=== PATIENT | female | born 1950 | race Caucasian/White ===

== ENCOUNTER 2018-02-16 05:35 | Inpatient (IN) | payer MEDICARE ==
[~2018-02-16] VITALS: Ht 162.6 cm; Wt 64.7 kg
[2018-02-16] VITALS (29 sets, daily range): BP systolic 88–153; BP diastolic 43–87; BMI 23.8
[2018-02-16] MEDS ORDERED: PACERONE100 MG PO (07:29)
[2018-02-16] MEDS ORDERED: ABILIFY2 MG PO (07:29)
[2018-02-16] MEDS ORDERED: ELIQUIS5 MG PO (07:30)
[2018-02-16] MEDS ORDERED: CYMBALTA60 MG PO (07:30)
[2018-02-16] MEDS ORDERED: CYMBALTA30 MG PO (07:30)
[2018-02-16] MEDS ORDERED: GUAIFENESI100 MG/5 M PO (07:32)
[2018-02-16] MEDS ORDERED: FUROSEMIDE20 MG PO (07:33)
[2018-02-16] MEDS ORDERED: LYRICA75 MG PO (07:33)
[2018-02-16] MEDS ORDERED: KLONOPIN0.5 MG PO (07:33)
[2018-02-16] MEDS ORDERED: METOPROLOL TART25 MG PO (07:34)
[2018-02-16] MEDS ORDERED: MIRALAX17 GM PO (07:34)
[2018-02-16] MEDS ORDERED: MEDROL4 MG PO (07:34)
[2018-02-16] MEDS ORDERED: MULTI-DAY VITAM1 TAB PO (07:35)
[2018-02-16] MEDS ORDERED: SYNTHROID175 MCG PO (07:35)
[2018-02-16] MEDS ORDERED: ULTRAM50 MG PO (07:35)
[2018-02-16] MEDS ORDERED: REMERON15 MG PO (07:35)
[2018-02-16] MEDS ORDERED: ZOFRAN4 MG (07:36)
[2018-02-16 07:47] LABS: BASOPHILS 0.2 % (0-2); EOSINOPHILS 0 % (0-7); HEMATOCRIT 43.6 % (36.0-48.0); HEMOGLOBIN 13.1 g/dL (12-16); IMMATURE GRANULOCYTES 0.3 % (0-5); LYMPHOCYTES 5.5 % (15-50); MCH 28.6 pg (26.0-34.0); MCV 95.2 fL (80.0-100.0); MEAN PLATELET VOLUME 9.9 fL (7.4-10.4); MONOCYTES 13.8 % (2-11); NEUTROPHILS 80.2 % (40-80); PLATELET COUNT 326 10x3/uL (130-400); RBC 4.58 10x6/uL (4.00-5.40); RDW 15.7 % (11.5-14.5); WBC 11.6 10x3/uL (4.8-10.8)
[2018-02-16 07:55] LABS: ALBUMIN 2.8 g/dL (3.4-5.0); ALKALINE PHOSPHATASE 141 U/L (46-116); ALT (SGPT) 26 U/L (10-68); CALC OSMOLALITY 277 mosm/kg (275-300); CALCIUM 8.3 mg/dL (8.5-10.1); CARBON DIOXIDE 39.7 mmol/L (21.0-32.0); CHLORIDE - SERUM 102 mmol/L (98-107); CREATININE - SERUM 0.6 mg/dL (0.6-1.3); GLUCOSE 93 mg/dL (74-106); POTASSIUM - SERUM 4.4 mmol/L (3.5-5.1); PROTEIN - SERUM 6.2 g/dL (6.4-8.2); SODIUM 140 mmol/L (136-145); UREA NITROGEN 9 mg/dL (7-18); eGFR NON AFRICAN AMERICAN > 90 mL/min (90-120)
[2018-02-16 08:06] LABS: INR 1.75 (0.85-1.17); PROTIME 19.9 SECONDS (11.6-15.0)
[2018-02-16 08:07] LABS: CKMB 3.4 U/L (0.0-3.6); CREATINE KINASE 191 UL (21-215); D-DIMER-QUANTITATIVE 0.59 ug/mLFEU (0.20-0.54); TROPONIN-I < 0.017 ng/mL (0.000-0.060)
[2018-02-16 11:50] LABS: CKMB 3.1 U/L (0.0-3.6); CREATINE KINASE 226 UL (21-215); TROPONIN-I < 0.017 ng/mL (0.000-0.060)
[2018-02-16 18:56] LABS: CREATINE KINASE 140 UL (21-215); TROPONIN-I < 0.017 ng/mL (0.000-0.060)
[2018-02-16 23:19] LABS: CKMB 3.4 U/L (0.0-3.6); CREATINE KINASE 199 UL (21-215)
[2018-02-16 23:26] LABS: TROPONIN-I < 0.017 ng/mL (0.000-0.060)
[2018-02-17] VITALS (24 sets, daily range): BP systolic 108–165; BP diastolic 64–88; BMI 23.8
[2018-02-17 07:20] LABS: ALBUMIN 2.4 g/dL (3.4-5.0); ALKALINE PHOSPHATASE 129 U/L (46-116); ALT (SGPT) 20 U/L (10-68); BILIRUBIN - TOTAL 0.71 mg/dL (0.2-1.3); CALC OSMOLALITY 276 mosm/kg (275-300); CALCIUM 8.2 mg/dL (8.5-10.1); CHLORIDE - SERUM 102 mmol/L (98-107); CREATININE - SERUM 0.6 mg/dL (0.6-1.3); GLUCOSE 116 mg/dL (74-106); POTASSIUM - SERUM 4.1 mmol/L (3.5-5.1); PROTEIN - SERUM 5.9 g/dL (6.4-8.2); SODIUM 138 mmol/L (136-145); eGFR NON AFRICAN AMERICAN > 90 mL/min (90-120)
[2018-02-17 07:24] LABS: UREA NITROGEN 12 mg/dL (7-18)
[2018-02-17 08:36] LABS: BASOPHILS 0.1 % (0-2); EOSINOPHILS 0 % (0-7); HEMATOCRIT 40.1 % (36.0-48.0); HEMOGLOBIN 12.7 g/dL (12-16); IMMATURE GRANULOCYTES 0.2 % (0-5); LYMPHOCYTES 5.8 % (15-50); MCH 28.1 pg (26.0-34.0); MCHC 31.7 g/dL (31.0-37.0); NEUTROPHILS 90.9 % (40-80); PLATELET COUNT 317 10x3/uL (130-400); RBC 4.52 10x6/uL (4.00-5.40); RDW 15.4 % (11.5-14.5); WBC 8.7 10x3/uL (4.8-10.8)
[2018-02-17 08:52] LABS: MCV 88.7 fL (80.0-100.0)
[2018-02-17 11:56] LABS: UDS - AMPHET NEGATIVE QUAL (NEGATIVE); UDS - BARB NEGATIVE QUAL (NEGATIVE); UDS - BENZO POSITIVE QUAL (NEGATIVE); UDS - COCAINE NEGATIVE QUAL (NEGATIVE); UDS - OPIATE POSITIVE QUAL (NEGATIVE); UDS - PCP NEGATIVE QUAL (NEGATIVE); UDS - THC NEGATIVE QUAL (NEGATIVE)
[2018-02-18] VITALS (24 sets, daily range): BP systolic 112–165; BP diastolic 60–92
[2018-02-18 05:46] LABS: BASOPHILS 0.1 % (0-2); EOSINOPHILS 0 % (0-7); HEMATOCRIT 39.1 % (36.0-48.0); HEMOGLOBIN 12.6 g/dL (12-16); IMMATURE GRANULOCYTES 0.5 % (0-5); LYMPHOCYTES 9.3 % (15-50); MCH 28.4 pg (26.0-34.0); MCHC 32.2 g/dL (31.0-37.0); MCV 88.3 fL (80.0-100.0); MEAN PLATELET VOLUME 10.2 fL (7.4-10.4); MONOCYTES 8.5 % (2-11); NEUTROPHILS 81.6 % (40-80); PLATELET COUNT 375 10x3/uL (130-400); RBC 4.43 10x6/uL (4.00-5.40); RDW 15.6 % (11.5-14.5); WBC 8.9 10x3/uL (4.8-10.8)
[2018-02-18 05:59] LABS: ALBUMIN 2.2 g/dL (3.4-5.0); ALKALINE PHOSPHATASE 111 U/L (46-116); ALT (SGPT) 19 U/L (10-68); CALC OSMOLALITY 279 mosm/kg (275-300); CALCIUM 7.9 mg/dL (8.5-10.1); CARBON DIOXIDE 30.5 mmol/L (21.0-32.0); CHLORIDE - SERUM 105 mmol/L (98-107); GLUCOSE 123 mg/dL (74-106); POTASSIUM - SERUM 4.1 mmol/L (3.5-5.1); PROTEIN - SERUM 5.7 g/dL (6.4-8.2); SODIUM 140 mmol/L (136-145); UREA NITROGEN 12 mg/dL (7-18)
[2018-02-18 06:06] LABS: CREATININE - SERUM 0.4 mg/dL (0.6-1.3); eGFR NON AFRICAN AMERICAN > 90 mL/min (90-120)
[2018-02-19] VITALS (21 sets, daily range): BP systolic 106–152; BP diastolic 52–89
[2018-02-19 05:11] LABS: BASOPHILS 0.2 % (0-2); EOSINOPHILS 0 % (0-7); HEMATOCRIT 38.1 % (36.0-48.0); IMMATURE GRANULOCYTES 0.5 % (0-5); LYMPHOCYTES 12.9 % (15-50); MCHC 31.5 g/dL (31.0-37.0); MEAN PLATELET VOLUME 9.6 fL (7.4-10.4); MONOCYTES 10.8 % (2-11); NEUTROPHILS 75.6 % (40-80); PLATELET COUNT 325 10x3/uL (130-400); RBC 4.28 10x6/uL (4.00-5.40); RDW 15.5 % (11.5-14.5)
[2018-02-19 05:17] LABS: WBC 6.6 10x3/uL (4.8-10.8)
[2018-02-19 05:27] LABS: ALBUMIN 2.1 g/dL (3.4-5.0); ALKALINE PHOSPHATASE 97 U/L (46-116); ALT (SGPT) 17 U/L (10-68); BILIRUBIN - TOTAL 0.58 mg/dL (0.2-1.3); CALC OSMOLALITY 281 mosm/kg (275-300); CALCIUM 7.6 mg/dL (8.5-10.1); CARBON DIOXIDE 34.3 mmol/L (21.0-32.0); CHLORIDE - SERUM 106 mmol/L (98-107); CREATININE - SERUM 0.4 mg/dL (0.6-1.3); GLUCOSE 95 mg/dL (74-106); MAGNESIUM - SERUM 1.7 mg/dL (1.8-2.4); PHOSPHOROUS 3.2 mg/dL (2.5-4.9); POTASSIUM - SERUM 3.8 mmol/L (3.5-5.1); PROTEIN - SERUM 5.4 g/dL (6.4-8.2); SODIUM 142 mmol/L (136-145); UREA NITROGEN 11 mg/dL (7-18); eGFR NON AFRICAN AMERICAN > 90 mL/min (90-120)
[2018-02-20 03:00] VITALS: BP 137/71
[2018-02-20 06:13] LABS: BASOPHILS 0 % (0-2); EOSINOPHILS 0 % (0-7); HEMATOCRIT 41.8 % (36.0-48.0); IMMATURE GRANULOCYTES 0.8 % (0-5); MCH 27.8 pg (26.0-34.0); MCHC 31.1 g/dL (31.0-37.0); MCV 89.5 fL (80.0-100.0); MEAN PLATELET VOLUME 9.5 fL (7.4-10.4); NEUTROPHILS 75.2 % (40-80); PLATELET COUNT 336 10x3/uL (130-400); RBC 4.67 10x6/uL (4.00-5.40); RDW 15.5 % (11.5-14.5)
[2018-02-20 06:16] LABS: WBC 8.4 10x3/uL (4.8-10.8)
[2018-02-20 07:00] VITALS: BP 117/60
[2018-02-20 07:32] LABS: ALBUMIN 2.3 g/dL (3.4-5.0); ALKALINE PHOSPHATASE 98 U/L (46-116); ALT (SGPT) 17 U/L (10-68); BILIRUBIN - TOTAL 0.38 mg/dL (0.2-1.3); CALC OSMOLALITY 282 mosm/kg (275-300); CALCIUM 8.2 mg/dL (8.5-10.1); CARBON DIOXIDE 33.2 mmol/L (21.0-32.0); CHLORIDE - SERUM 105 mmol/L (98-107); CREATININE - SERUM 0.5 mg/dL (0.6-1.3); GLUCOSE 118 mg/dL (74-106); MAGNESIUM - SERUM 1.9 mg/dL (1.8-2.4); PHOSPHOROUS 3.4 mg/dL (2.5-4.9); POTASSIUM - SERUM 4.2 mmol/L (3.5-5.1); PROTEIN - SERUM 5.6 g/dL (6.4-8.2); SODIUM 141 mmol/L (136-145); eGFR NON AFRICAN AMERICAN > 90 mL/min (90-120)
[2018-02-20 07:40] LABS: UREA NITROGEN 14 mg/dL (7-18)
[2018-02-20 11:00] VITALS: BP 95/67
[2018-02-20 15:00] VITALS: BP 124/72
[2018-02-20 15:56] VITALS: Ht 162.6 cm; Wt 64.7 kg
[2018-02-21 00:02] VITALS: BP 148/87
[2018-02-21 04:36] LABS: BASOPHILS 0.1 % (0-2); EOSINOPHILS 0 % (0-7); HEMATOCRIT 42.8 % (36.0-48.0); HEMOGLOBIN 13.4 g/dL (12-16); IMMATURE GRANULOCYTES 1.1 % (0-5); LYMPHOCYTES 9.2 % (15-50); MCH 28.2 pg (26.0-34.0); MCHC 31.3 g/dL (31.0-37.0); MCV 90.1 fL (80.0-100.0); MEAN PLATELET VOLUME 9.2 fL (7.4-10.4); NEUTROPHILS 81.6 % (40-80); PLATELET COUNT 308 10x3/uL (130-400); RBC 4.75 10x6/uL (4.00-5.40); RDW 15.4 % (11.5-14.5); WBC 8.1 10x3/uL (4.8-10.8)
[2018-02-21 04:54] LABS: ALBUMIN 2.2 g/dL (3.4-5.0); ALKALINE PHOSPHATASE 93 U/L (46-116); ALT (SGPT) 20 U/L (10-68); BILIRUBIN - TOTAL 0.31 mg/dL (0.2-1.3); CALC OSMOLALITY 281 mosm/kg (275-300); CALCIUM 7.8 mg/dL (8.5-10.1); CARBON DIOXIDE 35.1 mmol/L (21.0-32.0); CHLORIDE - SERUM 104 mmol/L (98-107); GLUCOSE 115 mg/dL (74-106); POTASSIUM - SERUM 4.5 mmol/L (3.5-5.1); PROTEIN - SERUM 5.5 g/dL (6.4-8.2); SODIUM 141 mmol/L (136-145); UREA NITROGEN 12 mg/dL (7-18); eGFR NON AFRICAN AMERICAN 88 mL/min (90-120)
[2018-02-21 05:11] LABS: CREATININE - SERUM 0.7 mg/dL (0.6-1.3)
[2018-02-21 06:02] VITALS: BP 158/82
[2018-02-21 08:47] VITALS: BP 141/84
[2018-02-21 12:38] VITALS: BP 138/80
[2018-02-21 16:27] VITALS: BP 114/68; BP 126/79
[2018-02-21 22:07] VITALS: BP 125/73
[2018-02-22 01:57] VITALS: BP 120/77
[2018-02-22 05:30] VITALS: BP 124/55
[2018-02-22 05:48] LABS: BASOPHILS 0.1 % (0-2); EOSINOPHILS 0.1 % (0-7); HEMATOCRIT 42.5 % (36.0-48.0); HEMOGLOBIN 13.2 g/dL (12-16); IMMATURE GRANULOCYTES 1.6 % (0-5); LYMPHOCYTES 9.8 % (15-50); MCH 28.2 pg (26.0-34.0); MCHC 31.1 g/dL (31.0-37.0); MCV 90.8 fL (80.0-100.0); MEAN PLATELET VOLUME 9.7 fL (7.4-10.4); MONOCYTES 7.6 % (2-11); NEUTROPHILS 80.8 % (40-80); PLATELET COUNT 331 10x3/uL (130-400); RBC 4.68 10x6/uL (4.00-5.40); RDW 15.4 % (11.5-14.5)
[2018-02-22 06:02] LABS: WBC 10.9 10x3/uL (4.8-10.8)
[2018-02-22 06:13] LABS: ALBUMIN 2.2 g/dL (3.4-5.0); ALKALINE PHOSPHATASE 91 U/L (46-116); ALT (SGPT) 21 U/L (10-68); BILIRUBIN - TOTAL 0.32 mg/dL (0.2-1.3); CALC OSMOLALITY 279 mosm/kg (275-300); CALCIUM 7.8 mg/dL (8.5-10.1); CARBON DIOXIDE 37.6 mmol/L (21.0-32.0); CHLORIDE - SERUM 102 mmol/L (98-107); GLUCOSE 102 mg/dL (74-106); PROTEIN - SERUM 5.3 g/dL (6.4-8.2); SODIUM 140 mmol/L (136-145); UREA NITROGEN 14 mg/dL (7-18)
[2018-02-22 06:18] LABS: CREATININE - SERUM 0.5 mg/dL (0.6-1.3); eGFR NON AFRICAN AMERICAN > 90 mL/min (90-120)
[2018-02-22 07:54] VITALS: BP 134/80
[2018-02-22 11:29] VITALS: BP 105/69
[2018-02-22 15:34] VITALS: BP 97/55
[2018-02-22 19:44] VITALS: BP 99/57
[2018-02-23 01:25] VITALS: BP 105/68
[2018-02-23 05:58] VITALS: BP 120/76
[2018-02-23 06:35] LABS: BASOPHILS 0.1 % (0-2); EOSINOPHILS 0 % (0-7); HEMATOCRIT 44.5 % (36.0-48.0); HEMOGLOBIN 13.8 g/dL (12-16); IMMATURE GRANULOCYTES 1.8 % (0-5); LYMPHOCYTES 8.2 % (15-50); MCH 28.6 pg (26.0-34.0); MCV 92.1 fL (80.0-100.0); MEAN PLATELET VOLUME 9.7 fL (7.4-10.4); MONOCYTES 4.6 % (2-11); NEUTROPHILS 85.3 % (40-80); PLATELET COUNT 349 10x3/uL (130-400); RBC 4.83 10x6/uL (4.00-5.40); RDW 15.6 % (11.5-14.5); WBC 9.6 10x3/uL (4.8-10.8)
[2018-02-23 07:02] LABS: ALBUMIN 2.2 g/dL (3.4-5.0); ALKALINE PHOSPHATASE 89 U/L (46-116); ALT (SGPT) 23 U/L (10-68); BILIRUBIN - TOTAL 0.32 mg/dL (0.2-1.3); CALC OSMOLALITY 281 mosm/kg (275-300); CALCIUM 7.9 mg/dL (8.5-10.1); CARBON DIOXIDE 38.3 mmol/L (21.0-32.0); CHLORIDE - SERUM 103 mmol/L (98-107); CREATININE - SERUM 0.5 mg/dL (0.6-1.3); GLUCOSE 127 mg/dL (74-106); POTASSIUM - SERUM 4.5 mmol/L (3.5-5.1); PROTEIN - SERUM 5.2 g/dL (6.4-8.2); SODIUM 140 mmol/L (136-145); UREA NITROGEN 14 mg/dL (7-18); eGFR NON AFRICAN AMERICAN > 90 mL/min (90-120)
[2018-02-23 09:31] VITALS: BP 133/76
== END 2018-02-23 19:28 | DRG 208 ==
LOC: D.ER 05:35 → D.M2 10:27 → D.ICU 10:27 → D.EDHOLD 10:27 → D.ICU 15:31 → D.M2 02-20 17:36
PROVIDERS: Family Medicine; Internal Medicine Hematology; Internal Medicine Pulmonary Disease
PROC: 5A1945Z Respiratory Ventilation, 24-96 Consecutive Hours (ICD-10-PCS; principal; 2018-02-16)
PROC: 0BH17EZ Insertion of Endotracheal Airway into Trachea, Via Natural or Artificial Opening (ICD-10-PCS; 2018-02-16)
PROC: 05HY33Z Insertion of Infusion Device into Upper Vein, Percutaneous Approach (ICD-10-PCS; 2018-02-17)
DX: J18.9 Pneumonia, unspecified organism (principal); J96.21 Acute and chronic respiratory failure with hypoxia; J96.22 Acute and chronic respiratory failure with hypercapnia; J44.1 Chronic obstructive pulmonary disease with (acute) exacerbation; F17.200 Nicotine dependence, unspecified, uncomplicated; S40.012A Contusion of left shoulder, initial encounter; W19.XXXA Unspecified fall, initial encounter; E03.9 Hypothyroidism, unspecified; F41.8 Other specified anxiety disorders; I50.9 Heart failure, unspecified; R41.82 Altered mental status, unspecified; I10 Essential (primary) hypertension; E83.42 Hypomagnesemia; R53.81 Other malaise

== ENCOUNTER 2018-09-21 18:13 | Inpatient (IN) | payer MEDICARE ==
[~2018-09-21] VITALS: Ht 162.6 cm; Wt 63.0 kg
[~2018-09-21 18:13] MED LIST: ABILIFY2 MG PO; CYMBALTA30 MG PO; CYMBALTA60 MG PO; ELIQUIS5 MG PO; FUROSEMIDE20 MG PO; GUAIFENESI100 MG/5 M PO; KLONOPIN0.5 MG PO; LYRICA75 MG PO; MEDROL4 MG PO; METOPROLOL TART25 MG PO; MIRALAX17 GM PO; MULTI-DAY VITAM1 TAB PO; PACERONE100 MG PO; REMERON15 MG PO; SYNTHROID175 MCG PO; ULTRAM50 MG PO; ZOFRAN4 MG
[2018-09-22 01:49] LABS: BASOPHILS 0 % (0-2); EOSINOPHILS 0 % (0-7); HEMATOCRIT 40.2 % (36.0-48.0); HEMOGLOBIN 12.4 g/dL (12-16); IMMATURE GRANULOCYTES 0.4 % (0-5); LYMPHOCYTES 10.6 % (15-50); MCHC 30.8 g/dL (31.0-37.0); MCV 93.9 fL (80.0-100.0); MEAN PLATELET VOLUME 9.1 fL (7.4-10.4); MONOCYTES 5.2 % (2-11); NEUTROPHILS 83.8 % (40-80); PLATELET COUNT 285 10x3/uL (130-400); RBC 4.28 10x6/uL (4.00-5.40); RDW 14.6 % (11.5-14.5); WBC 8.5 10x3/uL (4.8-10.8)
[2018-09-22 02:00] LABS: ALBUMIN 2.8 g/dL (3.4-5.0); ALKALINE PHOSPHATASE 132 U/L (46-116); ALT (SGPT) 18 U/L (10-68); BILIRUBIN - TOTAL 0.27 mg/dL (0.2-1.3); CALC OSMOLALITY 281 mosm/kg (275-300); CALCIUM 8.5 mg/dL (8.5-10.1); CARBON DIOXIDE 36.4 mmol/L (21.0-32.0); CHLORIDE - SERUM 100 mmol/L (98-107); CREATININE - SERUM 0.6 mg/dL (0.6-1.3); GLUCOSE 140 mg/dL (74-106); MAGNESIUM - SERUM 1.9 mg/dL (1.8-2.4); POTASSIUM - SERUM 3.7 mmol/L (3.5-5.1); PROTEIN - SERUM 5.8 g/dL (6.4-8.2); SODIUM 140 mmol/L (136-145); UREA NITROGEN 15 mg/dL (7-18); eGFR NON AFRICAN AMERICAN > 90 mL/min (90-120)
[2018-09-22] MEDS ORDERED: PRED FORTE5 ML LEFT EYE (02:35)
[2018-09-22 02:54] VITALS: BP 151/83; BMI 23.9
[2018-09-22 06:09] LABS: HEMOGLOBIN 13.4 g/dL (12-16); LYMPHOCYTES 11.1 % (15-50); MCH 29.3 pg (26.0-34.0); MCHC 31.2 g/dL (31.0-37.0); MCV 93.9 fL (80.0-100.0); MEAN PLATELET VOLUME 9.2 fL (7.4-10.4); PLATELET COUNT 294 10x3/uL (130-400); RBC 4.58 10x6/uL (4.00-5.40); RDW 14.6 % (11.5-14.5); WBC 7.9 10x3/uL (4.8-10.8)
[2018-09-22 06:38] LABS: ALBUMIN 2.9 g/dL (3.4-5.0); ALKALINE PHOSPHATASE 136 U/L (46-116); ALT (SGPT) 22 U/L (10-68); BILIRUBIN - TOTAL 0.26 mg/dL (0.2-1.3); CALC OSMOLALITY 281 mosm/kg (275-300); CALCIUM 8.4 mg/dL (8.5-10.1); CARBON DIOXIDE 33.9 mmol/L (21.0-32.0); CHLORIDE - SERUM 100 mmol/L (98-107); CREATININE - SERUM 0.5 mg/dL (0.6-1.3); GLUCOSE 132 mg/dL (74-106); PROTEIN - SERUM 5.6 g/dL (6.4-8.2); SODIUM 140 mmol/L (136-145); UREA NITROGEN 16 mg/dL (7-18); eGFR NON AFRICAN AMERICAN > 90 mL/min (90-120)
--- NOTE | 2018-09-22 07:47 | NUR ---
AWAKE AND ALERT. ORIENTED X3. C/O SOB THIS AM. DISCUSSED USE OF STEROIDS TO HELP WITH BREATHING. O2 AT 2L NC. LUNGS HAVE WET WHEEZES THROUGHOUT LUNG PEÑALOZA. OCCASSSIONAL PRODUCTIVE COUGH NOTED. SKIN IS INTACT WITHOUT REDNESS. SL TO RIGHT FOREARM IS PATENT WITHOUT REDNESS AT INSERTION SITE. DENIES NEEDS.
[2018-09-22 08:44] VITALS: BP 141/76
--- NOTE | 2018-09-22 10:06 | NUR ---
ATE ALMOST ALL OF BREAKFAST. GIVEN BATH AND LINENS CHANGED PER STAFF.
[2018-09-22 11:01] VITALS: BMI 23.8
[2018-09-22 11:40] VITALS: BP 142/85
[2018-09-22 15:45] VITALS: Ht 162.6 cm; Wt 63.0 kg
[2018-09-22 16:00] VITALS: BP 118/66
--- NOTE | 2018-09-22 16:20 | NUR ---
INCONTINENT OF MODERATE AMOUNT OF GRAINY LIGHT BROWN STOOL. SKIN CARE PER STAFF. POSITIONED IN BED FOR COMFORT.
--- NOTE | 2018-09-22 17:25 | NUR ---
REQUESTED AND GIVEN 50MG ULTRAM PO FOR C/O BACK AND ABDOMINAL PAIN LEVEL 10. WILL MONITOR. ATE ONLY A COUPLE OF BITES OF SUPPER. REFUSED OFFER OF ALTERNATIVE MEAL. DENIES NEEDS. STILL C/O ABDOMINAL PAIN.
[2018-09-22 19:34] VITALS: BP 138/72
--- NOTE | 2018-09-22 20:15 | NUR ---
THE PATIENT WAS IN HER BED AND WATCHING TELEVISION WHEN STAFF ENTERED HER ROOM. BED IS IN THE LOW POSITION WITH SIDERAILS X2 AND CALL LIGHT WITHIN REACH. PATIENT DEMONSTRATES APPROPRIATE USE OF A CALL LIGHT. THE PATIENT APPEARS COMFORTABLE WITH NO QUESTIONS OR COCNERNS AT THIS TIME.
[2018-09-22 23:35] VITALS: BP 139/72
--- NOTE | 2018-09-23 02:27 | NUR ---
THE PATIENT IS AWAKE AND REQUESTA A FEMALE TO CHANGE HER LINENS. TECH IS CHANGING HER LININS. THE PATIENT HAS NO OTHER QUESTIONS OR CONCERNS.
[2018-09-23 04:00] VITALS: BP 167/74
[2018-09-23 06:08] LABS: BASOPHILS 0.1 % (0-2); EOSINOPHILS 0 % (0-7); HEMATOCRIT 42.2 % (36.0-48.0); HEMOGLOBIN 12.6 g/dL (12-16); IMMATURE GRANULOCYTES 0.4 % (0-5); LYMPHOCYTES 8.7 % (15-50); MCH 28.4 pg (26.0-34.0); MCHC 29.9 g/dL (31.0-37.0); MEAN PLATELET VOLUME 9.3 fL (7.4-10.4); MONOCYTES 4.2 % (2-11); NEUTROPHILS 86.6 % (40-80); PLATELET COUNT 315 10x3/uL (130-400); RBC 4.44 10x6/uL (4.00-5.40); RDW 14.8 % (11.5-14.5)
[2018-09-23 06:28] LABS: ALBUMIN 2.7 g/dL (3.4-5.0); ALKALINE PHOSPHATASE 127 U/L (46-116); ALT (SGPT) 20 U/L (10-68); BILIRUBIN - TOTAL 0.27 mg/dL (0.2-1.3); CALC OSMOLALITY 282 mosm/kg (275-300); CALCIUM 8.1 mg/dL (8.5-10.1); CARBON DIOXIDE 35.1 mmol/L (21.0-32.0); CHLORIDE - SERUM 101 mmol/L (98-107); CREATININE - SERUM 0.6 mg/dL (0.6-1.3); GLUCOSE 125 mg/dL (74-106); POTASSIUM - SERUM 3.7 mmol/L (3.5-5.1); PROTEIN - SERUM 5.7 g/dL (6.4-8.2); SODIUM 141 mmol/L (136-145); UREA NITROGEN 14 mg/dL (7-18); eGFR NON AFRICAN AMERICAN > 90 mL/min (90-120)
[2018-09-23 08:39] VITALS: BP 167/87
[2018-09-23 12:00] VITALS: BP 154/84
--- NOTE | 2018-09-23 12:27 | NUR ---
ALERT AND ORIENTED X 3. EXPIRATORY WHEEZES NOTED X4 POSTERIOR. CAP REFILL <3 SEC. ULTRAM AND ADVIL TAKEN PRN BACK PAIN AND EFFECTIVE. O2 4 LITERS N/C. IVF INFUSING AT PRESCRIBED RATED AND TLEEMETRY INTACT. PT. VERY ORIENTED TO USE OF CALL LIGHT FOR ASSIST. TELEMETRY INTACT
[2018-09-23 16:00] VITALS: BP 137/80
--- NOTE | 2018-09-23 19:30 | NUR ---
LYING IN BED. ALERT AND ORIENTED X4. RESP IRREG AND LABORED. SOB WITH MIN EXERTION. ANXIOUS AND IRRITABLE. TELEMETRY SHOWS SB WITH RATE OF 53. NS @ 10 ML/HR INFUSING IN RT FOREARM WITHOUT DIFF. REPORTS PAIN IN BACK AND CHEST. COUGH NOTED. INCONT OF URINE. SR ELEVATED X2. CL IN REACH.
[2018-09-23 20:00] VITALS: BP 148/77
--- NOTE | 2018-09-23 22:01 | NUR ---
YELLING OUT STAFF WALKED BY HER ROOM. STATES SHE CANT BREATHE. SAO2 96% OFFERED UD BUT STATES THAT IT DOESNT WORK. NOTIFIED RT. ARGUED WITH RT ABOUT UD NOT WORKING AND WANTING MDI. REQEUSTED ANXIETY MED AND PAIN MED. MEDICATED WITH KLONOPIN BUT NOT TIME FOR PAIN MED. PT STATES, "WHY ARENT YOU GIVING ME MY PAIN MED?" EXPLAINED THAT IT ISNT DUE YET AND PT STILL STATES, "WELL, WHY CANT YOU GIVE IT TO ME?".
[2018-09-24] VITALS: BP 169/66
--- NOTE | 2018-09-24 02:01 | NUR ---
HAS SLEPT WELL UNTIL NOW. SITTING UP IN BED EATING AND WATCHING TV. NO DISTRESS. CL IN REACH. THANKED STAFF FOR "BEING SO NICE".
[2018-09-24 04:00] VITALS: BP 148/82
[2018-09-24 04:32] LABS: BASOPHILS 0 % (0-2); EOSINOPHILS 0 % (0-7); HEMATOCRIT 42.2 % (36.0-48.0); HEMOGLOBIN 12.7 g/dL (12-16); IMMATURE GRANULOCYTES 0.4 % (0-5); LYMPHOCYTES 7.4 % (15-50); MCH 28.4 pg (26.0-34.0); MCHC 30.1 g/dL (31.0-37.0); MCV 94.4 fL (80.0-100.0); MEAN PLATELET VOLUME 8.9 fL (7.4-10.4); NEUTROPHILS 88.2 % (40-80); PLATELET COUNT 271 10x3/uL (130-400); RBC 4.47 10x6/uL (4.00-5.40); RDW 14.3 % (11.5-14.5); WBC 7.3 10x3/uL (4.8-10.8)
[2018-09-24 04:50] LABS: ALBUMIN 2.7 g/dL (3.4-5.0); ALKALINE PHOSPHATASE 134 U/L (46-116); ALT (SGPT) 25 U/L (10-68); BILIRUBIN - TOTAL 0.19 mg/dL (0.2-1.3); CALCIUM 8.1 mg/dL (8.5-10.1); CHLORIDE - SERUM 100 mmol/L (98-107); CREATININE - SERUM 0.6 mg/dL (0.6-1.3); POTASSIUM - SERUM 3.6 mmol/L (3.5-5.1); PROTEIN - SERUM 5.6 g/dL (6.4-8.2); SODIUM 143 mmol/L (136-145); UREA NITROGEN 15 mg/dL (7-18); eGFR NON AFRICAN AMERICAN > 90 mL/min (90-120)
[2018-09-24 04:59] LABS: CALC OSMOLALITY 289 mosm/kg (275-300); GLUCOSE 177 mg/dL (74-106)
[2018-09-24 05:00] LABS: CARBON DIOXIDE 40.9 mmol/L (21.0-32.0)
--- NOTE | 2018-09-24 07:15 | NUR ---
REC'D IN ROOM AWAKE AND ALERT. RESP EVEN AND UNLABORED WITH NO DISTRESS NOTED. NO C/O NOTED OR VOICED. ASSESSMENT COMPLETED. C/L IN REACH AT BEDSIDE.
[2018-09-24 07:55] VITALS: BP 168/79
--- NOTE | 2018-09-24 08:35 | NUR ---
PATIENT RESTING IN BED EATING BREAKFAST, NO NEEDS VOICED. RESPIRATONS NONLABORED BY PATIENT REPORTS SHORTNESS OF BREATH. CL IN REACH
--- NOTE | 2018-09-24 09:59 | NUR ---
TRIED TO OBTAIN CLEAN CATCH FOR UA BUT WAS UNABLE TO OBTAIN AND PT REFUSE TO GET UP AND SIT ON BSC WITH ASSISTANACE FROM THIS NURSE WELL STUDENT NURSE. C/L IN REACH AT BEDSIDE.
--- NOTE | 2018-09-24 10:14 | NUR ---
MEDICATED WITH TRAMADOL FOR C/O PAIN RATING 10/10 ON PAIN SCALE TO GENERALIZED AREAS. C/L IN REACH AT BEDSIDE.
[2018-09-24 13:00] VITALS: BP 154/82
--- NOTE | 2018-09-24 14:02 | NUR ---
MEDICATED WITH KLONOPIN FOR C/O ANXIETY PER PATIENT REQUEST. C/L IN REACH AT BEDSIDE.
--- NOTE | 2018-09-24 15:57 | NUR ---
C/O HEADACHE WAS MEDICATED WITH ADVAIL PER ORDERS. C/L IN REACH AT BEDSIDE.
[2018-09-24 16:00] VITALS: BP 145/97
--- NOTE | 2018-09-24 18:27 | NUR ---
MEDICATED WITH ULTRAM PER REQUEST FOR C/O FOOT PAIN. C/L IN REACH AT BEDSIDE.
--- NOTE | 2018-09-24 19:30 | NUR ---
LYING IN BED. ALERT AND ORIENTED X4 BUT CONFUSED/FORGETFUL. RESP IRREG. STATES SHE IS SOB. SAO2 WNL. O2 @ 3L/NC. ANXIOUS AND IRRITABLE. WANTS OXYGEN INCREASED BUT THEN A FEW MINUTES LATER ASKS FOR IT TO BE DECREASED. NONPROD COUGH NOTED. NS @ 10 ML/HR INFUSING IN RT FOREARM WITHOUT DIFF. TELEMETRY SHOWS SR WITH RATE OF 61. NO EDEMA NOTED. REFUSES TO GET UP AND AMB TO BR. SR ELEVATED X2. CL IN REACH.
[2018-09-24 20:00] VITALS: BP 141/77
[2018-09-25] VITALS: BP 173/82
[2018-09-25 04:00] VITALS: BP 176/84
[2018-09-25 04:10] LABS: BASOPHILS 0 % (0-2); EOSINOPHILS 0 % (0-7); HEMATOCRIT 42.3 % (36.0-48.0); HEMOGLOBIN 12.9 g/dL (12-16); IMMATURE GRANULOCYTES 0.6 % (0-5); MCH 28.4 pg (26.0-34.0); MCHC 30.5 g/dL (31.0-37.0); MONOCYTES 5.3 % (2-11); NEUTROPHILS 85.1 % (40-80); PLATELET COUNT 308 10x3/uL (130-400); RBC 4.55 10x6/uL (4.00-5.40); RDW 14.1 % (11.5-14.5); WBC 8.4 10x3/uL (4.8-10.8)
[2018-09-25 04:38] LABS: ALBUMIN 2.6 g/dL (3.4-5.0); ALKALINE PHOSPHATASE 124 U/L (46-116); ALT (SGPT) 22 U/L (10-68); BILIRUBIN - TOTAL 0.25 mg/dL (0.2-1.3); CALC OSMOLALITY 284 mosm/kg (275-300); CALCIUM 8.3 mg/dL (8.5-10.1); CARBON DIOXIDE 38.7 mmol/L (21.0-32.0); CHLORIDE - SERUM 97 mmol/L (98-107); CREATININE - SERUM 0.5 mg/dL (0.6-1.3); GLUCOSE 157 mg/dL (74-106); POTASSIUM - SERUM 3.6 mmol/L (3.5-5.1); PROTEIN - SERUM 5.7 g/dL (6.4-8.2); SODIUM 140 mmol/L (136-145); eGFR NON AFRICAN AMERICAN > 90 mL/min (90-120)
[2018-09-25 04:44] LABS: UREA NITROGEN 20 mg/dL (7-18)
--- NOTE | 2018-09-25 07:45 | NUR ---
BP IS UP THIS AM. GIVEN SCHEDULED MEDS EARLY FOR MANAGEMENT OF SAME. ALSO REQUESTED AND GIVEN PO CLONIPIN FOR ANXIETY. WILL MONITOR. LUNGS HAVE INSPIRATORY WHEEZES THROUGHOUT LUNG PEÑALOZA. NON PRODUCTIVE COUGH NOTED. IV TO RIGHT FOREARM IS PATENT WITHOUT REDNESS AT INSERTION SITE.
[2018-09-25 08:04] VITALS: BP 190/69
--- NOTE | 2018-09-25 09:35 | NUR ---
ATE MOST OF BREAKFAST. MUCH CALMER NOW. DENIES NEEDS.
--- NOTE | 2018-09-25 10:34 | NUR ---
NUTRITION F/U PT WITH GOOD INTAKE BREAKFAST. WILL CONTINUE TO PROVIDE DIET, HONOR FOOD PREFERENCES, MONITOR INTAKE. RD FOLLOWING
--- NOTE | 2018-09-25 11:20 | NUR ---
REQUESTED AND GIVEN 200MG IBUPROFEN PO FOR C/O HEADACHE. WILL MONITOR.
[2018-09-25 11:55] VITALS: BP 157/85
--- NOTE | 2018-09-25 12:30 | NUR ---
LUNCH SERVED IN ROOM. STILL C/O ANXIETY. WILL CONTINUE TO MONITOR.
--- NOTE | 2018-09-25 12:30 | NUR ---
CONTINUES TO C/O HEADACHE AND ANXIETY. SPOKE WITH NEVAEH JACOBS C/O. NEW ORDERS RECEIVED FOR ONE TIME DOSE OF IBUPROFEN. GIVEN TO PATIENT. WILL MONITOR.
--- NOTE | 2018-09-25 13:20 | MORECARE ---
CASE MANAGEMENT DISCHARGE SUMMARY PATIENT: ELIZABETH BUSTAMANTE UNIT: [id number] ADM DATE: 09/22/18 AGE: 68 : 48 SEX: F ROOM/BED: D.2202 AUTHOR: BLANKA MCNAIR PHYSICIAN: REFERRING PHYSICIAN: MINOR GRIFFIN MD DATE OF SERVICE: 09/25/18 Discharge Plan Patient Name: ELIZABETH BUSTAMANTE [facility] 1950 Planned Disposition: [facility] Facility Anticipated Discharge Date: Discharge Date: Expected LOS: Initial Reviewer: [email or web address] Initial Review Date: 09/22/2018 Generated: 09/25/18 2:20 pm Patient Name: ELIZABETH BUSTAMANTE Page [phone] at 1320 All edits/amendments must be made on the electronic document DICTATION DATE: 09/25/18 1319 SENIOR ATTORNEY: ALYSSIA 09/25/18 1319 RPT#: [id number] DC DATE: STATUS: ADM IN [facility] [address] [place] [address] END OF REPORT
--- NOTE | 2018-09-25 13:28 | MORECARE ---
CASE MANAGEMENT DISCHARGE SUMMARY PATIENT: ELIZABETH WRAY UNIT: [id number] ADM DATE: 09/22/18 AGE: 68 : 48 SEX: F ROOM/BED: D.2202 AUTHOR: TABBYDOC PHYSICIAN: REFERRING PHYSICIAN: MINOR GRIFFIN MD DATE OF SERVICE: 09/25/18 Discharge Plan Patient Name: ELIZABETH WRAY Facility: [facility]:[place] : 1950 Planned Disposition: Alf Facility Anticipated Discharge Date: Discharge Date: Expected LOS: Initial Reviewer: [email or web address] Initial Review Date: 09/22/2018 Generated: 09/25/18 2:28 pm Comments DCP- Discharge Planning Updated by [email or web address]: Patricia Andrade on 09/25/18 12:[address] Patient Name: ELIZABETH WRAY Admission Status: Elective Accout number: [id number] Admission Date: 09-22-2018 : 1950 Admission Diagnosis:PNEUMONIA, UNSPECIFIED ORGANISM Attending: MINOR GRIFFIN Current LOS: 3 Anticipated DC Date: Planned Disposition: Alf Facility Primary Insurance: MEDICARE A & B Discharge Planning Comments: CM met with patient to assess discharge planning needs. Patient stated that she came from [facility] where she plans to return at discharge. She stated before rehab she lived independently at home and when she is done with rehab she will go home. She has been at rehab for 6 months. She stated she has a walker, wheelchair, nebulizer and home O2. I called [facility] and spoke with Silvia. Silvia stated that she was a retirement resident and became sick and went to rehab. They will accept her back to a skilled bed when she is stable for discharge. CM will continue to follow and assist with DC planning needs. [facility] Incident Handler: Patricia Andrade DCPIA - Discharge Planning Initial Assessment Updated by [id number]: Patricia Andrade on 09/25/18 1:21 pm * Is the patient Alert and Oriented? Yes * How many steps to enter\exit or inside your home? * PCP Walker (mensah) * Pharmacy [facility] * Preadmission Environment Alf Facility * Facility Name [facility] * ADLs Partial Dependent * Partial ADLs (Assistance needed) Ambulation Bathing Medication Management Transfers * Equipment Nebulizer Oxygen Walker Wheelchair * List name and contact numbers for known caregivers / representatives who currently or will assist patient after discharge: Srini Wray [phone] * Verbal permission to speak to the caregivers and representatives has been obtained from the patient. N/A * Community resources currently utilized None * Additional services required to return to the preadmission environment? No * Can the patient safely return to the preadmission environment? Yes * Has this patient been hospitalized within the prior 30 days at any hospital? No Last DP export: 09/25/18 12:20 p Patient Name: ELIZABETH WRAY Page [phone] at 1328 All edits/amendments must be made on the electronic document DICTATION DATE: 09/25/181327 TRANSIT BUS OPERATOR: ALYSSIA 09/25/188 RPT#: [id number] DC DATE: STATUS: ADM IN [facility] [address] [place] [address] END OF REPORT
--- NOTE | 2018-09-25 15:35 | NUR ---
STATED SHE IS FEELING A LITTLE BETTER AT THIS TIME. WILL CONTINUE TO MONITOR.
[2018-09-25 15:45] VITALS: BP 159/65
--- NOTE | 2018-09-25 18:50 | NUR ---
ATE OVER HALF OF SUPPER TRAY. TO FULL FOR MORE. REFUSED FLONASE, STATED IT GAVE HER A RASH. DENIES NEEDS AT THIS TIME. NO CHANGES NOTED.
[2018-09-25 20:00] VITALS: BP 154/75
--- NOTE | 2018-09-25 20:00 | NUR ---
PT LYING IN BED, NO SIGNS OF DISTRESSS. ALERT AND ORIENTED. O2 2L/NC. EXP WHEEZES AND CRACKLES UPON AUSCULTATION. RIGHT EYE REDDENED. PT STATES EYES ARE DRY AND IRRITATED. PT COMPLAINS OF HEADACHE. REFUSES ULTRAM. REQUESTED XANAX. GAVE ORDERED. REFUSED MUCINEX. PT INCONTINENT OF BOWEL AND BLADDER. CLEANED AND LINENS CHANGED. NO OTHER NEEDS OR COMPLAINTS AT THIS TIME. CL IN REACH, WILL CONTINUE TO MONITOR
[2018-09-26 04:00] VITALS: BP 167/77
[2018-09-26 04:39] LABS: BASOPHILS 0 % (0-2); EOSINOPHILS 0 % (0-7); HEMATOCRIT 41.8 % (36.0-48.0); IMMATURE GRANULOCYTES 0.9 % (0-5); LYMPHOCYTES 10.9 % (15-50); MCH 28.6 pg (26.0-34.0); MCHC 31.1 g/dL (31.0-37.0); MCV 92.1 fL (80.0-100.0); MONOCYTES 6.1 % (2-11); NEUTROPHILS 82.1 % (40-80); PLATELET COUNT 321 10x3/uL (130-400); RBC 4.54 10x6/uL (4.00-5.40); RDW 14.1 % (11.5-14.5); WBC 6.9 10x3/uL (4.8-10.8)
[2018-09-26 05:13] LABS: ALBUMIN 2.5 g/dL (3.4-5.0); ALKALINE PHOSPHATASE 118 U/L (46-116); ALT (SGPT) 19 U/L (10-68); CALC OSMOLALITY 283 mosm/kg (275-300); CALCIUM 8.1 mg/dL (8.5-10.1); CARBON DIOXIDE 39.7 mmol/L (21.0-32.0); CHLORIDE - SERUM 97 mmol/L (98-107); CREATININE - SERUM 0.6 mg/dL (0.6-1.3); GLUCOSE 149 mg/dL (74-106); POTASSIUM - SERUM 3.5 mmol/L (3.5-5.1); PROTEIN - SERUM 5.3 g/dL (6.4-8.2); SODIUM 140 mmol/L (136-145); UREA NITROGEN 19 mg/dL (7-18); eGFR NON AFRICAN AMERICAN > 90 mL/min (90-120)
--- NOTE | 2018-09-26 08:08 | NUR ---
AWAKE AND ALERT. ORIENTED X3. NO C/O AT THIS TIME. IV TO RIGHT FOREARM IS LEAKING. D/C WITH [facility] INTACT. RESITED TO RIGHT FOREARM AFTER ONE ATTEMPT WITH 22G. SKIN IS INTACT WITHOUT REDNESS. LUNGS ARE DIMINIISHED THROUGHOUT WITH FAINT CRACKLES NOTED. OCCASSIONALLY PRODUCTIVE COUGH NOTED. DENIES NEEDS AT THIS TIME.
[2018-09-26 09:15] VITALS: BP 149/72
--- NOTE | 2018-09-26 10:00 | NUR ---
INCONTINENT OF URINE AND STOOL. SKIN CARE AND LINENS CHANGED PER STAFF. DENIES NEEDS.
--- NOTE | 2018-09-26 10:45 | EC ---
PATIENT:ELIZABETH BUSTAMANTE DATE OF SERVICE: 09/22/18 SEX: F MEDICAL RECORD: [id number] DATE OF : [birth year] LOCATION:D.[id number] AGE OF PATIENT: 68 ADMISSION DATE: 09/22/18 REFERRING PHYSICIAN: INTERPRETING PHYSICIAN: DAVID VAN MD ECHOCARDIOGRAM REPORT ECHO CHARGES 4 ECHO COMPLETE Date: 09/24/18 CLINICAL DIAGNOSIS: SOB ECHOCARDIOGRAPHIC MEASUREMENTS (adult normal given) AC root (d.<3.7cm) 2.7 cm LV Septum d (<1.2 cm> 1.5 cm Valve Excursion 1.6 cm LV Septum (systole) 1.8 cm Left Atria (s.<4.0cm> 3.2 cm LVPW d(<1.2cm) 1.7 cm RV (d.<2.3cm) 3.3 cm LVPW (sytole) 1.9 cm LV diastole(<5.6CM) 3.9 cm MV E-F(>70mm/sec) cm LV systole 2.8 cm LVOT Diameter 1.7 cm MV exc.(>10mm) 1.3 cm Est.ejection fraction (50-75%) % DOPPLER: LVIT cm/sec A 82.0 cm/sec E 67.0 cm/sec LA cm/sec RVSP 25 mmHg LVOT 90 cm/sec AOP1/2T m/s Asc. Ao 141 cm/sec RVOT 99 cm/sec RA cm/sec PA 111 cm/sec AV Gradient Peak 7.99 mmHg AV Mean 3.59 mmHg AV Area 1.6 cm MV Gradient Peak 7.83 mmHg MV Mean 1.82 mmHg MV Area cm COMMENTS: Water Purification Chemist: Chevy JORGE Client Services Administrator: 1 Dr. Van TAPE# PACS Pericardial Effusion N DATE OF SERVICE: 09/24/2018 PROCEDURE: Echocardiogram. FINDINGS: 1. Left ventricular chamber size is within normal limits. Left ventricular systolic function is normal. Overall ejection fraction estimated at 55%. 2. Left atrium, right atrium, and right ventricle chamber sizes are within normal limits. 3. Valvular structures have normal structure and motion. ECHOCARDIOGRAM REPORT [id number] ELIZABETH BUSTAMANTE 4. Doppler interrogation reveals mild aortic insufficiency, mild mitral regurgitation, mild tricuspid regurgitation, no other valvular insufficiency or stenosis. Pulmonary systolic pressure is estimated at 25 mmHg. 5. No evidence of pericardial effusion or left ventricular thrombus. TRANSINT:[id number] Voice Confirmation ID: [id number] DOCUMENT ID: [id number] DAVID VAN MD at 1045 CC: [id number] DICTATION DATE: 09/25/1824 TRANSPLANT WORKER: 09/25/18 1120 ADM IN [facility] [id number] [place] [address]
--- NOTE | 2018-09-26 12:15 | NUR ---
REQUESTED AND GIVEN O.5MG XANAX PO FOR C/O ANXIETY. WILL MONITOR.
--- NOTE | 2018-09-26 13:30 | NUR ---
IN/OUT CATH DONE USING STERILE TECHNIQUE FOR COLLECTION OF URINE SPECIMEN. INCONTINENT OF URINE AT THIS TIME. SKIN CARE PER STAFF. LINENS CHANGED.
[2018-09-26 13:37] VITALS: BP 148/76
--- NOTE | 2018-09-26 14:05 | NUR ---
C/O SOB. O2 SAT 97% ON 2L. RT NOTIFIED OF NEED FOR UD. REQUESTED AND GIVEN 50MG TRAMADOL PO FOR C/O BACK PAIN LEVEL 8. WILL MONITOR.
--- NOTE | 2018-09-26 15:10 | NUR ---
RESTING QUIETLY WITH EYES CLOSED.
--- NOTE | 2018-09-26 15:27 | NUR ---
OT NOTE: PT COMPLETED SIMPLE SELF CARE TASKS WITH MIN A. PT COMPLETED UE AROM FOR INCREASED AX TOLERANCE. THANK YOU, FRANDY OCASIO
[2018-09-26 15:36] LABS: APPEARANCE CLEAR (CLEAR); COLOR YELLOW (YELLOW)
[2018-09-26 15:37] LABS: BILIRUBIN NEGATIVE (NEGATIVE); GLUCOSE NEGATIVE (NEGATIVE); KETONE NEGATIVE (NEGATIVE); NITRITE NEGATIVE (NEGATIVE); PROTEIN NEGATIVE (NEGATIVE); SPECIFIC GRAVITY 1.015 (1.005-1.020); UROBILINOGEN NORMAL (NORMAL)
--- NOTE | 2018-09-26 18:28 | NUR ---
REQUESTED AND GIVNE ONE ULTRAM PO FOR C/O BACK PAIN LEVEL 8. WILL MONITOR.
--- NOTE | 2018-09-26 19:45 | NUR ---
PT LYING IN BED RESTING W/ EYES CLOSED. NO SIGNS OF DISTRESS. AWAKENS TO VERBAL STIMULI. RIGHT FA IV INFUSING NS @ KVO. PT STATES NO NEEDS OR COMPLAINTS AT THIS TIME. CL IN REACH, WILL CONTINUE TO MONITOR
[2018-09-26 20:00] VITALS: BP 128/69
--- NOTE | 2018-09-26 21:30 | NUR ---
PT SITTING UP IN BED, ALERT AND ORIENTED. PT INCONTINENT OF BLADDER. HELPED PT GET CLEANED UP AND COMPLETE LINEN CHANGE. PILLOW PLACED BETWEEN PT KNEES FOR COMFORT. PT REQUESTED AND GIVEN KLONOPIN. REFUSED MUCINEX. EYE DROPS TO BOTH EYES ORDERED. RIGHT EYE STILL W/ SOME REDNESS. PT STATES EYES FEEL DRY AND ITCHY. PROVIDED WATER AND CRACKERS UPON REQUEST. NO OTHER NEEDS OR COMPLAINTS AT THIS TIME. CL IN REACH, WILL CONTINUE TO MONITOR
[2018-09-27 04:00] VITALS: BP 163/83
[2018-09-27 05:00] LABS: BASOPHILS 0.1 % (0-2); EOSINOPHILS 0 % (0-7); HEMATOCRIT 43.2 % (36.0-48.0); HEMOGLOBIN 13.2 g/dL (12-16); LYMPHOCYTES 7.6 % (15-50); MCH 28.8 pg (26.0-34.0); MCHC 30.6 g/dL (31.0-37.0); MEAN PLATELET VOLUME 9.2 fL (7.4-10.4); MONOCYTES 5.2 % (2-11); NEUTROPHILS 86.1 % (40-80); PLATELET COUNT 357 10x3/uL (130-400); RBC 4.59 10x6/uL (4.00-5.40); RDW 14.2 % (11.5-14.5); WBC 7.1 10x3/uL (4.8-10.8)
[2018-09-27 05:12] LABS: MCV 94.1 fL (80.0-100.0)
[2018-09-27 05:16] LABS: ALBUMIN 2.5 g/dL (3.4-5.0); ALKALINE PHOSPHATASE 116 U/L (46-116); ALT (SGPT) 18 U/L (10-68); BILIRUBIN - TOTAL 0.24 mg/dL (0.2-1.3); CALC OSMOLALITY 288 mosm/kg (275-300); CARBON DIOXIDE 39.7 mmol/L (21.0-32.0); CHLORIDE - SERUM 100 mmol/L (98-107); CREATININE - SERUM 0.5 mg/dL (0.6-1.3); GLUCOSE 192 mg/dL (74-106); POTASSIUM - SERUM 3.7 mmol/L (3.5-5.1); PROTEIN - SERUM 5.4 g/dL (6.4-8.2); SODIUM 141 mmol/L (136-145); UREA NITROGEN 21 mg/dL (7-18); eGFR NON AFRICAN AMERICAN > 90 mL/min (90-120)
--- NOTE | 2018-09-27 07:54 | NUR ---
PT RESTING IN BED. NO SIGNS OF DISTRESS. IV TO RIGHT FORARM PATENT NO REDNESS OR TENDERNESS. ON 2L NC. ON TELEMETRY 64 NORMAL SINUS. DENIES ANY OTHER NEED AT THIS TIME. CALL LIGHT IN REACH. BED LOW POSITION. NO FAMILY AT BEDSIDE.
[2018-09-27 10:25] VITALS: BP 152/85
--- NOTE | 2018-09-27 11:42 | NUR ---
OT NOTE: PTS FIRST RESPONSE WAS THAT SHE COULD NOT DO ANYTHING BECAUSE SHE COULDNT BREATH. EXPLAINED TO HER THAT WE WOULD ONLY DO WHAT SHE COULD TOLERATE. CONTINUED TO RE DEFINE ALL OF HER MEDICAL PROBLEMS AND WAS AGITATED THAT THIS THERAPIST STILL WANTED HER TO DO SOMETHING WHEN SHE "COULDNT BREATH". ALLOWED PT TO VENT NURSING WAS PREPARING HER MEDS. PT ASKED SEVERAL TIMES FOR ZANAX SHE STATED THAT SHE WAS HAVING A PANIC ATTACK AND ANY ACTIVITY WAS GOING TO MAKE IT WORSE. WHEN PT REALIZED THAT THERAPIST WASNT LEAVING, SHE SAT UP ON EDGE OF BED WITHOUT SUPPORT. ASSISTED WITH DONNING HER SOCKS. PT ABLE TO PERFORM SIT TO STAND WITH MIN ASSIST AND USE OF WALKER; ABLE TO TAKE APPROX 4 STEPS FROM BED TO WALL AND BACK...ALL THE WHILE STATING THAT SHE COULDNT DO IT. PT SAT BACK ON BED REQUESTING THAT 02 BE INCREASED SHE COULD NOT BREATH. EDUCATED ON PURSED LIP BREATHING AND INSTRUCTED PT NOT TO TALK IF SHE COULDNT BREATH. PROVIDED WARM CLOTH FOR HER TO WASH HANDS AND FACE; REPOSITIONED NUMEROUS TIMES FOR PTS COMFORT. ABLE TO KARI AND DOFF GOWN WITH SET UP. INDEP WITH ROLLING IN BED. MARIAH ERICKSON, OTR/L
[2018-09-27 14:56] LABS: BASOPHILS 0.2 % (0-2); EOSINOPHILS 0 % (0-7); HEMATOCRIT 43.1 % (36.0-48.0); HEMOGLOBIN 13.3 g/dL (12-16); IMMATURE GRANULOCYTES 0.9 % (0-5); LYMPHOCYTES 4.9 % (15-50); MCH 28.9 pg (26.0-34.0); MCHC 30.9 g/dL (31.0-37.0); MCV 93.7 fL (80.0-100.0); MEAN PLATELET VOLUME 9.1 fL (7.4-10.4); MONOCYTES 4.4 % (2-11); NEUTROPHILS 89.6 % (40-80); PLATELET COUNT 344 10x3/uL (130-400); RDW 14.2 % (11.5-14.5)
[2018-09-27 14:59] LABS: WBC 10.6 10x3/uL (4.8-10.8)
[2018-09-27 15:11] LABS: APTT 24.9 SECONDS (22.8-39.4); INR 1.32 (0.85-1.17); PROTIME 15.9 SECONDS (11.6-15.0)
[2018-09-27 16:40] VITALS: BP 141/81
[2018-09-27 21:07] VITALS: BP 153/82
--- NOTE | 2018-09-27 21:30 | NUR ---
RESTING IN BED WITH NO DISTRESS RESP. EVEN AND UNLABORED CALL LIGHT IN REACH. NO NEEDS NOTED OR STATED AT THIS TIME.
[2018-09-28] VITALS (9 sets, daily range): BP systolic 118–149; BP diastolic 60–78
[2018-09-28 04:52] LABS: CALC OSMOLALITY 281 mosm/kg (275-300); CALCIUM 8.3 mg/dL (8.5-10.1); CARBON DIOXIDE 39.7 mmol/L (21.0-32.0); CHLORIDE - SERUM 100 mmol/L (98-107); CREATININE - SERUM 0.5 mg/dL (0.6-1.3); GLUCOSE 175 mg/dL (74-106); POTASSIUM - SERUM 4.2 mmol/L (3.5-5.1); SODIUM 138 mmol/L (136-145); UREA NITROGEN 18 mg/dL (7-18); eGFR NON AFRICAN AMERICAN > 90 mL/min (90-120)
[2018-09-28 04:53] LABS: BASOPHILS 0.1 % (0-2); EOSINOPHILS 0 % (0-7); HEMATOCRIT 43.1 % (36.0-48.0); HEMOGLOBIN 13.2 g/dL (12-16); IMMATURE GRANULOCYTES 1.2 % (0-5); LYMPHOCYTES 7.3 % (15-50); MCH 28.6 pg (26.0-34.0); MCHC 30.6 g/dL (31.0-37.0); MCV 93.5 fL (80.0-100.0); MEAN PLATELET VOLUME 10.1 fL (7.4-10.4); MONOCYTES 6.1 % (2-11); NEUTROPHILS 85.3 % (40-80); PLATELET COUNT 309 10x3/uL (130-400); RBC 4.61 10x6/uL (4.00-5.40); RDW 14.2 % (11.5-14.5); WBC 10.3 10x3/uL (4.8-10.8)
--- NOTE | 2018-09-28 07:53 | NUR ---
PT RESTING IN BED. NO SIGNS OF DISTRESS. IV TO RIGHT FORARM PATENT NO REDNESS OR TENDERNESS. ON TELEMETRY 72 NORMAL SINUS. ON 2L NC. HAVING PROCEDURE DONE TODAY. DENIES ANY NEED AT THIS TIME. CALL LIGHT IN REACH. BED LOW POSITION. NO FAMILY AT BEDSIDE.
--- NOTE | 2018-09-28 17:13 | NUR ---
OT NOTE: PT COMPLETED BUE AROM EXS FOR INCREASED ENDURANCE. PT COMPLETED FACE WASHING WITH SET UP. PT COMPLETED BED MOB WITH MIN A. THANK YOU,FRANDY OCASIO
--- NOTE | 2018-09-28 18:49 | NUR ---
PATIENT ALERT AND ORIENTED. WITH NO COMPLAINTS OF PAIN AT THIS TIME BUT WITH SEVERE ANXIETY. IV RIGHT FOREARM INFUSING. BED IN LOW POSITITON AND CALL LIGHT IS IN REACH
[2018-09-29] VITALS (7 sets, daily range): BP systolic 127–150; BP diastolic 66–79
[2018-09-29 06:10] LABS: BASOPHILS 0.1 % (0-2); EOSINOPHILS 0 % (0-7); HEMATOCRIT 41.1 % (36.0-48.0); HEMOGLOBIN 12.4 g/dL (12-16); LYMPHOCYTES 5.3 % (15-50); MCH 28.4 pg (26.0-34.0); MCHC 30.2 g/dL (31.0-37.0); MCV 94.1 fL (80.0-100.0); MEAN PLATELET VOLUME 9.4 fL (7.4-10.4); MONOCYTES 4.4 % (2-11); NEUTROPHILS 89.2 % (40-80); RBC 4.37 10x6/uL (4.00-5.40); RDW 14.3 % (11.5-14.5); WBC 9.3 10x3/uL (4.8-10.8)
[2018-09-29 06:22] LABS: PLATELET COUNT 378 10x3/uL (130-400)
[2018-09-29 06:32] LABS: CALC OSMOLALITY 288 mosm/kg (275-300); CALCIUM 8.2 mg/dL (8.5-10.1); CARBON DIOXIDE 39.6 mmol/L (21.0-32.0); CHLORIDE - SERUM 100 mmol/L (98-107); CREATININE - SERUM 0.5 mg/dL (0.6-1.3); GLUCOSE 199 mg/dL (74-106); POTASSIUM - SERUM 4.2 mmol/L (3.5-5.1); SODIUM 140 mmol/L (136-145); eGFR NON AFRICAN AMERICAN > 90 mL/min (90-120)
[2018-09-29 06:33] LABS: UREA NITROGEN 24 mg/dL (7-18)
--- NOTE | 2018-09-29 07:12 | NUR ---
PT WALKED WITH WALKER TO SHOWER. BACK TO BED WITH DYNAMITE SHOOTER. TOLERATED WELL. COULD POSSIBLY BENEFIT FROM PT.
--- NOTE | 2018-09-29 07:39 | NUR ---
PT LYINGIN BED, JUST HAD SHOWER THIS MORNING, FLUSHED IV AND SL. NO NEEDS VOICED, PT DID INQUIRE ON MORNING MEDS, ADVISED AFTER ROUNDS I WILL MAKE SURE TO PASS HERS FIRST, BED I LOW POSITION, CL IN REACH
--- NOTE | 2018-09-29 09:22 | NUR ---
PROFESSIONAL ADVISOR NOTE-NO COMPLAINTS AT PRESENT. STATES HAD A GOOD NIGHT AND IS PLEASANT THIS AM. STATES BREATHING IS BETTER TOO. CALL LIGHT IN REACH
--- NOTE | 2018-09-29 11:07 | NUR ---
PT REQUESTED PAIN MEDICATION AND ANXIETY MEDS, ADVISED PT SHE HAD ANXIETY MEDS WITH MORNING MEDS BUT WILL GIVE HER PRN PAIN MEDICATION ORDERED, PT THEN REQUESTED TO HAVE COKES WITH MEALS. CONTINUE WITH PLAN OF CARE
[2018-09-29 13:16] LABS: FUNGUS STAIN Final report (())
--- NOTE | 2018-09-29 13:22 | NUR ---
OT NOTE: PT REQUIRES EXTENSIVE ENCOURAGEMENT TO PARTICIPATE IN ANY AND ALL TASKS. PERFORMED BED MOB WITH CGA; AMB TO SINK WITH WALKER AND MIN ASSIST; PERFORMED HAND AND FACE WASHING WITH WASHCLOTH WITH SET UP; CLEANED PERINEAL AREA WHILE STANDING WITH MIN ASSIST FOR BALANCE. AMB BACK TO CHAIR WITH WALKER AND MOD ASSIST DUE TO FATIGUE. TOLERATED SITTING UP IN CHAIR APPROX 15 MIN BEFORE NEEDING TO GO BACK TO BED. ASSISTED PT WITH DONNING PULL UPS AND REQUIRED MOD ASSIST FOR CLOTHING MGMT. BACK TO BED WITH MIN ASSIST. BED MOB WITH MIN ASSIST. MARIAH ERICKSON, OTR/L
[2018-09-29 16:13] LABS: ACID FAST SMEAR Negative (()); AFB SPECIMEN PROCESSING Concentration (())
[2018-09-30] VITALS: BP 143/74
[2018-09-30 04:00] VITALS: BP 147/79
[2018-09-30 07:17] LABS: BASOPHILS 0.1 % (0-2); EOSINOPHILS 0 % (0-7); HEMATOCRIT 40.8 % (36.0-48.0); HEMOGLOBIN 12.5 g/dL (12-16); IMMATURE GRANULOCYTES 1.4 % (0-5); LYMPHOCYTES 5.2 % (15-50); MCH 28.7 pg (26.0-34.0); MCHC 30.6 g/dL (31.0-37.0); MCV 93.6 fL (80.0-100.0); MEAN PLATELET VOLUME 9.9 fL (7.4-10.4); MONOCYTES 6.3 % (2-11); PLATELET COUNT 361 10x3/uL (130-400); RBC 4.36 10x6/uL (4.00-5.40); RDW 14.2 % (11.5-14.5); WBC 10.4 10x3/uL (4.8-10.8)
[2018-09-30 07:32] LABS: CALC OSMOLALITY 288 mosm/kg (275-300); CALCIUM 8.3 mg/dL (8.5-10.1); CARBON DIOXIDE 38.7 mmol/L (21.0-32.0); CHLORIDE - SERUM 99 mmol/L (98-107); CREATININE - SERUM 0.4 mg/dL (0.6-1.3); GLUCOSE 223 mg/dL (74-106); POTASSIUM - SERUM 4.4 mmol/L (3.5-5.1); SODIUM 140 mmol/L (136-145); UREA NITROGEN 21 mg/dL (7-18); eGFR NON AFRICAN AMERICAN > 90 mL/min (90-120)
--- NOTE | 2018-09-30 08:29 | NUR ---
PT ALERT X 4. CRACKLES TO ALL PEÑALOZA, 2L O2 PER NC. IV TO RIGHT FOREARM, PATENT, DRESSING CLEAN DRY AND INTACT. PT REPORTING PAIN OF 10/10, WITH NUMBNESS TO MID REGION FROM UPPER LEGS TO ABDOMEN, PT STATES THIS IS A RESULT OF HER FALL AT HOME. BED LOW, CALL LIGHT IN REACH, NO OTHER NEEDS AT THIS TIME.
[2018-09-30 09:15] VITALS: BP 156/79
[2018-09-30 14:10] VITALS: BP 147/76
--- NOTE | 2018-09-30 14:24 | NUR ---
OT NOTE: ( LATE ENTRY DOS 09/29/18) WISE NOTIFIED NURSING THAT PATIENT REQUESTED A FAN BE PLACE IN HER ROOM. ALSO, PATIENT REQUEST NURSING TO INCREASE O2. PT COMPLETED SIMPLE BED MOB WITH CGA AND USE OF SIDE RAILS. PT COMPLETED SIMPLE GROOMING TASKS WITH SET UP FOR FACE WASHING AND MOD A TO BRUSH HAIR. THANK YOU, FRANDY OCASIO
[2018-09-30 17:44] VITALS: BP 140/69
--- NOTE | 2018-09-30 19:15 | NUR ---
RECEIVED CARE FROM DAY NURSE. LYING ON BACK WITH EYES CLOSED. RESP EVEN AND UNLABORED. CALL LIGHT AT SIDE. IF SL TO RIGHT FA.
--- NOTE | 2018-09-30 19:32 | NUR ---
OT NOTE: PT REQUIRED MAX VERBAL ENCOURAGEMENT TO PARTICIPATE. PT COMPLETED BED MOB AND SIT TO STAND WITH MOD A. PT COMPLETED GROOMING TASK WITH MIN A. THANK YOU, FRANDY OCASIO
[2018-09-30 20:00] VITALS: BP 136/70
[2018-10-01] VITALS: BP 121/72
[2018-10-01 04:00] VITALS: BP 149/70
[2018-10-01 05:15] LABS: BASOPHILS 0.2 % (0-2); EOSINOPHILS 0 % (0-7); HEMATOCRIT 40.1 % (36.0-48.0); HEMOGLOBIN 12.1 g/dL (12-16); IMMATURE GRANULOCYTES 1.4 % (0-5); LYMPHOCYTES 3.9 % (15-50); MCH 28.3 pg (26.0-34.0); MCHC 30.2 g/dL (31.0-37.0); MCV 93.7 fL (80.0-100.0); MEAN PLATELET VOLUME 9.2 fL (7.4-10.4); MONOCYTES 4.1 % (2-11); NEUTROPHILS 90.4 % (40-80); PLATELET COUNT 341 10x3/uL (130-400); RBC 4.28 10x6/uL (4.00-5.40); RDW 14.5 % (11.5-14.5)
[2018-10-01 05:31] LABS: CALC OSMOLALITY 291 mosm/kg (275-300); CARBON DIOXIDE 38.2 mmol/L (21.0-32.0); CHLORIDE - SERUM 101 mmol/L (98-107); CREATININE - SERUM 0.5 mg/dL (0.6-1.3); GLUCOSE 249 mg/dL (74-106); PHOSPHOROUS 3.8 mg/dL (2.5-4.9); POTASSIUM - SERUM 4.5 mmol/L (3.5-5.1); SODIUM 141 mmol/L (136-145); UREA NITROGEN 21 mg/dL (7-18); eGFR NON AFRICAN AMERICAN > 90 mL/min (90-120)
[2018-10-01 08:42] VITALS: BP 154/87
[2018-10-01 13:36] VITALS: BP 134/59
[2018-10-01 17:42] VITALS: BP 124/70
[2018-10-01 21:20] VITALS: BP 115/70
--- NOTE | 2018-10-01 22:41 | NUR ---
REFUSED TO COMPLY TO THE ADMINISTRATION OF BREATHING TX
[2018-10-02 02:06] VITALS: BP 133/67
--- NOTE | 2018-10-02 03:51 | NUR ---
RESTING QUITELY IN BED NO APPARENT DISTRESS CALL LIGHT IN REACH
[2018-10-02 04:02] LABS: BASOPHILS 0.2 % (0-2); EOSINOPHILS 0 % (0-7); HEMATOCRIT 42.4 % (36.0-48.0); HEMOGLOBIN 12.9 g/dL (12-16); IMMATURE GRANULOCYTES 1.8 % (0-5); LYMPHOCYTES 3.6 % (15-50); MCH 28.9 pg (26.0-34.0); MCHC 30.4 g/dL (31.0-37.0); MCV 95.1 fL (80.0-100.0); MEAN PLATELET VOLUME 9.2 fL (7.4-10.4); MONOCYTES 2.5 % (2-11); NEUTROPHILS 91.9 % (40-80); PLATELET COUNT 348 10x3/uL (130-400); RBC 4.46 10x6/uL (4.00-5.40); RDW 14.3 % (11.5-14.5); WBC 12.1 10x3/uL (4.8-10.8)
[2018-10-02 04:17] LABS: CALC OSMOLALITY 289 mosm/kg (275-300); CALCIUM 8.1 mg/dL (8.5-10.1); CHLORIDE - SERUM 99 mmol/L (98-107); CREATININE - SERUM 0.6 mg/dL (0.6-1.3); GLUCOSE 274 mg/dL (74-106); POTASSIUM - SERUM 4.7 mmol/L (3.5-5.1); SODIUM 139 mmol/L (136-145); UREA NITROGEN 19 mg/dL (7-18); eGFR NON AFRICAN AMERICAN > 90 mL/min (90-120)
--- NOTE | 2018-10-02 07:58 | NUR ---
AWAKE AND ALERT. ORIENTED X3. NO C/O AT THIS TIME. LUNGS HAVE CRACKLES THROUGHOUT LOWER LOBES. OCCASIONAL PRODUCTIVE COUGH NOTED. SKIN IS INTACT WITHOUT REDNESS. SL TO RIGHT FOREARM IS PATENT WITHOUT REDNESS AT INSERTION SITE. DENIES NEEDS. O2 AT 2L NC ON HIGH FLOW TUBING. 95% AT THIS TIME.
[2018-10-02 08:45] VITALS: BP 134/71
--- NOTE | 2018-10-02 10:00 | NUR ---
TOOK AM MEDS WITHOUT DIFFICULTY. O2 SAT AT 99% ON 2L NC. DENIES NEEDS.
--- NOTE | 2018-10-02 10:00 | NUR ---
RESTING QUIETLY IN BED. ANXIOUS ABOUT GOING BACK TO [facility]. DENIES NEEDS.
[2018-10-02] MEDS ORDERED: LISINOPRIL10 MG PO (11:06)
--- NOTE | 2018-10-02 11:06 | MORECARE ---
CASE MANAGEMENT DISCHARGE SUMMARY PATIENT: ELIZABETH WRAY UNIT: [id number] ADM DATE: 09/22/18 AGE: 68 : 48 SEX: F ROOM/BED: D.2202 AUTHOR: TABBYDOC PHYSICIAN: REFERRING PHYSICIAN: MINOR GRIFFIN MD DATE OF SERVICE: 10/02/18 Discharge Plan Patient Name: ELIZABETH WRAY Facility: [facility]:[place] : 1950 Planned Disposition: [facility] Facility Anticipated Discharge Date: Discharge Date: Expected LOS: Initial Reviewer: [email or web address] Initial Review Date: 09/22/2018 Generated: 10/02/18 12:06 pm Comments DCP- Discharge Planning Updated by [email or web address]: Patricia Andrade on 10/02/18 10:[address] SPOKE WITH ALISA *([phone]) AT [facility] TO LET HER KNOW THAT I ANTICIPATE THE PATIENT TO BE DISCHARGED BACK TODAY. POX 2L SAT 96-99% PER ALYSE RN, FAXED CLINICAL UPDATES DCP- Discharge Planning Updated by [email or web address]: Patricia Andrade on 09/25/18 12:[address] Patient Name: ELIZABETH WRAY Admission Status: Elective Accout number: [id number] Admission Date: 09-22-2018 : 1950 Admission Diagnosis:PNEUMONIA, UNSPECIFIED ORGANISM Attending: MINOR GRIFFIN Current LOS: 3 Anticipated DC Date: Planned Disposition: [facility] Facility Primary Insurance: MEDICARE A & B Discharge Planning Comments: CM met with patient to assess discharge planning needs. Patient stated that she came from [facility] where she plans to return at discharge. She stated before rehab she lived independently at home and when she is done with rehab she will go home. She has been at rehab for 6 months. She stated she has a walker, wheelchair, nebulizer and home O2. I called [facility] and spoke with Alisa. Alisa stated that she [facility] a [facility] and became sick and went to rehab. They will accept her back to a skilled bed when she is stable for discharge. CM will continue to follow and assist with DC planning needs. [facility] Pharm[facility] Technician: Patricia Andrade DCPIA - Discharge Planning Initial Assessment Updated by [email or web address]: Patricia Andrade on 09/25/18 1:21 pm * Is the patient Alert and Oriented? Yes * How many steps to enter\exit or inside your home? * PCP Walker ([facility]) * Pharmacy [facility] * Preadmission Environment [facility] Facility * Facility Name [facility] * ADLs Partial Dependent * Partial ADLs (Assistance needed) Ambulation Bathing Medication Management Transfers * Equipment Nebulizer Oxygen Walker Wheelchair * List name and contact numbers for known caregivers / representatives who currently or will assist patient after discharge: Srini Wray [phone] * Verbal permission to speak to the caregivers and representatives has been obtained from the patient. N/A * Community resources currently utilized None * Additional services required to return to the preadmission environment? No * Can the patient safely return to the preadmission environment? Yes * Has this patient been hospitalized within the prior 30 days at any hospital? No Last DP export: 09/25/18 12:28 p Patient Name: ELIZABETH WRAY Page [id number] at 1106 All edits/amendments must be made on the electronic document DICTATION DATE: 10/02/18 1106 FOREST FIREFIGHTER: ALYSSIA 10/02/18 1106 RPT#: [id number] [place] DATE: STATUS: ADM IN [facility] [address] [place] [address] END OF REPORT
[2018-10-02] MEDS ORDERED: TESSALON PERLE100 MG PO (11:07)
[2018-10-02] MEDS ORDERED: MUCINEX600 MG PO (11:07)
[2018-10-02] MEDS ORDERED: PULMICORT0.5 MG/21 UPD (11:08)
[2018-10-02] MEDS ORDERED: BROVANA15 MCG/2 M INH (11:08)
[2018-10-02] MEDS ORDERED: FLUTICASONE PRO16 GM NASAL (11:08)
[2018-10-02] MEDS ORDERED: AKWA TEARS15 ML EACH EYE (11:08)
[2018-10-02] MEDS ORDERED: XOPENEX 0.0.63 MG/3 INH (11:09)
[2018-10-02] MEDS ORDERED: PREDNISONE10 MG PO (11:09)
--- NOTE | 2018-10-02 11:14 | MORECARE ---
CASE MANAGEMENT DISCHARGE SUMMARY PATIENT: ELIZABETH BUSTAMANTE UNIT: [id number] ADM DATE: 09/22/18 AGE: 68 : 48 SEX: F ROOM/BED: D.2202 AUTHOR: TABBYDOC PHYSICIAN: REFERRING PHYSICIAN: MINOR GRIFFIN MD DATE OF SERVICE: 10/02/18 Discharge Plan Patient Name: ELIZABETH BUSTAMANTE Facility: [facility]:[place] : 1950 Planned Disposition: Usp Facility Anticipated Discharge Date: Discharge Date: Expected LOS: Initial Reviewer: [email or web address] Initial Review Date: 09/22/2018 Generated: 10/02/18 12:14 pm Comments DCP- Discharge Planning Updated by [email or web address]: Patricia Andrade on 10/02/18 10:[address] IMM SERVED AND EXPLAINED COPY GIVEN TO HER ORIGINAL PLACED IN CHART DCP- Discharge Planning Updated by [email or web address]: Patricia Andrade on 10/02/18 10:[address] SPOKE WITH ALISA Lora([phone]) AT [facility] TO LET HER KNOW THAT I ANTICIPATE THE PATIENT TO BE DISCHARGED BACK TODAY. POX 2L SAT 96-99% PER ALYSE RN, FAXED CLINICAL UPDATES DCP- Discharge Planning Updated by [email or web address]: Patricia Andrade on 09/25/18 12:[address] Patient Name: ELIZABETH BUSTAMANTE Admission Status: Elective Accout number: [id number] Admission Date: 09-22-2018 : 1950 Admission Diagnosis:PNEUMONIA, UNSPECIFIED ORGANISM Attending: MINOR GRIFFIN Current LOS: 3 Anticipated DC Date: Planned Disposition: Usp Facility Primary Insurance: MEDICARE A & B Discharge Planning Comments: CM met with patient to assess discharge planning needs. Patient stated that she came [place] [facility] [place] where she plans to return at discharge. She stated before rehab she lived independently at home and when she is done with rehab she will go home. She has been at rehab for 6 months. She stated she has a walker, wheelchair, nebulizer and home O2. I called [facility] and spoke with Alisa. Alisa stated that she was a care home resident and became sick and went to rehab. They will accept her back to a skilled bed when she is stable for discharge. CM will continue to follow and assist with DC planning needs. Fausto Meng Logging Specialist: Patricia Andrade DCPIA - Discharge Planning Initial Assessment Updated by [email or web address]: Patricia Andrade on 09/25/18 1:21 pm * Is the patient Alert and Oriented? Yes * How many steps to enter\exit or inside your home? * PCP Walker (rodrick) * [facility]acy [facility] * Preadmission Environment [facility] Facility * Facility Name [facility] * ADLs Partial Dependent * Partial ADLs (Assistance needed) Ambulation Bathing Medication Management Transfers * Equipment Nebulizer Oxygen Walker Wheelchair * List name and contact numbers for known caregivers / representatives who currently or will assist patient after discharge: Srini Nils [phone] * Verbal permission to speak to the caregivers and representatives has been obtained from the patient. N/A * Community resources currently utilized None * Additional services required to return to the preadmission environment? No * Can the patient safely return to the preadmission environment? Yes * Has this patient been hospitalized within the prior 30 days at any hospital? No Coverage Notice Reviewer: [id number] - Patricia Andrade Notice Issued Date-Time: 10/02/2018 11:10 Notice Type: IM Discharge Notice Notice Delivered To: Patient Relationship to Patient: Decorating And Assembly Supervisor Name: Delivery Method: HAND - Hand Delivered Stephany Days: Prior Verbal Notification: Recipient Understood Notice: Yes Recipient Signature: Yes Med Rec Note Co-signed by Attending: Coverage Notice Comment: Last DP export: 10/02/18 10:06 a Patient Name: ELIZABETH BUSTAMANTE Page [id number] at 1114 All edits/amendments must be made on the electronic document DICTATION DATE: 10/02/18 1113 MECHANIC INSULATOR: ALYSSIA 10/02/18 1113 RPT#: [id number] DC DATE: STATUS: ADM IN [facility] [address] [place] [address] END OF REPORT
--- NOTE | 2018-10-02 12:08 | MORECARE ---
CASE MANAGEMENT DISCHARGE SUMMARY PATIENT: ELIZABETH WRAY UNIT: [id number] ADM DATE: 09/22/18 AGE: 68 : 48 SEX: F ROOM/BED: D.2202 AUTHOR: TABBY,DOC PHYSICIAN: REFERRING PHYSICIAN: MINOR GRIFFIN MD DATE OF SERVICE: 10/02/18 Discharge Plan Patient Name: ELIZABETH WRAY Facility: [facility]:[place] : 1950 Planned Disposition: Long Term Facility Anticipated Discharge Date: Discharge Date: Expected LOS: Initial Reviewer: [email or web address] Initial Review Date: 09/22/2018 Generated: 10/02/18 1:07 pm Comments DCP- Discharge Planning Updated by [email or web address]: Patricia Andrade on 10/02/18 11:[address] PATIENT WILL BE DISCHARGING TO [facility] TO A SKILLED BED, THEY WILL PICK HER UP AT 1400. CM TO FOLLOW AND ASSIST WITH DC PLANNING NEEDED DCP- Discharge Planning Updated by [email or web address]: Patricia Andrade on 10/02/18 10:[address] IMM SERVED AND EXPLAINED COPY GIVEN TO HER ORIGINAL PLACED IN CHART DCP- Discharge Planning Updated by [email or web address]: Patricia Andrade on 10/02/18 10:[address] SPOKE WITH ALISA Geno([phone]) AT [facility] TO LET HER KNOW THAT I ANTICIPATE THE PATIENT TO BE DISCHARGED BACK TODAY. POX 2L SAT 96-99% PER ALYSE VILLANUEVA, FAXED CLINICAL UPDATES DCP- Discharge Planning Updated by [email or web address]: Patricia Andrade on 09/25/18 12:[address] Patient Name: ELIZABETH WRAY Admission Status: Elective Accout number: [id number] Admission Date: 09-22-2018 : 1950 Admission Diagnosis:PNEUMONIA, UNSPECIFIED ORGANISM Attending: MINOR GRIFFIN Current LOS: 3 Anticipated DC Date: Planned Disposition: Long Term Facility Primary Insurance: MEDICARE A & B Discharge Planning Comments: CM met with patient to assess discharge planning needs. Patient stated that she [facility] where she plans to return at discharge. She stated before rehab she lived independently at home and when she is done with rehab she will go home. She has been at rehab for 6 months. She stated she has a walker, wheelchair, nebulizer and home O2. I called [facility] and spoke with Alisa. Alisa stated that she was a half-way resident and became sick and went to rehab. They will accept her back to a skilled bed when she is stable for discharge. CM will continue to follow and assist with DC planning needs. [facility] Hunter Trapper: Patricia Andrade DCPIA - Discharge Planning Initial Assessment Updated by [email or web address]: Patricia Andrade on 09/25/18 1:21 pm * Is the patient Alert and Oriented? Yes * How many steps to enter\exit or inside your home? * PCP Walker (rodrick) * [facility] * Preadmission Environment Long Term Facility * Facility Name [facility] * ADLs Partial Dependent * Partial ADLs (Assistance needed) Ambulation Bathing Medication Management Transfers * Equipment Nebulizer Oxygen Walker Wheelchair * List name and contact numbers for known caregivers / representatives who currently or will assist patient after discharge: Srini Wray [phone] * Verbal permission to speak to the caregivers and representatives has been obtained from the patient. N/A * Community resources currently utilized None * Additional services required to return to the preadmission environment? No * Can the patient safely return to the preadmission environment? Yes * Has this patient been hospitalized within the prior 30 days at any hospital? No Coverage Notice Reviewer: [id number] - Patricia Andrade Notice Issued Date-Time: 10/02/2018 11:10 Notice Type: IM Discharge Notice Notice Delivered To: Patient Relationship to Patient: Engraver Wood Name: Delivery Method: HAND - Hand Delivered Stephany Days: Prior Verbal Notification: Recipient Understood Notice: Yes Recipient Signature: Yes Med Rec Note Co-signed by Attending: Coverage Notice Comment: Last DP export: 10/02/18 10:14 a Patient Name: ELIZABETH WRAY Page [phone] at 1208 All edits/amendments must be made on the electronic document DICTATION DATE: 10/02/18 1207 WASTE WATER OR WATER PLANT OPERATOR: ALYSSIA 10/02/18 1207 RPT#: [id number] DC DATE: STATUS: ADM IN [facility] [address] [place] [address] END OF REPORT
[2018-10-02 13:28] VITALS: BP 132/72
--- NOTE | 2018-10-02 14:15 | NUR ---
REPORT CALLED TO CHEYENNE BROWN LPN AT [facility]. ALL QUESTIONS ANSWERED.
--- NOTE | 2018-10-02 14:25 | NUR ---
DISCHARGED TO [facility]IA THEIR TRANSPORT IN . DISCHARGE INSTRUCTIONS GIVEN BOTH VERBALLY AND WRITTEN. ALL QUESTIONS ANSWERED. PATIENT VERBALIZED UNDERSTANDING OF SAME. REQUESTED AND GIVEN ONE 50MG TRAMADOL PO FOR C/O BACK PAIN LEVEL 9. ALL BELONGINGS WITH PATIENT.
--- NOTE | 2018-10-03 09:21 | MORECARE ---
CASE MANAGEMENT DISCHARGE SUMMARY PATIENT: ELIZABETH BUSTAMANTE UNIT: [id number] ADM DATE: 09/22/18 AGE: 68 : 48 SEX: F ROOM/BED: D.2202 AUTHOR: TABBY,DOC PHYSICIAN: REFERRING PHYSICIAN: MINOR GRIFFIN MD DATE OF SERVICE: 10/03/18 Discharge Plan Patient Name: ELIZABETH BUSTAMANTE [facility] [facility] 1950 Planned Disposition: Group Home Facility Anticipated Discharge Date: Discharge Date: 10/02/2018 Expected LOS: 0 Initial Reviewer: [email or web address] Initial Review Date: 09/22/2018 Generated: 10/03/18 10:21 am Comments DCP- Discharge Planning Updated by [email or web address]: Patricia Andrade on 10/02/18 11:[address] PATIENT WILL BE DISCHARGING TO [facility] TO A SKILLED BED, THEY WILL PICK HER UP AT 1400. CM TO FOLLOW AND ASSIST WITH DC PLANNING NEEDED DCP- Discharge Planning Updated by [id number]: Patricia Andrade on 10/02/18 10:[address] IMM SERVED AND EXPLAINED COPY GIVEN TO HER ORIGINAL PLACED IN CHART DCP- Discharge Planning Updated by [email or web address]: Patricia Andrade on 10/02/18 10:[address] SPOKE WITH ALISA Geno([phone]) AT [facility] TO LET HER KNOW THAT I ANTICIPATE THE PATIENT TO BE DISCHARGED BACK TODAY. POX 2L SAT 96-99% PER ALYSE RN, FAXED CLINICAL UPDATES DCP- Discharge Planning Updated by [id number]: Patricia Andrade on 09/25/18 12:[address] Patient Name: ELIZABETH BUSTAMANTE Admission Status: Elective Accout number: [id number] Admission Date: 09-22-2018 : 1950 Admission Diagnosis:PNEUMONIA, UNSPECIFIED ORGANISM Attending: MINOR GRIFFIN Current LOS: 3 Anticipated DC Date: Planned Disposition: Group Home Facility Primary Insurance: MEDICARE A & B Discharge Planning Comments: CM met with patient to assess discharge planning needs. Patient stated that she came from [facility] where she plans to return at discharge. She stated before rehab she lived independently at home and when she is done with rehab she will go home. She has been at rehab for 6 months. She stated she has a walker, wheelchair, nebulizer and home O2. I called [facility] and spoke with Alisa. 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 They will accept her back to a skilled bed when she is stable for discharge. CM will continue to follow and assist with DC planning needs. Fausto Meng Security Compliance Specialist: Patricia Andrade DCPIA - Discharge Planning Initial Assessment Updated by [email or web address]: Patricia Andrade on 09/25/18 1:21 pm * Is the patient Alert and Oriented? Yes * How many steps to enter\exit or inside your home? * PCP Walker (mensah) * Pharmacy [facility] * Preadmission Environment Group Home Facility * Facility Name [facility] * ADLs Partial Dependent * Partial ADLs (Assistance needed) Ambulation Bathing Medication Management Transfers * Equipment Nebulizer Oxygen Walker Wheelchair * List name and contact numbers for known caregivers / representatives who currently or will assist patient after discharge: Srini Nils [phone] * Verbal permission to speak to the caregivers and representatives has been obtained from the patient. N/A * Community resources currently utilized None * Additional services required to return to the preadmission environment? No * Can the patient safely return to the preadmission environment? Yes * Has this patient been hospitalized within the prior 30 days at any hospital? No Coverage Notice Reviewer: [id number] - Patricia Andrade Notice Issued Date-Time: 10/02/2018 11:10 Notice Type: IM Discharge Notice Notice Delivered To: Patient Relationship to Patient: Fork Truck Driver Name: Delivery Method: HAND - Hand Delivered Stephany Days: Prior Verbal Notification: Recipient Understood Notice: Yes Recipient Signature: Yes Med Rec Note Co-signed by Attending: Coverage Notice Comment: Last DP export: 10/02/18 11:07 a Patient Name: ELIZABETH BUSTAMANTE Page [id number] at 0921 All edits/amendments must be made on the electronic document DICTATION DATE: 10/03/18919 BOTTLE HOP: ALYSSIA 10/03/18919 RPT#: [id number] DC DATE:10/02/18 STATUS: DIS IN [facility] [address] [place] [address] END OF REPORT
[2018-10-11 13:15] LABS: FUNGUS CULTURE RESULT 1 Candida dubliniensis (()); FUNGUS CULTURE RESULT 2 Aspergillus flavus (()); FUNGUS MYCOLOGY CULTURE Final report (())
== END 2018-10-02 14:25 | DRG 177 ==
LOC: D.MS 18:13
PROVIDERS: Internal Medicine Nephrology; Internal Medicine Pulmonary Disease; ADMIT Family Medicine
PROC: 0B948ZZ Drainage of Right Upper Lobe Bronchus, Via Natural or Artificial Opening Endoscopic (ICD-10-PCS; 2018-09-28)
PROC: 0B988ZZ Drainage of Left Upper Lobe Bronchus, Via Natural or Artificial Opening Endoscopic (ICD-10-PCS; 2018-09-28)
PROC: 0B918ZZ Drainage of Trachea, Via Natural or Artificial Opening Endoscopic (ICD-10-PCS; 2018-09-28)
PROC: 0B958ZZ Drainage of Right Middle Lobe Bronchus, Via Natural or Artificial Opening Endoscopic (ICD-10-PCS; 2018-09-28)
PROC: 0B938ZZ Drainage of Right Main Bronchus, Via Natural or Artificial Opening Endoscopic (ICD-10-PCS; 2018-09-28)
PROC: 0B978ZZ Drainage of Left Main Bronchus, Via Natural or Artificial Opening Endoscopic (ICD-10-PCS; 2018-09-28)
PROC: 0B968ZZ Drainage of Right Lower Lobe Bronchus, Via Natural or Artificial Opening Endoscopic (ICD-10-PCS; 2018-09-28)
PROC: 0B9B8ZZ Drainage of Left Lower Lobe Bronchus, Via Natural or Artificial Opening Endoscopic (ICD-10-PCS; 2018-09-28)
PROC: 0B998ZZ Drainage of Lingula Bronchus, Via Natural or Artificial Opening Endoscopic (ICD-10-PCS; 2018-09-28)
PROC: 0B928ZZ Drainage of Carina, Via Natural or Artificial Opening Endoscopic (ICD-10-PCS; principal; 2018-09-28 10:39)
DX: J15.6 Pneumonia due to other Gram-negative bacteria (principal); G93.41 Metabolic encephalopathy; J96.22 Acute and chronic respiratory failure with hypercapnia; J96.21 Acute and chronic respiratory failure with hypoxia; J44.0 Chronic obstructive pulmonary disease with (acute) lower respiratory infection; J44.1 Chronic obstructive pulmonary disease with (acute) exacerbation; J98.11 Atelectasis; E46 Unspecified protein-calorie malnutrition; J30.9 Allergic rhinitis, unspecified; I11.0 Hypertensive heart disease with heart failure; I50.9 Heart failure, unspecified; F41.9 Anxiety disorder, unspecified; F32.9 Major depressive disorder, single episode, unspecified; Z87.891 Personal history of nicotine dependence; Z68.23 Body mass index [BMI] 23.0-23.9, adult

== ENCOUNTER 2018-10-25 05:25 | Inpatient (IN) | payer MEDICARE ==
[2018-10-25] VITALS (63 sets, daily range): BP systolic 88–141; BP diastolic 44–88; BMI 25.8
[~2018-10-25] VITALS: Ht 162.6 cm; Wt 71.0 kg
[~2018-10-25 05:25] MED LIST changes: +AKWA TEARS15 ML EACH EYE; +BROVANA15 MCG/2 M INH; +FLUTICASONE PRO16 GM NASAL; +LISINOPRIL10 MG PO; +MUCINEX600 MG PO; +PRED FORTE5 ML LEFT EYE; +PREDNISONE10 MG PO; +PULMICORT0.5 MG/21 UPD; +TESSALON PERLE100 MG PO; +XOPENEX 0.0.63 MG/3 INH
[2018-10-25 06:27] LABS: ALBUMIN 1.7 g/dL (3.4-5.0); BILIRUBIN - TOTAL 0.32 mg/dL (0.2-1.3); CARBON DIOXIDE 32.7 mmol/L (21.0-32.0); CREATININE - SERUM 1.7 mg/dL (0.6-1.3); POTASSIUM - SERUM 3.7 mmol/L (3.5-5.1); PROTEIN - SERUM 4.6 g/dL (6.4-8.2)
[2018-10-25 06:30] LABS: INR 2.89 (0.85-1.17); PROTIME 29.5 SECONDS (11.6-15.0)
--- NOTE | 2018-10-25 06:49 | NUR ---
LEVOPHED DECREASED TO 6MCG AT 0535. TOLERATING WELL. BP AT THIS TIME IS 102/63. PATIENT RESTING QUIETLY RESP REGULAR.
--- NOTE | 2018-10-25 07:22 | NUR ---
PT CARE ASSUMED. O2 WEANED DOWN TO 3LNC. SPO2 MAINTAINING AT 92-94%. BP NOTED TO BE 75/44, MACHINE DEICER ELEMENT WINDER HAD STOPPED LEVOPHED DURING LAB DRAW PROCEDURE. LEVOPHED RESTARTED. SBP REMAINS IN 70S. INCREASED LEVOPHED TO 8MCG/MIN. CONTINUING TO MONITOR AT BS.
[2018-10-25 07:41] LABS: BASOPHILS 0.4 % (0-2); EOSINOPHILS 1.1 % (0-7); HEMATOCRIT 30.2 % (36.0-48.0); HEMOGLOBIN 9.4 g/dL (12-16); LYMPHOCYTES 26.6 % (15-50); MCH 28.5 pg (26.0-34.0); MCHC 31.1 g/dL (31.0-37.0); MCV 91.5 fL (80.0-100.0); MEAN PLATELET VOLUME 9.5 fL (7.4-10.4); MONOCYTES 13.4 % (2-11); NEUTROPHILS 54.5 % (40-80); RDW 17.2 % (11.5-14.5); WBC 11.2 10x3/uL (4.8-10.8)
[2018-10-25 07:43] LABS: PLATELET COUNT 448 10x3/uL (130-400)
[2018-10-25 07:54] LABS: APPEARANCE HAZY (CLEAR); BILIRUBIN NEGATIVE (NEGATIVE); COLOR YELLOW (YELLOW); GLUCOSE NEGATIVE (NEGATIVE); KETONE NEGATIVE (NEGATIVE); NITRITE NEGATIVE (NEGATIVE); PROTEIN NEGATIVE (NEGATIVE); SPECIFIC GRAVITY 1.015 (1.005-1.020); UROBILINOGEN NORMAL (NORMAL)
[2018-10-25] MEDS ORDERED: OPTIVE SENSITI1 EACH EACH EYE (08:40)
[2018-10-25] MEDS ORDERED: IMODIUM2 MG PO (08:42)
[2018-10-25] MEDS ORDERED: IBUPROFEN400 MG PO (08:48)
[2018-10-25] MEDS ORDERED: ALBUTEROL SULF8.5 GM INH (08:49)
--- NOTE | 2018-10-25 10:32 | NUR ---
STOOL SAMPLE SENT TO LAB
[2018-10-25 12:42] LABS: % SATURATION 17 % (15-55); IRON 17 ug/dl (35-150); TOTAL IRON BIND CAPACITY 95 ug/dl (260-445); UNSAT IRON BIND CAPACITY 78 ug/dl (150-375)
[2018-10-25 12:55] LABS: MAGNESIUM - SERUM 1.4 mg/dL (1.8-2.4); T4 THYROXIN - FREE 1.77 ng/dL (0.76-1.46); THYROID STIMULATING HORMONE 0.17 uIU/mL (0.36-3.74)
--- NOTE | 2018-10-25 17:15 | NUR ---
1100 PT ATE 100% LUNCH, ABLE TO WEAN LEVOPHED TO 2MCG 1300 WHEN PT SLEEPING TITRATED UP LEVOPHED TO MAINTAIN BP PARAMETERS [address] BEE AFTER BOLUS TO NOTIFY THAT WAS ABLE TO WEAN LEVOPHED TO 2 MCG BUT THEN INCREASED BACK TO 6 MCG TO MAINTAIN PARAMETERS WHEN PT SLEEPING, NO NEW ORDERS 1700 PT REFUSED DINNER TRAY, REPOSITIONS SELF, DENIES ALL PAIN AND NEEDS, LEVOPHED UNABLE TO WEAN AT THIS TIME
--- NOTE | 2018-10-25 19:05 | NUR ---
BEDSIDE SHIFT REPORT GIVEN BY DEPARTING RN. PT LAYING IN BED WATCHING TV. LEFT AC PIV INFUSING LEVOPHED; WILL TITRATE PER MD ORDER. CONFUSED ABOUT TIME, PLACE, AND SITUATION. PERRLA. RRRR. F/C DRAINING TO GRAVITY. ASSESSMENT COMPLETE. SEE FLOWSHEET FOR FULL DETAILS. SAFETY MEASURES IN PLACE. CBIR.
--- NOTE | 2018-10-25 19:39 | NUR ---
USED CALL LIGHT TO ASK WEHN BREAKFAST WAS GOING TO BE SERVED. INFORMED PT IT WOULD BE 0800. CONFUSED ON TIME OF DAY; SURPRISED IT WAS NIGHTTIME. SANDWICH BOX OFFERED. CHEIKH APPLIED PER PT REQUEST. PLACED IN FRONT OF PT WITH REQUESTED SODA. TOOK ONE BITE OF SANDWICH AND STATED "I CAN'T EAT THIS! THIS IS NOT GOOD. WHAT ELSE CAN YOU BRING ME?" LISTED ALL SNACK OPTIONS. "IS THE PUDDING HOMEMADE? THEN I DON'T WANT IT". REPOSITIONED IN BED WITH ASSISTANCE BY ANOTHER RN. SAFETY MEASURES IN PLACE. CBIR.
--- NOTE | 2018-10-25 20:25 | NUR ---
HS MEDS GIVEN. SWALLOWED WITHOUT DIFFICULTY.
--- NOTE | 2018-10-25 20:34 | NUR ---
USED CALL LIGHT TO REQUEST DR. SPARROW. INFORMED PT OF SODA OPTIONS. PT STATED "I GUESS I'LL JUST HAVE TO DRINK A COKE THEN." ACCOMMODATED. DRANK TWO COKES.
--- NOTE | 2018-10-25 21:13 | NUR ---
IV PUMP BEEPING. OCCLUDED ON PT SIDE. INSTRUCTED PT TO STRAIGHTEN ARM. PT STATED "I GUESS I'LL EAT ONE OF THOSE PUDDINGS. VANILLA." ACCOMMODATED. PT TOOK ONE BITE, THEN STATED "I DON'T LIKE THIS. WHAT ELSE DO YOU HAVE FOR ME TO EAT?" AGAIN INFORMED PT OF ALL SNACK OPTIONS. PT NOT IMPRESSED.
--- NOTE | 2018-10-25 21:46 | NUR ---
USED CALL [employer] SYSTEM. REQUESTED ICE WATER. UPON ENTERING ROOM WITH WATER, PT NOT HAPPY NURSE PRESENTED WITH WATER INSTEAD OF DR. SPARROW. INFORMED WE DO NOT HAVE SUCH A DRINK. REQUESTED ANOTHER COKE. INFORMED PT SHE NEEDED TO DRINK WATER. SAFETY MEASURES IN PLACE. CALL RECINOS IN REACH.
--- NOTE | 2018-10-25 22:56 | NUR ---
REASSESSMENT COMPLETE. NO CHANGES NOTED. ASLEEP SHOWING NO SS OF DISTRESS.
[2018-10-26] VITALS (46 sets, daily range): BP systolic 84–130; BP diastolic 42–78; Ht 162.6 cm; Wt 71.0 kg
[2018-10-26 03:25] LABS: BASOPHILS 0.7 % (0-2); EOSINOPHILS 1.2 % (0-7); HEMATOCRIT 30.4 % (36.0-48.0); HEMOGLOBIN 9.4 g/dL (12-16); IMMATURE GRANULOCYTES 5.4 % (0-5); LYMPHOCYTES 31.9 % (15-50); MCH 28.7 pg (26.0-34.0); MCHC 30.9 g/dL (31.0-37.0); MCV 92.7 fL (80.0-100.0); MONOCYTES 12.4 % (2-11); NEUTROPHILS 48.4 % (40-80); PLATELET COUNT 402 10x3/uL (130-400); RBC 3.28 10x6/uL (4.00-5.40); RDW 17.2 % (11.5-14.5)
[2018-10-26 03:26] LABS: WBC 6.7 10x3/uL (4.8-10.8)
[2018-10-26 03:37] LABS: ANION GAP 7.1 mmol/L (8-16); CARBON DIOXIDE 31.3 mmol/L (21.0-32.0); MAGNESIUM - SERUM 1.2 mg/dL (1.8-2.4); POTASSIUM - SERUM 3.4 mmol/L (3.5-5.1)
[2018-10-26 03:38] LABS: CALCIUM 6.9 mg/dL (8.5-10.1); CREATININE - SERUM 1.1 mg/dL (0.6-1.3)
--- NOTE | 2018-10-26 08:28 | NUR ---
0700 PT RECIEVED ALERT AND ORIENTED VSS DENIES PAIN, PIV TO LAC WITH LEVOPHED 2MCG AND NS 125ML/HR, O2 4L NC, REPOSITIONED BUT IMMEDIATELY RETURNS TO L SIDE, STATES THIS IS MORE COMFORTABLE, DISCUSSED PRESSURE ULCERS AND ROLLING AND PT STATED "I WONT GET THAT", PIV TO RFA SALINE LOCKED, JOHNSON DRAINING YELLOW URINE 0815 ATE 50% BREAKFAST AND MENU FILLED OUT, TOOK AM MEDS AND SECOND DOSE OF MAG PER PROTOCOL, TOLERATED WELL, REPOSITIONED, WILL CONTINUE TO MONITOR
--- NOTE | 2018-10-26 09:51 | NUR ---
0845 levophed titrated off, bp remaining over 100 systolic, attempted to call dr drummond to notify with no answer
[2018-10-26 10:22] LABS: FOLATE (FOLIC ACID) - SERUM >20.0 ng/mL (>3.0)
--- NOTE | 2018-10-26 11:33 | NUR ---
PT COMPLAINING OF LEFT ELBOW SWELLING, PIV PATENT, NO SIGNS OF INFILTRATION, GENERALIZED EDEMA PRESENT, PT ALSO CONSTANTLY REPOSTIIONS SELF TO L SIDE AND LEANS ON L ARM AND SIDERAILS. DR LEE NURSE AWARE OF THIS WITH ORDERS FOR MIDLINE, SARAH VASCULAR ACCESS NOTIFIED
--- NOTE | 2018-10-26 14:03 | NUR ---
VASCULAR ACCESS NURSE IN UNIT, REVIEWED PT AND THAT SHE HAS 2 18G PIVS AND ONLY ON NS, WILL RECONSULT AT A LATER TIME IF IV ACCESS IS LOST, UPDATED DR BEE WITH ORDERS TO DECREASE IVF TO 30 AND OK TO TRANSFER TO FLOOR
--- NOTE | 2018-10-26 15:00 | NUR ---
DR BEE IN UNIT AND NOTIFIED OF HR ELEVATING THROUGHOUT DAY, NO NEW ORDERS
--- NOTE | 2018-10-26 15:51 | NUR ---
REPORT CALLED TO MED 3 PT WILL TRANSFER TO 2126 SHORTLY
--- NOTE | 2018-10-26 16:15 | MORECARE ---
CASE MANAGEMENT DISCHARGE SUMMARY PATIENT: ELIZABETH BUSTAMANTE UNIT: [id number] ADM DATE: 10/25/18 AGE: 68 : 48 SEX: F ROOM/BED: [facility] AUTHOR: BLANKA MCNAIR PHYSICIAN: REFERRING PHYSICIAN: RAVEN BEE MD DATE OF SERVICE: 10/26/18 Discharge Plan Patient Name: ELIZABETH BUSTAMANTE [facility] [facility] 1950 Planned Disposition: Nursing Facility [facility] Anticipated Discharge Date: Discharge Date: Expected LOS: Initial Reviewer: [id number] Initial Review Date: 10/25/2018 Generated: 10/26/18 5:14 pm Patient Name: ELIZABETH BUSTAMANTE Page [id number] at 1615 All edits/amendments must be made on the electronic document DICTATION DATE: 10/26/18 1614 MANAGER SOCIAL RESPONSIBILITY: ALYSSIA 10/26/181613 RPT#: [id number] DC DATE: STATUS: ADM IN [facility] [address] [place] [address] END OF REPORT
--- NOTE | 2018-10-26 16:25 | MORECARE ---
CASE MANAGEMENT DISCHARGE SUMMARY PATIENT: ELIZABETH WRAY UNIT: [id number] ADM DATE: 10/25/18 AGE: 68 : [birth year] SEX: F ROOM/BED: [facility] AUTHOR: TABBYDOC PHYSICIAN: REFERRING PHYSICIAN: RAVEN BEE MD DATE OF SERVICE: 10/26/18 Discharge Plan Patient Name: ELIZABETH WRAY Facility: [facility]:[place] : 1950 Planned Disposition: Nursing Facility [facility] Cert Anticipated Discharge Date: Discharge Date: Expected LOS: Initial Reviewer: [id number] Initial Review Date: 10/25/2018 Generated: 10/26/18 5:24 pm Comments DCP- Discharge Planning Updated by [email or web address]: Tabby Pittman on 10/26/18 3:[address] Patient Name: ELIZABETH WRAY Admission Status: ER Accout number: [id number] Admission Date: 10-25-2018 : 1950 Admission Diagnosis: Attending: RAVEN BEE Current LOS: 1 Anticipated DC Date: Planned Disposition: Nursing Facility [facility] Cert Primary Insurance: MEDICARE A & B Discharge Planning Comments: CM met with patient at bedside. Patient states that she resides at [facility] in [place] [phone]. Patient states she has been living there for about 8 months. She states she is currently wheelchair bound. She states she has been receiving therapy to be able to walk again at [place]. She states her emergency contact is her son Srini Wray [phone]. Patient plans to return to [place] upon discharge. Patient denies any discharge needs at this time. CM will continue to follow and assist as needed with discharge planning / needs. Vp Of Product: Tabby Pittman DCPIA - Discharge Planning Initial Assessment Updated by [email or web address]: Tabby Pittman on 10/26/18 4:16 pm * Is the patient Alert and Oriented? Yes * How many steps to enter\exit or inside your home? * PCP [facility] * Pharmacy [facility] * Preadmission Environment [facility] Long [facility] * Facility Name [email or web address] [address] * ADLs Partial Dependent * Equipment Wheelchair * List name and contact numbers for known caregivers / representatives who currently or will assist patient after discharge: Srini barrios - [phone] * Verbal permission to speak to the caregivers and representatives has been obtained from the patient. Yes * Additional services required to return to the preadmission environment? No * Can the patient safely return to the preadmission environment? Yes * Has this patient been hospitalized within the prior 30 days at any hospital? No Last DP export: 10/26/18 3:15 p Patient Name: ELIZABETH WRAY Page [id number] at 1625 All edits/amendments must be made on the electronic document DICTATION DATE: 10/26/181623 OPERATING ROOM TECHNICIAN: ALYSSIA 10/26/181623 RPT#: [id number] DC DATE: STATUS: ADM IN [facility] [address] [place] [address] END OF REPORT
--- NOTE | 2018-10-26 17:30 | NUR ---
STATES SHE CAN'T BREATHE. O2 SAT 92% ON 5L NC. INSTRUCTED TO TAKE SLOW DEEP BREATHS.
--- NOTE | 2018-10-26 17:31 | NUR ---
RECIEVED TO ROOM 1211 FROM ICU VIA .
--- NOTE | 2018-10-26 17:40 | NUR ---
PT TRANSFERED TO MED 3 AFTER EATING 50% DINNER
--- NOTE | 2018-10-26 19:30 | NUR ---
LYING IN BED, LEANING ON LT SIDE. YELLING AT STAFF. ATTN SEEKING. WHEN STAFF LEAVES ROOM SHE CALLS OUT AGAIN. ANXIOUS AND IRRITABLE. RESP IRREG, LABORED. O2 @ 5L/NC. BBS COARSE. PROD COUGH WITH YELLOW GREEN SPUTUM. 1+ EDEMA NOTED TO BLE WITH PINK/WHITE MOTTLING TO BILAT FEET. PULSES WEAK. SCABS NOTED TO TOPS OF TOES. BRUISES NOTED TO BUE. JOHNSON CATH PATENT AND DRAINING CLEAR YELLOW URINE. REPORTS CHRONIC PAIN IN BACK. GEN EDEMA NOTED. SALINE LOCK NOTED TO RT FOREARM AND LT AC. SR ELEVATED X2. CL IN REACH.
--- NOTE | 2018-10-26 21:25 | NUR ---
MEDICATED WITH ULTRAM FOR C/O PAIN IN BACK RATING 10. CL IN REACH.
[2018-10-27 00:40] VITALS: BP 98/54
--- NOTE | 2018-10-27 03:05 | NUR ---
SAO2 100% ON 5L/NC. RT DECREASED O2 TO 2L/NC AT THIS TIME AND SAO2 95-96%.
--- NOTE | 2018-10-27 03:41 | NUR ---
HAS RESTED WELL SO FAR THIS SHIFT. NO DISTRESS. CL IN REACH.
[2018-10-27 05:30] VITALS: BP 106/57
[2018-10-27 07:19] LABS: BASOPHILS 1.3 % (0-2); EOSINOPHILS 1.5 % (0-7); HEMATOCRIT 28.6 % (36.0-48.0); HEMOGLOBIN 8.7 g/dL (12-16); IMMATURE GRANULOCYTES 6.6 % (0-5); LYMPHOCYTES 37.2 % (15-50); MCH 28.6 pg (26.0-34.0); MCHC 30.4 g/dL (31.0-37.0); MCV 94.1 fL (80.0-100.0); MEAN PLATELET VOLUME 9.6 fL (7.4-10.4); MONOCYTES 12.6 % (2-11); NEUTROPHILS 40.8 % (40-80); PLATELET COUNT 441 10x3/uL (130-400); RBC 3.04 10x6/uL (4.00-5.40); WBC 6.2 10x3/uL (4.8-10.8)
[2018-10-27 07:35] LABS: ALBUMIN 1.5 g/dL (3.4-5.0); ALKALINE PHOSPHATASE 138 U/L (46-116); ALT (SGPT) 23 U/L (10-68); BILIRUBIN - TOTAL 0.34 mg/dL (0.2-1.3); CALCIUM 7.5 mg/dL (8.5-10.1); CARBON DIOXIDE 32.8 mmol/L (21.0-32.0); CHLORIDE - SERUM 111 mmol/L (98-107); MAGNESIUM - SERUM 1.4 mg/dL (1.8-2.4); POTASSIUM - SERUM 4.3 mmol/L (3.5-5.1); PROTEIN - SERUM 4.4 g/dL (6.4-8.2); SODIUM 145 mmol/L (136-145)
[2018-10-27 07:36] LABS: GLUCOSE 70 mg/dL (74-106)
[2018-10-27 07:37] LABS: CALC OSMOLALITY 287 mosm/kg (275-300); CREATININE - SERUM 0.6 mg/dL (0.6-1.3); UREA NITROGEN 16 mg/dL (7-18); eGFR NON AFRICAN AMERICAN > 90 mL/min (90-120)
--- NOTE | 2018-10-27 08:15 | NUR ---
ASSESSMENT COMPLETE. IV TO R FA PATENT. SL TO L AC. O2 2L NC IN USE. JOHNSON PATENT DRAINING YELLOW URINE. EDEMA NOTED TO LEFT ARM AND LEFT EYE. PATIENT MOSTLY LAYS ON HER LEFT SIDE. ENCOURAGED TO CHANGE POSITION TO PREVENT FLUID FROM COLLECTING TO ONE SIDE OF HER BODY. VOICED UNDERSTANDING.
--- NOTE | 2018-10-27 09:18 | NUR ---
ULTRAM GIVEN FOR COMPLAINT OF BACK PAIN.
--- NOTE | 2018-10-27 10:21 | NUR ---
REHAB PRESCREENING Rehab referral received and chart reviewed. 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 She is not a good candidate for acute inpatient rehab and does not meet criteria. Thank you for this referral! Lima Carvalho, COMPANY DANCER Rehab PD
[2018-10-27 11:39] VITALS: BP 91/60
--- NOTE | 2018-10-27 12:24 | NUR ---
NO CHANGES NOTED AT THIS TIME.
[2018-10-27 17:34] VITALS: BP 114/64
--- NOTE | 2018-10-27 17:36 | NUR ---
DENIES ANY NEEDS AT THIS TIME.
[2018-10-27 20:05] VITALS: BP 139/92
[2018-10-28] VITALS (12 sets, daily range): BP systolic 112–168; BP diastolic 61–95
[2018-10-28 08:55] LABS: EOSINOPHILS 1.2 % (0-7); HEMATOCRIT 26.9 % (36.0-48.0); HEMOGLOBIN 8.1 g/dL (12-16); IMMATURE GRANULOCYTES 7.8 % (0-5); LYMPHOCYTES 39.2 % (15-50); MCH 28.4 pg (26.0-34.0); MCHC 30.1 g/dL (31.0-37.0); MCV 94.4 fL (80.0-100.0); MEAN PLATELET VOLUME 9.2 fL (7.4-10.4); MONOCYTES 12.4 % (2-11); NEUTROPHILS 38.4 % (40-80); PLATELET COUNT 401 10x3/uL (130-400); RBC 2.85 10x6/uL (4.00-5.40); RDW 17.9 % (11.5-14.5); WBC 5.9 10x3/uL (4.8-10.8)
--- NOTE | 2018-10-28 09:00 | NUR ---
AWAKE AND ALERT. ORIENTED X3. NO C/O AT THIS TIME. BREAKFAST SERVED IN ROOM. ATE ONLY A FEW BITES. REPORTS NO BM SINCE LAST TUESDAY. WILL MONITOR. LUNGS ARE CLEAR BILATERALLY, NO CUOGH NOTED. SKIN IS INTACT WITHOUT REDNESS. IV TO LEFT AC IS PATENT WITHOUT REDNESS AT INSERTION SITE. DENIES NEEDS.
[2018-10-28 09:09] LABS: CALC OSMOLALITY 280 mosm/kg (275-300); CALCIUM 7.3 mg/dL (8.5-10.1); CARBON DIOXIDE 35.6 mmol/L (21.0-32.0); CHLORIDE - SERUM 109 mmol/L (98-107); CREATININE - SERUM 0.6 mg/dL (0.6-1.3); POTASSIUM - SERUM 4.7 mmol/L (3.5-5.1); SODIUM 142 mmol/L (136-145); UREA NITROGEN 13 mg/dL (7-18); eGFR NON AFRICAN AMERICAN > 90 mL/min (90-120)
[2018-10-28 09:10] LABS: GLUCOSE 69 mg/dL (74-106)
--- NOTE | 2018-10-28 10:00 | NUR ---
SPOKE WITH LIZA CHU APN RE C/O CONSTIPATION. NEW ORDERS RECEIVED.
--- NOTE | 2018-10-28 12:00 | NUR ---
REQUESTED AND GIVEN 50MG ULTRAM PO FOR C/O MID BACK PAIN LEVEL 10. WILL MONITOR.
--- NOTE | 2018-10-28 12:30 | NUR ---
LUNCH SERVED IN ROOM. ATE MOSTLY THE MEAT. DENIES NEEDS. REPORTS NO RELIEF WITH USE OF ULTRAM.
--- NOTE | 2018-10-28 14:00 | NUR ---
DR. BEE HERE. NOTIFIED OF CONTINUED C/O MID BACK PAIN. NO NEW ORDERS.
--- NOTE | 2018-10-28 17:15 | NUR ---
FIRST UNIT BLOOD UP AT THIS TIME. VSS.
--- NOTE | 2018-10-28 19:44 | NUR ---
RESPONDED TO PATIENT'S CALL LIGHT. PATIENT STATED THAT SHE IS HAVING ANXIETY AND 10/10 PAIN IN HER BACK. I EDUCATED THE PATIENT AND TOLD HER THAT SHE HAD A TRAMADOL FOR PAIN AND THE ONLY OTHER THING SHE HAS ORDERED IS TYLENOL. THE PATIENT STATED SHE IS ALLERGIC TO TYLENOL AND STATED SHE CAN ONLY TAKE MOTRIN. THE PATIENT REQUESTED THAT THE DOCTOR BE CONTACTED ABOUT PAIN MEDICINE. PATIENT DENIES OTHER NEEDS AT THIS TIME. BED IN LOWEST POSITON AND CALL LIGHT WITHIN REACH. ENCOURAGED THE PATIENT TO CALL IF SHE HAS NEEDS AND TOLD HER I WOULD GET IN CONTACT WITH THE INSECTICIDE SPRAYER DOCTOR. WILL CONTINUE TO MONITOR.
--- NOTE | 2018-10-28 20:03 | NUR ---
SPOKE WITH DR. BEE IN REGARDS TO PATIENT'S PAIN. I NOTIFIED DR. BEE THAT THE PATIENT HAD BEEN GIVEN A DOSE OF TRAMADOL AT 1803 TODAY AND THAT THE PATIENT STATED SHE IS ALLERGIC TO TYLENOL AND TAKES MOTRIN AT HOME. DR. BEE SAID THAT PATIENT CANNOT HAVE MOTRIN WITH HER KIDNEY FUNCTION AND THAT SHE CAN HAVE TRAMADOL WHEN IT IS DUE AGAIN.
--- NOTE | 2018-10-28 20:12 | NUR ---
PATIENT RESTING IN BED WITH NO S/S OF DISTRESS. EXPLAINED TO THE PATIENT THAT I SPOKE WITH THE DOCTOR AND SHE CAN'T HAVE ANYTHING ELSE FOR PAIN AT THIS TIME. PATIENT VERBALIZED UNDERSTANDING. TURNED PATIENT'S FAN ON PER HER REQUEST. PATIENT DENIES OTHER NEEDS THIS TIME. BED IN LOWEST POSITION AND CALL LIGHT WITHIN REACH. WILL CONTINUE TO MONITOR.
--- NOTE | 2018-10-28 22:07 | NUR ---
BEGAN TRANSFUSING SECOND UNIT PRBC'S
[2018-10-29] VITALS: BP 120/73
[2018-10-29 04:00] VITALS: BP 126/75
--- NOTE | 2018-10-29 04:15 | NUR ---
PATIENT STATES SHE NEEDS TO HAVE A BOWEL MOVEMENT BUT CANNOT GET UP, CANNOT TURN TO HAVE A BED PADILLA PLACED UNDER HER AND WILL JUST "GO ON THE BLUE PADS". wHEN ASKED TO TURN SO WE MAY CHECK THE BLUE PADS UNDER HER, SHE STATES SHE CANNOT TURN AND TO JUST PUT A BLUE PAD UNDER HER.
--- NOTE | 2018-10-29 05:35 | NUR ---
PATIENT STATES SHE IS STILL UNWILLING TO TURN OR BE PLACED ON THE BEDPAN. STATES SHE WILL CALL NURSING STAFF WHEN SHE IS READY TO BE CLEANED UP.
[2018-10-29 06:52] LABS: MCH 28.9 pg (26.0-34.0); MCHC 31.5 g/dL (31.0-37.0); MEAN PLATELET VOLUME 9.9 fL (7.4-10.4); PLATELET COUNT 374 10x3/uL (130-400); RDW 17.2 % (11.5-14.5)
[2018-10-29 06:55] LABS: HEMATOCRIT 39.7 % (36.0-48.0); HEMOGLOBIN 12.5 g/dL (12-16); MCV 91.9 fL (80.0-100.0); RBC 4.32 10x6/uL (4.00-5.40); WBC 9.2 10x3/uL (4.8-10.8)
[2018-10-29 07:04] LABS: CALC OSMOLALITY 276 mosm/kg (275-300); CALCIUM 7.5 mg/dL (8.5-10.1); CARBON DIOXIDE 32.6 mmol/L (21.0-32.0); CHLORIDE - SERUM 105 mmol/L (98-107); CREATININE - SERUM 0.5 mg/dL (0.6-1.3); GLUCOSE 72 mg/dL (74-106); POTASSIUM - SERUM 4.8 mmol/L (3.5-5.1); SODIUM 140 mmol/L (136-145); UREA NITROGEN 11 mg/dL (7-18); eGFR NON AFRICAN AMERICAN > 90 mL/min (90-120)
[2018-10-29] MEDS ORDERED: PROTONIX40 MG PO (07:09)
[2018-10-29 07:22] LABS: BASOPHILS 1 % (0-2); LYMPHOCYTES 28 % (15-50); MONOCYTES 9 % (2-11); NEUTROPHILS 58 % (40-80); PLATELET ESTIMATE NORMAL
--- NOTE | 2018-10-29 07:30 | NUR ---
AWAKE AND ALERT. ORIENTED X3. CONTINUES TO C/O NEED FOR BM. WILL GIVEN MAG CITRATE. LUNGS ARE CLEAR BILATERALLY, NO COUGH NOTED. SKIN IS INTACT WITHOUT REDNESS. IV TO RIGHT FOREARM IS PATENT WITHOUT REDNESS AT INSERTION SITE. JOHNSON PATENT WITH CLEAR YELLOW URINE. DENIES NEEDS AT THIS TIME.
[2018-10-29 08:00] VITALS: BP 115/75
--- NOTE | 2018-10-29 08:50 | NUR ---
GIVEN MAG CITRATE PER ORDERS. WILL MONITOR.
--- NOTE | 2018-10-29 09:15 | NUR ---
HAD LARGE AMOUNT OF SOFT STOOL. SKIN CARE PER STAFF. LINENS CHANGED. PATIENT ENCOURAGED TO TURN TO OTHER SIDE. SHE IS TURNED FOR NOW. WILL CONTINUE TO MONITOR.
--- NOTE | 2018-10-29 10:47 | MORECARE ---
CASE MANAGEMENT DISCHARGE SUMMARY PATIENT: ELIZABETH WRAY UNIT: [id number] ADM DATE: 10/25/18 AGE: 68 : 48 SEX: F ROOM/BED: D.1211 AUTHOR: TABBYDOC PHYSICIAN: REFERRING PHYSICIAN: RAVEN BEE MD DATE OF SERVICE: 10/29/18 Discharge Plan Patient Name: ELIZABETH WRAY Facility: [facility]:[place] : 1950 Planned Disposition: Nursing Facility [facility] Cert Anticipated Discharge Date: 10/29/18 Discharge Date: Expected LOS: 4 Initial Reviewer: [email or web address] Initial Review Date: 10/25/2018 Generated: 10/29/18 11:47 am Comments DCP- Discharge Planning Updated by [email or web address]: Tabby Pittman on 10/26/18 3:[address] Patient Name: ELIZABETH WRAY Admission Status: ER Accout number: [id number] Admission Date: 10-25-2018 : 1950 Admission Diagnosis: Attending: RAVEN BEE Current LOS: 1 Anticipated DC Date: Planned Disposition: Nursing Facility [facility] Cert Primary Insurance: MEDICARE A & B Discharge Planning Comments: CM met with patient at bedside. Patient states that she resides at [facility] in [place] [phone]. Patient states she has been living there for about 8 months. She states she is currently wheelchair bound. She states she has been receiving therapy to be able to walk again at [place]. She states her emergency contact is her son Srini Wray [phone]. Patient plans to return to [place] upon discharge. Patient denies any discharge needs at this time. CM will continue to follow and assist as needed with discharge planning / needs. News Operations Manager: Tabby Pittman DCPIA - Discharge Planning Initial Assessment Updated by [email or web address]: Tabby Pittman on 10/26/18 4:16 pm * Is the patient Alert and Oriented? Yes * How many steps to enter\exit or inside your home? * PCP [facility] * Pharmacy [facility] * Preadmission Environment [facility] * Facility Name [facility] [address] * ADLs Partial Dependent * Equipment Wheelchair * List name and contact numbers for known caregivers / representatives who currently or will assist patient after discharge: Srini barrios - [phone] * Verbal permission to speak to the caregivers and representatives has been obtained from the patient. Yes * Additional services required to return to the preadmission environment? No * Can the patient safely return to the preadmission environment? Yes * Has this patient been hospitalized within the prior 30 days at any hospital? No Last DP export: 10/26/18 3:24 p Patient Name: ELIZABETH WRAY Page 43788 at 1047 All edits/amendments must be made on the electronic document DICTATION DATE: 10/29/181046 BOARD SAW RUNNER: ALYSSIA 10/29/187 RPT#: [id number] DC DATE: STATUS: ADM IN [facility] [address] [place] [address] END OF REPORT
--- NOTE | 2018-10-29 10:54 | MORECARE ---
CASE MANAGEMENT DISCHARGE SUMMARY PATIENT: ELIZABETH WRAY UNIT: [id number] ADM DATE: 10/25/18 AGE: 68 : 48 SEX: F ROOM/BED: D.1211 AUTHOR: TABBYDOC PHYSICIAN: REFERRING PHYSICIAN: RAVEN BEE MD DATE OF SERVICE: 10/29/18 Discharge Plan Patient Name: ELIZABETH WRAY Facility: [facility]:[place] : 1950 Planned Disposition: Nursing Facility [facility] Cert Anticipated Discharge Date: 10/29/18 Discharge Date: Expected LOS: 4 Initial Reviewer: [email or web address] Initial Review Date: 10/25/2018 Generated: 10/29/18 11:54 am Comments DCP- Discharge Planning Updated by [id number]: Mary Correa on 10/29/18 9:[address] LATE ENTRY 1000 PATIENT FOR DISCHARGE TO [facility] TODAY. TC TO [place]. SPOKE WITH APOLONIA, HIS NURSE. FAXED CLINICAL UPDATE AND DISCHARGE MED LIST. APOLONIA STATED SHE WOULD CALL BACK REGARDING ACCEPTANCE FOR TODAY. THEY REQUIRE A NURSE BE PRESENT WITH A RESIDENT WHO HAS OXYGEN. PATIENT IS ON 6/L\ NASAL O2. CM SPOKE WITH PRIMARY NURSE, ALYSE. AWAITING CALL BACK. DCP- Discharge Planning Updated by [id number]: Tabby Pittman on 10/26/18 3:[address] Patient Name: ELIZABETH WRAY Admission Status: ER Accout number: [id number] Admission Date: 10-25-2018 : 1950 Admission Diagnosis: Attending: RAVEN BEE Current LOS: 1 Anticipated DC Date: Planned Disposition: Nursing Facility [facility] Cert Primary Insurance: MEDICARE A & B Discharge Planning Comments: CM met with patient at bedside. Patient states that she resides at [facility] in [place] [phone]. Patient states she has been living there for about 8 months. She states she is currently wheelchair bound. She states she has been receiving therapy to be able to walk again at [place]. She states her emergency contact is her son Srini Wray [phone]. Patient plans to return to [place] upon discharge. Patient denies any discharge needs at this time. CM will continue to follow and assist as needed with discharge planning / needs. Clay Modeler: Tabby Pittman DCPIA - Discharge Planning Initial Assessment Updated by [email or web address]: Tabby Pittman on 10/26/18 4:16 pm * Is the patient Alert and Oriented? Yes * How many steps to enter\exit or inside your home? * PCP [facility] * Pharmacy [facility] * Preadmission Environment [facility] * Facility Name [facility] [address] * ADLs Partial Dependent * Equipment Wheelchair * List name and contact numbers for known caregivers / representatives who currently or will assist patient after discharge: Srini barrios - [phone] * Verbal permission to speak to the caregivers and representatives has been obtained from the patient. Yes * Additional services required to return to the preadmission environment? No * Can the patient safely return to the preadmission environment? Yes * Has this patient been hospitalized within the prior 30 days at any hospital? No Last DP export: 10/29/18 9:47 a Patient Name: ELIZABETH WRAY Page [phone] at 1054 All edits/amendments must be made on the electronic document DICTATION DATE: 10/29/18 105 STERILE PRODUCTS PROCESSOR: ALYSSIA 10/29/18 1054 RPT#: [id number] DC DATE: STATUS: ADM IN [facility] [address] [place] [address] END OF REPORT
[2018-10-29 12:00] VITALS: BP 128/78
--- NOTE | 2018-10-29 12:30 | NUR ---
CALLED APOLONIA URBANO LPN AT [facility] WITH REPORT. ALL QUESTIONS ANSWERED.
--- NOTE | 2018-10-29 14:45 | NUR ---
ASSISTED TO DRESS PER STAFF. JOHNSON D/C WITH TIP INTACT WITHOUT DIFFICULTY. IV TO RIGHT FOREARM D/C WITH CATHETER INTACT.
--- NOTE | 2018-10-29 15:50 | NUR ---
DR. BEE CALLED WITH REQUEST FOR EXTRA DOSE OF ULTRAM FOR THE TRIP HOME. ORDERS RECEIVED.
--- NOTE | 2018-10-29 16:15 | NUR ---
DISCHARGED TO [place] VIA THEIR TRANSPORT. DISCHARGE INSTRUCTIONS GIVEN BOTH VERBALLY AND WRITTEN. ALL QUESTIONS ANSWERED. PATIENT VERBALIZED UNDERSTANDING OF SAME. ALL BELONGINGS WITH PATIENT.
--- NOTE | 2018-10-30 17:12 | MORECARE ---
CASE MANAGEMENT DISCHARGE SUMMARY PATIENT: ELIZABETH WRAY UNIT: [id number] ADM DATE: 10/25/18 AGE: 68 : 48 SEX: F ROOM/BED: D.1211 AUTHOR: TABBY,DOC PHYSICIAN: REFERRING PHYSICIAN: RAVEN BEE MD DATE OF SERVICE: 10/30/18 Discharge Plan Patient Name: ELIZABETH WRAY Facility: [facility]:[place] : 1950 Planned Disposition: Nursing Facility [facility] Cert Anticipated Discharge Date: 10/29/18 Discharge Date: 10/29/2018 Expected LOS: 4 Initial Reviewer: [email or web address] Initial Review Date: 10/25/2018 Generated: 10/30/18 6:12 pm Comments DCP- Discharge Planning Updated by [email or web address]: Mary Correa on 10/29/18 9:[address] LATE ENTRY 1000 PATIENT FOR DISCHARGE TO [facility] TODAY. TC TO [place]. SPOKE WITH APOLONIA, HIS NURSE. FAXED CLINICAL UPDATE AND DISCHARGE MED LIST. APOLONIA STATED SHE WOULD CALL BACK REGARDING ACCEPTANCE FOR TODAY. THEY REQUIRE A NURSE BE PRESENT WITH A RESIDENT WHO HAS OXYGEN. PATIENT IS ON 6/L\ NASAL O2. CM SPOKE WITH PRIMARY NURSE, ALYSE. AWAITING CALL BACK. DCP- Discharge Planning Updated by [email or web address]: Tabby Pittman on 10/26/18 3:[address] Patient Name: ELIZABETH WRAY Admission Status: ER Accout number: [id number] Admission Date: 10-25-2018 : 1950 Admission Diagnosis: Attending: RAVEN BEE Current LOS: 1 Anticipated DC Date: Planned Disposition: Nursing Facility [facility] Cert Primary Insurance: MEDICARE A & B Discharge Planning Comments: CM met with patient at bedside. Patient states that she resides at [facility] in [place] [phone]. Patient states she has been living there for about 8 months. She states she is currently wheelchair bound. She states she has been receiving therapy to be able to walk again at [place]. She states her emergency contact is her son Srini Wray [phone]. Patient plans to return to [place] upon discharge. Patient denies any discharge needs at this time. CM will continue to follow and assist as needed with discharge planning / needs. Office Services Clerk: Tabby Pittman DCPIA - Discharge Planning Initial Assessment Updated by [email or web address]: Tabby Pittman on 10/26/18 4:16 pm * Is the patient Alert and Oriented? Yes * How many steps to enter\exit or inside your home? * PCP [facility] * [facility] * Preadmission Environment [facility] * Facility Name [facility] [address] * ADLs Partial Dependent * Equipment Wheelchair * List name and contact numbers for known caregivers / representatives who currently or will assist patient after discharge: Srini Posada [facility] - [phone] * Verbal permission to speak to the caregivers and representatives has been obtained from the patient. Yes * Additional services required to return to the preadmission environment? No * Can the patient safely return to the preadmission environment? Yes * Has this patient been hospitalized within the prior 30 days at any hospital? No Last DP export: 10/29/18 9:54 a Patient Name: ELIZABETH RWAY Page 37502 at 1712 All edits/amendments must be made on the electronic document DICTATION DATE: 10/30/181710 FLIGHT CONTROL SPECIALIST: ALYSSIA 10/30/181710 RPT#: [id number] DC DATE:10/29/18 STATUS: DIS IN [facility] [address] [place] [address] END OF REPORT
--- NOTE | 2018-10-31 10:24 | MORECARE ---
CASE MANAGEMENT DISCHARGE SUMMARY PATIENT: ELIZABETH WRAY UNIT: [id number] ADM DATE: 10/25/18 AGE: 68 : 48 SEX: F ROOM/BED: D.1211 AUTHOR: TABBY,DOC PHYSICIAN: REFERRING PHYSICIAN: RAVEN BEE MD DATE OF SERVICE: 10/31/18 Discharge Plan Patient Name: ELIZABETH WRAY Facility: [facility]:[place] : 1950 Planned Disposition: Nursing Facility [facility] Cert Anticipated Discharge Date: 10/29/18 Discharge Date: 10/29/2018 Expected LOS: 4 Initial Reviewer: [email or web address] Initial Review Date: 10/25/2018 Generated: 10/31/18 11:24 am Comments DCP- Discharge Planning Updated by [email or web address]: Mary Correa on 10/29/18 9:[address] LATE ENTRY 1000 PATIENT FOR DISCHARGE TO [facility] TODAY. TC TO [place]. SPOKE WITH APOLONIA, HIS NURSE. FAXED CLINICAL UPDATE AND DISCHARGE MED LIST. APOLONIA STATED SHE WOULD CALL BACK REGARDING ACCEPTANCE FOR TODAY. THEY REQUIRE A NURSE BE PRESENT WITH A RESIDENT WHO HAS OXYGEN. PATIENT IS ON 6/L\ NASAL O2. CM SPOKE WITH PRIMARY NURSE, ALYSE. AWAITING CALL BACK. DCP- Discharge Planning Updated by [id number]: Tabby Pittman on 10/26/18 3:[address] Patient Name: ELIZABETH WRAY Admission Status: ER Accout number: [id number] Admission Date: 10-25-2018 : 1950 Admission Diagnosis: Attending: RAVEN BEE Current LOS: 1 Anticipated DC Date: Planned Disposition: Nursing Facility [facility] Cert Primary Insurance: MEDICARE A & B Discharge Planning Comments: CM met with patient at bedside. Patient states that she resides at [facility] in [place] [phone]. Patient states she has been living there for about 8 months. She states she is currently wheelchair bound. She states she has been receiving therapy to be able to walk again at [place]. She states her emergency contact is her son Srini Wray [phone]. Patient plans to return to [place] upon discharge. Patient denies any discharge needs at this time. CM will continue to follow and assist as needed with discharge planning / needs. Vibration Engineer: Tabby Pittman DCPIA - Discharge Planning Initial Assessment Updated by [email or web address]: Tabby Pittman on 10/26/18 4:16 pm * Is the patient Alert and Oriented? Yes * How many steps to enter\exit or inside your home? * PCP [facility] * Pharmacy [facility] * Preadmission Environment [facility] * Facility Name [facility] [address] * ADLs Partial Dependent * Equipment Wheelchair * List name and contact numbers for known caregivers / representatives who currently or will assist patient after discharge: Srini Posada [facility] - [phone] * Verbal permission to speak to the caregivers and representatives has been obtained from the patient. Yes * Additional services required to return to the preadmission environment? No * Can the patient safely return to the preadmission environment? Yes * Has this patient been hospitalized within the prior 30 days at any hospital? No Last DP export: 10/30/18 4:12 p Patient Name: ELIZABETH WRAY Page 90628 at 1024 All edits/amendments must be made on the electronic document DICTATION DATE: 10/31/18 1023 TEST AUTOMATION ARCHITECT: ALYSSIA 10/31/18 1023 RPT#: [id number] DC DATE:10/29/18 STATUS: DIS IN [facility] [address] [place] [address] END OF REPORT
== END 2018-10-29 16:15 | DRG 314 ==
LOC: D.ER 05:25 → D.M3 07:26 → D.CVICU 07:26 → D.M3 10-26 16:59
PROVIDERS: Family Medicine; ADMIT Internal Medicine Nephrology; ATTEND Internal Medicine Nephrology
DX: I95.9 Hypotension, unspecified (principal); R57.1 Hypovolemic shock; E43 Unspecified severe protein-calorie malnutrition; N17.9 Acute kidney failure, unspecified; J98.11 Atelectasis; I50.32 Chronic diastolic (congestive) heart failure; D68.9 Coagulation defect, unspecified; K52.9 Noninfective gastroenteritis and colitis, unspecified; I11.0 Hypertensive heart disease with heart failure; J44.9 Chronic obstructive pulmonary disease, unspecified; I08.3 Combined rheumatic disorders of mitral, aortic and tricuspid valves; Z68.23 Body mass index [BMI] 23.0-23.9, adult; D50.9 Iron deficiency anemia, unspecified; M25.422 Effusion, left elbow

== ENCOUNTER 2018-10-30 04:19 | Inpatient (IN) | payer MEDICARE ==
[~2018-10-30] VITALS: Ht 162.6 cm; Wt 59.1 kg
[2018-10-30] VITALS (8 sets, daily range): BP systolic 87–117; BP diastolic 50–81; BMI 19.1; BMI 19.0
--- NOTE | ~2018-10-30 | OP ---
PATIENT NAME: ELIZABETH BUSTAMANTE MEDICAL RECORD: [id number] :[birth year] LOCATION:D. D.2131 ADMISSION DATE:10/30/18 SURGEON: HUMBERTO GONZALEZ MD DATE OF OPERATION: 11/13/2018 PREOPERATIVE DIAGNOSIS: T12 osteoporotic compression fracture. POSTOPERATIVE DIAGNOSIS: T12 osteoporotic compression fracture. PROCEDURE: T12 kyphoplasty. DESCRIPTION OF TECHNIQUE: After induction of general endotracheal anesthesia, the patient was rolled prone on chest and hip rolls. The thoracic spine was prepped and draped in usual sterile fashion. Fluoroscopic x-ray was used to cannulate the pedicle at the T12 on the right. A Jamshidi needle was advanced under biplanar fluoroscopic x-ray through the T12 pedicle. A kyphoplasty balloon was advanced through the cannula and inflated under fluoroscopic control. The balloon was deflated. The void created with the balloon was backfilled with methyl methacrylate bone cement. Good position of the cement was confirmed with fluoroscopic x-ray. The cannula was removed, a single Steri-Strip was used to close the incision. The patient was awakened in good condition and taken to recovery. All counts were reported as correct. Estimated blood loss was minimal. TRANSINT:[id number] Voice Confirmation ID: [id number] DOCUMENT ID: [id number] HUMBERTO GONZALEZ MD CC: [id number] DICTATION DATE: 11/20/18829 KNOWLEDGE MANAGEMENT CONSULTANT: 11/20/18 1047 DIS IN 11/15/18 [facility] [address] [place] [address]
[~2018-10-30 04:19] MED LIST changes: +ALBUTEROL SULF8.5 GM INH; +IBUPROFEN400 MG PO; +IMODIUM2 MG PO; +OPTIVE SENSITI1 EACH EACH EYE; +PROTONIX40 MG PO
--- NOTE | 2018-10-30 05:00 | NUR ---
[facility] REQUESTS NOT TO TRANSPORT PT TO INPATIENT ROOM UNTIL LABS ARE COMPLETE.
[2018-10-30 05:01] LABS: BASOPHILS 1.4 % (0-2); EOSINOPHILS 0.7 % (0-7); HEMOGLOBIN 11.7 g/dL (12-16); IMMATURE GRANULOCYTES 5.8 % (0-5); MCH 29.4 pg (26.0-34.0); MCHC 31.6 g/dL (31.0-37.0); MEAN PLATELET VOLUME 9.5 fL (7.4-10.4); NEUTROPHILS 44.1 % (40-80); PLATELET COUNT 347 10x3/uL (130-400); RBC 3.98 10x6/uL (4.00-5.40); RDW 17.6 % (11.5-14.5); WBC 8.6 10x3/uL (4.8-10.8)
--- NOTE | 2018-10-30 05:18 | NUR ---
PT PLACED ON BEDPAN. LINENS CHANGED AT THIS TIME.
[2018-10-30 05:33] LABS: ALBUMIN 1.6 g/dL (3.4-5.0); ALKALINE PHOSPHATASE 162 U/L (46-116); ALT (SGPT) 23 U/L (10-68); CALC OSMOLALITY 276 mosm/kg (275-300); CALCIUM 7.4 mg/dL (8.5-10.1); CARBON DIOXIDE 37.7 mmol/L (21.0-32.0); CHLORIDE - SERUM 104 mmol/L (98-107); CREATININE - SERUM 0.6 mg/dL (0.6-1.3); GLUCOSE 74 mg/dL (74-106); POTASSIUM - SERUM 4.3 mmol/L (3.5-5.1); PRO BNP 2639 pg/mL (0-125); PROTEIN - SERUM 4.8 g/dL (6.4-8.2); SODIUM 140 mmol/L (136-145); THYROID STIMULATING HORMONE 0.19 uIU/mL (0.36-3.74); TROPONIN-I 0.028 ng/mL (0.000-0.060); UREA NITROGEN 10 mg/dL (7-18); eGFR NON AFRICAN AMERICAN > 90 mL/min (90-120)
--- NOTE | 2018-10-30 06:31 | NUR ---
PT RECEIVED FROM ER, QUICK START AND HISTORY COMPLETE, NO TELEMTRY AVAILABLE AT THIS TIME
--- NOTE | 2018-10-30 09:03 | NUR ---
PETROLEUM SUPPLY SPECIALIST ASSESSMENT COMPLETED ALONG WITH MED REC AND PHARMACY. DISCUSSED WITH PRIMARY NURSE YENIFER DANIEL. NO CURRENT NEEDS.
--- NOTE | 2018-10-30 19:30 | NUR ---
RECEIVED REPORT, WILL ASSUME CARE OF PT, COMPLAINS OF PAIN,PLUMBING INSPECTOR CHECK BP 87/50, EXPLAIN IT WAS TO LOW, ASSISTED PLUMBING INSPECTOR WITH REPOSTION OF PT, BED IS LOW, SRX2, CALL LIGHT IN REACH,WILL CONTINUE PLAN OF CARE
[2018-10-31] VITALS (7 sets, daily range): BP systolic 82–105; BP diastolic 43–66
--- NOTE | 2018-10-31 04:46 | NUR ---
I have reviewed this patient and I concur with the Shift Assessment completed by the Licensed Practical Nurse today this shift.
--- NOTE | 2018-10-31 07:00 | NUR ---
RECEIVED BEDSIDE SHIFT REPORT. ASSUMED CARE OF PATIENT. PATIENT AWAKE, ALERT RECEIVING BREATHING TREATMENT AT THIS TIME. CALL LIGHT WITHIN REACH. NO DISTRESS.
--- NOTE | 2018-10-31 07:41 | NUR ---
REFUSED METANEB DUE TO NAUSEA
[2018-10-31 09:19] LABS: BASOPHILS 0.7 % (0-2); EOSINOPHILS 0 % (0-7); HEMATOCRIT 38.1 % (36.0-48.0); HEMOGLOBIN 11.6 g/dL (12-16); IMMATURE GRANULOCYTES 3.7 % (0-5); LYMPHOCYTES 36.1 % (15-50); MCH 28.9 pg (26.0-34.0); MCHC 30.4 g/dL (31.0-37.0); MEAN PLATELET VOLUME 9.9 fL (7.4-10.4); NEUTROPHILS 47.5 % (40-80); PLATELET COUNT 350 10x3/uL (130-400); RBC 4.01 10x6/uL (4.00-5.40); RDW 17.1 % (11.5-14.5); WBC 7.5 10x3/uL (4.8-10.8)
[2018-10-31 09:34] LABS: CALCIUM 7.5 mg/dL (8.5-10.1); CHLORIDE - SERUM 103 mmol/L (98-107); CREATININE - SERUM 0.6 mg/dL (0.6-1.3); GLUCOSE 96 mg/dL (74-106); POTASSIUM - SERUM 3.9 mmol/L (3.5-5.1); SODIUM 143 mmol/L (136-145); eGFR NON AFRICAN AMERICAN > 90 mL/min (90-120)
[2018-10-31 09:35] LABS: CALC OSMOLALITY 284 mosm/kg (275-300); UREA NITROGEN 13 mg/dL (7-18)
[2018-10-31 09:37] LABS: CARBON DIOXIDE 41.7 mmol/L (21.0-32.0)
--- NOTE | 2018-10-31 09:39 | NUR ---
MEDICATED FOR PAIN AT THIS TIME. NO DISTRESS.
--- NOTE | 2018-10-31 15:05 | NUR ---
Rehab Note- Acute INpatient REhab prescreen order received. The patient is noted to be a LTC resident, would recommend transferring back to the nursing facility when medically stable and ready to discharge from the acute hospital. Thank you for this referral! Carolyne Reza RN CLinical Liaison, [facility] Rehab
--- NOTE | 2018-10-31 15:15 | NUR ---
MEDICATED FOR PAIN. NO DISTRESS.
--- NOTE | 2018-10-31 17:09 | MORECARE ---
CASE MANAGEMENT DISCHARGE SUMMARY PATIENT: ELIZABETH BUSTAMANTE UNIT: [id number] ADM DATE: 10/30/18 AGE: 68 : 46 SEX: F ROOM/BED: D.2131 AUTHOR: BLANKA MCNAIR PHYSICIAN: REFERRING PHYSICIAN: RAVEN BEE MD DATE OF SERVICE: 10/31/18 Discharge Plan Patient Name: ELIZABETH BUSTAMANTE [facility] : 1950 Planned Disposition: [facility] Facility Anticipated Discharge Date: Discharge Date: Expected LOS: Initial Reviewer: [email or web address] Initial Review Date: 10/31/2018 Generated: 10/31/18 6:09 pm DCPIA - Discharge Planning Initial Assessment Updated by [email or web address]: Danial Cosme on 10/31/18 5:04 pm * Is the patient Alert and Oriented? Yes * How many steps to enter\exit or inside your home? NONE * PCP [facility] [place] * Pharmacy [facility] * Preadmission Environment [facility] * Facility Name [facility] * ADLs Partial Dependent * Partial ADLs (Assistance needed) Ambulation Bathing Medication Management Transfers * Equipment Other * Other Equipment ALL MEDICAL EQUIPMENT PROVIDED BY FACILITY * List name and contact numbers for known caregivers / representatives who currently or will assist patient after discharge: NAILA DE LA ROSA, * Verbal permission to speak to the caregivers and representatives has been obtained from the patient. N/A * Community resources currently utilized None * Please name any agencies selected above. NONE * Additional services required to return to the preadmission environment? No * Can the patient safely return to the preadmission environment? Yes * Has this patient been hospitalized within the prior 30 days at any hospital? Yes Patient Name: ELIZABETH BUSTAMANTE Page [phone] at 1709 All edits/amendments must be made on the electronic document DICTATION DATE: 10/31/181707 MECHANICAL SERVICE REPRESENTATIVE: ALYSSIA 10/31/181707 RPT#: [id number] DC DATE: STATUS: ADM IN [facility] [address] [place] [address] END OF REPORT
--- NOTE | 2018-10-31 17:16 | MORECARE ---
CASE MANAGEMENT DISCHARGE SUMMARY PATIENT: ELIZABETH BUSTAMANTE UNIT: [id number] ADM DATE: 10/30/18 AGE: 68 : 48 SEX: F ROOM/BED: D.2131 AUTHOR: TABBYDOC PHYSICIAN: REFERRING PHYSICIAN: RAVEN BEE MD DATE OF SERVICE: 10/31/18 Discharge Plan Patient Name: ELIZABETH BUSTAMANTE Facility: [facility]:[place] : 1950 Planned Disposition: Halfway Facility Anticipated Discharge Date: Discharge Date: Expected LOS: Initial Reviewer: [id number] Initial Review Date: 10/31/2018 Generated: 10/31/18 6:16 pm Comments DCP- Discharge Planning Updated by [email or web address]: Danial Cosme on 10/31/18 4:[address] Patient Name: ELIZABETH BUSTAMANTE Admission Status: ER Accout number: [id number] Admission Date: 10-30-2018 : 1950 Admission Diagnosis: Attending: RAVEN BEE Current LOS: 1 Anticipated DC Date: Planned Disposition: Halfway Facility Primary Insurance: MEDICARE A & B PLANNED EXTERNAL PROVIDER: [facility], MEDICARE REHAB BED Discharge Planning Comments: CM RECEIVED ORDER FOR INPATIENT REHAB PRESCREENING. CM MET WITH PT IN ROOM TO DISCUSS DISCHARGE PLANNING AND NEEDS. PT REPORTS LIVING AT [facility] FOR THE PAST YEAR BUT HAS BEEN IN REHAB TO LEARN TO WALK AGAIN. PT UTILIZES WHEELCHAIR AND PLANS TO RETURN TO [facility] WHERE SHE IS RECEIVING GOOD CARE AND FEELS SAFE. 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 PT DOES NOT WANT TO GO TO INPATIENT REHAB AND WANTS REHAB AT [facility]. PROVIDER LISTING PROVIDED, PT SIGNED CHOICE FOR [facility]. IMPORTANT MESSAGE FROM MEDICARE PROVIDED AND EXPLAINED. CM WILL SEND REHAB REFERRAL TO [facility] SOON POSSIBLE FOR REHAB READMIT. Gluing Machine Feeder: Danial Cosme DCPIA - Discharge Planning Initial Assessment Updated by [email or web address]: Danial Cosme on 10/31/18 5:04 pm * Is the patient Alert and Oriented? Yes * How many steps to enter\exit or inside your home? NONE * PCP [place] * Pharmacy [facility] * Preadmission Environment Halfway Facility * Facility Name [facility] * ADLs Partial Dependent * Partial ADLs (Assistance needed) Ambulation Bathing Medication Management Transfers * Equipment Other * Other Equipment ALL MEDICAL EQUIPMENT PROVIDED BY FACILITY * List name and contact numbers for known caregivers / representatives who currently or will assist patient after discharge: MINOR ANN, NAILA, * Verbal permission to speak to the caregivers and representatives has been obtained from the patient. N/A * Community resources currently utilized None * Please name any agencies selected above. NONE * Additional services required to return to the preadmission environment? No * Can the patient safely return to the preadmission environment? Yes * Has this patient been hospitalized within the prior 30 days at any hospital? Yes Coverage Notice Reviewer: [id number] Cosme Notice Issued Date-Time: 10/31/2018 16:20 Notice Type: Patient Choice Letter Notice Delivered To: Patient Relationship to Patient: Automatic Driller And Reamer Name: Delivery Method: HAND - Hand Delivered Stephany Days: Prior Verbal Notification: Recipient Understood Notice: Yes Recipient Signature: Yes Med Rec Note Co-signed by Attending: Coverage Notice Comment: HENRY GUZMÁN Reviewer: [id number] Cosme Notice Issued Date-Time: 10/31/2018 16:20 Notice Type: IM Discharge Notice Notice Delivered To: Patient Relationship to Patient: Automatic Driller And Reamer Name: Delivery Method: HAND - Hand Delivered Stephany Days: Prior Verbal Notification: Recipient Understood Notice: Yes Recipient Signature: Yes Med Rec Note Co-signed by Attending: Coverage Notice Comment: Last DP export: 10/31/18 4:09 p Patient Name: ELIZABETH BUSTAMANTE Page [id number] at 1716 All edits/amendments must be made on the electronic document DICTATION DATE: 10/31/181715 BILLIARD PARLOR MANAGER: ALYSSIA 10/31/181715 RPT#: [id number] PA DATE: STATUS: ADM IN [facility] [address] [place] [address] END OF REPORT
--- NOTE | 2018-10-31 19:30 | NUR ---
ASSISTED PT UP IN BED...AND WITH SEVERAL OTHER DEMANDS. BED IS LOW AND CALL LIGHT IN REACH.NO EDEMA NOTED AND PULSES ARE INTACT. LCTA
--- NOTE | 2018-11-01 03:52 | NUR ---
I have reviewed this patient and I concur with the Shift Assessment completed by the Licensed Practical Nurse today this shift.
[2018-11-01 05:12] LABS: ALBUMIN 1.5 g/dL (3.4-5.0); ALKALINE PHOSPHATASE 153 U/L (46-116); ALT (SGPT) 18 U/L (10-68); BILIRUBIN - TOTAL 0.28 mg/dL (0.2-1.3); CALCIUM 7.4 mg/dL (8.5-10.1); CHLORIDE - SERUM 104 mmol/L (98-107); CREATININE - SERUM 0.7 mg/dL (0.6-1.3); GLUCOSE 123 mg/dL (74-106); POTASSIUM - SERUM 3.9 mmol/L (3.5-5.1); PROTEIN - SERUM 4.9 g/dL (6.4-8.2); SODIUM 144 mmol/L (136-145); eGFR NON AFRICAN AMERICAN 88 mL/min (90-120)
[2018-11-01 05:17] LABS: CALC OSMOLALITY 289 mosm/kg (275-300); UREA NITROGEN 17 mg/dL (7-18)
[2018-11-01 05:18] LABS: CARBON DIOXIDE 45.7 mmol/L (21.0-32.0)
[2018-11-01 05:21] VITALS: BP 100/53
[2018-11-01 05:24] LABS: EOSINOPHILS 0.4 % (0-7); HEMATOCRIT 37.1 % (36.0-48.0); HEMOGLOBIN 11.1 g/dL (12-16); IMMATURE GRANULOCYTES 3.8 % (0-5); LYMPHOCYTES 34.4 % (15-50); MCH 28.8 pg (26.0-34.0); MCHC 29.9 g/dL (31.0-37.0); MCV 96.1 fL (80.0-100.0); MEAN PLATELET VOLUME 10.3 fL (7.4-10.4); MONOCYTES 15.2 % (2-11); NEUTROPHILS 45.2 % (40-80); PLATELET COUNT 410 10x3/uL (130-400); RBC 3.86 10x6/uL (4.00-5.40); RDW 17.2 % (11.5-14.5); WBC 7.8 10x3/uL (4.8-10.8)
--- NOTE | 2018-11-01 07:52 | NUR ---
PATIENT REFUSING METANEB
--- NOTE | 2018-11-01 08:38 | MORECARE ---
CASE MANAGEMENT DISCHARGE SUMMARY PATIENT: ELIZABETH BUSTAMANTE UNIT: [id number] ADM DATE: 10/30/18 AGE: 68 : 48 SEX: F ROOM/BED: D.2131 AUTHOR: TABBYDOC PHYSICIAN: REFERRING PHYSICIAN: RAVEN BEE MD DATE OF SERVICE: 11/01/18 Discharge Plan Patient Name: ELIZABTEH BUSTAMANTE Facility: [facility]:[place] : 1950 Planned Disposition: Longterm Facility Anticipated Discharge Date: Discharge Date: Expected LOS: Initial Reviewer: [id number] Initial Review Date: 10/31/2018 Generated: 11/01/18 9:38 am Comments DCP- Discharge Planning Updated by [email or web address]: Danial Cosme on 10/31/18 4:[address] Patient Name: ELIZABETH BUSTAMANTE Admission Status: ER Accout number: [id number] Admission Date: 10-30-2018 : 1950 Admission Diagnosis: Attending: RAVEN BEE Current LOS: 1 Anticipated DC Date: Planned Disposition: Longterm Facility Primary Insurance: MEDICARE A & B PLANNED EXTERNAL PROVIDER: [facility], MEDICARE REHAB BED Discharge Planning Comments: CM RECEIVED ORDER FOR INPATIENT REHAB PRESCREENING. CM MET WITH PT IN ROOM TO DISCUSS DISCHARGE PLANNING AND NEEDS. PT REPORTS LIVING AT [facility] FOR THE PAST YEAR BUT HAS BEEN IN REHAB TO LEARN TO WALK AGAIN. PT UTILIZES WHEELCHAIR AND PLANS TO RETURN TO [facility] WHERE SHE IS RECEIVING GOOD CARE AND FEELS SAFE. 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 PT DOES NOT WANT TO GO TO INPATIENT REHAB AND WANTS REHAB AT [facility]. PROVIDER LISTING PROVIDED, PT SIGNED CHOICE FOR [facility]. IMPORTANT MESSAGE FROM MEDICARE PROVIDED AND EXPLAINED. CM WILL SEND REHAB REFERRAL TO [facility] SOON POSSIBLE FOR REHAB READMIT. Quantitative Analyst: Danial Cosme DCPIA - Discharge Planning Initial Assessment Updated by [email or web address]: Danial Cosme on 10/31/18 5:04 pm * Is the patient Alert and Oriented? Yes * How many steps to enter\exit or inside your home? NONE * PCP [place] * Pharmacy [facility] * Preadmission Environment Longterm Facility * Facility Name [facility] * ADLs Partial Dependent * Partial ADLs (Assistance needed) Ambulation Bathing Medication Management Transfers * Equipment Other * Other Equipment ALL MEDICAL EQUIPMENT PROVIDED BY FACILITY * List name and contact numbers for known caregivers / representatives who currently or will assist patient after discharge: NAILA DE LA ROSA, * Verbal permission to speak to the caregivers and representatives has been obtained from the patient. N/A * Community resources currently utilized None * Please name any agencies selected above. NONE * Additional services required to return to the preadmission environment? No * Can the patient safely return to the preadmission environment? Yes * Has this patient been hospitalized within the prior 30 days at any hospital? Yes External Providers External Provider: OTHER-OTHER Next Contact Date: 11/01/2018 Service Request Date: Service Type: Resolution: Reviewer: Comments: Coverage Notice Reviewer: [id number] Albino Cosme Notice Issued Date-Time: 10/31/2018 16:20 Notice Type: Patient Choice Letter Notice Delivered To: Patient Relationship to Patient: Field Application Engineer Name: Delivery Method: HAND - Hand Delivered Stephany Days: Prior Verbal Notification: Recipient Understood Notice: Yes Recipient Signature: Yes Med Rec Note Co-signed by Attending: Coverage Notice Comment: HENRY GUZMÁN Reviewer: [id number] Albino Cosme Notice Issued Date-Time: 10/31/2018 16:20 Notice Type: IM Discharge Notice Notice Delivered To: Patient Relationship to Patient: Field Application Engineer Name: Delivery Method: HAND - Hand Delivered Stephany Days: Prior Verbal Notification: Recipient Understood Notice: Yes Recipient Signature: Yes Med Rec Note Co-signed by Attending: Coverage Notice Comment: Last DP export: 10/31/18 4:16 p Patient Name: ELIZABETH BUSTAMANTE Page [id number] at 0838 All edits/amendments must be made on the electronic document DICTATION DATE: 11/01/18837 INSURANCE FOLLOW UP REPRESENTATIVE: ALYSSIA 11/01/18837 RPT#: [id number] DC DATE: STATUS: ADM IN [facility] [address] [place] [address] END OF REPORT
--- NOTE | 2018-11-01 08:59 | MORECARE ---
CASE MANAGEMENT DISCHARGE SUMMARY PATIENT: ELIZABETH BUSTAMANTE UNIT: [id number] ADM DATE: 10/30/18 AGE: 68 : 48 SEX: F ROOM/BED: D.2131 AUTHOR: TABBYDOC PHYSICIAN: REFERRING PHYSICIAN: RAVEN BEE MD DATE OF SERVICE: 11/01/18 Discharge Plan Patient Name: ELIZABETH BUSTAMANTE Facility: [facility]:[place] : 1950 Planned Disposition: [facility] Facility Anticipated Discharge Date: Discharge Date: Expected LOS: Initial Reviewer: [id number] Initial Review Date: 10/31/2018 Generated: 11/01/18 9:59 am Comments DCP- Discharge Planning Updated by [id number]: Danial Cosme on 11/01/18 7:[address] Patient Name: ELIZABETH BUSTAMANTE Encounter No: [id number] : 1950 Primary Insurance: MEDICARE A & B Anticipated DC Date: Planned Disposition: [facility] Facility External Planned Provider: [facility], MEDICARE REHAB BED DCP follow-up note: CM CALLED [facility], , SPOKE TO KARINA WHO INFORMED CM THAT 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 CM FAXED HOSPITAL UPDATE TO [facility] AT [phone]. ORDER FOR PHYSICAL THERAPY EVALUATION OBTAINED. CM TO FAX UPDATE WITH PHYSICAL THERAPY RESULTS TO [facility] AT [phone]. THIS WILL NEED TO BE AN EARLY DAY DISCHARGE [facility] IS IN [facility]. FOR DISCHARGE BACK TO REHAB, FAX DISCHARGE INFORMATION TO [facility] AT [phone]. NURSE REPORT TO BE CALLED TO [facility] AT [phone]. [facility] TO PROVIDE VAN TRANSPORTATION. CHUY Lopez DCP- Discharge Planning Updated by [id number]: Danial Cosme on 10/31/18 4:[address] Patient Name: ELIZABETH BUSTAMANTE Admission Status: ER Accout number: [id number] Admission Date: 10-30-2018 : 1950 Admission Diagnosis: Attending: RAVEN BEE Current LOS: 1 Anticipated DC Date: Planned Disposition: [facility] Facility Primary Insurance: MEDICARE A & B PLANNED EXTERNAL PROVIDER: [facility], MEDICARE REHAB BED Discharge Planning Comments: CM RECEIVED ORDER FOR INPATIENT REHAB PRESCREENING. CM MET WITH PT IN ROOM TO DISCUSS DISCHARGE PLANNING AND NEEDS. PT REPORTS LIVING AT [facility] FOR THE PAST YEAR BUT HAS BEEN IN REHAB TO LEARN TO WALK AGAIN. PT UTILIZES WHEELCHAIR AND PLANS TO RETURN TO [facility] WHERE SHE IS RECEIVING GOOD CARE AND FEELS SAFE. 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 PT DOES NOT WANT TO GO TO INPATIENT REHAB AND WANTS REHAB AT [facility]. PROVIDER LISTING PROVIDED, PT SIGNED CHOICE FOR [facility]. IMPORTANT MESSAGE FROM MEDICARE PROVIDED AND EXPLAINED. CM WILL SEND REHAB REFERRAL TO [facility] SOON POSSIBLE FOR REHAB READMIT. Experimental Electronics Developer: Danial Cosme DCPIA - Discharge Planning Initial Assessment Updated by [email or web address]: Danial Cosme on 10/31/18 5:04 pm * Is the patient Alert and Oriented? Yes * How many steps to enter\exit or inside your home? NONE * PCP [place] * [facility] * Preadmission Environment [facility] Facility * Facility Name [facility] * ADLs Partial Dependent * Partial ADLs (Assistance needed) Ambulation Bathing Medication Management Transfers * Equipment Other * Other Equipment ALL MEDICAL EQUIPMENT PROVIDED BY FACILITY * List name and contact numbers for known caregivers / representatives who currently or will assist patient after discharge: MINOR ANN, SON, * Verbal permission to speak to the caregivers and representatives has been obtained from the patient. N/A * Community resources currently utilized None * Please name any agencies selected above. NONE * Additional services required to return to the preadmission environment? No * Can the patient safely return to the preadmission environment? Yes * Has this patient been hospitalized within the prior 30 days at any hospital? Yes Coverage Notice Reviewer: [id number] - Danail Cosme Notice Issued Date-Time: 10/31/2018 16:20 Notice Type: Patient Choice Letter Notice Delivered To: Patient Relationship to Patient: Watch Dial Printer Name: Delivery Method: HAND - Hand Delivered Stephany Days: Prior Verbal Notification: Recipient Understood Notice: Yes Recipient Signature: Yes Med Rec Note Co-signed by Attending: Coverage Notice Comment: HENRY [place] Reviewer: [id number] - Danial Cosme Notice Issued Date-Time: 10/31/2018 16:20 Notice Type: IM Discharge Notice Notice Delivered To: Patient Relationship to Patient: Watch Dial Printer Name: Delivery Method: HAND - Hand Delivered Stephany Days: Prior Verbal Notification: Recipient Understood Notice: Yes Recipient Signature: Yes Med Rec Note Co-signed by Attending: Coverage Notice Comment: Last DP export: 11/01/18 7:38 a Patient Name: ELIZABETH BUSTAMANTE Page 17227 at 0859 All edits/amendments must be made on the electronic document DICTATION DATE: 11/01/18857 ORACLE ANALYST: ALYSSIA 11/01/18857 RPT#: [id number] DC DATE: STATUS: ADM IN [facility] [address] [place] [address] END OF REPORT
--- NOTE | 2018-11-01 09:13 | NUR ---
PT HAS IV LASIX AND PO LASIX ON CHART. PAGED ALISA PUBLIC BATH ATTENDANT TO CLARIFY WHICH ONE NEEDS TO BE GIVEN.
--- NOTE | 2018-11-01 09:38 | NUR ---
SPOKE WITH ALISA ADAN SHE STATES TO DC PO LASIX AND KEEP IV LASIX.
--- NOTE | 2018-11-01 09:54 | MORECARE ---
CASE MANAGEMENT DISCHARGE SUMMARY PATIENT: ELIZABETH BUSTAMANTE UNIT: [id number] ADM DATE: 10/30/18 AGE: 68 : 48 SEX: F ROOM/BED: D.2131 AUTHOR: TABBYDOC PHYSICIAN: REFERRING PHYSICIAN: RAVEN BEE MD DATE OF SERVICE: 11/01/18 Discharge Plan Patient Name: ELIZABETH BUSTAMANTE Facility: [facility]:[place] : 1950 Planned Disposition: Long-Term Facility Anticipated Discharge Date: Discharge Date: Expected LOS: Initial Reviewer: [id number] Initial Review Date: 10/31/2018 Generated: 11/01/18 10:54 am Comments DCP- Discharge Planning Updated by [id number]: Danial Cosme on 11/01/18 7:[address] Patient Name: ELIZABETH BUSTAMANTE Encounter No: [id number] : 1950 Primary Insurance: MEDICARE A & B Anticipated DC Date: Planned Disposition: Long-Term Facility External Planned Provider: [facility], MEDICARE REHAB BED DCP follow-up note: CM CALLED [facility], , SPOKE TO KARINA WHO INFORMED CM THAT 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 CM FAXED HOSPITAL UPDATE TO [facility] AT [phone]. ORDER FOR PHYSICAL THERAPY EVALUATION OBTAINED. CM TO FAX UPDATE WITH PHYSICAL THERAPY RESULTS TO [facility] AT [phone]. THIS WILL NEED TO BE AN EARLY DAY DISCHARGE [facility] IS IN [facility]. FOR DISCHARGE BACK TO REHAB, FAX DISCHARGE INFORMATION TO [facility] AT [phone]. NURSE REPORT TO BE CALLED TO [facility] AT [phone]. [facility] TO PROVIDE VAN TRANSPORTATION. CHUY Lopez DCP- Discharge Planning Updated by [id number]: Danial Cosme on 10/31/18 4:[address] Patient Name: ELIZABETH BUSTAMANTE Admission Status: ER Accout number: [id number] Admission Date: 10-30-2018 : 1950 Admission Diagnosis: Attending: RAVEN BEE Current LOS: 1 Anticipated DC Date: Planned Disposition: Long-Term Facility Primary Insurance: MEDICARE A & B PLANNED EXTERNAL PROVIDER: [facility], MEDICARE REHAB BED Discharge Planning Comments: CM RECEIVED ORDER FOR INPATIENT REHAB PRESCREENING. CM MET WITH PT IN ROOM TO DISCUSS DISCHARGE PLANNING AND NEEDS. PT REPORTS LIVING AT [facility] FOR THE PAST YEAR BUT HAS BEEN IN REHAB TO LEARN TO WALK AGAIN. PT UTILIZES WHEELCHAIR AND PLANS TO RETURN TO [facility] WHERE SHE IS RECEIVING GOOD CARE AND FEELS SAFE. 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 PT DOES NOT WANT TO GO TO INPATIENT REHAB AND WANTS REHAB AT [facility]. PROVIDER LISTING PROVIDED, PT SIGNED CHOICE FOR [facility]. IMPORTANT MESSAGE FROM MEDICARE PROVIDED AND EXPLAINED. CM WILL SEND REHAB REFERRAL TO [facility] SOON POSSIBLE FOR REHAB READMIT. Coutierier: Danial Cosme DCPIA - Discharge Planning Initial Assessment Updated by [email or web address]: Danial Cosme on 11/01/18 9:50 am * Is the patient Alert and Oriented? Yes * How many steps to enter\exit or inside your home? NONE * PCP [facility] * Pharmacy [facility] * Preadmission Environment Long-Term Facility * Facility Name [facility] * ADLs Partial Dependent * Partial ADLs (Assistance needed) Ambulation Bathing Medication Management Transfers * Equipment Other * Other Equipment ALL MEDICAL EQUIPMENT PROVIDED BY FACILITY * List name and contact numbers for known caregivers / representatives who currently or will assist patient after discharge: MINOR ANN, SON, * Verbal permission to speak to the caregivers and representatives has been obtained from the patient. N/A * Community resources currently utilized None * Please name any agencies selected above. NONE * Additional services required to return to the preadmission environment? No * Can the patient safely return to the preadmission environment? Yes * Has this patient been hospitalized within the prior 30 days at any hospital? Yes Coverage Notice Reviewer: [id number] - Dnaial Cosme Notice Issued Date-Time: 10/31/2018 16:20 Notice Type: Patient Choice Letter Notice Delivered To: Patient Relationship to Patient: Sausage Mixer Name: Delivery Method: HAND - Hand Delivered Stephany Days: Prior Verbal Notification: Recipient Understood Notice: Yes Recipient Signature: Yes Med Rec Note Co-signed by Attending: Coverage Notice Comment: HENRY GUZMÁN Reviewer: [id number] - Danial Cosme Notice Issued Date-Time: 10/31/2018 16:20 Notice Type: IM Discharge Notice Notice Delivered To: Patient Relationship to Patient: Sausage Mixer Name: Delivery Method: HAND - Hand Delivered Stephany Days: Prior Verbal Notification: Recipient Understood Notice: Yes Recipient Signature: Yes Med Rec Note Co-signed by Attending: Coverage Notice Comment: Last DP export: 11/01/18 7:59 a Patient Name: ELIZABETH BUSTAMANTE Page [id number] at 0954 All edits/amendments must be made on the electronic document DICTATION DATE: 11/01/18953 FITTER TACKER: ALYSSIA 11/01/18953 RPT#: [id number] DC DATE: STATUS: ADM IN [facility] [address] [place] [address] END OF REPORT
--- NOTE | 2018-11-01 10:06 | NUR ---
PT C/O BACK PAIN AND STATES SHE FELL TWO OR THREE TIMES 2 WEEKS AGO AT THE SKILLED NURSING AND ITS BEEN HURTING EVER SINCE. SHE ALSO STATES SHE THINK SHE BROKE HER RIBS. SHE STATES SHE CAN'T FEEL HER FEET. TOUCHED PT'S FEET AND FELT BILATERAL PEDAL PULSES. PT STATES SHE COULD NOT FEEL IT WHEN I TUCHED HER FEET.
--- NOTE | 2018-11-01 10:09 | NUR ---
PAGED ALISA ADAN.
--- NOTE | 2018-11-01 10:25 | NUR ---
I SPOKE WITH ALISA ADAN ABOUT EVERYTHING PT STATED TO ME AND SHE STATES SHE WILL ORDER A BACK XR.
--- NOTE | 2018-11-01 11:41 | NUR ---
PAGED ALISA CASH SPECIALIST ABOUT FAX RECEIVED FORM DR. 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
--- NOTE | 2018-11-01 11:46 | NUR ---
PAGED ALISA ADAN AGAIN.
--- NOTE | 2018-11-01 12:09 | NUR ---
SPOKE WITH ALISA ADAN ABOUT PT WANTING SOMETHING ELSE FOR PAIN BESIDES TRAMADOL. SHE STATES SHE WILL LOOK INTO IT. I VERBALIZED UNDERSTANDING. ALSO GAVE HER FAX ABOUT THE POSITIVE BLOOD CULTURES. BREAKER UP MACHINE OPERATOR MADE COPY INTO COMPUTER AND COPY PLACED IN PAPER CHART.
--- NOTE | 2018-11-01 12:42 | MORECARE ---
CASE MANAGEMENT DISCHARGE SUMMARY PATIENT: ELIZABETH BUSTAMANTE UNIT: [id number] ADM DATE: 10/30/18 AGE: 68 : [birth year] SEX: F ROOM/BED: D.2131 AUTHOR: TABBY,DOC PHYSICIAN: REFERRING PHYSICIAN: RAVEN BEE MD DATE OF SERVICE: 11/01/18 Discharge Plan Patient Name: ELIZABETH BUSTAMANTE Facility: [facility]:[place] : 1950 Planned Disposition: Shelter Facility Anticipated Discharge Date: Discharge Date: Expected LOS: Initial Reviewer: [id number] Initial Review Date: 10/31/2018 Generated: 11/01/18 1:42 pm Comments DCP- Discharge Planning Updated by ALAN: Danial Cosme on 11/01/18 11:[address] Patient Name: ELIZABETH BUSTAMANTE Encounter No: [id number] : 1950 Primary Insurance: MEDICARE A & B Anticipated DC Date: Planned Disposition: Shelter Facility External Planned Provider: [facility], MEDICARE REHAB BED DCP follow-up note: CM CALLED [facility], , SPOKE TO KARINA WHO INFORMED CM THAT 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 CM FAXED HOSPITAL UPDATE TO [facility] AT [phone]. ORDER FOR PHYSICAL THERAPY EVALUATION OBTAINED. CM TO FAX UPDATE WITH PHYSICAL THERAPY RESULTS TO [facility] AT [phone]. THIS WILL NEED TO BE AN EARLY DAY DISCHARGE [facility] IS IN [facility]. FOR DISCHARGE BACK TO REHAB, FAX DISCHARGE INFORMATION TO [facility] AT [phone]. NURSE REPORT TO BE CALLED TO [facility] AT [phone]. [facility] TO PROVIDE VAN TRANSPORTATION. Danial Cosme, CASE MANAGEMENT Appended by Danial Cosme on 11/01/2018 12:36 CDT: CM SPOKE TO NIKIA OF [facility] WHO INFORMED CM THAT PT WILL NEED TO BE WEANED SHE IS STILL ON 5 LITERS OXYGEN. NIKIA ALSO REPORTS THEY DO NOT HAVE VEST THERAPY AT FACILITY AND IF PT REQUIRES IT, THEY WILL NEED ORDERS AND INFORMATION TO OBTAIN THE VEST WELL WILL NEED TRAINING TO ADMINISTER THERAPY AT THE REHAB. CACHORRO PAYNE NOTIFIED. CM SPOKE TO PT IN ROOM WHO REPORTS THAT SHE HAS NOT HAD VEST THERAPY IN THE PAST TWO DAYS. PT WILL NEED OXYGEN WEANING DOWN FROM 5 LITERS TO RETURN TO REHAB FACILITY. CLARIFICATION OF NEEDING VEST THERAPY IN REHAB NEEDS TO BE CLARIFIED AND ARRANGEMENTS MADE IF NEEDED. THIS WILL NEED TO BE AN EARLY DAY DISCHARGE [facility] IS IN [facility]. FOR DISCHARGE BACK TO REHAB, FAX DISCHARGE INFORMATION TO [facility] AT [phone]. NURSE REPORT TO BE CALLED TO [facility] AT [phone]. [facility] TO PROVIDE VAN TRANSPORTATION. Danial Cosme, CASE MANAGEMENT DCP- Discharge Planning Updated by [id number]: Danial Cosme on 10/31/18 4:[address] Patient Name: ELIZABETH BUSTAMANTE Admission Status: ER Accout number: [id number] Admission Date: 10-30-2018 : 1950 Admission Diagnosis: Attending: RAVEN BEE Current LOS: 1 Anticipated DC Date: Planned Disposition: Shelter Facility Primary Insurance: MEDICARE A & B PLANNED EXTERNAL PROVIDER: [facility], MEDICARE REHAB BED Discharge Planning Comments: CM RECEIVED ORDER FOR INPATIENT REHAB PRESCREENING. CM MET WITH PT IN ROOM TO DISCUSS DISCHARGE PLANNING AND NEEDS. PT REPORTS LIVING AT [facility] FOR THE PAST YEAR BUT HAS BEEN IN REHAB TO LEARN TO WALK AGAIN. PT UTILIZES WHEELCHAIR AND PLANS TO RETURN TO [facility] WHERE SHE IS RECEIVING GOOD CARE AND FEELS SAFE. 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 PT DOES NOT WANT TO GO TO INPATIENT REHAB AND WANTS REHAB AT [facility]. PROVIDER LISTING PROVIDED, PT SIGNED CHOICE FOR [facility]. IMPORTANT MESSAGE FROM MEDICARE PROVIDED AND EXPLAINED. CM WILL SEND REHAB REFERRAL TO [facility] SOON POSSIBLE FOR REHAB READMIT. Suspect Artist: Danial Cosme DCPIA - Discharge Planning Initial Assessment Updated by [id number]: Danial Cosme on 11/01/18 9:50 am * Is the patient Alert and Oriented? Yes * How many steps to enter\exit or inside your home? NONE * [place]CP [facility] [place] * Pharmacy [facility] * Preadmission Environment Shelter Facility * Facility Name [facility] * ADLs Partial Dependent * Partial ADLs (Assistance needed) Ambulation Bathing Medication Management Transfers * Equipment Other * Other Equipment ALL MEDICAL EQUIPMENT PROVIDED BY FACILITY * List name and contact numbers for known caregivers / representatives who currently or will assist patient after discharge: MINOR ANN, NAILA, * Verbal permission to speak to the caregivers and representatives has been obtained from the patient. N/A * Community resources currently utilized None * Please name any agencies selected above. NONE * Additional services required to return to the preadmission environment? No * Can the patient safely return to the preadmission environment? Yes * Has this patient been hospitalized within the prior 30 days at any hospital? Yes Coverage Notice Reviewer: [id number] Cosme Notice Issued Date-Time: 10/31/2018 16:20 Notice Type: Patient Choice Letter Notice Delivered To: Patient Relationship to Patient: Education Trainer Name: Delivery Method: HAND - Hand Delivered Stephany Days: Prior Verbal Notification: Recipient Understood Notice: Yes Recipient Signature: Yes Med Rec Note Co-signed by Attending: Coverage Notice Comment: HENRY GUZMÁN Reviewer: [id number] Cosme Notice Issued Date-Time: 10/31/2018 16:20 Notice Type: IM Discharge Notice Notice Delivered To: Patient Relationship to Patient: Education Trainer Name: Delivery Method: HAND - Hand Delivered Stephany Days: Prior Verbal Notification: Recipient Understood Notice: Yes Recipient Signature: Yes Med Rec Note Co-signed by Attending: Coverage Notice Comment: Last DP export: 11/01/18 8:54 a Patient Name: ELIZABETH BUSTAMANTE Page [id number] at 1242 All edits/amendments must be made on the electronic document DICTATION DATE: 11/01/18 1241 CASE PACKER: ALYSSIA 11/01/18 1241 RPT#: [id number] RI DATE: STATUS: ADM IN [facility] [address] [place] [address] END OF REPORT
[2018-11-01 13:09] VITALS: BP 112/64
--- NOTE | 2018-11-01 13:19 | NUR ---
ALISA ADAN GAVE ME V.O. TO PLACE JOHNSON CATHETER FOR STRICT I & O.
--- NOTE | 2018-11-01 13:20 | NUR ---
ALISA IVORY GAVE ME V.O FOR JOHNSON CATHETER PLACEMENT FOR STRICT I & O FROM LASIX IV AND FOR COMPRESSION FX'S.
--- NOTE | 2018-11-01 14:19 | NUR ---
I have reviewed this patient and I concur with the Shift Assessment completed by the Licensed Practical Nurse today this shift.
--- NOTE | 2018-11-01 14:40 | EC ---
PATIENT:ELIZABETH BUSTAMANTE DATE OF SERVICE: 10/30/18 SEX: F MEDICAL RECORD: [id number] DATE OF : [birth year] LOCATION:D.M2 D.213 AGE OF PATIENT: 68 ADMISSION DATE: 10/30/18 REFERRING PHYSICIAN: INTERPRETING PHYSICIAN: YANCY ALMEIDA MD ECHOCARDIOGRAM REPORT ECHO CHARGES 4 ECHO COMPLETE Date: 10/30/18 CLINICAL DIAGNOSIS: CHF ECHOCARDIOGRAPHIC MEASUREMENTS (adult normal given) AC root (d.<3.7cm) 0 cm LV Septum d (<1.2 cm> 0 cm Valve Excursion 0 cm LV Septum (systole) 0 cm Left Atria (s.<4.0cm> 0 cm LVPW d(<1.2cm) 0 cm RV (d.<2.3cm) 0 cm LVPW (sytole) 0 cm LV diastole(<5.6CM) 0 cm MV E-F(>70mm/sec) 0 cm LV systole 0 cm LVOT Diameter 0 cm MV exc.(>10mm) 0 cm Est.ejection fraction (50-75%) % DOPPLER: LVIT 0 cm/sec A 0 cm/sec E 0 cm/sec LA 0 cm/sec RVSP 53.0 mmHg LVOT 0 cm/sec AOP1/2T 0 m/s Asc. Ao 0 cm/sec RVOT 0 cm/sec RA 0 cm/sec PA 0 cm/sec AV Gradient Peak 0 mmHg AV Mean 0 mmHg AV Area 0 cm MV Gradient Peak 0 mmHg MV Mean 0 mmHg MV Area 0 cm COMMENTS: LIMITED STUDY (2-D,COLOR,DOPPLER) COMPLETE ECHO DONE ON 09/24/18 Brake Lining Finisher Asbestos: 1 KARINA CAMPOSOE Certified Lactation Counselor: 3 Dr. Gomez TAPE# PACS Pericardial Effusion N DATE OF SERVICE: This technically limited study includes 2D, color flow. No LVH. LV internal dimension is normal. Wall motion is normal. EF is greater than or equal to 50% to 55%. Aortic valve is tricuspid with good valve excursion. Left atrium grossly appears normal. Jwyh-mp-feascsfi MR. Right-sided chamber size grossly normal. Mild TR. No further interpretation on this limited study. TRANSINT:[id number] Voice Confirmation ID: [id number] DOCUMENT ID: [id number] ECHOCARDIOGRAM REPORT [id number] DIANNA,ELIZABETH YANCY ALMEIDA MD at 1440 CC: [id number] DICTATION DATE: 10/31/1858 DATA VISUALIZATION DEVELOPER: 10/31/18 0908 ADM IN [place] [id number] [place] [id number]
--- NOTE | 2018-11-01 15:00 | NUR ---
PT RECEIVED BED BATH BY LEARNING CENTER COORDINATOR'S.
--- NOTE | 2018-11-01 15:57 | NUR ---
16 SETSWANA JOHNSON CATH INSERTED ON X1 ATTEMPT. PT TOLERATED PROCEDURE WELL.
--- NOTE | 2018-11-01 16:47 | NUR ---
PT STILL ASKING SOMETHING MORE FOR PAIN. PAGED ALISA IVORY.
--- NOTE | 2018-11-01 17:02 | NUR ---
SPOKE WITH ALISA IVORY THAT PT IS TIL WANTING SOEMTHING STRONGER FOR PAIN. SHE STATES SHE WILL TALK TO BUT SHE DOUBTS SHE'LL GIVE HER ANYTHING STRONGER FOR PAIN.
[2018-11-01 17:03] VITALS: BP 123/67
[2018-11-01 17:37] LABS: APPEARANCE CLEAR (CLEAR); BILIRUBIN NEGATIVE (NEGATIVE); COLOR YELLOW (YELLOW); GLUCOSE NEGATIVE (NEGATIVE); KETONE NEGATIVE (NEGATIVE); NITRITE NEGATIVE (NEGATIVE); PROTEIN NEGATIVE (NEGATIVE); SPECIFIC GRAVITY 1.005 (1.005-1.020); UROBILINOGEN NORMAL (NORMAL)
--- NOTE | 2018-11-01 17:40 | NUR ---
REASSESSMENT OF PT'S PAIN IS 05/24. I STATED TO HER I SPOKE WITH ALISA IVORY AGAIN AND THAT SHE STATED TO ME SHE WILL SPEAK WITH DR. RIVAS BUT SHE DOESN'T KNOW IF THEY WILL GIVE HER ANYTHING ELSE. PT STATES "SHE WOULDN'T DOUBT IT."
--- NOTE | 2018-11-01 17:58 | NUR ---
PT REFUSING TO HAVE MRI TONIGHT. STATES SHE WANTS TO WAIT AND DO IT TOMORROW.
--- NOTE | 2018-11-01 18:11 | NUR ---
SPOKE TO PATIENT ABOUT MRI LUMBAR/THORACIC. PATIENT STATED SHE WAS HAVING AN ANXIETY ATTACK. PATIENT STATED SHE DID NOT WANT MRIs TODAY, BUT WILL TRY TOMORROW, 11-02-18. INFORMED NURSE, MEGHAN, THAT PATIENT ALSO WANTED TO BE MEDICATED FOR MRIs TOMORROW.
--- NOTE | 2018-11-01 18:34 | NUR ---
PT C/O NAUSEA. ZOFRAN GIVEN.
--- NOTE | 2018-11-01 19:25 | NUR ---
RESTING WITH EYES CLOSED..RESP EVEN AND UNLABORED...WILL ASSESS LATER
--- NOTE | 2018-11-01 20:30 | NUR ---
PM MEDS GIVEN AND TOLERATED WELL. LCTA STAFF SEEING TO INCONTINANCE.PULSES INTACT AND I NOTE NO PITTING EDEMA SL TO RT AC
[2018-11-01 20:57] VITALS: BP 94/50
[2018-11-01 23:59] VITALS: BP 81/47
--- NOTE | 2018-11-02 02:39 | NUR ---
I have reviewed this patient and I concur with the Shift Assessment completed by the Licensed Practical Nurse today this shift.
[2018-11-02 05:27] VITALS: BP 98/57
[2018-11-02 05:49] LABS: EOSINOPHILS 0.8 % (0-7); HEMATOCRIT 36.9 % (36.0-48.0); IMMATURE GRANULOCYTES 4.1 % (0-5); LYMPHOCYTES 42.2 % (15-50); MCHC 29.8 g/dL (31.0-37.0); MCV 97.4 fL (80.0-100.0); MEAN PLATELET VOLUME 10.2 fL (7.4-10.4); MONOCYTES 15.2 % (2-11); NEUTROPHILS 36.7 % (40-80); PLATELET COUNT 391 10x3/uL (130-400); RBC 3.79 10x6/uL (4.00-5.40); RDW 17.3 % (11.5-14.5)
[2018-11-02 05:53] LABS: ALBUMIN 1.6 g/dL (3.4-5.0); ALKALINE PHOSPHATASE 137 U/L (46-116); ALT (SGPT) 20 U/L (10-68); CALC OSMOLALITY 285 mosm/kg (275-300); CALCIUM 7.6 mg/dL (8.5-10.1); CHLORIDE - SERUM 104 mmol/L (98-107); CREATININE - SERUM 0.6 mg/dL (0.6-1.3); GLUCOSE 79 mg/dL (74-106); PROTEIN - SERUM 5.1 g/dL (6.4-8.2); SODIUM 143 mmol/L (136-145); UREA NITROGEN 17 mg/dL (7-18); eGFR NON AFRICAN AMERICAN > 90 mL/min (90-120)
[2018-11-02 06:12] LABS: POTASSIUM - SERUM 4.7 mmol/L (3.5-5.1)
[2018-11-02 06:13] LABS: CARBON DIOXIDE 47.2 mmol/L (21.0-32.0)
--- NOTE | 2018-11-02 07:38 | NUR ---
ROUNDING DONE WITH PATIENT SITTING UP IN THE BED WITH MALE MEMBER AT BEDSIDE. ON HEART MONITOR SHOWING SR, HR 64. RIGHT AC PIV SEEN WITH SALINE LOCK. ON EP, K+ IS 4.7. JOHNSON CATH PATENT WITH CLEAR YELLOW URINE. ON ELIQUIS.
--- NOTE | 2018-11-02 08:17 | NUR ---
PERMITS ARE SIGNED FOR PROCEDURE TODAY. UP AMBULATING IN [facility].
[2018-11-02 09:07] VITALS: BP 106/57
--- NOTE | 2018-11-02 09:36 | MORECARE ---
CASE MANAGEMENT DISCHARGE SUMMARY PATIENT: ELIZABETH BUSTAMANTE UNIT: [id number] ADM DATE: 10/30/18 AGE: 68 : [birth year] SEX: F ROOM/BED: D.2131 AUTHOR: BLANKA MCNAIR PHYSICIAN: REFERRING PHYSICIAN: RAVEN BEE MD DATE OF SERVICE: 11/02/18 Discharge Plan Patient Name: ELIZABETH BUSTAMANTE Facility: [facility]:[place] : 1950 Planned Disposition: Half-Way Facility Anticipated Discharge Date: Discharge Date: Expected LOS: Initial Reviewer: [id number] Initial Review Date: 10/31/2018 Generated: 11/02/18 10:36 am Comments DCP- Discharge Planning Updated by [id number]: Danial Cosme on 11/02/18 8:[address] Patient Name: ELIZABETH BUSTAMANTE Encounter No: [id number] : 1950 Primary Insurance: MEDICARE A & B Anticipated DC Date: Planned Disposition: Half-Way Facility External Planned Provider:[facility], MEDICARE REHAB BED DCP follow-up note: CM FAXED HOSPITAL UPDATE TO [facility] AT [phone]. PT WILL NEED OXYGEN WEANING DOWN FROM 5 LITERS TO RETURN TO REHAB FACILITY. CLARIFICATION OF NEEDING VEST THERAPY IN REHAB NEEDS TO BE CLARIFIED AND ARRANGEMENTS MADE IF NEEDED. THIS WILL NEED TO BE AN EARLY DAY DISCHARGE [facility] IS IN [facility]. FOR DISCHARGE BACK TO REHAB, FAX DISCHARGE INFORMATION TO [facility] AT [phone]. NURSE REPORT TO BE CALLED TO [facility] AT [phone]. [facility] TO PROVIDE VAN TRANSPORTATION. 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 CM FAXED HOSPITAL UPDATE TO [facility] AT [phone]. ORDER FOR PHYSICAL THERAPY EVALUATION OBTAINED. CM TO FAX UPDATE WITH PHYSICAL THERAPY RESULTS TO [facility] AT [phone]. THIS WILL NEED TO BE AN EARLY DAY DISCHARGE [facility] IS IN [facility]. FOR DISCHARGE BACK TO REHAB, FAX DISCHARGE INFORMATION TO [facility] AT [phone]. NURSE REPORT TO BE CALLED TO [facility] AT [phone]. [facility] TO PROVIDE VAN TRANSPORTATION. Danial Cosme, CASE MANAGEMENT Appended by Danial Cosme on 11/01/2018 12:36 CDT: CM SPOKE TO NIKIA OF [facility] WHO INFORMED CM THAT PT WILL NEED TO BE WEANED SHE IS STILL ON 5 LITERS OXYGEN. NIKIA ALSO REPORTS THEY DO NOT HAVE VEST THERAPY AT FACILITY AND IF PT REQUIRES IT, THEY WILL NEED ORDERS AND INFORMATION TO OBTAIN THE VEST WELL WILL NEED TRAINING TO ADMINISTER THERAPY AT THE REHAB. CACHORRO PAYNE NOTIFIED. TARIQ SPOKE TO PT IN ROOM WHO REPORTS THAT SHE HAS NOT HAD VEST THERAPY IN THE PAST TWO DAYS. PT WILL NEED OXYGEN WEANING DOWN FROM 5 LITERS TO RETURN TO REHAB FACILITY. CLARIFICATION OF NEEDING VEST THERAPY IN REHAB NEEDS TO BE CLARIFIED AND ARRANGEMENTS MADE IF NEEDED. THIS WILL NEED TO BE AN EARLY DAY DISCHARGE [facility] IS IN [facility]. FOR DISCHARGE BACK TO REHAB, FAX DISCHARGE INFORMATION TO [facility] AT [phone]. NURSE REPORT TO BE CALLED TO [facility] AT [phone]. [facility] TO PROVIDE VAN TRANSPORTATION. Danial Cosme, CASE MANAGEMENT DCP- Discharge Planning Updated by [id number]: Danial Cosme on 10/31/18 4:[address] Patient Name: ELIZABETH BUSTAMANTE Admission Status: ER Accout number: [id number] Admission Date: 10-30-2018 : 1950 Admission Diagnosis: Attending: RAVEN BEE Current LOS: 1 Anticipated DC Date: Planned Disposition: Half-Way Facility Primary Insurance: MEDICARE A & B PLANNED EXTERNAL PROVIDER: [facility], MEDICARE REHAB BED Discharge Planning Comments: CM RECEIVED ORDER FOR INPATIENT REHAB PRESCREENING. CM MET WITH PT IN ROOM TO DISCUSS DISCHARGE PLANNING AND NEEDS. PT REPORTS LIVING AT [facility] FOR THE PAST YEAR BUT HAS BEEN IN REHAB TO LEARN TO WALK AGAIN. PT UTILIZES WHEELCHAIR AND PLANS TO RETURN TO [facility] WHERE SHE IS RECEIVING GOOD CARE AND FEELS SAFE. 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 PT DOES NOT WANT TO GO TO INPATIENT REHAB AND WANTS REHAB AT [facility]. PROVIDER LISTING PROVIDED, PT SIGNED CHOICE FOR [facility]. IMPORTANT MESSAGE FROM MEDICARE PROVIDED AND EXPLAINED. CM WILL SEND REHAB REFERRAL TO [facility] SOON POSSIBLE FOR REHAB READMIT. Grease Refining Supervisor: Danial Cosme DCPIA - Discharge Planning Initial Assessment Updated by [id number]: Danial Cosme on 11/01/18 9:50 am * Is the patient Alert and Oriented? Yes * How many steps to enter\exit or inside your home? NONE * [place]CP [facility] * Pharmacy [facility] * Preadmission Environment Half-Way Facility * Facility Name [facility] * ADLs Partial Dependent * Partial ADLs (Assistance needed) Ambulation Bathing Medication Management Transfers * Equipment Other * Other Equipment ALL MEDICAL EQUIPMENT PROVIDED BY FACILITY * List name and contact numbers for known caregivers / representatives who currently or will assist patient after discharge: MINOR ANN, SON, * Verbal permission to speak to the caregivers and representatives has been obtained from the patient. N/A * Community resources currently utilized None * Please name any agencies selected above. NONE * Additional services required to return to the preadmission environment? No * Can the patient safely return to the preadmission environment? Yes * Has this patient been hospitalized within the prior 30 days at any hospital? Yes Coverage Notice Reviewer: [id number] Albino Cosme Notice Issued Date-Time: 10/31/2018 16:20 Notice Type: Patient Choice Letter Notice Delivered To: Patient Relationship to Patient: Volunteer Manager Name: Delivery Method: HAND - Hand Delivered Stephany Days: Prior Verbal Notification: Recipient Understood Notice: Yes Recipient Signature: Yes Med Rec Note Co-signed by Attending: Coverage Notice Comment: HENRY GUZMÁN Reviewer: [email or web address] Albino Cosme Notice Issued Date-Time: 10/31/2018 16:20 Notice Type: IM Discharge Notice Notice Delivered To: Patient Relationship to Patient: Volunteer Manager Name: Delivery Method: HAND - Hand Delivered Stephany Days: Prior Verbal Notification: Recipient Understood Notice: Yes Recipient Signature: Yes Med Rec Note Co-signed by Attending: Coverage Notice Comment: Last DP export: 11/01/18 11:42 a Patient Name: ELIZABETH BUSTAMANTE Page [id number] at 0936 All edits/amendments must be made on the electronic document DICTATION DATE: 11/02/18935 DINING SERVICE INSPECTOR: ALYSSIA 11/02/18935 RPT#: [id number] DC DATE: STATUS: ADM IN [facility] [address] [place] [address] END OF REPORT
--- NOTE | 2018-11-02 09:47 | NUR ---
TO MRI VIA STRETCHER
--- NOTE | 2018-11-02 11:11 | NUR ---
RETURNS FROM MRI.
[2018-11-02 12:44] VITALS: BP 99/50
--- NOTE | 2018-11-02 13:09 | NUR ---
COMPLAINTS THAT JOHNSON CATH IS LEAKING, ADDITIONAL 5 CC OF WATER PLACED IN BALLOON. THERE IS SOME WETNESS TO BLUE CHUX.
--- NOTE | 2018-11-02 14:39 | NUR ---
Pt is on an AHA diet with 83% average po intake past 2 days Pt ate 100% of meals today BM yesterday Spoke with pt about nutrition and pt reports that she is eating good Offered a nutritional supplement and pt denied for now RD following
--- NOTE | 2018-11-02 15:02 | NUR ---
JOHNSON CATH REMOVED ORDERED PAST BULB DEFLATION. INSTRUCTED PATIENT TO USE CALL LIGHT FOR US TO ASSIST TO FX BEDPAN.
--- NOTE | 2018-11-02 16:17 | MORECARE ---
CASE MANAGEMENT DISCHARGE SUMMARY PATIENT: ELIZABETH BUSTAMANTE UNIT: [id number] ADM DATE: 10/30/18 AGE: 68 : 48 SEX: F ROOM/BED: D.2131 AUTHOR: TABBY,DOC PHYSICIAN: REFERRING PHYSICIAN: RAVEN BEE MD DATE OF SERVICE: 11/02/18 Discharge Plan Patient Name: ELIZABETH BUSTAMANTE Facility: [facility]:[place] : 1950 Planned Disposition: Long-Term Facility Anticipated Discharge Date: Discharge Date: Expected LOS: Initial Reviewer: [id number] Initial Review Date: 10/31/2018 Generated: 11/02/18 5:17 pm Comments DCP- Discharge Planning Updated by [id number]: Danial Cosme on 11/02/18 3:[address] Patient Name: ELIZABETH BUSTAMANTE Encounter No: [id number] : 1950 Primary Insurance: MEDICARE A & B Anticipated DC Date: Planned Disposition: Long-Term Facility External Planned Provider: [facility] [place], MEDICARE REHAB BED DCP follow-up note: CM RECEIVED CALL FROM DAYANA OF [facility], , WHO REPORTS CONCERN OF PT'S LOW BLOOD PRESSURES AND REPORTS PT CANNOT COME TO FACILITY ON [facility] IT IS TOO COSTLY TO PROVIDE. CM ADVISED THAT PT HAS NOT HAD VEST THERAPY IN THREE DAYS AND HAS NO ORDERS FOR IT TO CONTINUE POST DISCHARGE TO REHAB. DAYANA ASKED CM TO DISCUSS THE POSSIBILTY OF PT MOVING TO ANOTHER NURSING FACILITY CLOSER TO HOSPITALS DUE TO MULTIPLE MEDICAL ISSUES AND [facility] BEING OVER AN HOUR AWAY FROM HOSPITAL CARE. CM MET WITH PT IN ROOM, DISCUSSED MOVING TO ANOTHER FDC, PT REFUSED AND WANTS TO RETURN TO [facility]. PT STATES THE DOCTOR TOLD HER THAT SHE WILL HAVE BACK SURGERY NEXT TUESDAY. CM REVIEWED DOCTORS NOTES IN ROOM, INFORMED PT THAT THE DOCTORS NOTES DO NOT REFLECT ANY PLANS FOR SURGERY AT THIS TIME AND THAT THEY WOULD MANAGE HER BACK PAIN SYMPTOMS WITH HEATING PADS AND MEDICATIONS AND WILL HAVE PT FOLLOW UP OUTPATIENT. PT VERY UPSET AND WANTS TO SEE THE DOCTOR. CM ASKED PT IF SHE HAD SEEN THE DOCTOR A FEW MINUTES AGO, PT INITIALLY STATES SHE HAD NOT AND WHEN REMINDED BY THE BEDSIDE NURSE, PT REPORTED SHE HAD SEEN THEM WHISPERING BY THE DOOR. CM PAGED TRAINMASTER KERRY TO NOTIFY OF PT'S REQUEST. CM FAXED HOSPITAL UPDATE TO [facility] AT [phone]. [facility] IS CONCERNED OF PT'S LOW BLOOD PRESSURE. [facility] WILL NOT ACCEPT PT ON THE MEDICATION BROVANA, REPORTING IT TO BE TOO EXPENSIVE. THIS WILL NEED TO BE AN EARLY DAY DISCHARGE [facility] IS IN [facility]. FOR DISCHARGE BACK TO REHAB, FAX DISCHARGE INFORMATION TO [facility] AT [phone]. NURSE REPORT TO BE CALLED TO [facility] AT [phone]. [facility] TO PROVIDE VAN TRANSPORTATION. Danial Cosme CASE MANAGEMENT DCP- Discharge Planning Updated by [id number]: Danial Cosme on 11/02/18 8:[address] Patient Name: ELIZABETH BUSTAMANTE Encounter No: [id number] : 1950 Primary Insurance: MEDICARE A & B Anticipated DC Date: Planned Disposition: Long-Term Facility External Planned Provider:[facility], MEDICARE REHAB BED DCP follow-up note: CM FAXED HOSPITAL UPDATE TO [facility] AT [phone]. PT WILL NEED OXYGEN WEANING DOWN FROM 5 LITERS TO RETURN TO REHAB FACILITY. CLARIFICATION OF NEEDING VEST THERAPY IN REHAB NEEDS TO BE CLARIFIED AND ARRANGEMENTS MADE IF NEEDED. THIS WILL NEED TO BE AN EARLY DAY DISCHARGE [facility] IS IN [facility]. FOR DISCHARGE BACK TO REHAB, FAX DISCHARGE INFORMATION TO [facility] AT [phone]. NURSE REPORT TO BE CALLED TO [facility] AT [phone]. [facility] TO PROVIDE VAN TRANSPORTATION. 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 CM FAXED HOSPITAL UPDATE TO [facility] AT [phone]. ORDER FOR PHYSICAL THERAPY EVALUATION OBTAINED. CM TO FAX UPDATE WITH PHYSICAL THERAPY RESULTS TO [facility] AT [phone]. THIS WILL NEED TO BE AN EARLY DAY DISCHARGE [facility] IS IN [facility]. FOR DISCHARGE BACK TO REHAB, FAX DISCHARGE INFORMATION TO [facility] AT [phone]. NURSE REPORT TO BE CALLED TO [facility] AT [phone]. [facility] TO PROVIDE VAN TRANSPORTATION. Danial Cosme, CASE MANAGEMENT Appended by Danial Cosme on 11/01/2018 12:36 CDT: CM SPOKE TO NIKIA OF [facility] WHO INFORMED CM THAT PT WILL NEED TO BE WEANED SHE IS STILL ON 5 LITERS OXYGEN. NIKIA ALSO REPORTS THEY DO NOT HAVE VEST THERAPY AT FACILITY AND IF PT REQUIRES IT, THEY WILL NEED ORDERS AND INFORMATION TO OBTAIN THE VEST WELL WILL NEED TRAINING TO ADMINISTER THERAPY AT THE REHAB. CACHORRO PAYNE NOTIFIED. CM SPOKE TO PT IN ROOM WHO REPORTS THAT SHE HAS NOT HAD VEST THERAPY IN THE PAST TWO DAYS. PT WILL NEED OXYGEN WEANING DOWN FROM 5 LITERS TO RETURN TO REHAB FACILITY. CLARIFICATION OF NEEDING VEST THERAPY IN REHAB NEEDS TO BE CLARIFIED AND ARRANGEMENTS MADE IF NEEDED. THIS WILL NEED TO BE AN EARLY DAY DISCHARGE [facility] IS IN [facility]. FOR DISCHARGE BACK TO REHAB, FAX DISCHARGE INFORMATION TO [facility] AT [phone]. NURSE REPORT TO BE CALLED TO [facility] AT [phone]. [facility] TO PROVIDE VAN TRANSPORTATION. Danial Cosme, CASE MANAGEMENT DCP- Discharge Planning Updated by [id number]: Danial Cosme on 10/31/18 4:[address] Patient Name: ELIZABETH BUSTAMANTE Admission Status: ER Accout number: [id number] Admission Date: 10-30-2018 : 1950 Admission Diagnosis: Attending: RAVEN BEE Current LOS: 1 Anticipated DC Date: Planned Disposition: Long-Term Facility Primary Insurance: MEDICARE A & B PLANNED EXTERNAL PROVIDER: [facility] [place], MEDICARE REHAB BED Discharge Planning Comments: CM RECEIVED ORDER FOR INPATIENT REHAB PRESCREENING. CM MET WITH PT IN ROOM TO DISCUSS DISCHARGE PLANNING AND NEEDS. PT REPORTS LIVING AT [facility] FOR THE PAST YEAR BUT HAS BEEN IN REHAB TO LEARN TO WALK AGAIN. PT UTILIZES WHEELCHAIR AND PLANS TO RETURN TO [facility] WHERE SHE IS RECEIVING GOOD CARE AND FEELS SAFE. 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 PT DOES NOT WANT TO GO TO INPATIENT REHAB AND WANTS REHAB AT [facility]. PROVIDER LISTING PROVIDED, PT SIGNED CHOICE FOR [facility]. IMPORTANT MESSAGE FROM MEDICARE PROVIDED AND EXPLAINED. CM WILL SEND REHAB REFERRAL TO [facility] SOON POSSIBLE FOR REHAB READMIT. Clean Rice Grader And Reel Tender: Danial Cosme DCPIA - Discharge Planning Initial Assessment Updated by [id number]: Danial Cosme on 11/01/18 9:50 am * Is the patient Alert and Oriented? Yes * How many steps to enter\exit or inside your home? NONE * PCP [place] * Pharmacy [facility] * Preadmission Environment Long-Term Facility * Facility Name [facility] * ADLs Partial Dependent * Partial ADLs (Assistance needed) Ambulation Bathing Medication Management Transfers * Equipment Other * Other Equipment ALL MEDICAL EQUIPMENT PROVIDED BY FACILITY * List name and contact numbers for known caregivers / representatives who currently or will assist patient after discharge: MINOR ANN, SON, * Verbal permission to speak to the caregivers and representatives has been obtained from the patient. N/A * Community resources currently utilized None * Please name any agencies selected above. NONE * Additional services required to return to the preadmission environment? No * Can the patient safely return to the preadmission environment? Yes * Has this patient been hospitalized within the prior 30 days at any hospital? Yes Coverage Notice Reviewer: [id number] Albino Cosme Notice Issued Date-Time: 10/31/2018 16:20 Notice Type: Patient Choice Letter Notice Delivered To: Patient Relationship to Patient: Manager Lvn Name: Delivery Method: HAND - Hand Delivered Stephany Days: Prior Verbal Notification: Recipient Understood Notice: Yes Recipient Signature: Yes Med Rec Note Co-signed by Attending: Coverage Notice Comment: HENRY GUZMÁN Reviewer: [id number] Albino Cosme Notice Issued Date-Time: 10/31/2018 16:20 Notice Type: IM Discharge Notice Notice Delivered To: Patient Relationship to Patient: Manager Lvn Name: Delivery Method: HAND - Hand Delivered Stephany Days: Prior Verbal Notification: Recipient Understood Notice: Yes Recipient Signature: Yes Med Rec Note Co-signed by Attending: Coverage Notice Comment: Last DP export: 11/02/18 8:36 a Patient Name: ELIZABETH BUSTAMANTE Page 33030 at 1617 All edits/amendments must be made on the electronic document DICTATION DATE: 11/02/181615 BUSINESS EXCELLENCE MANAGER: ALYSSIA 11/02/181615 RPT#: [id number] DC DATE: STATUS: ADM IN [facility] [address] [place] [address] END OF REPORT
--- NOTE | 2018-11-02 16:19 | NUR ---
COMPLETE BED LINEN CHANGE DONE R/T INCONT OF URINE.
--- NOTE | 2018-11-02 16:47 | NUR ---
R.T. TO PLACE PATIENT ON 6L HIGH FLOW NC.
[2018-11-02 17:09] VITALS: BP 102/50
--- NOTE | 2018-11-02 18:36 | NUR ---
PATIENT IS RESTING WITH HOB UP AT 30 DEGREES, LAYING ON HER LEFT SIDE. EYES CLOSED, RESP ARE EVEN AND NON LABORED. APPEARS TO BE PAINFREE AT THIS TIME.
--- NOTE | 2018-11-02 19:15 | NUR ---
REPORT RECIEVED AND ROUNDING COMPLETE. PT LAYING IN BED IN SUPINE POSITION. EYES CLOSED. BREATHING SHALLOW AND EVEN. PT HAS NC ON AND RECIEVING 02 HIGH FLOW AT 6L. CALL LIGHT WITHIN REACH AND BED IN LOWEST POSITION.
--- NOTE | 2018-11-02 19:51 | NUR ---
PT COMPLAINING OF 02 BEING TO HIGH AND WANTING TO TALK TO THE RESP. THERAPIST. INFORMED RESP. THERAPIST SHE WENT IN TO SEE THE PT.
[2018-11-02 20:00] VITALS: BP 116/73
[2018-11-03] VITALS: BP 118/60; BP 98/58
--- NOTE | 2018-11-03 02:26 | NUR ---
I have reviewed this patient and I concur with the Shift Assessment completed by the Licensed Practical Nurse today this shift.
[2018-11-03 04:00] VITALS: BP 125/68
[2018-11-03 06:36] LABS: BASOPHILS 1.6 % (0-2); EOSINOPHILS 0.5 % (0-7); HEMATOCRIT 37.7 % (36.0-48.0); HEMOGLOBIN 11.2 g/dL (12-16); LYMPHOCYTES 38.1 % (15-50); MCH 29.1 pg (26.0-34.0); MCHC 29.7 g/dL (31.0-37.0); MCV 97.9 fL (80.0-100.0); MEAN PLATELET VOLUME 10.1 fL (7.4-10.4); MONOCYTES 9.9 % (2-11); NEUTROPHILS 46.9 % (40-80); PLATELET COUNT 406 10x3/uL (130-400); RBC 3.85 10x6/uL (4.00-5.40); RDW 17.2 % (11.5-14.5); WBC 9.4 10x3/uL (4.8-10.8)
[2018-11-03 06:47] LABS: INR 1.07 (0.85-1.17); PROTIME 13.4 SECONDS (11.6-15.0)
[2018-11-03 07:05] LABS: ALBUMIN 1.8 g/dL (3.4-5.0); ALKALINE PHOSPHATASE 137 U/L (46-116); ALT (SGPT) 25 U/L (10-68); BILIRUBIN - TOTAL 0.39 mg/dL (0.2-1.3); CALCIUM 7.9 mg/dL (8.5-10.1); CHLORIDE - SERUM 102 mmol/L (98-107); CREATININE - SERUM 0.7 mg/dL (0.6-1.3); POTASSIUM - SERUM 4.6 mmol/L (3.5-5.1); PROTEIN - SERUM 5.3 g/dL (6.4-8.2); SODIUM 142 mmol/L (136-145); UREA NITROGEN 16 mg/dL (7-18); eGFR NON AFRICAN AMERICAN 88 mL/min (90-120)
[2018-11-03 07:09] LABS: CALC OSMOLALITY 285 mosm/kg (275-300); GLUCOSE 133 mg/dL (74-106)
[2018-11-03 07:10] LABS: CARBON DIOXIDE 40.2 mmol/L (21.0-32.0)
--- NOTE | 2018-11-03 08:10 | NUR ---
PT REQUESTED TO BE REARANGED. DRY FROM URINE AT THIS TIME. CL INREACH. SRX2. NO CONCERNS/COMPLAINTS VOICED.
[2018-11-03 08:17] VITALS: BP 113/64
[2018-11-03 09:35] VITALS: Ht 162.6 cm; Wt 59.1 kg
--- NOTE | 2018-11-03 11:10 | NUR ---
I have reviewed this patient and I concur with the Shift Assessment completed by the Licensed Practical Nurse today this shift.
[2018-11-03 12:22] VITALS: BP 110/67
--- NOTE | 2018-11-03 13:33 | NUR ---
PT CALLED ME IN WHILE SHE WAS HAVING A BM. PT HAD LARGE, FIST SIZED BM BUT CLAIMS SHE STILL IS FULL OF IT. PT REQUESTED A SUPPOSITORY, I OBLIGED AND CALLED THE DOC. WHILE ADMINISTERING THE SUPPOSITORY, I FELT FOR STOOL THAT I MAY BE ABLE TO DISIMPACT. IT WAS ALL SOFT AND ACTIVELY MOVING. PT THEN REQUESTED A ENEMA, I DID NOT GIVE AT THIS TIME D/T ALREADY GIVING SUPPOSITORY.
--- NOTE | 2018-11-03 14:27 | MORECARE ---
CASE MANAGEMENT DISCHARGE SUMMARY PATIENT: ELIZABETH BUSTAMANTE UNIT: [id number] ADM DATE: 10/30/18 AGE: 68 : [birth year] SEX: F ROOM/BED: D.2131 AUTHOR: TABBY,DOC PHYSICIAN: REFERRING PHYSICIAN: RAVEN BEE MD DATE OF SERVICE: 11/03/18 Discharge Plan Patient Name: ELIZABETH BUSTAMANTE Facility: [facility]:[place] : 1950 Planned Disposition: Senior Living Facility Anticipated Discharge Date: Discharge Date: Expected LOS: Initial Reviewer: [id number] Initial Review Date: 10/31/2018 Generated: 11/03/18 3:27 pm Comments DCP- Discharge Planning Updated by [id number]: Danial Cosme on 11/03/18 1:[address] Patient Name: ELIZABETH BUSTAMANTE Encounter No: [id number] : 1950 Primary Insurance: MEDICARE A & B Anticipated DC Date: Planned Disposition: Senior Living Facility External Planned Provider: [facility], MEDICARE REHAB BED DCP follow-up note: CM RECEIVED CALL FROM [facility], ; [place]NE REPORTS THEY ARE [facility] AND THAT PT WILL NEED TO BE "MORE MEDICALLY STABLE" TO RETURN TO THE FACILITY OR COME BACK DNR WITH HOSPICE CARE. TARIQ SPOKE TO PT IN ROOM, DISCUSSED INFORMATION PROVIDED BY [facility]. PT REPORTS SHE HAS THOUGHT ABOUT HOSPICE IN THE PAST BUT IS NOT INTERESTED. PT STATES SHE WILL BE GOING BACK TO [facility] FOR REHAB WITH GOAL OF GETTING BETTER AND GOING HOME WHEN SHE IS ABLE. CM SPOKE TO DR. LANDA, INFORMED THAT [facility] WILL NOT ACCEPT PT ON BROVANA; DR. LANDA SUGGESTED PULMICORT. CM CALLED [facility], SPOKE TO DAYANA WHO INFORMD CM THAT PULMICORT OR THE GENERIC IS NOT AN OPTION THEY ARE ALSO TOO EXPENSIVE FOR THE FACILITY TO PROVIDE. PT WILL NEED OXYGEN WEANING DOWN FROM 4LITERS AND PER FACILITY "BE MORE MEDICALLY STABLE" TO RETURN TO REHAB FACILITY. FACILITY WILL NOT ACCEPT PT ON MEDICATIONS BROVANA OR PULMICORT THEY ARE TOO EXPENSIVE FOR THE FACILITY TO PROVIDE. THIS WILL NEED TO BE AN EARLY DAY DISCHARGE [facility] IS IN [facility]. FOR DISCHARGE BACK TO REHAB, FAX DISCHARGE INFORMATION TO [facility] AT [phone]. NURSE REPORT TO BE CALLED TO [facility] AT [phone]. [facility] TO PROVIDE VAN TRANSPORTATION. Danial Cosme, CASE MANAGEMENT DCP- Discharge Planning Updated by [id number]: Danial Cosme on 11/02/18 3:[address] Patient Name: ELIZABETH BUSTAMANTE Encounter No: [id number] : 1950 Primary Insurance: MEDICARE A & B Anticipated DC Date: Planned Disposition: Senior Living Facility External Planned Provider: [facility], MEDICARE REHAB BED DCP follow-up note: CM RECEIVED CALL FROM DAYANA OF [facility], , WHO REPORTS CONCERN OF PT'S LOW BLOOD PRESSURES AND REPORTS PT CANNOT COME TO FACILITY ON BROVANA IT IS TOO COSTLY TO PROVIDE. TARIQ ADVISED THAT PT HAS NOT HAD VEST THERAPY IN THREE DAYS AND HAS NO ORDERS FOR IT TO CONTINUE POST DISCHARGE TO REHAB. DAYANA ASKED CM TO DISCUSS THE POSSIBILTY OF PT MOVING TO ANOTHER NURSING FACILITY CLOSER TO HOSPITALS DUE TO MULTIPLE MEDICAL ISSUES AND [facility] BEING OVER AN HOUR AWAY FROM HOSPITAL CARE. TARIQ MET WITH PT IN ROOM, DISCUSSED MOVING TO ANOTHER ALF, PT REFUSED AND WANTS TO RETURN TO [facility]. PT STATES THE DOCTOR TOLD HER THAT SHE WILL HAVE BACK SURGERY NEXT TUESDAY. CM REVIEWED DOCTORS NOTES IN ROOM, INFORMED PT THAT THE DOCTORS NOTES DO NOT REFLECT ANY PLANS FOR SURGERY AT THIS TIME AND THAT THEY WOULD MANAGE HER BACK PAIN SYMPTOMS WITH HEATING PADS AND MEDICATIONS AND WILL HAVE PT FOLLOW UP OUTPATIENT. PT VERY UPSET AND WANTS TO SEE THE DOCTOR. CM ASKED PT IF SHE HAD SEEN THE DOCTOR A FEW MINUTES AGO, PT INITIALLY STATES SHE HAD NOT AND WHEN REMINDED BY THE BEDSIDE NURSE, PT REPORTED SHE HAD SEEN THEM WHISPERING BY THE DOOR. CM PAGED CACHORRO PAYNE TO NOTIFY OF PT'S REQUEST. CM FAXED HOSPITAL UPDATE TO [facility] AT [phone]. [facility] IS CONCERNED OF PT'S LOW BLOOD PRESSURE. [facility] WILL NOT ACCEPT PT ON THE MEDICATION BROVANA, REPORTING IT TO BE TOO EXPENSIVE. THIS WILL NEED TO BE AN EARLY DAY DISCHARGE [facility] IS IN [facility]. FOR DISCHARGE BACK TO REHAB, FAX DISCHARGE INFORMATION TO [facility] AT [phone]. NURSE REPORT TO BE CALLED TO [facility] AT [phone]. [facility] TO PROVIDE VAN TRANSPORTATION. Danial Cosme CASE MANAGEMENT DCP- Discharge Planning Updated by [id number]: Danial Cosme on 11/02/18 8:[address] Patient Name: ELIZABETH BUSTAMANTE Encounter No: [id number] : 1950 Primary Insurance: MEDICARE A & B Anticipated DC Date: Planned Disposition: Senior Living Facility External Planned Provider:[facility], MEDICARE REHAB BED DCP follow-up note: CM FAXED HOSPITAL UPDATE TO [facility] AT [phone]. PT WILL NEED OXYGEN WEANING DOWN FROM 5 LITERS TO RETURN TO REHAB FACILITY. CLARIFICATION OF NEEDING VEST THERAPY IN REHAB NEEDS TO BE CLARIFIED AND ARRANGEMENTS MADE IF NEEDED. THIS WILL NEED TO BE AN EARLY DAY DISCHARGE [facility] IS IN [facility]. FOR DISCHARGE BACK TO REHAB, FAX DISCHARGE INFORMATION TO [facility] AT [phone]. NURSE REPORT TO BE CALLED TO [facility] AT [phone]. [facility] TO PROVIDE VAN TRANSPORTATION. 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 CM FAXED HOSPITAL UPDATE TO [facility] AT [phone]. ORDER FOR PHYSICAL THERAPY EVALUATION OBTAINED. CM TO FAX UPDATE WITH PHYSICAL THERAPY RESULTS TO [facility] AT [phone]. THIS WILL NEED TO BE AN EARLY DAY DISCHARGE [facility] IS IN [facility]. FOR DISCHARGE BACK TO REHAB, FAX DISCHARGE INFORMATION TO [facility] AT [phone]. NURSE REPORT TO BE CALLED TO [facility] AT [phone]. [facility] TO PROVIDE VAN TRANSPORTATION. Danial Cosme, CASE MANAGEMENT Appended by Danial Cosme on 11/01/2018 12:36 CDT: CM SPOKE TO NIKIA OF [facility] WHO INFORMED CM THAT PT WILL NEED TO BE WEANED SHE IS STILL ON 5 LITERS OXYGEN. NIKIA ALSO REPORTS THEY DO NOT HAVE VEST THERAPY AT FACILITY AND IF PT REQUIRES IT, THEY WILL NEED ORDERS AND INFORMATION TO OBTAIN THE VEST WELL WILL NEED TRAINING TO ADMINISTER THERAPY AT THE REHAB. CACHORRO PAYNE NOTIFIED. CM SPOKE TO PT IN ROOM WHO REPORTS THAT SHE HAS NOT HAD VEST THERAPY IN THE PAST TWO DAYS. PT WILL NEED OXYGEN WEANING DOWN FROM 5 LITERS TO RETURN TO REHAB FACILITY. CLARIFICATION OF NEEDING VEST THERAPY IN REHAB NEEDS TO BE CLARIFIED AND ARRANGEMENTS MADE IF NEEDED. THIS WILL NEED TO BE AN EARLY DAY DISCHARGE [facility] IS IN [facility]. FOR DISCHARGE BACK TO REHAB, FAX DISCHARGE INFORMATION TO [facility] AT [phone]. NURSE REPORT TO BE CALLED TO [facility] AT [phone]. [facility] TO PROVIDE VAN TRANSPORTATION. Danial Cosme, CASE MANAGEMENT DCP- Discharge Planning Updated by [id number]: Danial Cosme on 10/31/18 4:[address] Patient Name: ELIZABETH BUSTAMANTE Admission Status: ER Accout number: [id number] Admission Date: 10-30-2018 : 1950 Admission Diagnosis: Attending: RAVEN BEE Current LOS: 1 Anticipated DC Date: Planned Disposition: Senior Living Facility Primary Insurance: MEDICARE A & B PLANNED EXTERNAL PROVIDER: [facility], MEDICARE REHAB BED Discharge Planning Comments: CM RECEIVED ORDER FOR INPATIENT REHAB PRESCREENING. CM MET WITH PT IN ROOM TO DISCUSS DISCHARGE PLANNING AND NEEDS. PT REPORTS LIVING AT [facility] FOR THE PAST YEAR BUT HAS BEEN IN REHAB TO LEARN TO WALK AGAIN. PT UTILIZES WHEELCHAIR AND PLANS TO RETURN TO [facility] WHERE SHE IS RECEIVING GOOD CARE AND FEELS SAFE. 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 PT DOES NOT WANT TO GO TO INPATIENT REHAB AND WANTS REHAB AT [facility]. PROVIDER LISTING PROVIDED, PT SIGNED CHOICE FOR [facility]. IMPORTANT MESSAGE FROM MEDICARE PROVIDED AND EXPLAINED. CM WILL SEND REHAB REFERRAL TO [facility] SOON POSSIBLE FOR REHAB READMIT. Referral Clerk: Danial Cosme DCPIA - Discharge Planning Initial Assessment Updated by [id number]: Danial Cosme on 11/01/18 9:50 am * Is the patient Alert and Oriented? Yes * How many steps to enter\\exit or inside your home? NONE * PCP [facility]UL [place] * Pharmacy [facility] * Preadmission Environment Senior Living Facility * Facility Name [facility] * ADLs Partial Dependent * Partial ADLs (Assistance needed) Ambulation Bathing Medication Management Transfers * Equipment Other * Other Equipment ALL MEDICAL EQUIPMENT PROVIDED BY FACILITY * List name and contact numbers for known caregivers / representatives who currently or will assist patient after discharge: NAILA DE LA ROSA, * Verbal permission to speak to the caregivers and representatives has been obtained from the patient. N/A * Community resources currently utilized None * Please name any agencies selected above. NONE * Additional services required to return to the preadmission environment? No * Can the patient safely return to the preadmission environment? Yes * Has this patient been hospitalized within the prior 30 days at any hospital? Yes Coverage Notice Reviewer: [id number] Albino Cosme Notice Issued Date-Time: 10/31/2018 16:20 Notice Type: Patient Choice Letter Notice Delivered To: Patient Relationship to Patient: Railcar Switcher Name: Delivery Method: HAND - Hand Delivered Stephany Days: Prior Verbal Notification: Recipient Understood Notice: Yes Recipient Signature: Yes Med Rec Note Co-signed by Attending: Coverage Notice Comment: HENRY GUZMÁN Reviewer: [id number] Albino Cosme Notice Issued Date-Time: 10/31/2018 16:20 Notice Type: IM Discharge Notice Notice Delivered To: Patient Relationship to Patient: Railcar Switcher Name: Delivery Method: HAND - Hand Delivered Stephany Days: Prior Verbal Notification: Recipient Understood Notice: Yes Recipient Signature: Yes Med Rec Note Co-signed by Attending: Coverage Notice Comment: Last DP export: 11/02/18 3:17 p Patient Name: ELIZABETH BUSTAMANTE Page 23621 at 1427 All edits/amendments must be made on the electronic document DICTATION DATE: 11/03/181426 CORPORATE TRAVEL COORDINATOR: ALYSSIA 11/03/181426 RPT#: [id number] DC DATE: STATUS: ADM IN [facility] [address] [place] [address] END OF REPORT
--- NOTE | 2018-11-03 15:58 | NUR ---
PT HAS USED HER CL AGAIN. I HAVE BEEN IN THERE SEVERAL TIMES IN THE LAST 45 MINUTES. PT KEEPS HAVING BM'S AND CLAIMING SHE CAN'T FEEL THEM STARTING AND SHE DOESN'T WANT TO USE A BEDPAN. BUT ALSO CLAIMS SHE IS ASHAHMED TO GO IN THE BED. PT IS DEMANDING A PAIN PILL AND ENEMA EVEN THOUGH KUB SHOWED NO HARD BLOCKAGE. I HAVE DONE PT EDUCATION ON THE FACT PAIN PILLS WILL MAKE HER MORE CONSITPATED BUT PT DOES NOT ACKNOLEDGE OR CARE.
[2018-11-03 16:08] VITALS: BP 116/62
--- NOTE | 2018-11-03 19:19 | NUR ---
PT IN BED. DENIES NEEDS AT THIS TIME.
[2018-11-03 20:00] VITALS: BP 91/56
--- NOTE | 2018-11-04 02:05 | NUR ---
I have reviewed this patient and I concur with the Shift Assessment completed by the Licensed Practical Nurse today this shift.
[2018-11-04 04:23] VITALS: BP 104/59
[2018-11-04 05:53] LABS: EOSINOPHILS 0.7 % (0-7); HEMATOCRIT 36.6 % (36.0-48.0); HEMOGLOBIN 10.9 g/dL (12-16); IMMATURE GRANULOCYTES 3.5 % (0-5); MCHC 29.8 g/dL (31.0-37.0); MCV 97.3 fL (80.0-100.0); MEAN PLATELET VOLUME 9.9 fL (7.4-10.4); MONOCYTES 10.8 % (2-11); PLATELET COUNT 439 10x3/uL (130-400); RBC 3.76 10x6/uL (4.00-5.40); RDW 17.1 % (11.5-14.5); WBC 9.7 10x3/uL (4.8-10.8)
[2018-11-04 06:58] LABS: ALBUMIN 1.9 g/dL (3.4-5.0); ALKALINE PHOSPHATASE 134 U/L (46-116); ALT (SGPT) 27 U/L (10-68); BILIRUBIN - TOTAL 0.21 mg/dL (0.2-1.3); CALC OSMOLALITY 281 mosm/kg (275-300); CHLORIDE - SERUM 100 mmol/L (98-107); CREATININE - SERUM 0.6 mg/dL (0.6-1.3); GLUCOSE 91 mg/dL (74-106); POTASSIUM - SERUM 4.5 mmol/L (3.5-5.1); PROTEIN - SERUM 5.5 g/dL (6.4-8.2); SODIUM 141 mmol/L (136-145); UREA NITROGEN 14 mg/dL (7-18); eGFR NON AFRICAN AMERICAN > 90 mL/min (90-120)
[2018-11-04 07:11] LABS: CARBON DIOXIDE 43.6 mmol/L (21.0-32.0)
--- NOTE | 2018-11-04 07:28 | NUR ---
PT ASLEEP WHEN I ENTERED, DID NOT FURTHER DISTURB AT THIS TIME. CL INREACH. SRX2.
[2018-11-04 09:23] VITALS: BP 119/62
[2018-11-04 11:38] VITALS: BP 128/68
--- NOTE | 2018-11-04 15:04 | NUR ---
I have reviewed this patient and I concur with the Shift Assessment completed by the Licensed Practical Nurse today this shift.
[2018-11-04 16:15] VITALS: BP 125/64
[2018-11-04 20:00] VITALS: BP 91/55
--- NOTE | 2018-11-04 21:44 | NUR ---
ASSESSMENT COMPLETED AT 1914 HRS. PT RESTING WITH EYES CLOSED. RESP EVEN AND REGULAR. ASSESSMENT COMPLETED AT 2034 HRS. PT ALERT AND ORIENTED TO PERSON, PLACE AND TIME. MILLER. IV TO RAC SL. IV PATENT. O2 5L HIGH FLOW O2. LUNGS DIMINISHED IN BASES BILAT. BRUISE NOTED TO LFA. RED AREA APPROX 6CM IN DIAMETER NOTED OT L HIP. DRESSING TO R HIP CLEAN, DRY AND INTACT. PM MEDS GIVEN. PT INCONTINENT OF URINE. INCONTINENT CARE DONE. RYA'S APPLIED TO BUTTOCKS. PT REPOSITIONED ONTO R SIDE. SR UP X2, CALL LIGHT WITHIN REACH.
--- NOTE | 2018-11-04 22:36 | NUR ---
BETSY SANCHEZ GIVEN PER REQUEST. STATES CHRONIC BACK PAIN STILL 03/24. SR UP X2, CALL LIGHT WITHIN REACH AND BED ALARM ON.
[2018-11-05] VITALS (7 sets, daily range): BP systolic 78–114; BP diastolic 40–61
--- NOTE | 2018-11-05 00:04 | NUR ---
PT RESTING WITH EYES CLOSED. RESP EVEN AND REGULAR. SR UP X2, CALL LIGHT WITHIN REACH AND BED ALARM ON.
--- NOTE | 2018-11-05 01:12 | NUR ---
PT INCONTINENT OF URINE AND STOOL. INCONTINENT CARE DONE. SR UP X2, CALL LIGHT WITHIN REACH AND BED ALARM ON.
--- NOTE | 2018-11-05 02:16 | NUR ---
PT RESTING WITH EYES CLOSED. RESP EVEN AND REGULAR. SR UP X2, CALL LIGHT WITHIN REACH.
--- NOTE | 2018-11-05 04:15 | NUR ---
PT AWAKE, DECLINES OFFER TO REPOSITION IN BED. PT CLEAN AND DRY AT THIS TIME. SR UP X2, CALL LIGHT WITHIN REACH AND BED ALARM ON.
[2018-11-05 05:56] LABS: BASOPHILS 1.3 % (0-2); EOSINOPHILS 0.8 % (0-7); HEMATOCRIT 36.3 % (36.0-48.0); HEMOGLOBIN 10.5 g/dL (12-16); IMMATURE GRANULOCYTES 3.6 % (0-5); LYMPHOCYTES 37.6 % (15-50); MCH 28.5 pg (26.0-34.0); MCHC 28.9 g/dL (31.0-37.0); MCV 98.4 fL (80.0-100.0); MEAN PLATELET VOLUME 9.8 fL (7.4-10.4); MONOCYTES 9.9 % (2-11); NEUTROPHILS 46.8 % (40-80); PLATELET COUNT 437 10x3/uL (130-400); RBC 3.69 10x6/uL (4.00-5.40); RDW 17.1 % (11.5-14.5); WBC 9.5 10x3/uL (4.8-10.8)
--- NOTE | 2018-11-05 06:01 | NUR ---
SBP 90 THIS AM. PT CLEAN AND DRY AT THIS TIME. PT DENIES ANY DISCOMFORT. NEEDS MET; WILL CONTINUE TO MONITOR.
[2018-11-05 06:26] LABS: ALBUMIN 1.9 g/dL (3.4-5.0); ALT (SGPT) 26 U/L (10-68); BILIRUBIN - TOTAL 0.22 mg/dL (0.2-1.3); CALCIUM 7.6 mg/dL (8.5-10.1); CHLORIDE - SERUM 103 mmol/L (98-107); POTASSIUM - SERUM 4.2 mmol/L (3.5-5.1); SODIUM 143 mmol/L (136-145)
[2018-11-05 07:07] LABS: ALKALINE PHOSPHATASE 116 U/L (46-116); CALC OSMOLALITY 285 mosm/kg (275-300); CREATININE - SERUM 0.6 mg/dL (0.6-1.3); GLUCOSE 73 mg/dL (74-106); PROTEIN - SERUM 5.1 g/dL (6.4-8.2); UREA NITROGEN 18 mg/dL (7-18); eGFR NON AFRICAN AMERICAN > 90 mL/min (90-120)
[2018-11-05 07:08] LABS: CARBON DIOXIDE 41.9 mmol/L (21.0-32.0)
--- NOTE | 2018-11-05 07:18 | NUR ---
PT AWAKE/ORIENTED. 02 IS AT 95%. CL IN REACH. SRX2. BED ALARM ON (PT DOES NOT EVER ATTEMPT TO GET OUT). NO CONCERNS/COMPLAINTS AT THIS TIME.
--- NOTE | 2018-11-05 17:11 | NUR ---
PT LYING IN BED ON BACK, WANTED TO CHANGE POSITION FROM LYING RIGHT SIDE. INFORMED PT I DIDN'T WANT HER LYING ON HER FAVORED LEFT SIDE DUE TO SORE DEVELOPING. PT HAS BEEN HAVING BM'S ALL DAY, BUT INSISTS SHE IS CONSTIPATED. FOLLOWED BOWEL PROTOCOL WITH MIRALAX BUT PT DOES NOT APPEAR TO BE CONSTIPATED. STOOL IS SOFT, BROWN, AND FROMED. CALMACEPTINE APPLIED TO PROBLEM AREAS ON BUTTOX. PT HAS BEEN CHANGED ALMOST HOURLY D/T BM AND URINE EPISODES. PT REFUSES TO USE A BED PADILLA AND PREFERS TO GO IN HER BED THEN LET US KNOW SHE NEEDS TO BE CHANGED. PT IS UPSET WHEN SHE'S TOLD SHE CANNOT HAVE LAXITIVE PRODOCUTS. PT STATES THAT IT HURTS TO GO (BELIEVE THIS TO BE RELATED TO BACK ISSUES). WILL CONTINUE TO REINFORCE TEACHING. CL IN REACH, SRX2. BED ALARM ON.
--- NOTE | 2018-11-05 23:20 | NUR ---
INITIAL ROUNDS COMPLETED AT 1915 HRS. PT INCONTINENT 0F URINE AND STOOL INCONTINENT CARE DONE. BED LINENS CHANGED. ASSESSMENT COMPLETED AT 2005 HRS. VSS. O2 5L HIGH FLOW O2. LUNGS DIMINISHED IN BASES BILAT. SR PER CM HR 80. ALERT AND ORIENTED TO PERSON, PLACE AND TIME. IV TO RAC SL. BRUISE NOTED TO LFA. REDDENED AREA TO L HIP. DRESSING TO R HIP CLEAN, DRY AND INTACT. PM MEDS GIVEN. PT CURRENTLY RESTING WITH EYES CLOSED. ON L SIDE. RESP EVEN AND REGULAR. SR UP X2, CALL LIGHT WITHIN REACH AND BED ALARM ON.
--- NOTE | 2018-11-06 00:24 | NUR ---
PT RESTING WITH EYES CLOSED. RESP EVEN AND REGULAR. SR UP X2, CALL LIGHT WITHIN REACH AND BED ALARM ON.
[2018-11-06 00:25] VITALS: BP 94/60
--- NOTE | 2018-11-06 02:52 | NUR ---
PT RESTING WITH EYES CLOSED. RESP EVEN AND REGULAR. SR UP X2, CALL LIGHT WITHIN REACH AND BED ALARM ON.
[2018-11-06 04:25] VITALS: BP 121/63
--- NOTE | 2018-11-06 04:53 | NUR ---
PT RESTING WITH EYES CLOSED. RESP EVEN AND REGULAR. SR UP X2, CALL LIGHT WITHIN REACH AND BED ALARM ON.
--- NOTE | 2018-11-06 05:54 | NUR ---
VSS THORUGHOUT NIGHT. SR PER CM. PT STATED ULTRAM CONTROLLED PAIN. NEEDS MET; WILL CONTINUE TO MONITOR.
[2018-11-06 06:20] LABS: EOSINOPHILS 0.5 % (0-7); HEMATOCRIT 36.1 % (36.0-48.0); HEMOGLOBIN 10.6 g/dL (12-16); IMMATURE GRANULOCYTES 3.1 % (0-5); LYMPHOCYTES 35.2 % (15-50); MCH 28.8 pg (26.0-34.0); MCHC 29.4 g/dL (31.0-37.0); MCV 98.1 fL (80.0-100.0); MEAN PLATELET VOLUME 9.8 fL (7.4-10.4); MONOCYTES 9.4 % (2-11); NEUTROPHILS 50.8 % (40-80); PLATELET COUNT 460 10x3/uL (130-400); RBC 3.68 10x6/uL (4.00-5.40); RDW 17.2 % (11.5-14.5); WBC 11.1 10x3/uL (4.8-10.8)
[2018-11-06 06:47] LABS: ALKALINE PHOSPHATASE 112 U/L (46-116); ALT (SGPT) 24 U/L (10-68); BILIRUBIN - TOTAL 0.24 mg/dL (0.2-1.3); CALCIUM 7.8 mg/dL (8.5-10.1); CHLORIDE - SERUM 101 mmol/L (98-107); CREATININE - SERUM 0.7 mg/dL (0.6-1.3); GLUCOSE 104 mg/dL (74-106); POTASSIUM - SERUM 4.2 mmol/L (3.5-5.1); PROTEIN - SERUM 5.2 g/dL (6.4-8.2); SODIUM 142 mmol/L (136-145); eGFR NON AFRICAN AMERICAN 88 mL/min (90-120)
[2018-11-06 07:01] LABS: CALC OSMOLALITY 287 mosm/kg (275-300); UREA NITROGEN 26 mg/dL (7-18)
[2018-11-06 07:03] LABS: CARBON DIOXIDE 40.7 mmol/L (21.0-32.0)
[2018-11-06 08:30] VITALS: BP 139/54
[2018-11-06 12:02] VITALS: BP 159/80
[2018-11-06 15:31] VITALS: BP 90/40
[2018-11-06 20:00] VITALS: BP 100/67
[2018-11-07 00:25] VITALS: BP 90/48
[2018-11-07 04:25] VITALS: BP 91/58
[2018-11-07 05:23] LABS: BASOPHILS 2.1 % (0-2); EOSINOPHILS 1.6 % (0-7); HEMATOCRIT 39.1 % (36.0-48.0); HEMOGLOBIN 11.5 g/dL (12-16); IMMATURE GRANULOCYTES 3.8 % (0-5); LYMPHOCYTES 38.3 % (15-50); MCH 28.8 pg (26.0-34.0); MCHC 29.4 g/dL (31.0-37.0); MEAN PLATELET VOLUME 9.8 fL (7.4-10.4); NEUTROPHILS 44.2 % (40-80); PLATELET COUNT 507 10x3/uL (130-400); RBC 3.99 10x6/uL (4.00-5.40); RDW 17.4 % (11.5-14.5); WBC 12.3 10x3/uL (4.8-10.8)
[2018-11-07 06:33] LABS: ALBUMIN 2.2 g/dL (3.4-5.0); ALKALINE PHOSPHATASE 123 U/L (46-116); ALT (SGPT) 26 U/L (10-68); BILIRUBIN - TOTAL 0.31 mg/dL (0.2-1.3); CALC OSMOLALITY 285 mosm/kg (275-300); CARBON DIOXIDE 37.9 mmol/L (21.0-32.0); CHLORIDE - SERUM 100 mmol/L (98-107); CREATININE - SERUM 0.8 mg/dL (0.6-1.3); GLUCOSE 79 mg/dL (74-106); POTASSIUM - SERUM 4.6 mmol/L (3.5-5.1); PROTEIN - SERUM 5.9 g/dL (6.4-8.2); SODIUM 141 mmol/L (136-145); UREA NITROGEN 29 mg/dL (7-18); eGFR NON AFRICAN AMERICAN 75 mL/min (90-120)
--- NOTE | 2018-11-07 08:18 | MORECARE ---
CASE MANAGEMENT DISCHARGE SUMMARY PATIENT: ELIZABETH BUSTAMANTE UNIT: [id number] ADM DATE: 10/30/18 AGE: 68 : 48 SEX: F ROOM/BED: D.2131 AUTHOR: TABBY,DOC PHYSICIAN: REFERRING PHYSICIAN: RAVEN BEE MD DATE OF SERVICE: 11/07/18 Discharge Plan Patient Name: ELIZABETH BUSTAMANTE Facility: [facility]:[place] : 1950 Planned Disposition: [facility] Facility Anticipated Discharge Date: Discharge Date: Expected LOS: Initial Reviewer: [email or web address] Initial Review Date: 10/31/2018 Generated: 11/07/18 9:18 am Comments DCP- Discharge Planning Updated by [id number]: Danial Cosme on 11/03/18 1:[address] Patient Name: ELIZABETH BUSTAMANTE Encounter No: [id number] : 1950 Primary Insurance: MEDICARE A & B Anticipated DC Date: Planned Disposition: [facility] Facility External Planned Provider: [facility], MEDICARE REHAB BED DCP follow-up note: CM RECEIVED CALL FROM [facility], [place], ; [place] REPORTS THEY ARE [facility] OR TWO HOURS [facility] AND THAT PT WILL NEED TO BE "MORE MEDICALLY STABLE" TO RETURN TO THE FACILITY OR COME BACK DNR WITH HOSPICE CARE. TARIQ SPOKE TO PT IN ROOM, DISCUSSED INFORMATION PROVIDED BY [facility]. PT REPORTS SHE HAS THOUGHT ABOUT HOSPICE IN THE PAST BUT IS NOT INTERESTED. PT STATES SHE WILL BE GOING BACK TO [place] FOR REHAB WITH GOAL OF GETTING BETTER AND GOING HOME WHEN SHE IS ABLE. CM SPOKE TO DR. LANDA, INFORMED THAT [facility] WILL NOT ACCEPT PT ON BROVANA; DR. LANDA SUGGESTED PULMICORT. CM CALLED [facility], SPOKE TO DAYANA WHO INFORMD CM THAT PULMICORT OR THE GENERIC IS NOT AN OPTION THEY ARE ALSO TOO EXPENSIVE FOR THE FACILITY TO PROVIDE. PT WILL NEED OXYGEN WEANING DOWN FROM 4LITERS AND PER FACILITY "BE MORE MEDICALLY STABLE" TO RETURN TO REHAB FACILITY. FACILITY WILL NOT ACCEPT PT ON MEDICATIONS BROVANA OR PULMICORT THEY ARE TOO EXPENSIVE FOR THE FACILITY TO PROVIDE. THIS WILL NEED TO BE AN EARLY DAY DISCHARGE [facility] IS [facility]. FOR DISCHARGE BACK TO REHAB, FAX DISCHARGE INFORMATION TO [facility] AT [phone]. NURSE REPORT TO BE CALLED TO [facility] AT [phone]. [facility] TO PROVIDE VAN TRANSPORTATION. Danial Cosme, CASE MANAGEMENT DCP- Discharge Planning Updated by [id number]: Danial Cosme on 11/02/18 3:[address] Patient Name: ELIZABETH BUSTAMANTE Encounter No: [id number] : 1950 Primary Insurance: MEDICARE A & B Anticipated DC Date: Planned Disposition: [facility] Facility External Planned Provider: [facility], MEDICARE REHAB BED DCP follow-up note: CM RECEIVED CALL FROM DAYANA OF [facility], , WHO REPORTS CONCERN OF PT'S LOW BLOOD PRESSURES AND REPORTS PT CANNOT COME TO FACILITY ON BROVANA IT IS TOO COSTLY TO PROVIDE. TARIQ ADVISED THAT PT HAS NOT HAD VEST THERAPY IN THREE DAYS AND HAS NO ORDERS FOR IT TO CONTINUE POST DISCHARGE TO REHAB. DAYANA ASKED CM TO DISCUSS THE POSSIBILTY OF PT MOVING TO ANOTHER NURSING FACILITY CLOSER TO HOSPITALS DUE TO MULTIPLE MEDICAL ISSUES AND [facility] BEING OVER AN HOUR AWAY FROM HOSPITAL CARE. TARIQ MET WITH PT IN ROOM, DISCUSSED MOVING TO ANOTHER [facility], PT REFUSED AND WANTS TO RETURN TO [facility]. PT STATES THE DOCTOR TOLD HER THAT SHE WILL HAVE BACK SURGERY NEXT TUESDAY. CM REVIEWED DOCTORS NOTES IN ROOM, INFORMED PT THAT THE DOCTORS NOTES DO NOT REFLECT ANY PLANS FOR SURGERY AT THIS TIME AND THAT THEY WOULD MANAGE HER BACK PAIN SYMPTOMS WITH HEATING PADS AND MEDICATIONS AND WILL HAVE PT FOLLOW UP OUTPATIENT. PT VERY UPSET AND WANTS TO SEE THE DOCTOR. CM ASKED PT IF SHE HAD SEEN THE DOCTOR A FEW MINUTES AGO, PT INITIALLY STATES SHE HAD NOT AND WHEN REMINDED BY THE BEDSIDE NURSE, PT REPORTED SHE HAD SEEN THEM WHISPERING BY THE DOOR. CM PAGED CACHORRO PAYNE TO NOTIFY OF PT'S REQUEST. CM FAXED HOSPITAL UPDATE TO [facility] AT [phone]. [facility] IS CONCERNED OF PT'S LOW BLOOD PRESSURE. [facility] WILL NOT ACCEPT PT ON THE MEDICATION BROVANA, REPORTING IT TO BE TOO EXPENSIVE. THIS WILL NEED TO BE AN EARLY DAY DISCHARGE [facility] IS [facility]. FOR DISCHARGE BACK TO REHAB, FAX DISCHARGE INFORMATION TO [facility] AT [phone]. NURSE REPORT TO BE CALLED TO [facility] AT [phone]. [facility] TO PROVIDE VAN TRANSPORTATION. Danial Cosme CASE MANAGEMENT DCP- Discharge Planning Updated by [id number]: Danial Cosme on 11/02/18 8:[address] Patient Name: ELIZABETH BUSTAMANTE Encounter No: [id number] : 1950 Primary Insurance: MEDICARE A & B Anticipated DC Date: Planned Disposition: [facility] Facility External Planned Provider:[facility], MEDICARE REHAB BED DCP follow-up note: CM FAXED HOSPITAL UPDATE TO [facility] AT [phone]. PT WILL NEED OXYGEN WEANING DOWN FROM 5 LITERS TO RETURN TO REHAB FACILITY. CLARIFICATION OF NEEDING VEST THERAPY IN REHAB NEEDS TO BE CLARIFIED AND ARRANGEMENTS MADE IF NEEDED. THIS WILL NEED TO BE AN EARLY DAY DISCHARGE [facility] IS IN [facility]. FOR DISCHARGE BACK TO REHAB, FAX DISCHARGE INFORMATION TO [facility] AT [phone]. NURSE REPORT TO BE CALLED TO [facility] AT [phone]. [facility] TO PROVIDE VAN TRANSPORTATION. 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 CM FAXED HOSPITAL UPDATE TO [facility] AT [phone]. ORDER FOR PHYSICAL THERAPY EVALUATION OBTAINED. CM TO FAX UPDATE WITH PHYSICAL THERAPY RESULTS TO [facility] AT [phone]. THIS WILL NEED TO BE AN EARLY DAY DISCHARGE [facility] IS IN [facility]. FOR DISCHARGE BACK TO REHAB, FAX DISCHARGE INFORMATION TO [facility] AT [phone]. NURSE REPORT TO BE CALLED TO [facility] AT [phone]. [facility] TO PROVIDE VAN TRANSPORTATION. Danial Cosme, CASE MANAGEMENT Appended by Danial Cosme on 11/01/2018 12:36 CDT: CM SPOKE TO NIKIA OF [facility] WHO INFORMED CM THAT PT WILL NEED TO BE WEANED SHE IS STILL ON 5 LITERS OXYGEN. NIKIA ALSO REPORTS THEY DO NOT HAVE VEST THERAPY AT FACILITY AND IF PT REQUIRES IT, THEY WILL NEED ORDERS AND INFORMATION TO OBTAIN THE VEST WELL WILL NEED TRAINING TO ADMINISTER THERAPY AT THE REHAB. CACHORRO PAYNE NOTIFIED. CM SPOKE TO PT IN ROOM WHO REPORTS THAT SHE HAS NOT HAD VEST THERAPY IN THE PAST TWO DAYS. PT WILL NEED OXYGEN WEANING DOWN FROM 5 LITERS TO RETURN TO REHAB FACILITY. CLARIFICATION OF NEEDING VEST THERAPY IN REHAB NEEDS TO BE CLARIFIED AND ARRANGEMENTS MADE IF NEEDED. THIS WILL NEED TO BE AN EARLY DAY DISCHARGE [facility] IS IN [facility]. FOR DISCHARGE BACK TO REHAB, FAX DISCHARGE INFORMATION TO [facility] AT [phone]. NURSE REPORT TO BE CALLED TO [facility] AT [phone]. [facility] TO PROVIDE VAN TRANSPORTATION. Danial Cosme, CASE MANAGEMENT DCP- Discharge Planning Updated by [id number]: Danial Cosme on 10/31/18 4:[address] Patient Name: ELIZABETH BUSTAMANTE Admission Status: ER Accout number: [id number] Admission Date: 10-30-2018 : 1950 Admission Diagnosis: Attending: RAVEN BEE Current LOS: 1 Anticipated DC Date: Planned Disposition: [facility] Facility Primary Insurance: MEDICARE A & B PLANNED EXTERNAL PROVIDER: [facility], MEDICARE REHAB BED Discharge Planning Comments: CM RECEIVED ORDER FOR INPATIENT REHAB PRESCREENING. CM MET WITH PT IN ROOM TO DISCUSS DISCHARGE PLANNING AND NEEDS. PT REPORTS LIVING AT [facility] FOR THE PAST YEAR BUT HAS BEEN IN REHAB TO LEARN TO WALK AGAIN. PT UTILIZES WHEELCHAIR AND PLANS TO RETURN TO [facility] WHERE SHE IS RECEIVING GOOD CARE AND FEELS SAFE. 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 PT DOES NOT WANT TO GO TO INPATIENT REHAB AND WANTS REHAB AT [facility]. PROVIDER LISTING PROVIDED, PT SIGNED CHOICE FOR [facility]. IMPORTANT MESSAGE FROM MEDICARE PROVIDED AND EXPLAINED. CM WILL SEND REHAB REFERRAL TO [facility] SOON POSSIBLE FOR REHAB READMIT. Assembler Billiard Table: Danial Cosme DCPIA - Discharge Planning Initial Assessment Updated by [id number]: Danial Cosme on 11/01/18 9:50 am * Is the patient Alert and Oriented? Yes * How many steps to enter\\exit or inside your home? NONE * PCP [place]. * Pharmacy [facility] * Preadmission Environment [facility] Facility * Facility Name [facility] * ADLs Partial Dependent * Partial ADLs (Assistance needed) Ambulation Bathing Medication Management Transfers * Equipment Other * Other Equipment ALL MEDICAL EQUIPMENT PROVIDED BY FACILITY * List name and contact numbers for known caregivers / representatives who currently or will assist patient after discharge: NAILA DE LA ROSA, * Verbal permission to speak to the caregivers and representatives has been obtained from the patient. N/A * Community resources currently utilized None * Please name any agencies selected above. NONE * Additional services required to return to the preadmission environment? No * Can the patient safely return to the preadmission environment? Yes * Has this patient been hospitalized within the prior 30 days at any hospital? Yes Coverage Notice Reviewer: [id number] Albino Cosme Notice Issued Date-Time: 10/31/2018 16:20 Notice Type: Patient Choice Letter Notice Delivered To: Patient Relationship to Patient: Blending Coordinator Name: Delivery Method: HAND - Hand Delivered Stephany Days: Prior Verbal Notification: Recipient Understood Notice: Yes Recipient Signature: Yes Med Rec Note Co-signed by Attending: Coverage Notice Comment: HENRY GUZMÁN Reviewer: [email or web address] Albino Cosme Notice Issued Date-Time: 10/31/2018 16:20 Notice Type: IM Discharge Notice Notice Delivered To: Patient Relationship to Patient: Blending Coordinator Name: Delivery Method: HAND - Hand Delivered Stephany Days: Prior Verbal Notification: Recipient Understood Notice: Yes Recipient Signature: Yes Med Rec Note Co-signed by Attending: Coverage Notice Comment: Last DP export: 11/03/18 1:27 p Patient Name: ELIZABETH BUSTAMANTE Page [id number] at 0818 All edits/amendments must be made on the electronic document DICTATION DATE: 11/07/18816 LOADER DEMOLDER: ALYSSIA 11/07/18816 RPT#: [id number] DC DATE: STATUS: ADM IN [address] [place] [address] END OF REPORT
--- NOTE | 2018-11-07 08:25 | MORECARE ---
CASE MANAGEMENT DISCHARGE SUMMARY PATIENT: ELIZABETH BUSTAMANTE UNIT: [id number] ADM DATE: 10/30/18 AGE: 68 : 46 SEX: F ROOM/BED: D.2131 AUTHOR: TABBYDOC PHYSICIAN: REFERRING PHYSICIAN: RAVEN BEE MD DATE OF SERVICE: 11/07/18 Discharge Plan Patient Name: ELIZABETH BUSTAMANTE Facility: [facility]:[place] : 1950 Planned Disposition: Halfway Facility Anticipated Discharge Date: Discharge Date: Expected LOS: Initial Reviewer: [id number] Initial Review Date: 10/31/2018 Generated: 11/07/18 9:25 am Comments DCP- Discharge Planning Updated by [id number]: Danial Cosme on 11/07/18 7:[address] Patient Name: ELIZABETH BUSTAMANTE Encounter No: [id number] : 1950 Primary Insurance: MEDICARE A & B Anticipated DC Date: Planned Disposition: Halfway Facility External Planned Provider:[facility], MEDICARE REHAB BED DCP follow-up note: CM FAXED HOSPITAL UPDATE TO [facility] AT [phone]. PT WILL NEED OXYGEN WEANING AND PER FACILITY "BE MORE MEDICALLY STABLE" TO RETURN TO REHAB FACILITY. FACILITY WILL NOT ACCEPT PT ON MEDICATIONS BROVANA OR PULMICORT THEY ARE TOO EXPENSIVE FOR THE FACILITY TO PROVIDE. THIS WILL NEED TO BE AN EARLY DAY DISCHARGE [place] IS IN [facility]. FOR DISCHARGE BACK TO REHAB, FAX DISCHARGE INFORMATION TO [facility] AT [phone]. NURSE REPORT TO BE CALLED TO [place] AT [phone]. [place] TO PROVIDE VAN TRANSPORTATION. Danial Cosme, CASE MANAGEMENT DCP- Discharge Planning Updated by [id number]: Danial Cosme on 11/03/18 1:[address] Patient Name: ELIZABETH BUSTAMANTE Encounter No: [id number] : 1950 Primary Insurance: MEDICARE A & B Anticipated DC Date: Planned Disposition: Halfway Facility External Planned Provider: [facility], MEDICARE REHAB BED DCP follow-up note: CM RECEIVED CALL FROM [facility], ; [facility] REPORTS THEY ARE ONE OR TWO HOURS FROM [facility] AND THAT PT WILL NEED TO BE "MORE MEDICALLY STABLE" TO RETURN TO THE FACILITY OR COME BACK DNR WITH HOSPICE CARE. CM SPOKE TO PT IN ROOM, DISCUSSED INFORMATION PROVIDED BY [facility] OF [place]. PT REPORTS SHE HAS THOUGHT ABOUT HOSPICE IN THE PAST BUT IS NOT INTERESTED. PT STATES SHE WILL BE GOING BACK TO [place] FOR REHAB WITH GOAL OF GETTING BETTER AND GOING HOME WHEN SHE IS ABLE. CM SPOKE TO DR. LANDA, INFORMED THAT [facility] WILL NOT ACCEPT PT ON BROVANA; DR. LANDA SUGGESTED PULMICORT. CM CALLED [facility], SPOKE TO DAYANA WHO INFORMD CM THAT PULMICORT OR THE GENERIC IS NOT AN OPTION THEY ARE ALSO TOO EXPENSIVE FOR THE FACILITY TO PROVIDE. PT WILL NEED OXYGEN WEANING DOWN FROM 4LITERS AND PER FACILITY "BE MORE MEDICALLY STABLE" TO RETURN TO REHAB FACILITY. FACILITY WILL NOT ACCEPT PT ON MEDICATIONS BROVANA OR PULMICORT THEY ARE TOO EXPENSIVE FOR THE FACILITY TO PROVIDE. THIS WILL NEED TO BE AN EARLY DAY DISCHARGE [place] IS IN [facility]. FOR DISCHARGE BACK TO REHAB, FAX DISCHARGE INFORMATION TO [facility] AT [phone]. NURSE REPORT TO BE CALLED TO [place] AT [phone]. [place] TO PROVIDE VAN TRANSPORTATION. Danial Cosme, CASE MANAGEMENT DCP- Discharge Planning Updated by [id number]: Danial Cosme on 11/02/18 3:[address] Patient Name: ELIZABETH BUSTAMANTE Encounter No: [id number] : 1950 Primary Insurance: MEDICARE A & B Anticipated DC Date: Planned Disposition: Halfway Facility External Planned Provider: [facility], MEDICARE REHAB BED DCP follow-up note: CM RECEIVED CALL FROM [facility] OF [place], , WHO REPORTS CONCERN OF PT'S LOW BLOOD PRESSURES AND REPORTS PT CANNOT COME TO FACILITY ON BROVANA IT IS TOO COSTLY TO PROVIDE. CM ADVISED THAT PT HAS NOT HAD VEST THERAPY IN THREE DAYS AND HAS NO ORDERS FOR IT TO CONTINUE POST DISCHARGE TO REHAB. DAYANA ASKED CM TO DISCUSS THE POSSIBILTY OF PT MOVING TO ANOTHER NURSING FACILITY CLOSER TO HOSPITALS DUE TO MULTIPLE MEDICAL ISSUES AND [place] BEING OVER AN HOUR AWAY FROM HOSPITAL CARE. CM MET WITH PT IN ROOM, DISCUSSED MOVING TO ANOTHER SENIOR CARE, PT REFUSED AND WANTS TO RETURN TO [place]. PT STATES THE DOCTOR TOLD HER THAT SHE WILL HAVE BACK SURGERY NEXT TUESDAY. CM REVIEWED DOCTORS NOTES IN ROOM, INFORMED PT THAT THE DOCTORS NOTES DO NOT REFLECT ANY PLANS FOR SURGERY AT THIS TIME AND THAT THEY WOULD MANAGE HER BACK PAIN SYMPTOMS WITH HEATING PADS AND MEDICATIONS AND WILL HAVE PT FOLLOW UP OUTPATIENT. PT VERY UPSET AND WANTS TO SEE THE DOCTOR. CM ASKED PT IF SHE HAD SEEN THE DOCTOR A FEW MINUTES AGO, PT INITIALLY STATES SHE HAD NOT AND WHEN REMINDED BY THE BEDSIDE NURSE, PT REPORTED SHE HAD SEEN THEM WHISPERING BY THE DOOR. CM PAGED CACHORRO PAYNE TO NOTIFY OF PT'S REQUEST. CM FAXED HOSPITAL UPDATE TO [place] AT [phone]. [place] IS CONCERNED OF PT'S LOW BLOOD PRESSURE. [place] WILL NOT ACCEPT PT ON THE MEDICATION BROVANA, REPORTING IT TO BE TOO EXPENSIVE. THIS WILL NEED TO BE AN EARLY DAY DISCHARGE [place] IS [facility]. FOR DISCHARGE BACK TO REHAB, FAX DISCHARGE INFORMATION TO [facility] AT [phone]. NURSE REPORT TO BE CALLED TO [place] AT [phone]. [place] TO PROVIDE VAN TRANSPORTATION. Danial Cosme, CASE MANAGEMENT DCP- Discharge Planning Updated by [id number]: Danial Cosme on 11/02/18 8:[address] Patient Name: ELIZABETH BUSTAMANTE Encounter No: [id number] : 1950 Primary Insurance: MEDICARE A & B Anticipated DC Date: Planned Disposition: Halfway Facility External Planned Provider:[facility], MEDICARE REHAB BED DCP follow-up note: CM FAXED HOSPITAL UPDATE TO [place] AT [phone]. PT WILL NEED OXYGEN WEANING DOWN FROM 5 LITERS TO RETURN TO REHAB FACILITY. CLARIFICATION OF NEEDING VEST THERAPY IN REHAB NEEDS TO BE CLARIFIED AND ARRANGEMENTS MADE IF NEEDED. THIS WILL NEED TO BE AN EARLY DAY DISCHARGE [place] IS IN [facility]. FOR DISCHARGE BACK TO REHAB, FAX DISCHARGE INFORMATION TO [facility] AT [phone]. NURSE REPORT TO BE CALLED TO [place] AT [phone]. [place] TO PROVIDE VAN TRANSPORTATION. 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 CM FAXED HOSPITAL UPDATE TO [place] AT [phone]. ORDER FOR PHYSICAL THERAPY EVALUATION OBTAINED. CM TO FAX UPDATE WITH PHYSICAL THERAPY RESULTS TO [facility] AT [phone]. THIS WILL NEED TO BE AN EARLY DAY DISCHARGE [place] IS IN [facility]. FOR DISCHARGE BACK TO REHAB, FAX DISCHARGE INFORMATION TO [facility] AT [phone]. NURSE REPORT TO BE CALLED TO [place] AT [phone]. [place] TO PROVIDE VAN TRANSPORTATION. Danial Cosme, CASE MANAGEMENT Appended by Danial Cosme on 11/01/2018 12:36 CDT: CM SPOKE TO NIKIA OF [facility] WHO INFORMED CM THAT PT WILL NEED TO BE WEANED SHE IS STILL ON 5 LITERS OXYGEN. NIKIA ALSO REPORTS THEY DO NOT HAVE VEST THERAPY AT FACILITY AND IF PT REQUIRES IT, THEY WILL NEED ORDERS AND INFORMATION TO OBTAIN THE VEST WELL WILL NEED TRAINING TO ADMINISTER THERAPY AT THE REHAB. CACHORRO PAYNE NOTIFIED. CM SPOKE TO PT IN ROOM WHO REPORTS THAT SHE HAS NOT HAD VEST THERAPY IN THE PAST TWO DAYS. PT WILL NEED OXYGEN WEANING DOWN FROM 5 LITERS TO RETURN TO REHAB FACILITY. CLARIFICATION OF NEEDING VEST THERAPY IN REHAB NEEDS TO BE CLARIFIED AND ARRANGEMENTS MADE IF NEEDED. THIS WILL NEED TO BE AN EARLY DAY DISCHARGE [place] IS IN [place]. FOR DISCHARGE BACK TO REHAB, FAX DISCHARGE INFORMATION TO [facility] AT [phone]. NURSE REPORT TO BE CALLED TO [place] AT [phone]. [place] TO PROVIDE VAN TRANSPORTATION. Danial Cosme, CASE MANAGEMENT DCP- Discharge Planning Updated by [id number]: Danial Cosme on 10/31/18 4:[address] Patient Name: ELIZABETH BUSTAMANTE Admission Status: ER Accout number: [id number] Admission Date: 10-30-2018 : 1950 Admission Diagnosis: Attending: RAVEN BEE Current LOS: 1 Anticipated DC Date: Planned Disposition: Halfway Facility Primary Insurance: MEDICARE A & B PLANNED EXTERNAL PROVIDER: [facility], MEDICARE REHAB BED Discharge Planning Comments: CM RECEIVED ORDER FOR INPATIENT REHAB PRESCREENING. CM MET WITH PT IN ROOM TO DISCUSS DISCHARGE PLANNING AND NEEDS. PT REPORTS LIVING AT [place] FOR THE PAST YEAR BUT HAS BEEN IN REHAB TO LEARN TO WALK AGAIN. PT UTILIZES WHEELCHAIR AND PLANS TO RETURN TO [place] WHERE SHE IS RECEIVING GOOD CARE AND FEELS SAFE. 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 PT DOES NOT WANT TO GO TO INPATIENT REHAB AND WANTS REHAB AT [place]. PROVIDER LISTING PROVIDED, PT SIGNED CHOICE FOR [place]. IMPORTANT MESSAGE FROM MEDICARE PROVIDED AND EXPLAINED. CM WILL SEND REHAB REFERRAL TO [facility] SOON POSSIBLE FOR REHAB READMIT. Cable Tv Installer: Danial Cosme DCPIA - Discharge Planning Initial Assessment Updated by [id number]: Danial Cosme on 11/01/18 9:50 am * Is the patient Alert and Oriented? Yes * How many steps to enter\\exit or inside your home? NONE * PCP [place] * Pharmacy [facility] * Preadmission Environment [facility]way Facility * Facility Name [facility] * ADLs Partial Dependent * Partial ADLs (Assistance needed) Ambulation Bathing Medication Management Transfers * Equipment Other * Other Equipment ALL MEDICAL EQUIPMENT PROVIDED BY FACILITY * List name and contact numbers for known caregivers / representatives who currently or will assist patient after discharge: MINOR ANN, NAILA, * Verbal permission to speak to the caregivers and representatives has been obtained from the patient. N/A * Community resources currently utilized None * Please name any agencies selected above. NONE * Additional services required to return to the preadmission environment? No * Can the patient safely return to the preadmission environment? Yes * Has this patient been hospitalized within the prior 30 days at any hospital? Yes Coverage Notice Reviewer: [email or web address] Albino Cosme Notice Issued Date-Time: 10/31/2018 16:20 Notice Type: Patient Choice Letter Notice Delivered To: Patient Relationship to Patient: Lever Miller Name: Delivery Method: HAND - Hand Delivered Stephany Days: Prior Verbal Notification: Recipient Understood Notice: Yes Recipient Signature: Yes Med Rec Note Co-signed by Attending: Coverage Notice Comment: HENRY GUZMÁN Reviewer: [id number] Albino Cosme Notice Issued Date-Time: 10/31/2018 16:20 Notice Type: IM Discharge Notice Notice Delivered To: Patient Relationship to Patient: Lever Miller Name: Delivery Method: HAND - Hand Delivered Stephany Days: Prior Verbal Notification: Recipient Understood Notice: Yes Recipient Signature: Yes Med Rec Note Co-signed by Attending: Coverage Notice Comment: Last DP export: 11/07/18 7:18 a Patient Name: ELIZABETH BUSTAMANTE Page [id number] at 0825 All edits/amendments must be made on the electronic document DICTATION DATE: 11/07/18823 SACK CLEANING HAND: ALYSSIA 11/07/18823 RPT#: [id number] DC DATE: STATUS: ADM IN [facility] [address] [place] [address] END OF REPORT
[2018-11-07 08:41] VITALS: BP 112/61
--- NOTE | 2018-11-07 14:35 | NUR ---
Nutrition follow-up: Diet: Low sodium PO intake was good; however, now decreased possibly due to constipation. Pt had laxatives and now with +BM x several days. Wt: 130# Pts discharge on hold due to now with fever. Will continue to provide food choices and honor food preferences. RDN following.
--- NOTE | 2018-11-07 14:45 | NUR ---
AHA Cardiac diet ordered with 50% average po intake past 2 days PO intake varies but is mostly good Offered Ensure and pt denied Reviewed labs BM yesterday Encouraged good po intake RD following per protocol
--- NOTE | 2018-11-07 19:45 | NUR ---
RECIEVED BEDSIDE REPORT. ROUNDS COMPLETED. AAOX3. VSS. NO S/S OF RR DISTRESS. RR EVEN AND UNLABORED. PT STATES SHE FEELS PAIN IN HER LOWER BACK BUT SHE DOEN NOT WANT PAIN MEDS AT THIS TIME. STATES ITS A 11/22. WILL CTM. CL IN REACH, BED IN LOW, SR UP X2.
[2018-11-07 20:00] VITALS: BP 86/58
--- NOTE | 2018-11-07 20:50 | NUR ---
LIQUOR BRIDGE OPERATOR HELPER NOTIFIED PT 84/51. REAASSED WITH MANUAL BP 86/58. ALL MEDS GIVEN, BUT HELD PT METOPROLOL AT THIS TIME. WILL CTM. CL IN REACH, BED IN LOW, SR UP X2.
[2018-11-08] VITALS (7 sets, daily range): BP systolic 75–115; BP diastolic 45–74
--- NOTE | 2018-11-08 04:25 | NUR ---
PT SBP STILL IN THE HIGH 80'S. WILL NOTIFY PT PROVIDER. PT CURRENTLY EATING CRACKER AND RESTING IN BED. WILL CTM.
[2018-11-08 06:29] LABS: ALBUMIN 2.4 g/dL (3.4-5.0); ALKALINE PHOSPHATASE 118 U/L (46-116); ALT (SGPT) 29 U/L (10-68); BILIRUBIN - TOTAL 0.27 mg/dL (0.2-1.3); CALC OSMOLALITY 289 mosm/kg (275-300); CALCIUM 8.5 mg/dL (8.5-10.1); CHLORIDE - SERUM 101 mmol/L (98-107); CREATININE - SERUM 0.8 mg/dL (0.6-1.3); GLUCOSE 112 mg/dL (74-106); POTASSIUM - SERUM 4.1 mmol/L (3.5-5.1); PROTEIN - SERUM 6.1 g/dL (6.4-8.2); SODIUM 143 mmol/L (136-145); UREA NITROGEN 24 mg/dL (7-18); eGFR NON AFRICAN AMERICAN 75 mL/min (90-120)
[2018-11-08 06:32] LABS: BASOPHILS 1.4 % (0-2); EOSINOPHILS 1.5 % (0-7); HEMATOCRIT 39.2 % (36.0-48.0); HEMOGLOBIN 11.7 g/dL (12-16); IMMATURE GRANULOCYTES 3.8 % (0-5); LYMPHOCYTES 36.1 % (15-50); MCH 29.2 pg (26.0-34.0); MCHC 29.8 g/dL (31.0-37.0); MCV 97.8 fL (80.0-100.0); MEAN PLATELET VOLUME 9.9 fL (7.4-10.4); MONOCYTES 7.4 % (2-11); NEUTROPHILS 49.8 % (40-80); PLATELET COUNT 530 10x3/uL (130-400); RBC 4.01 10x6/uL (4.00-5.40); RDW 17.3 % (11.5-14.5); WBC 11.7 10x3/uL (4.8-10.8)
[2018-11-08 07:24] LABS: CARBON DIOXIDE 40.8 mmol/L (21.0-32.0)
--- NOTE | 2018-11-08 07:43 | NUR ---
REPORT RECEIVED. WILL CONTINUE WITH POC. PT IS AAO AND UP WITH ASSIST. RR EVEN AND UNLABORED ON 5L NC. L.AC PIV IS SALINE LOCKED. PT DENIES ANY NEEDS AT THIS TIME. NO S/S OF DISTRESS NOTED. WILL CTM.
--- NOTE | 2018-11-08 08:00 | NUR ---
COUNSELOR AID RECORDED BP OF 74/45. NOTIFIED PHYSICIAN OF HYPOTENSIVE EPISODE WHO THEN ORDERED ME TO REMOVE FENTANYL PATCH AND RECHECK. REMOVED PATCH. WILL RECHECK BP IN 30 MINUTES. PT IS AAO AND ASYMPTOMATIC. WILL CTM.
--- NOTE | 2018-11-08 09:06 | NUR ---
HELD BP AM MEDICATIONS. RECHECK BP AND RECORDED READING OF 115/74. PT IS AAO AND DENIES ANY NEEDS. WILL CTM.
--- NOTE | 2018-11-08 12:37 | NUR ---
I have reviewed this patient and I concur with the Shift Assessment completed by the Licensed Practical Nurse today this shift.
--- NOTE | 2018-11-08 20:01 | NUR ---
PT LAYING IN BED ALERT AND ORIENTED WITH BRIEF CONFUSION. DR. GONZALEZ IN ROOM WITH PT DISCUSSING SURGERY FOR TUESDAY. PT COMPLAINS OF PAIN IN HIPS AND LOWER BACK. PRN MED GIVEN. SEE MAR. NO S/S OF DISTRESS. BED LOW CALL LIGHT WITHIN REACH. WILL CONTINUE TO MONITOR.
[2018-11-09 00:30] VITALS: BP 137/79
--- NOTE | 2018-11-09 03:06 | NUR ---
PT RESTING IN BED WITH EYES CLOSED. RR EVEN AND UNLABORED. NO S/S OF DISTRESS. BED LOW CALL LIGHT WITHIN REACH. WILL CONTINUE TO MONITOR.
--- NOTE | 2018-11-09 04:30 | NUR ---
I have reviewed this patient and I concur with the Shift Assessment completed by the Licensed Practical Nurse today this shift.
[2018-11-09 05:00] VITALS: BP 137/76
--- NOTE | 2018-11-09 07:15 | NUR ---
REPORT RECIEVED AND MORNING ROUNDING COMPLETE. PT LAYING IN BED IN SUPINE POSITION. PT WEARING NC HIGH FLOW AT 5L. PT IS BREATHING EVEN AND UN LABORED. PT IS ALERT AND CONFUSED. CALL LIGHT WITHIN REACH AND BED IN LOWEST POSITION. PT HAS BED ALARM ON AT THIS TIME.
[2018-11-09 07:37] LABS: ALBUMIN 2.2 g/dL (3.4-5.0); ALKALINE PHOSPHATASE 107 U/L (46-116); ALT (SGPT) 25 U/L (10-68); BILIRUBIN - TOTAL 0.25 mg/dL (0.2-1.3); CALC OSMOLALITY 283 mosm/kg (275-300); CALCIUM 8.3 mg/dL (8.5-10.1); CARBON DIOXIDE 39.9 mmol/L (21.0-32.0); CHLORIDE - SERUM 101 mmol/L (98-107); CREATININE - SERUM 0.8 mg/dL (0.6-1.3); GLUCOSE 89 mg/dL (74-106); PROTEIN - SERUM 5.8 g/dL (6.4-8.2); SODIUM 141 mmol/L (136-145); UREA NITROGEN 25 mg/dL (7-18); eGFR NON AFRICAN AMERICAN 75 mL/min (90-120)
[2018-11-09 07:39] LABS: POTASSIUM - SERUM 4.8 mmol/L (3.5-5.1)
[2018-11-09 07:41] LABS: BASOPHILS 1.5 % (0-2); EOSINOPHILS 2.1 % (0-7); HEMATOCRIT 34.4 % (36.0-48.0); HEMOGLOBIN 10.3 g/dL (12-16); IMMATURE GRANULOCYTES 3.3 % (0-5); LYMPHOCYTES 35.8 % (15-50); MCH 28.9 pg (26.0-34.0); MCHC 29.9 g/dL (31.0-37.0); MCV 96.6 fL (80.0-100.0); MEAN PLATELET VOLUME 9.7 fL (7.4-10.4); MONOCYTES 8.4 % (2-11); NEUTROPHILS 48.9 % (40-80); PLATELET COUNT 492 10x3/uL (130-400); RBC 3.56 10x6/uL (4.00-5.40); RDW 17.1 % (11.5-14.5); WBC 10.2 10x3/uL (4.8-10.8)
[2018-11-09 08:32] VITALS: BP 101/64
--- NOTE | 2018-11-09 10:06 | MORECARE ---
CASE MANAGEMENT DISCHARGE SUMMARY PATIENT: ELIZABETH BUSTAMANTE UNIT: [id number] ADM DATE: 10/30/18 AGE: 68 : 46 SEX: F ROOM/BED: D.2131 AUTHOR: TABBY,DOC PHYSICIAN: REFERRING PHYSICIAN: RAVEN BEE MD DATE OF SERVICE: 11/09/18 Discharge Plan Patient Name: ELIZABETH BUSTAMANTE Facility: [facility]:[place] : 1950 Planned Disposition: [facility] Facility Anticipated Discharge Date: Discharge Date: Expected LOS: Initial Reviewer: [id number] Initial Review Date: 10/31/2018 Generated: 11/09/18 11:06 am Comments DCP- Discharge Planning Updated by [email or web address]: Danial Cosme on 11/09/18 9:[address] Patient Name: ELIZABETH BUSTAMANTE Encounter No: [id number] : 1950 Primary Insurance: MEDICARE A & B Anticipated DC Date: Planned Disposition: [facility] Facility External Planned Provider: [facility], MEDICARE REHAB BED DCP follow-up note: CM FAXED HOSPITAL UPDATE TO [facility] AT [phone]. PT WILL NEED OXYGEN WEANING AND PER FACILITY "BE MORE MEDICALLY STABLE" TO RETURN TO REHAB FACILITY. ALSO WAITING DR. GONZALEZ CONSULT AND RECOMMENDATIONS. FACILITY WILL NOT ACCEPT PT ON MEDICATIONS BROVANA OR PULMICORT THEY ARE TOO EXPENSIVE FOR THE FACILITY TO PROVIDE. THIS WILL NEED TO BE AN EARLY DAY DISCHARGE [facility] IS IN [facility]. FOR DISCHARGE BACK TO REHAB, FAX DISCHARGE INFORMATION TO [facility] AT [phone]. NURSE REPORT TO BE CALLED TO [facility] AT [phone]. [facility] TO PROVIDE VAN TRANSPORTATION. Danial Cosme CASE MANAGEMENT DCP- Discharge Planning Updated by [id number]: Danial Cosme on 11/07/18 7:[address] Patient Name: ELIZABETH BUSTAMANTE Encounter No: [id number] : 1950 Primary Insurance: MEDICARE A & B Anticipated DC Date: Planned Disposition: [facility] Facility External Planned Provider:[facility], MEDICARE REHAB BED DCP follow-up note: CM FA[facility]ED [facility] UPDATE [facility] AT [phone]. PT WILL NEED OXYGEN WEANING AND PER FACILITY "BE MORE MEDICALLY STABLE" TO RETURN TO REHAB FACILITY. FACILITY WILL NOT ACCEPT PT ON MEDICATIONS BROVANA OR PULMICORT THEY ARE TOO EXPENSIVE FOR THE FACILITY TO PROVIDE. THIS WILL NEED TO BE AN EARLY DAY DISCHARGE [facility] IS IN [facility]. FOR DISCHARGE BACK TO REHAB, FAX DISCHARGE INFORMATION TO [facility] AT [phone]. NURSE REPORT TO BE CALLED TO [facility] AT [phone]. [facility] TO PROVIDE VAN TRANSPORTATION. Danial Cosme, CASE MANAGEMENT DCP- Discharge Planning Updated by [id number]: Danial Cosme on 11/03/18 1:[address] Patient Name: ELIZABETH BUSTAMANTE Encounter No: [id number] : 1950 Primary Insurance: MEDICARE A & B Anticipated DC Date: Planned Disposition: [facility] Facility External Planned Provider: [facility], MEDICARE REHAB BED DCP follow-up note: CM RECEIVED CALL FROM [facility], ; [facility] REPORTS THEY ARE ONE [facility] HOURS [facility] AND THAT PT WILL NEED TO BE "MORE MEDICALLY STABLE" TO RETURN TO THE FACILITY OR COME BACK DNR WITH HOSPICE CARE. TARIQ SPOKE TO PT IN ROOM, DISCUSSED INFORMATION PROVIDED BY [facility]. PT REPORTS SHE HAS THOUGHT ABOUT HOSPICE IN THE PAST BUT IS NOT INTERESTED. PT STATES SHE WILL BE GOING BACK TO [facility] FOR REHAB WITH GOAL OF GETTING BETTER AND GOING HOME WHEN SHE IS ABLE. TARIQ SPOKE TO DR. LANDA, INFORMED THAT [facility] WILL NOT ACCEPT PT ON BROVANA; DR. LANDA SUGGESTED PULMICORT. CM CALLED [facility], SPOKE TO DAYANA WHO INFORMD CM THAT PULMICORT OR THE GENERIC IS NOT AN OPTION THEY ARE ALSO TOO EXPENSIVE FOR THE FACILITY TO PROVIDE. PT WILL NEED OXYGEN WEANING DOWN FROM 4LITERS AND PER FACILITY "BE MORE MEDICALLY STABLE" TO RETURN TO REHAB FACILITY. FACILITY WILL NOT ACCEPT PT ON MEDICATIONS BROVANA OR PULMICORT THEY ARE TOO EXPENSIVE FOR THE FACILITY TO PROVIDE. THIS WILL NEED TO BE AN EARLY DAY DISCHARGE [facility] IS IN [facility]. FOR DISCHARGE BACK TO REHAB, FAX DISCHARGE INFORMATION TO [facility] AT [phone]. NURSE REPORT TO BE CALLED TO [facility] AT [phone]. [facility] TO PROVIDE VAN TRANSPORTATION. Danial Cosme, CASE MANAGEMENT DCP- Discharge Planning Updated by [id number]: Danial Cosme on 11/02/18 3:[address] Patient Name: ELIZABETH BUSTAMANTE Encounter No: [id number] : 1950 Primary Insurance: MEDICARE A & B Anticipated DC Date: Planned Disposition: [facility] Facility External Planned Provider: [facility], MEDICARE REHAB BED DCP follow-up note: CM RECEIVED CALL FROM DAYANA OF [facility], , WHO REPORTS CONCERN OF PT'S LOW BLOOD PRESSURES AND REPORTS PT CANNOT COME TO FACILITY ON BROVANA IT IS TOO COSTLY TO PROVIDE. TARIQ ADVISED THAT PT HAS NOT HAD VEST THERAPY IN THREE DAYS AND HAS NO ORDERS FOR IT TO CONTINUE POST DISCHARGE TO REHAB. DAYANA ASKED CM TO DISCUSS THE POSSIBILTY OF PT MOVING TO ANOTHER NURSING FACILITY CLOSER TO HOSPITALS DUE TO MULTIPLE MEDICAL ISSUES AND [facility] BEING OVER AN HOUR AWAY FROM HOSPITAL CARE. TARIQ MET WITH PT IN ROOM, DISCUSSED MOVING TO ANOTHER SENIOR CARE, PT REFUSED AND WANTS TO RETURN TO [facility]. PT STATES THE DOCTOR TOLD HER THAT SHE WILL HAVE BACK SURGERY NEXT TUESDAY. CM REVIEWED DOCTORS NOTES IN ROOM, INFORMED PT THAT THE DOCTORS NOTES DO NOT REFLECT ANY PLANS FOR SURGERY AT THIS TIME AND THAT THEY WOULD MANAGE HER BACK PAIN SYMPTOMS WITH HEATING PADS AND MEDICATIONS AND WILL HAVE PT FOLLOW UP OUTPATIENT. PT VERY UPSET AND WANTS TO SEE THE DOCTOR. CM ASKED PT IF SHE HAD SEEN THE DOCTOR A FEW MINUTES AGO, PT INITIALLY STATES SHE HAD NOT AND WHEN REMINDED BY THE BEDSIDE NURSE, PT REPORTED SHE HAD SEEN THEM WHISPERING BY THE DOOR. CM PAGED CACHORRO PAYNE TO NOTIFY OF PT'S REQUEST. CM FAXED HOSPITAL UPDATE TO [facility] AT [phone]. [facility] IS CONCERNED OF PT'S LOW BLOOD PRESSURE. [facility] WILL NOT ACCEPT PT ON THE MEDICATION BROVANA, REPORTING IT TO BE TOO EXPENSIVE. THIS WILL NEED TO BE AN EARLY DAY DISCHARGE [facility] IS IN [facility]. FOR DISCHARGE BACK TO REHAB, FAX DISCHARGE INFORMATION TO [facility] AT [phone]. NURSE REPORT TO BE CALLED TO [facility] AT [phone]. [facility] TO PROVIDE VAN TRANSPORTATION. CHUY Lopez MANAGEMENT DCP- Discharge Planning Updated by [id number]: Danial Cosme on 11/02/18 8:[address] Patient Name: ELIZABETH BUSTAMANTE Encounter No: [id number] : 1950 Primary Insurance: MEDICARE A & B Anticipated DC Date: Planned Disposition: [facility] Facility External Planned Provider:[facility], MEDICARE REHAB BED DCP follow-up note: CM FAXED HOSPITAL UPDATE TO [facility] AT [phone]. PT WILL NEED OXYGEN WEANING DOWN FROM 5 LITERS TO RETURN TO REHAB FACILITY. CLARIFICATION OF NEEDING VEST THERAPY IN REHAB NEEDS TO BE CLARIFIED AND ARRANGEMENTS MADE IF NEEDED. THIS WILL NEED TO BE AN EARLY DAY DISCHARGE [facility] IS IN [place]. FOR DISCHARGE BACK TO REHAB, FAX DISCHARGE INFORMATION TO [facility] AT [phone]. NURSE REPORT TO BE CALLED TO [facility] AT [phone]. [facility] TO PROVIDE VAN TRANSPORTATION. 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 CM FAXED HOSPITAL UPDATE TO [facility] AT [phone]. ORDER FOR PHYSICAL THERAPY EVALUATION OBTAINED. CM TO FAX UPDATE WITH PHYSICAL THERAPY RESULTS TO [facility] AT [phone]. THIS WILL NEED TO BE AN EARLY DAY DISCHARGE [facility] IS IN [place]. FOR DISCHARGE BACK TO REHAB, FAX DISCHARGE INFORMATION TO [facility] AT [phone]. NURSE REPORT TO BE CALLED TO [facility] AT [phone]. [facility] TO PROVIDE VAN TRANSPORTATION. Danial Cosme, CASE MANAGEMENT Appended by Danial Cosme on 11/01/2018 12:36 CDT: CM SPOKE TO NIKIA OF [facility] WHO INFORMED CM THAT PT WILL NEED TO BE WEANED SHE IS STILL ON 5 LITERS OXYGEN. NIKIA ALSO REPORTS THEY DO NOT HAVE VEST THERAPY AT FACILITY AND IF PT REQUIRES IT, THEY WILL NEED ORDERS AND INFORMATION TO OBTAIN THE VEST WELL WILL NEED TRAINING TO ADMINISTER THERAPY AT THE REHAB. CACHORRO PAYNE NOTIFIED. CM SPOKE TO PT IN ROOM WHO REPORTS THAT SHE HAS NOT HAD VEST THERAPY IN THE PAST TWO DAYS. PT WILL NEED OXYGEN WEANING DOWN FROM 5 LITERS TO RETURN TO REHAB FACILITY. CLARIFICATION OF NEEDING VEST THERAPY IN REHAB NEEDS TO BE CLARIFIED AND ARRANGEMENTS MADE IF NEEDED. THIS WILL NEED TO BE AN EARLY DAY DISCHARGE [facility] IS IN [facility]. FOR DISCHARGE BACK TO REHAB, FAX DISCHARGE INFORMATION TO [facility] AT [phone]. NURSE REPORT TO BE CALLED TO [facility] AT [phone]. [facility] TO PROVIDE VAN TRANSPORTATION. Danial Cosme, CASE MANAGEMENT DCP- Discharge Planning Updated by [id number]: Danial Cosme on 10/31/18 4:[address] Patient Name: ELIZABETH BUSTAMANTE Admission Status: ER Accout number: [id number] Admission Date: 10-30-2018 : 1950 Admission Diagnosis: Attending: RAVEN BEE Current LOS: 1 Anticipated DC Date: Planned Disposition: [facility] Facility Primary Insurance: MEDICARE A & B PLANNED EXTERNAL PROVIDER: [facility], MEDICARE REHAB BED Discharge Planning Comments: CM RECEIVED ORDER FOR INPATIENT REHAB PRESCREENING. CM MET WITH PT IN ROOM TO DISCUSS DISCHARGE PLANNING AND NEEDS. PT REPORTS LIVING AT [facility] FOR THE PAST YEAR BUT HAS BEEN IN REHAB TO LEARN TO WALK AGAIN. PT UTILIZES WHEELCHAIR AND PLANS TO RETURN TO [facility] WHERE SHE IS RECEIVING GOOD CARE AND FEELS SAFE. 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 PT DOES NOT WANT TO GO TO INPATIENT REHAB AND WANTS REHAB AT [facility]. PROVIDER LISTING PROVIDED, PT SIGNED CHOICE FOR [facility]. IMPORTANT MESSAGE FROM MEDICARE PROVIDED AND EXPLAINED. CM WILL SEND REHAB REFERRAL TO [facility] SOON POSSIBLE FOR REHAB READMIT. Emergency Response Officer: Danial Cosme DCPIA - Discharge Planning Initial Assessment Updated by [id number]: Danial Cosme on 11/01/18 9:50 am * Is the patient Alert and Oriented? Yes * How many steps to enter\\exit or inside your home? NONE * PCP [place] * Pharmacy [facility] * Preadmission Environment [facility] Facility * Facility Name [facility] * ADLs Partial Dependent * Partial ADLs (Assistance needed) Ambulation Bathing Medication Management Transfers * Equipment Other * Other Equipment ALL MEDICAL EQUIPMENT PROVIDED BY FACILITY * List name and contact numbers for known caregivers / representatives who currently or will assist patient after discharge: MINOR ANN, NAILA, * Verbal permission to speak to the caregivers and representatives has been obtained from the patient. N/A * Community resources currently utilized None * Please name any agencies selected above. NONE * Additional services required to return to the preadmission environment? No * Can the patient safely return to the preadmission environment? Yes * Has this patient been hospitalized within the prior 30 days at any hospital? Yes Coverage Notice Reviewer: [id number] Albino Cosme Notice Issued Date-Time: 10/31/2018 16:20 Notice Type: Patient Choice Letter Notice Delivered To: Patient Relationship to Patient: Rn Research Name: Delivery Method: HAND - Hand Delivered Stephany Days: Prior Verbal Notification: Recipient Understood Notice: Yes Recipient Signature: Yes Med Rec Note Co-signed by Attending: Coverage Notice Comment: HENRY GUZMÁN Reviewer: [id number] Albino Cosme Notice Issued Date-Time: 10/31/2018 16:20 Notice Type: IM Discharge Notice Notice Delivered To: Patient Relationship to Patient: Rn Research Name: Delivery Method: HAND - Hand Delivered Stephany Days: Prior Verbal Notification: Recipient Understood Notice: Yes Recipient Signature: Yes Med Rec Note Co-signed by Attending: Coverage Notice Comment: Last DP export: 11/07/18 7:25 a Patient Name: ELIZABETH BUSTAMANTE Page [phone] at 1006 All edits/amendments must be made on the electronic document DICTATION DATE: 11/09/18 1006 BELL VALET: ALYSSIA 11/09/18 1006 RPT#: [id number] DC DATE: STATUS: ADM IN [facility] [address] [place] [address] END OF REPORT
[2018-11-09 12:04] VITALS: BP 97/54
--- NOTE | 2018-11-09 14:12 | NUR ---
I have reviewed this patient and I concur with the Shift Assessment completed by the Licensed Practical Nurse today this shift.
[2018-11-09 16:12] VITALS: BP 102/61
--- NOTE | 2018-11-09 18:53 | NUR ---
PT LAYING IN BED EYES CLOSED. NO DISTRESS NOTED. CALL LIGHT WITHIN REACH.
[2018-11-09 20:00] VITALS: BP 99/63
--- NOTE | 2018-11-09 20:49 | NUR ---
PT LAYING IN BED ALERT RR EVEN AND UNLABORED. PT DENIES ANY PAIN OR NEEDS AT THIS TIME. BED LOW CALL LIGHT WITHIN REACH. WILL CONTINUE TO MONITOR.
--- NOTE | 2018-11-09 21:51 | NUR ---
PT GIVEN BATH AND LINEN CHANGE BY TECH. PT STATES, " I WAS TOLD BY DR. GONZALEZ THAT I WAS HAVING BACK SURGERY IN THE MORNING." THERE ARE NO ORDERS OR NOTES IN [place] STATING THIS. WILL PASS IN REPORT TO CALL DR. GONZALEZ'S OFFICE IN AM TO INQUIRE ABOUT THIS INFORMATION. PT REFUSES TO USE BACK BRACE PT STATES, "I HAVE ONE AT THE [facility] I PAIND $1,000 FOR, I'M NOT BUYING ANOTHER ONE." PT WOULD LIKE TO SPEAK WITH DR. GONZALEZ. BED LOW,SIDE RAILS UP X2, CALL LIGHT WITHIN REACH. WILL CONTINUE TO MONITOR.
--- NOTE | 2018-11-10 00:02 | NUR ---
PT COMPLAING OF CONSTIPATION. GAVE PT 240ML OF PRUNE JUICE. WILL CONTINUE TO MONITOR.
--- NOTE | 2018-11-10 02:04 | NUR ---
PT RESTING IN BED WITH EYES CLOSED. RR EVEN AND UNLABORED. BED LOW CALL LIGHT WITHIN REACH. WILL CONTINUE TO MONITOR.
--- NOTE | 2018-11-10 03:16 | NUR ---
I have reviewed this patient and I concur with the Shift Assessment completed by the Licensed Practical Nurse today this shift.
[2018-11-10 04:00] VITALS: BP 94/64
[2018-11-10 05:51] LABS: BASOPHILS 0.7 % (0-2); HEMATOCRIT 36.8 % (36.0-48.0); HEMOGLOBIN 10.8 g/dL (12-16); IMMATURE GRANULOCYTES 2.4 % (0-5); LYMPHOCYTES 27.8 % (15-50); MCH 28.4 pg (26.0-34.0); MCHC 29.3 g/dL (31.0-37.0); MCV 96.8 fL (80.0-100.0); MEAN PLATELET VOLUME 9.7 fL (7.4-10.4); MONOCYTES 9.2 % (2-11); NEUTROPHILS 58.9 % (40-80); PLATELET COUNT 503 10x3/uL (130-400); RDW 17.2 % (11.5-14.5); WBC 10.7 10x3/uL (4.8-10.8)
[2018-11-10 06:11] LABS: ALBUMIN 2.3 g/dL (3.4-5.0); ALKALINE PHOSPHATASE 111 U/L (46-116); ALT (SGPT) 30 U/L (10-68); CALC OSMOLALITY 284 mosm/kg (275-300); CARBON DIOXIDE 35.9 mmol/L (21.0-32.0); CHLORIDE - SERUM 103 mmol/L (98-107); CREATININE - SERUM 0.7 mg/dL (0.6-1.3); GLUCOSE 145 mg/dL (74-106); POTASSIUM - SERUM 4.9 mmol/L (3.5-5.1); SODIUM 140 mmol/L (136-145); UREA NITROGEN 21 mg/dL (7-18); eGFR NON AFRICAN AMERICAN 88 mL/min (90-120)
--- NOTE | 2018-11-10 08:02 | NUR ---
ROUNDING DONE WITH PATIENT LAYING ON LEFT SIDE RECEIVING UPDRAFT TREATMENT. ON 5L PER NC. ON HEART MONITOR SHOWING SR, HR 75. LEFT AC PIV SEEN WITH SALINE LOCK. PATIENT STATES THAT SHE IS UPSET DR GONZALEZ TOLD HER SHE WAS HAVING SURGERY TODAY AND THERE ARE NO NOTES IN COMPUTER OR ORDERS R/T SURGERY FROM DR GONZALEZ.
[2018-11-10 08:25] VITALS: BP 136/82
--- NOTE | 2018-11-10 08:45 | NUR ---
I STOOD AT [facility] AND WATCHED PATIENT DRINK HER MIRALAX WITH APPLE JUICE.
--- NOTE | 2018-11-10 09:27 | NUR ---
CALLED OFFICE AND SPOKE WITH YASEMIN AT THE OFFICE. SHE IS GOING TO GET AHOLD OF DR GONZALEZ (WHO IS IN SURGERY ALL DAY) AND ASK HIM, THEN WILL CALL ME.
--- NOTE | 2018-11-10 10:36 | NUR ---
ASSISTED OFF BEDPAN WITH URINE SEEN BUT MIXED WITH POWDER.
[2018-11-10 12:08] VITALS: BP 122/64
--- NOTE | 2018-11-10 12:18 | MORECARE ---
CASE MANAGEMENT DISCHARGE SUMMARY PATIENT: ELIZABETH BUSTAMANTE UNIT: [id number] ADM DATE: 10/30/18 AGE: 68 : 46 SEX: F ROOM/BED: D.2131 AUTHOR: TABBY,DOC PHYSICIAN: REFERRING PHYSICIAN: RAVEN BEE MD DATE OF SERVICE: 11/10/18 Discharge Plan Patient Name: ELIZABETH BUSTAMANTE Facility: [facility]:[place] : 1950 Planned Disposition: Correction Facility Anticipated Discharge Date: 11/10/18 Discharge Date: Expected LOS: 11 Initial Reviewer: [id number] Initial Review Date: 10/31/2018 Generated: 11/10/18 1:17 pm DCP- Discharge Planning Updated by [email or web address]: Danial Cosme on 11/09/18 9:[address] Patient Name: ELIZABETH BUSTAMANTE Encounter No: [id number] : 1950 Primary Insurance: MEDICARE A & B Anticipated DC Date: Planned Disposition: Correction Facility External Planned Provider: [facility], MEDICARE REHAB BED DCP follow-up note: CM FAXED HOSPITAL UPDATE TO NIKIA OF [facility] AT [phone]. PT WILL NEED OXYGEN WEANING AND PER FACILITY "BE MORE MEDICALLY STABLE" TO RETURN TO REHAB FACILITY. ALSO WAITING DR. GONZALEZ CONSULT AND RECOMMENDATIONS. FACILITY WILL NOT ACCEPT PT ON MEDICATIONS BROVANA OR PULMICORT THEY ARE TOO EXPENSIVE FOR THE FACILITY TO PROVIDE. THIS WILL NEED TO BE AN EARLY DAY DISCHARGE [facility] IS IN [facility]. FOR DISCHARGE BACK TO REHAB, FAX DISCHARGE INFORMATION TO [facility] AT [phone]. NURSE REPORT TO BE CALLED TO [facility] AT [phone]. [facility] TO PROVIDE VAN TRANSPORTATION. CHUY Lopez DCP- Discharge Planning Updated by [id number]: Danial Cosme on 11/07/18 7:[address] Patient Name: ELIZABETH BUSTAMANTE Encounter No: [id number] : 1950 Primary Insurance: MEDICARE A & B Anticipated DC Date: Planned Disposition: Correction Facility External Planned Provider:[facility], MEDICARE REHAB BED DCP follow-up note: CM FAXED HOSPITAL UPDATE TO [facility] AT [phone]. PT WILL NEED OXYGEN WEANING AND PER FACILITY "BE MORE MEDICALLY STABLE" TO RETURN TO REHAB FACILITY. FACILITY WILL NOT ACCEPT PT ON MEDICATIONS BROVANA OR PULMICORT THEY ARE TOO EXPENSIVE FOR THE FACILITY TO PROVIDE. THIS WILL NEED TO BE AN EARLY DAY DISCHARGE [facility] IS IN [facility]. FOR DISCHARGE BACK TO REHAB, FAX DISCHARGE INFORMATION TO [facility] AT [phone]. NURSE REPORT TO BE CALLED TO [facility] AT [phone]. [facility] TO PROVIDE VAN TRANSPORTATION. Danial Cosme, CASE MANAGEMENT DCP- Discharge Planning Updated by [id number]: Danial Cosme on 11/03/18 1:[address] Patient Name: ELIZABETH BUSTAMANTE Encounter No: [id number] : 1950 Primary Insurance: MEDICARE A & B Anticipated DC Date: Planned Disposition: Correction Facility External Planned Provider: [facility], MEDICARE REHAB BED DCP follow-up note: CM RECEIVED CALL FROM [facility], ; [facility] REPORTS THEY ARE ONE OR TWO HOURS [facility] AND THAT PT WILL NEED TO BE "MORE MEDICALLY STABLE" TO RETURN TO THE FACILITY OR COME BACK DNR WITH HOSPICE CARE. TARIQ SPOKE TO PT IN ROOM, DISCUSSED INFORMATION PROVIDED BY [facility]. PT REPORTS SHE HAS THOUGHT ABOUT HOSPICE IN THE PAST BUT IS NOT INTERESTED. PT STATES SHE WILL BE GOING BACK TO [facility] FOR REHAB WITH GOAL OF GETTING BETTER AND GOING HOME WHEN SHE IS ABLE. TARIQ SPOKE TO DR. LANDA, INFORMED THAT [facility] WILL NOT ACCEPT PT ON BROVANA; DR. LANDA SUGGESTED PULMICORT. CM CALLED [facility], SPOKE TO DAYANA WHO INFORMD CM THAT PULMICORT OR THE GENERIC IS NOT AN OPTION THEY ARE ALSO TOO EXPENSIVE FOR THE FACILITY TO PROVIDE. PT WILL NEED OXYGEN WEANING DOWN FROM 4LITERS AND PER FACILITY "BE MORE MEDICALLY STABLE" TO RETURN TO REHAB FACILITY. FACILITY WILL NOT ACCEPT PT ON MEDICATIONS BROVANA OR PULMICORT THEY ARE TOO EXPENSIVE FOR THE FACILITY TO PROVIDE. THIS WILL NEED TO BE AN EARLY DAY DISCHARGE [facility] IS IN [facility]. FOR DISCHARGE BACK TO REHAB, FAX DISCHARGE INFORMATION TO [facility] AT [phone]. NURSE REPORT TO BE CALLED TO [facility] AT [phone]. [facility] TO PROVIDE VAN TRANSPORTATION. Danial Cosme, CASE MANAGEMENT DCP- Discharge Planning Updated by [id number]: Danial Cosme on 11/02/18 3:[address] Patient Name: ELIZABETH BUSTAMANTE Encounter No: [id number] : 1950 Primary Insurance: MEDICARE A & B Anticipated DC Date: Planned Disposition: Correction Facility External Planned Provider: [facility], MEDICARE REHAB BED DCP follow-up note: CM RECEIVED CALL FROM DAYANA OF [facility], , WHO REPORTS CONCERN OF PT'S LOW BLOOD PRESSURES AND REPORTS PT CANNOT COME TO FACILITY ON BROVANA IT IS TOO COSTLY TO PROVIDE. TARIQ ADVISED THAT PT HAS NOT HAD VEST THERAPY IN THREE DAYS AND HAS NO ORDERS FOR IT TO CONTINUE POST DISCHARGE TO REHAB. DAYANA ASKED CM TO DISCUSS THE POSSIBILTY OF PT MOVING TO ANOTHER NURSING FACILITY CLOSER TO HOSPITALS DUE TO MULTIPLE MEDICAL ISSUES AND [facility] BEING OVER AN HOUR AWAY FROM HOSPITAL CARE. TARIQ MET WITH PT IN ROOM, DISCUSSED MOVING TO ANOTHER ASSISTED, PT REFUSED AND WANTS TO RETURN TO [facility]. PT STATES THE DOCTOR TOLD HER THAT SHE WILL HAVE BACK SURGERY NEXT TUESDAY. CM REVIEWED DOCTORS NOTES IN ROOM, INFORMED PT THAT THE DOCTORS NOTES DO NOT REFLECT ANY PLANS FOR SURGERY AT THIS TIME AND THAT THEY WOULD MANAGE HER BACK PAIN SYMPTOMS WITH HEATING PADS AND MEDICATIONS AND WILL HAVE PT FOLLOW UP OUTPATIENT. PT VERY UPSET AND WANTS TO SEE THE DOCTOR. CM ASKED PT IF SHE HAD SEEN THE DOCTOR A FEW MINUTES AGO, PT INITIALLY STATES SHE HAD NOT AND WHEN REMINDED BY THE BEDSIDE NURSE, PT REPORTED SHE HAD SEEN THEM WHISPERING BY THE DOOR. CM PAGED CACHORRO PAYNE TO NOTIFY OF PT'S REQUEST. CM FAXED HOSPITAL UPDATE TO [facility] AT [phone]. [facility] IS CONCERNED OF PT'S LOW BLOOD PRESSURE. [facility] WILL NOT ACCEPT PT ON THE MEDICATION BROVANA, REPORTING IT TO BE TOO EXPENSIVE. THIS WILL NEED TO BE AN EARLY DAY DISCHARGE [facility] IS IN [facility]. FOR DISCHARGE BACK TO REHAB, FAX DISCHARGE INFORMATION TO [facility] AT [phone]. NURSE REPORT TO BE CALLED TO [facility] AT [phone]. [facility] TO PROVIDE VAN TRANSPORTATION. CHUY Lopez MANAGEMENT DCP- Discharge Planning Updated by [id number]: Danial Cosme on 11/02/18 8:[address] Patient Name: ELIZABETH BUSTAMANTE Encounter No: [id number] : 1950 Primary Insurance: MEDICARE A & B Anticipated DC Date: Planned Disposition: Correction Facility External Planned Provider:[facility], MEDICARE REHAB BED DCP follow-up note: CM FAXED HOSPITAL UPDATE TO [facility] AT [phone]. PT WILL NEED OXYGEN WEANING DOWN FROM 5 LITERS TO RETURN TO REHAB FACILITY. CLARIFICATION OF NEEDING VEST THERAPY IN REHAB NEEDS TO BE CLARIFIED AND ARRANGEMENTS MADE IF NEEDED. THIS WILL NEED TO BE AN EARLY DAY DISCHARGE [facility] IS IN [place]. FOR DISCHARGE BACK TO REHAB, FAX DISCHARGE INFORMATION TO [facility] AT [phone]. NURSE REPORT TO BE CALLED TO [facility] AT [phone]. [facility] TO PROVIDE VAN TRANSPORTATION. 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 CM FAXED HOSPITAL UPDATE TO [facility] AT [phone]. ORDER FOR PHYSICAL THERAPY EVALUATION OBTAINED. CM TO FAX UPDATE WITH PHYSICAL THERAPY RESULTS TO [facility] AT [phone]. THIS WILL NEED TO BE AN EARLY DAY DISCHARGE [facility] IS IN [place]. FOR DISCHARGE BACK TO REHAB, FAX DISCHARGE INFORMATION TO [facility] AT [phone]. NURSE REPORT TO BE CALLED TO [facility] AT [phone]. [facility] TO PROVIDE VAN TRANSPORTATION. Danial Cosme, CASE MANAGEMENT Appended by Danial Cosme on 11/01/2018 12:36 CDT: CM SPOKE TO NIKIA OF [facility] WHO INFORMED CM THAT PT WILL NEED TO BE WEANED SHE IS STILL ON 5 LITERS OXYGEN. NIKIA ALSO REPORTS THEY DO NOT HAVE VEST THERAPY AT FACILITY AND IF PT REQUIRES IT, THEY WILL NEED ORDERS AND INFORMATION TO OBTAIN THE VEST WELL WILL NEED TRAINING TO ADMINISTER THERAPY AT THE REHAB. CACHORRO PAYNE NOTIFIED. CM SPOKE TO PT IN ROOM WHO REPORTS THAT SHE HAS NOT HAD VEST THERAPY IN THE PAST TWO DAYS. PT WILL NEED OXYGEN WEANING DOWN FROM 5 LITERS TO RETURN TO REHAB FACILITY. CLARIFICATION OF NEEDING VEST THERAPY IN REHAB NEEDS TO BE CLARIFIED AND ARRANGEMENTS MADE IF NEEDED. THIS WILL NEED TO BE AN EARLY DAY DISCHARGE [facility] IS IN [facility]. FOR DISCHARGE BACK TO REHAB, FAX DISCHARGE INFORMATION TO [facility] AT [phone]. NURSE REPORT TO BE CALLED TO [facility] AT [phone]. [facility] TO PROVIDE VAN TRANSPORTATION. Danial Cosme, CASE MANAGEMENT DCP- Discharge Planning Updated by [id number]: Danial Cosme on 10/31/18 4:[address] Patient Name: ELIZABETH BUSTAMANTE Admission Status: ER Accout number: [id number] Admission Date: 10-30-2018 : 1950 Admission Diagnosis: Attending: RAVEN BEE Current LOS: 1 Anticipated DC Date: Planned Disposition: Correction Facility Primary Insurance: MEDICARE A & B PLANNED EXTERNAL PROVIDER: [facility], MEDICARE REHAB BED Discharge Planning Comments: CM RECEIVED ORDER FOR INPATIENT REHAB PRESCREENING. CM MET WITH PT IN ROOM TO DISCUSS DISCHARGE PLANNING AND NEEDS. PT REPORTS LIVING AT [facility] FOR THE PAST YEAR BUT HAS BEEN IN REHAB TO LEARN TO WALK AGAIN. PT UTILIZES WHEELCHAIR AND PLANS TO RETURN TO [facility] WHERE SHE IS RECEIVING GOOD CARE AND FEELS SAFE. 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 PT DOES NOT WANT TO GO TO INPATIENT REHAB AND WANTS REHAB AT [facility]. PROVIDER LISTING PROVIDED, PT SIGNED CHOICE FOR [facility]. IMPORTANT MESSAGE FROM MEDICARE PROVIDED AND EXPLAINED. CM WILL SEND REHAB REFERRAL TO [facility] SOON POSSIBLE FOR REHAB READMIT. Insurance Executive: Danial Cosme DCPIA - Discharge Planning Initial Assessment Updated by ALAN: Danial Cosme on 11/01/18 9:50 am * Is the patient Alert and Oriented? Yes * How many steps to enter\\exit or inside your home? NONE * PCP [facility] [place]. * Pharmacy [facility] * Preadmission Environment [facility] Facility * Facility Name [facility] * ADLs Partial Dependent * Partial ADLs (Assistance needed) Ambulation Bathing Medication Management Transfers * Equipment Other * Other Equipment ALL MEDICAL EQUIPMENT PROVIDED BY FACILITY * List name and contact numbers for known caregivers / representatives who currently or will assist patient after discharge: MINOR ANN, NAILA, * Verbal permission to speak to the caregivers and representatives has been obtained from the patient. N/A * Community resources currently utilized None * Please name any agencies selected above. NONE * Additional services required to return to the preadmission environment? No * Can the patient safely return to the preadmission environment? Yes * Has this patient been hospitalized within the prior 30 days at any hospital? Yes Coverage Notice Reviewer: [id number] Albino Cosme Notice Issued Date-Time: 10/31/2018 16:20 Notice Type: Patient Choice Letter Notice Delivered To: Patient Relationship to Patient: Commercial Journeyman Electrician Name: Delivery Method: HAND - Hand Delivered Stephany Days: Prior Verbal Notification: Recipient Understood Notice: Yes Recipient Signature: Yes Med Rec Note Co-signed by Attending: Coverage Notice Comment: HENRY GUZMÁN Reviewer: [id number] Albino Cosme Notice Issued Date-Time: 10/31/2018 16:20 Notice Type: IM Discharge Notice Notice Delivered To: Patient Relationship to Patient: Commercial Journeyman Electrician Name: Delivery Method: HAND - Hand Delivered Stephany Days: Prior Verbal Notification: Recipient Understood Notice: Yes Recipient Signature: Yes Med Rec Note Co-signed by Attending: Coverage Notice Comment: Last DP export: 11/09/18 9:06 a Patient Name: ELIZABETH BUSTAMANTE Page [id number] at 1218 All edits/amendments must be made on the electronic document DICTATION DATE: 11/10/18 1217 CARETAKER RESORT: DM 11/10/181216 RPT#: [id number] DC DATE: STATUS: ADM IN [facility] [address] [place] [address] END OF REPORT
[2018-11-10] MEDS ORDERED: IPRAT-ALBUT 0.5-3 ML UPD (12:28)
--- NOTE | 2018-11-10 13:47 | NUR ---
Nutrition follow up AHA diet wth 80% average po intake past 2 days Last BM 11/08 Weight 131.9lb Plans to d/c today RD following per protocol
--- NOTE | 2018-11-10 13:57 | NUR ---
LIBBY ELLISON ASSSITED PATIENT OFF BEDPAN AND THERE IS A SMALL AMOUNT OF SOFT, FORMED STOOL SEEN.
--- NOTE | 2018-11-10 14:11 | MORECARE ---
CASE MANAGEMENT DISCHARGE SUMMARY PATIENT: ELIZABETH BUSTAMANTE UNIT: [id number] ADM DATE: 10/30/18 AGE: 68 : 46 SEX: F ROOM/BED: D.2131 AUTHOR: TABBY,DOC PHYSICIAN: REFERRING PHYSICIAN: RAVEN BEE MD DATE OF SERVICE: 11/10/18 Discharge Plan Patient Name: ELIZABETH BUSTAMANTE Facility: [facility]:[place] : 1950 Planned Disposition: Detention Facility Anticipated Discharge Date: 11/10/18 Discharge Date: Expected LOS: 11 Initial Reviewer: [id number] Initial Review Date: 10/31/2018 Generated: 11/10/18 3:11 pm DCP- Discharge Planning Updated by [email or web address]: Danial Cosme on 11/09/18 9:[address] Patient Name: ELIZABETH BUSTAMANTE Encounter No: [id number] : 1950 Primary Insurance: MEDICARE A & B Anticipated DC Date: Planned Disposition: Detention Facility External Planned Provider: [facility], MEDICARE REHAB BED DCP follow-up note: CM FAXED HOSPITAL UPDATE TO NIK[facility] OF [facility] AT [phone]. PT WILL NEED OXYGEN WEANING AND PER FACILITY "BE MORE MEDICALLY STABLE" TO RETURN TO REHAB FACILITY. ALSO WAITING DR. GONZALEZ CONSULT AND RECOMMENDATIONS. FACILITY WILL NOT ACCEPT PT ON MEDICATIONS BROVANA OR PULMICORT THEY ARE TOO EXPENSIVE FOR THE FACILITY TO PROVIDE. THIS WILL NEED TO BE AN EARLY DAY DISCHARGE [facility] IS IN [facility]. FOR DISCHARGE BACK TO REHAB, FAX DISCHARGE INFORMATION TO [facility] AT [phone]. NURSE REPORT TO BE CALLED TO [facility] AT [phone]. [facility] TO PROVIDE VAN TRANSPORTATION. CHUY Lopez DCP- Discharge Planning Updated by [id number]: Danial Cosme on 11/07/18 7:[address] Patient Name: ELIZABETH BUSTAMANTE Encounter No: [id number] : 1950 Primary Insurance: MEDICARE A & B Anticipated DC Date: Planned Disposition: Detention Facility External Planned Provider:[facility], MEDICARE REHAB BED DCP follow-up note: CM FAXED HOSPITAL UPDATE TO [facility] AT [phone]. PT WILL NEED OXYGEN WEANING AND PER FACILITY "BE MORE MEDICALLY STABLE" TO RETURN TO REHAB FACILITY. FACILITY WILL NOT ACCEPT PT ON MEDICATIONS BROVANA OR PULMICORT THEY ARE TOO EXPENSIVE FOR THE FACILITY TO PROVIDE. THIS WILL NEED TO BE AN EARLY DAY DISCHARGE [facility] IS IN [facility]. FOR DISCHARGE BACK TO REHAB, FAX DISCHARGE INFORMATION TO [facility] AT [phone]. NURSE REPORT TO BE CALLED TO [facility] AT [phone]. [facility] TO PROVIDE VAN TRANSPORTATION. Danial Cosme, CASE MANAGEMENT DCP- Discharge Planning Updated by [id number]: Danial Cosme on 11/03/18 1:[address] Patient Name: ELIZABETH BUSTAMANTE Encounter No: [id number] : 1950 Primary Insurance: MEDICARE A & B Anticipated DC Date: Planned Disposition: Detention Facility External Planned Provider: [facility], MEDICARE REHAB BED DCP follow-up note: CM RECEIVED CALL FROM [facility] [place], ; [facility] REPORTS THEY ARE [facility]RS [facility] AND THAT PT WILL NEED TO BE "MORE MEDICALLY STABLE" TO RETURN TO THE FACILITY OR COME BACK DNR WITH HOSPICE CARE. TARIQ SPOKE TO PT IN ROOM, DISCUSSED INFORMATION PROVIDED BY [facility]. PT REPORTS SHE HAS THOUGHT ABOUT HOSPICE IN THE PAST BUT IS NOT INTERESTED. PT STATES SHE WILL BE GOING BACK TO [facility] FOR REHAB WITH GOAL OF GETTING BETTER AND GOING HOME WHEN SHE IS ABLE. TARIQ SPOKE TO DR. LANDA, INFORMED THAT [facility] WILL NOT ACCEPT PT ON BROVANA; DR. LANDA SUGGESTED PULMICORT. CM CALLED [facility], SPOKE TO DAYANA WHO INFORMD CM THAT PULMICORT OR THE GENERIC IS NOT AN OPTION THEY ARE ALSO TOO EXPENSIVE FOR THE FACILITY TO PROVIDE. PT WILL NEED OXYGEN WEANING DOWN FROM 4LITERS AND PER FACILITY "BE MORE MEDICALLY STABLE" TO RETURN TO REHAB FACILITY. FACILITY WILL NOT ACCEPT PT ON MEDICATIONS BROVANA OR PULMICORT THEY ARE TOO EXPENSIVE FOR THE FACILITY TO PROVIDE. THIS WILL NEED TO BE AN EARLY DAY DISCHARGE [facility] IS [facility]. FOR DISCHARGE BACK TO REHAB, FAX DISCHARGE INFORMATION TO [facility] AT [phone]. NURSE REPORT TO BE CALLED TO [facility] AT [phone]. [facility] TO PROVIDE VAN TRANSPORTATION. Danial Cosme, CASE MANAGEMENT DCP- Discharge Planning Updated by [id number]: Danial Cosme on 11/02/18 3:[address] Patient Name: ELIZABETH BUSTAMANTE Encounter No: [id number] : 1950 Primary Insurance: MEDICARE A & B Anticipated DC Date: Planned Disposition: Detention Facility External Planned Provider: [facility], MEDICARE REHAB BED DCP follow-up note: CM RECEIVED CALL FROM DAY[facility] OF [facility], , WHO REPORTS CONCERN OF PT'S LOW BLOOD PRESSURES AND REPORTS PT CANNOT COME TO FACILITY ON BROVANA IT IS TOO COSTLY TO PROVIDE. TARIQ ADVISED THAT PT HAS NOT HAD VEST THERAPY IN THREE DAYS AND HAS NO ORDERS FOR IT TO CONTINUE POST DISCHARGE TO REHAB. DAYANA ASKED CM TO DISCUSS THE POSSIBILTY OF PT MOVING TO ANOTHER NURSING FACILITY CLOSER TO HOSPITALS DUE TO MULTIPLE MEDICAL ISSUES AND [facility] BEING OVER AN HOUR AWAY FROM HOSPITAL CARE. TARIQ MET WITH PT IN ROOM, DISCUSSED MOVING TO ANOTHER USP, PT REFUSED AND WANTS TO RETURN TO [facility]. PT STATES THE DOCTOR TOLD HER THAT SHE WILL HAVE BACK SURGERY NEXT TUESDAY. CM REVIEWED DOCTORS NOTES IN ROOM, INFORMED PT THAT THE DOCTORS NOTES DO NOT REFLECT ANY PLANS FOR SURGERY AT THIS TIME AND THAT THEY WOULD MANAGE HER BACK PAIN SYMPTOMS WITH HEATING PADS AND MEDICATIONS AND WILL HAVE PT FOLLOW UP OUTPATIENT. PT VERY UPSET AND WANTS TO SEE THE DOCTOR. CM ASKED PT IF SHE HAD SEEN THE DOCTOR A FEW MINUTES AGO, PT INITIALLY STATES SHE HAD NOT AND WHEN REMINDED BY THE BEDSIDE NURSE, PT REPORTED SHE HAD SEEN THEM WHISPERING BY THE DOOR. CM PAGED CACHORRO PAYNE TO NOTIFY OF PT'S REQUEST. CM FAXED HOSPITAL UPDATE TO [facility] AT [phone]. [facility] IS CONCERNED OF PT'S LOW BLOOD PRESSURE. [facility] WILL NOT ACCEPT PT ON THE MEDICATION BROVANA, REPORTING IT TO BE TOO EXPENSIVE. THIS WILL NEED TO BE AN EARLY DAY DISCHARGE [facility] IS [facility]. FOR DISCHARGE BACK TO REHAB, FAX DISCHARGE INFORMATION TO [facility] AT [phone]. NURSE REPORT TO BE CALLED TO [facility] AT [phone]. [facility] TO PROVIDE VAN TRANSPORTATION. CHUY Lopez MANAGEMENT DCP- Discharge Planning Updated by [id number]: Danial Cosme on 11/02/18 8:[address] Patient Name: ELIZABETH BUSTAMANTE Encounter No: [id number] : 1950 Primary Insurance: MEDICARE A & B Anticipated DC Date: Planned Disposition: Detention Facility External Planned Provider:[facility], MEDICARE REHAB BED DCP follow-up note: CM FAXED HOSPITAL UPDATE TO [facility] AT [phone]. PT WILL NEED OXYGEN WEANING DOWN FROM 5 LITERS TO RETURN TO REHAB FACILITY. CLARIFICATION OF NEEDING VEST THERAPY IN REHAB NEEDS TO BE CLARIFIED AND ARRANGEMENTS MADE IF NEEDED. THIS WILL NEED TO BE AN EARLY DAY DISCHARGE [facility] IS IN [place]. FOR DISCHARGE BACK TO REHAB, FAX DISCHARGE INFORMATION TO [facility] AT [phone]. NURSE REPORT TO BE CALLED TO [facility] AT [phone]. [facility] TO PROVIDE VAN TRANSPORTATION. 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 CM FAXED HOSPITAL UPDATE TO [facility] AT [phone]. ORDER FOR PHYSICAL THERAPY EVALUATION OBTAINED. CM TO FAX UPDATE WITH PHYSICAL THERAPY RESULTS TO [facility] AT [phone]. THIS WILL NEED TO BE AN EARLY DAY DISCHARGE [facility] IS IN [place]. FOR DISCHARGE BACK TO REHAB, FAX DISCHARGE INFORMATION TO [facility] AT [phone]. NURSE REPORT TO BE CALLED TO [facility] AT [phone]. [facility] TO PROVIDE VAN TRANSPORTATION. Danial Cosme, CASE MANAGEMENT Appended by Danial Cosme on 11/01/2018 12:36 CDT: CM SPOKE TO NIKIA OF [facility] WHO INFORMED CM THAT PT WILL NEED TO BE WEANED SHE IS STILL ON 5 LITERS OXYGEN. NIKIA ALSO REPORTS THEY DO NOT HAVE VEST THERAPY AT FACILITY AND IF PT REQUIRES IT, THEY WILL NEED ORDERS AND INFORMATION TO OBTAIN THE VEST WELL WILL NEED TRAINING TO ADMINISTER THERAPY AT THE REHAB. CACHORRO PAYNE NOTIFIED. CM SPOKE TO PT IN ROOM WHO REPORTS THAT SHE HAS NOT HAD VEST THERAPY IN THE PAST TWO DAYS. PT WILL NEED OXYGEN WEANING DOWN FROM 5 LITERS TO RETURN TO REHAB FACILITY. CLARIFICATION OF NEEDING VEST THERAPY IN REHAB NEEDS TO BE CLARIFIED AND ARRANGEMENTS MADE IF NEEDED. THIS WILL NEED TO BE AN EARLY DAY DISCHARGE [facility] IS [facility]. FOR DISCHARGE BACK TO REHAB, FAX DISCHARGE INFORMATION TO [facility] AT [phone]. NURSE REPORT TO BE CALLED TO [facility] AT [phone]. [facility] TO PROVIDE VAN TRANSPORTATION. Danial Cosme, CASE MANAGEMENT DCP- Discharge Planning Updated by [id number]: Danial Cosme on 10/31/18 4:[address] Patient Name: ELIZABETH BUSTAMANTE Admission Status: ER Accout number: [id number] Admission Date: 10-30-2018 : 1950 Admission Diagnosis: Attending: RAVEN BEE Current LOS: 1 Anticipated DC Date: Planned Disposition: Detention Facility Primary Insurance: MEDICARE A & B PLANNED EXTERNAL PROVIDER: [facility], MEDICARE REHAB BED Discharge Planning Comments: CM RECEIVED ORDER FOR INPATIENT REHAB PRESCREENING. CM MET WITH PT IN ROOM TO DISCUSS DISCHARGE PLANNING AND NEEDS. PT REPORTS LIVING AT [facility] FOR THE PAST YEAR BUT HAS BEEN IN REHAB TO LEARN TO WALK AGAIN. PT UTILIZES WHEELCHAIR AND PLANS TO RETURN TO [facility] WHERE SHE IS RECEIVING GOOD CARE AND FEELS SAFE. 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 PT DOES NOT WANT TO GO TO INPATIENT REHAB AND WANTS REHAB AT [facility]. PROVIDER LISTING PROVIDED, PT SIGNED CHOICE FOR [facility]. IMPORTANT MESSAGE FROM MEDICARE PROVIDED AND EXPLAINED. CM WILL SEND REHAB REFERRAL TO [facility] SOON POSSIBLE FOR REHAB READMIT. Archival Records Clerk: Danial Cosme DCPIA - Discharge Planning Initial Assessment Updated by ALAN: Danial Cosme on 11/01/18 9:50 am * Is the patient Alert and Oriented? Yes * How many steps to enter\\exit or inside your home? NONE * PCP [facility] [place]. * Pharmacy [facility] * Preadmission Environment Detention Facility * Facility Name [facility] * ADLs Partial Dependent * Partial ADLs (Assistance needed) Ambulation Bathing Medication Management Transfers * Equipment Other * Other Equipment ALL MEDICAL EQUIPMENT PROVIDED BY FACILITY * List name and contact numbers for known caregivers / representatives who currently or will assist patient after discharge: MINOR ANN, NAILA, * Verbal permission to speak to the caregivers and representatives has been obtained from the patient. N/A * Community resources currently utilized None * Please name any agencies selected above. NONE * Additional services required to return to the preadmission environment? No * Can the patient safely return to the preadmission environment? Yes * Has this patient been hospitalized within the prior 30 days at any hospital? Yes Coverage Notice Reviewer: [id number] Albino Cosme Notice Issued Date-Time: 10/31/2018 16:20 Notice Type: Patient Choice Letter Notice Delivered To: Patient Relationship to Patient: Manufacturing Engineer Assembly Name: Delivery Method: HAND - Hand Delivered Stephany Days: Prior Verbal Notification: Recipient Understood Notice: Yes Recipient Signature: Yes Med Rec Note Co-signed by Attending: Coverage Notice Comment: HENRY GUZMÁN Reviewer: [id number] Albino Cosme Notice Issued Date-Time: 10/31/2018 16:20 Notice Type: IM Discharge Notice Notice Delivered To: Patient Relationship to Patient: Manufacturing Engineer Assembly Name: Delivery Method: HAND - Hand Delivered Stephany Days: Prior Verbal Notification: Recipient Understood Notice: Yes Recipient Signature: Yes Med Rec Note Co-signed by Attending: Coverage Notice Comment: Reviewer: [email or web address] Cosme Notice Issued Date-Time: 11/10/2018 12:30 Notice Type: IM Discharge Notice Notice Delivered To: Patient Relationship to Patient: Manufacturing Engineer Assembly Name: Delivery Method: HAND - Hand Delivered Stephany Days: Prior Verbal Notification: Recipient Understood Notice: Yes Recipient Signature: Yes Med Rec Note Co-signed by Attending: Coverage Notice Comment: Last DP export: 11/10/18 11:17 a Patient Name: ELIZABETH BUSTAMANTE Page [id number] at 1411 All edits/amendments must be made on the electronic document DICTATION DATE: 11/10/181409 INSPECTOR OF WEIGHTS AND MEASURES: ALYSSIA 11/10/181409 RPT#: [id number] DC DATE: STATUS: ADM IN [facility] [address] [place] [address] END OF REPORT
--- NOTE | 2018-11-10 14:48 | NUR ---
ESPERANZA WITH TARIQ IN TALKING TO SELMA. I STILL HAVE NOT HEARD BACK FROM DR GONZALEZ OFFICE R/T SURGERY OR NOT.
--- NOTE | 2018-11-10 14:50 | NUR ---
Clotilde NÚÑEZ TO PLACE PATIENT ON 2L PER NC, NOT HIGH FLOW. WILL MONITOR.
--- NOTE | 2018-11-10 15:39 | NUR ---
ASSSITED OFF BEDPAN WITH ANOTHER SMALL BOWEL MOVEMENT.
[2018-11-10 16:06] VITALS: BP 117/68
--- NOTE | 2018-11-10 17:27 | NUR ---
ASSSITED OFF BEDPAN WITH PATIENT HAVING AN EXTRA LARGE BM
--- NOTE | 2018-11-10 18:19 | MORECARE ---
CASE MANAGEMENT DISCHARGE SUMMARY PATIENT: ELIZABETH BUSTAMANTE UNIT: [id number] ADM DATE: 10/30/18 AGE: 68 : 48 SEX: F ROOM/BED: D.2136 AUTHOR: TABBYDOC PHYSICIAN: REFERRING PHYSICIAN: RAVEN BEE MD DATE OF SERVICE: 11/10/18 Discharge Plan Patient Name: ELIZABETH BUSTAMANTE Facility: [facility]:[place] : 1950 Planned Disposition: Long Term Facility Anticipated Discharge Date: 11/10/18 Discharge Date: Expected LOS: 11 Initial Reviewer: [id number] Initial Review Date: 10/31/2018 Generated: 11/10/18 7:18 pm Comments DCP- Discharge Planning Updated by [id number]: Danial Cosme on 11/10/18 5:[address] Patient Name: ELIZABETH BUSTAMANTE Encounter No: [id number] : 1950 Primary Insurance: MEDICARE A & B Anticipated DC Date: 11-10-2018 Planned Disposition: Long Term Facility External Planned Provider: [facility], MEDICARE REHAB BED DCP follow-up note: CM RECEIVED DISCHARGE ORDERS, SPOKE TO PT IN ROOM WHO WANTS TO RETURN TO [facility], IN AGREEMENT WITH DISCHARGE TODAY, IMPORTANT MESSAGE FROM MEDICARE PROVIDED AND EXPLAINED. CM VERIFIED DISCHARGE MEDICATION LIST, CALLED [facility] AT [phone], SPOKE TO NIKIA WHO INFORMED CM THAT DR. PALM STATED THAT PT CANNOT RETURN TO THE FACILITY UNLESS SHE IS ON HOSPICE AND A "DNR" AND THAT DUE [facility] TO DISTANCE FROM HOSPITAL CARE, PT MAY CONSIDER GOING TO ANOTHER CORRE[facility]. CM CLAIRIFIED STATEMENT WITH NIKIA. CM NOTIFED PT WHO WAS VERY UPSET AND HAD CM CALL HER SON, MINOR, . MINOR NOTIFIED. PT DOES NOT WANT TO BE DNR AND DOES NOT WANT HOSPICE CARE. PT DOES NOT WANT ANOTHER CORRECTION. AFTER DISCUSSING WITH MINOR, PT AGREES TO HAVE CM SEND REFERRAL TO [facility]. CHOICE LETTER SIGNED. PT ASKED ABOUT HOSPICE CARE AND "DNR". CM ASKED PT IF SHE WANTED TO TALK TO HOSPICE ROOTER OPERATOR FOR INFORMATION, PT STATES YES, MADELYN FROM [facility] AT [facility] AND CM ASKED HIM TO VISIT WITH PT. MADELYN VISITED WITH PT, AFTER VISIT, PT STILL CM RECEIVED CALL FROM Arnulfo BUSTAMANTE, PT'S SON, , WHO INFORMED CM THAT HE SPOKE TO NIKIA AT [facility] WHO STATED THAT CM LIED ABOUT THE CORRECTION NOT TAKING PT BACK UNLESS SHE IS NO HOSPICE AND "DNR" AND THAT PT CAN RETURN WHEN SHE IS STABLE AND THAT PT IS NOT MEDICALLY STABLE FOR DISCHARGE NOW; ARTIERIAL GASES ARE NOT STABLE, PT IS GETTING TOO MUCH OXYGEN AND BLOOD PRESSURE HAS BEEN TOO LOW. REPORTS THAT THE HOSPTIAL SENT PT BACK TOO SOON LAST TIME AND SHE HAD TO GO RIGHT BACK TO THE HOSPITAL SOON SHE GOT THERE. CM ASSURED THAT CM DID NOT LIE, HAS NO REASON TO LIE AND WILL DISCUSS THIS WITH CORRECTION AND PT. CM CALLED OFFICE OF [facility], AND RECEIVED RETURN CALL FROM STACEY OF OFFICE OF [facility]. TARIQ DISCUSSED SITUATION. STACEY STATES THAT THERE IS NOT A LOT THAT THEY CAN DO, IT IS HE SAID, SHE SAID. STACEY STATED THAT CM OR PATIENT MAY CALL THE [facility] IF NEEDED A LIAISON TO POSSIBLY ASSIST WITH THIS SITUATION, , [facility] [phone]. CM NOTIFIED PT WHO DID NOT WANT [facility] SERVICE. CM CALLED NIKIA OF [facility], DISCUSSED ANY COMMENTS SHE MIGHT HAVE MADE TO MR. BUSTAMANTE, NIKIA DID NOT STATE THAT SHE DID NOT STATE THIS TO MR. BUSTAMANTE, BUT DID STATE THAT CM WAS "NOT LYING". NIKIA NOW STATES THAT IF PT DOES NOT WANT HOSPICE / DNR TO RETURN, THEY WILL ACCEPT HER WHEN SHE IS STABLE, WITH OXYGEN NEEDS BELOW 3LITERS AND OFF OF HIGH FLOW NASAL CANNULA; PT ALSO NEEDS STABLE LABS AND BLOOD PRESSURES. TARIQ ASKED FOR AND OBTAINED PHONE NUBMER FOR DR. PALM, DOUGH PUNCHER OF [facility], . CM NOTIFED DR. BEE. CM SPOKE TO DR. BEE VIA PHONE, HE HAS TALKED TO DOUGH PUNCHER AND REPORTS HE DOES NOT FEEL [facility] IS A SAFE [facility] FOR PT AND DISCUSS ALTERNATIVE PLACEMENT WITH PT. CM SPOKE TO PT WHO REPORTS SHE WANTS TO GO BACK "HOME" TO [facility]. CM PROVIDED PT WITH NURSING HOMES WITHIN [address] OF [place] FROM MEDICARE WEBSITE. PT REPORTS THE CORRECTION HAS $17,000 OF HER MONEY, SHE HAS LIVED THERE THREE YEARS AND WANTS TO RETURN. PT WILL CONSIDER OPTIONS AND LET CM KNOW IF SHE CHANGES HER MIND. PT CONTINES TO WANT TO RETURN TO [facility]. CM WILL FOLLOW UP WITH PT AND [facility] ON TUESDAY. Danial Cosme CASE MANAGEMENT DCP- Discharge Planning Updated by [id number]: Danial Cosme on 11/09/18 9:[address] Patient Name: ELIZABETH BUSTAMANTE Encounter No: [id number] : 1950 Primary Insurance: MEDICARE A & B Anticipated DC Date: Planned Disposition: Long Term Facility External Planned Provider: [facility], MEDICARE REHAB BED DCP follow-up note: CM FAXED HOSPITAL UPDATE TO [facility] AT [phone]. PT WILL NEED OXYGEN WEANING AND PER FACILITY "BE MORE MEDICALLY STABLE" TO RETURN TO REHAB FACILITY. ALSO WAITING DR. GONZALEZ CONSULT AND RECOMMENDATIONS. FACILITY WILL NOT ACCEPT PT ON MEDICATIONS BROVANA OR PULMICORT THEY ARE TOO EXPENSIVE FOR THE FACILITY TO PROVIDE. THIS WILL NEED TO BE AN EARLY DAY DISCHARGE [facility]. FOR DISCHARGE BACK TO REHAB, FAX DISCHARGE INFORMATION TO [facility] AT [phone]. NURSE REPORT TO BE CALLED TO [facility] AT [phone]. [facility] TO PROVIDE VAN TRANSPORTATION. CHUY Lopez MANAGEMENT DCP- Discharge Planning Updated by [id number]: Danial Cosme on 11/07/18 7:[address] Patient Name: ELIZABETH BUSTAMANTE Encounter No: [id number] : 1950 Primary Insurance: MEDICARE A & B Anticipated DC Date: Planned Disposition: Long Term Facility External Planned Provider:[facility], MEDICARE REHAB BED DCP follow-up note: CM FAXED HOSPITAL UPDATE TO [facility] AT [phone]. PT WILL NEED OXYGEN WEANING AND PER FACILITY "BE MORE MEDICALLY STABLE" TO RETURN TO REHAB FACILITY. FACILITY WILL NOT ACCEPT PT ON MEDICATIONS BROVANA OR PULMICORT THEY ARE TOO EXPENSIVE FOR THE FACILITY TO PROVIDE. THIS WILL NEED TO BE AN EARLY DAY DISCHARGE [facility]. FOR DISCHARGE BACK TO REHAB, FAX DISCHARGE INFORMATION TO [facility] AT [phone]. NURSE REPORT TO BE CALLED TO [facility] AT [phone]. [facility] TO PROVIDE VAN TRANSPORTATION. CHUY Lopez MANAGEMENT DCP- Discharge Planning Updated by [id number]: Danial Cosme on 11/03/18 1:[address] Patient Name: ELIZABETH BUSTAMANTE Encounter No: [id number] : 1950 Primary Insurance: MEDICARE A & B Anticipated DC Date: Planned Disposition: Long Term Facility External Planned Provider: [facility], MEDICARE REHAB BED DCP follow-up note: CM RECEIVED CALL FROM [facility], ; [place] REPORTS THEY ARE ONE OR [facility] HOURS [facility] AND THAT PT WILL NEED TO BE "MORE MEDICALLY STABLE" TO RETURN TO THE FACILITY OR COME BACK DNR WITH HOSPICE CARE. CM SPOKE TO PT IN ROOM, DISCUSSED INFORMATION PROVIDED BY [facility]. PT REPORTS SHE HAS THOUGHT ABOUT HOSPICE IN THE PAST BUT IS NOT INTERESTED. PT STATES SHE WILL BE GOING BACK TO [facility] FOR REHAB WITH GOAL OF GETTING BETTER AND GOING HOME WHEN SHE IS ABLE. CM SPOKE TO DR. LANDA, INFORMED THAT [facility] WILL NOT ACCEPT PT ON BROVANA; DR. LANDA SUGGESTED PULMICORT. CM CALLED [facility], SPOKE TO DAYANA WHO INFORMD CM THAT PULMICORT OR THE GENERIC IS NOT AN OPTION THEY ARE ALSO TOO EXPENSIVE FOR THE FACILITY TO PROVIDE. PT WILL NEED OXYGEN WEANING DOWN FROM 4LITERS AND PER FACILITY "BE MORE MEDICALLY STABLE" TO RETURN TO REHAB FACILITY. FACILITY WILL NOT ACCEPT PT ON MEDICATIONS BROVANA OR PULMICORT THEY ARE TOO EXPENSIVE FOR THE FACILITY TO PROVIDE. THIS WILL NEED TO BE AN EARLY DAY DISCHARGE [facility] IS [facility]. FOR DISCHARGE BACK TO REHAB, FAX DISCHARGE INFORMATION TO [facility] AT [phone]. NURSE REPORT TO BE CALLED TO [facility] AT [phone]. [facility] TO PROVIDE VAN TRANSPORTATION. CHUY Lopez MANAGEMENT DCP- Discharge Planning Updated by [id number]: Danial Cosme on 11/02/18 3:[address] Patient Name: ELIZABETH BUSTAMANTE Encounter No: [id number] : 1950 Primary Insurance: MEDICARE A & B Anticipated DC Date: Planned Disposition: Long Term Facility External Planned Provider: [facility], MEDICARE REHAB BED DCP follow-up note: CM RECEIVED CALL FROM DAYANA OF [facility], , WHO REPORTS CONCERN OF PT'S LOW BLOOD PRESSURES AND REPORTS PT CANNOT COME TO FACILITY ON BROVANA IT IS TOO COSTLY TO PROVIDE. CM ADVISED THAT PT HAS NOT HAD VEST THERAPY IN THREE DAYS AND HAS NO ORDERS FOR IT TO CONTINUE POST DISCHARGE TO REHAB. DAYANA ASKED CM TO DISCUSS THE POSSIBILTY OF PT MOVING TO ANOTHER NURSING FACILITY CLOSER TO HOSPITALS DUE TO MULTIPLE MEDICAL ISSUES AND [facility] BEING OVER AN HOUR AWAY FROM HOSPITAL CARE. CM MET WITH PT IN ROOM, DISCUSSED MOVING TO ANOTHER CORRECTION, PT REFUSED AND WANTS TO RETURN TO [facility]. PT STATES THE DOCTOR TOLD HER THAT SHE WILL HAVE BACK SURGERY NEXT TUESDAY. CM REVIEWED DOCTORS NOTES IN ROOM, INFORMED PT THAT THE DOCTORS NOTES DO NOT REFLECT ANY PLANS FOR SURGERY AT THIS TIME AND THAT THEY WOULD MANAGE HER BACK PAIN SYMPTOMS WITH HEATING PADS AND MEDICATIONS AND WILL HAVE PT FOLLOW UP OUTPATIENT. PT VERY UPSET AND WANTS TO SEE THE DOCTOR. CM ASKED PT IF SHE HAD SEEN THE DOCTOR A FEW MINUTES AGO, PT INITIALLY STATES SHE HAD NOT AND WHEN REMINDED BY THE BEDSIDE NURSE, PT REPORTED SHE HAD SEEN THEM WHISPERING BY THE DOOR. CM PAGED CACHORRO PAYNE TO NOTIFY OF PT'S REQUEST. CM FAXED HOSPITAL UPDATE TO [facility] AT [phone]. [facility] IS CONCERNED OF PT'S LOW BLOOD PRESSURE. [facility] WILL NOT ACCEPT PT ON THE MEDICATION BROVANA, REPORTING IT TO BE TOO EXPENSIVE. THIS WILL NEED TO BE AN EARLY DAY DISCHARGE [facility] IS [facility]. FOR DISCHARGE BACK TO REHAB, FAX DISCHARGE INFORMATION TO [facility] AT [phone]. NURSE REPORT TO BE CALLED TO [facility] AT [phone]. [facility] TO PROVIDE VAN TRANSPORTATION. Danial Cosme, CASE MANAGEMENT DCP- Discharge Planning Updated by [id number]: Danial Cosme on 11/02/18 8:[address] Patient Name: ELIZABETH BUSTAMANTE Encounter No: [id number] : 1950 Primary Insurance: MEDICARE A & B Anticipated DC Date: Planned Disposition: Long Term Facility External Planned Provider:[facility], MEDICARE REHAB BED DCP follow-up note: CM FAXED HOSPITAL UPDATE TO [facility] AT [phone]. PT WILL NEED OXYGEN WEANING DOWN FROM 5 LITERS TO RETURN TO REHAB FACILITY. CLARIFICATION OF NEEDING VEST THERAPY IN REHAB NEEDS TO BE CLARIFIED AND ARRANGEMENTS MADE IF NEEDED. THIS WILL NEED TO BE AN EARLY DAY DISCHARGE [facility] IS IN [place]. FOR DISCHARGE BACK TO REHAB, FAX DISCHARGE INFORMATION TO [facility] AT [phone]. NURSE REPORT TO BE CALLED TO [facility] AT [phone]. [facility] TO PROVIDE VAN TRANSPORTATION. 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 CM FAXED HOSPITAL UPDATE TO [facility] AT [phone]. ORDER FOR PHYSICAL THERAPY EVALUATION OBTAINED. CM TO FAX UPDATE WITH PHYSICAL THERAPY RESULTS TO [facility] AT [phone]. THIS WILL NEED TO BE AN EARLY DAY DISCHARGE [facility] IS [facility]. FOR DISCHARGE BACK TO REHAB, FAX DISCHARGE INFORMATION TO [facility] AT [phone]. NURSE REPORT TO BE CALLED TO [facility] AT [phone]. [facility] TO PROVIDE VAN TRANSPORTATION. Danial Cosme, CASE MANAGEMENT Appended by Danial Cosme on 11/01/2018 12:36 CDT: CM SPOKE TO NIKIA OF [facility] WHO INFORMED CM THAT PT WILL NEED TO BE WEANED SHE IS STILL ON 5 LITERS OXYGEN. NIKIA ALSO REPORTS THEY DO NOT HAVE VEST THERAPY AT FACILITY AND IF PT REQUIRES IT, THEY WILL NEED ORDERS AND INFORMATION TO OBTAIN THE VEST WELL WILL NEED TRAINING TO ADMINISTER THERAPY AT THE REHAB. CACHORRO PAYNE NOTIFIED. CM SPOKE TO PT IN ROOM WHO REPORTS THAT SHE HAS NOT HAD VEST THERAPY IN THE PAST TWO DAYS. PT WILL NEED OXYGEN WEANING DOWN FROM 5 LITERS TO RETURN TO REHAB FACILITY. CLARIFICATION OF NEEDING VEST THERAPY IN REHAB NEEDS TO BE CLARIFIED AND ARRANGEMENTS MADE IF NEEDED. THIS WILL NEED TO BE AN EARLY DAY DISCHARGE [facility]. FOR DISCHARGE BACK TO REHAB, FAX DISCHARGE INFORMATION TO [facility] AT [phone]. NURSE REPORT TO BE CALLED TO [facility] AT [phone]. [facility] TO PROVIDE VAN TRANSPORTATION. Danial Cosme, CASE MANAGEMENT DCP- Discharge Planning Updated by [id number]: Danial Cosme on 10/31/18 4:[address] Patient Name: ELIZABETH BUSTAMANTE Admission Status: ER Accout number: [id number] Admission Date: 10-30-2018 : 1950 Admission Diagnosis: Attending: RAVEN BEE Current LOS: 1 Anticipated DC Date: Planned Disposition: Long Term Facility Primary Insurance: MEDICARE A & B PLANNED EXTERNAL PROVIDER: [facility], MEDICARE REHAB BED Discharge Planning Comments: CM RECEIVED ORDER FOR INPATIENT REHAB PRESCREENING. CM MET WITH PT IN ROOM TO DISCUSS DISCHARGE PLANNING AND NEEDS. PT REPORTS LIVING AT [facility] FOR THE PAST YEAR BUT HAS BEEN IN REHAB TO LEARN TO WALK AGAIN. PT UTILIZES WHEELCHAIR AND PLANS TO RETURN TO [facility] WHERE SHE IS RECEIVING GOOD CARE AND FEELS SAFE. 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 PT DOES NOT WANT TO GO TO INPATIENT REHAB AND WANTS REHAB AT [facility]. PROVIDER LISTING PROVIDED, PT SIGNED CHOICE FOR [facility]. IMPORTANT MESSAGE FROM MEDICARE PROVIDED AND EXPLAINED. CM WILL SEND REHAB REFERRAL TO [facility] SOON POSSIBLE FOR REHAB READMIT. Flame Annealing Machine Setter: Danial Cosme DCPIA - Discharge Planning Initial Assessment Updated by [id number]: Danial Cosme on 11/01/18 9:50 am * Is the patient Alert and Oriented? Yes * How many steps to enter\\exit or inside your home? NONE * PCP [facility]. * Pharmacy [facility] * Preadmission Environment Long Term Facility * Facility Name [facility] * ADLs Partial Dependent * Partial ADLs (Assistance needed) Ambulation Bathing Medication Management Transfers * Equipment Other * Other Equipment ALL MEDICAL EQUIPMENT PROVIDED BY FACILITY * List name and contact numbers for known caregivers / representatives who currently or will assist patient after discharge: NAILA DE LA ROSA, * Verbal permission to speak to the caregivers and representatives has been obtained from the patient. N/A * Community resources currently utilized None * Please name any agencies selected above. NONE * Additional services required to return to the preadmission environment? No * Can the patient safely return to the preadmission environment? Yes * Has this patient been hospitalized within the prior 30 days at any hospital? Yes Coverage Notice Reviewer: ALAN Cosme Notice Issued Date-Time: 10/31/2018 16:20 Notice Type: Patient Choice Letter Notice Delivered To: Patient Relationship to Patient: Public Health Veterinarian Name: Delivery Method: HAND - Hand Delivered Stephany Days: Prior Verbal Notification: Recipient Understood Notice: Yes Recipient Signature: Yes Med Rec Note Co-signed by Attending: Coverage Notice Comment: HENRY TAYEK Reviewer: ALAN Cosme Notice Issued Date-Time: 10/31/2018 16:20 Notice Type: IM Discharge Notice Notice Delivered To: Patient Relationship to Patient: Public Health Veterinarian Name: Delivery Method: HAND - Hand Delivered Stephany Days: Prior Verbal Notification: Recipient Understood Notice: Yes Recipient Signature: Yes Med Rec Note Co-signed by Attending: Coverage Notice Comment: Reviewer: ALAN Cosme Notice Issued Date-Time: 11/10/2018 12:30 Notice Type: IM Discharge Notice Notice Delivered To: Patient Relationship to Patient: Public Health Veterinarian Name: Delivery Method: HAND - Hand Delivered Stephany Days: Prior Verbal Notification: Recipient Understood Notice: Yes Recipient Signature: Yes Med Rec Note Co-signed by Attending: Coverage Notice Comment: Reviewer: ALAN Cosme Notice Issued Date-Time: 11/10/2018 15:10 Notice Type: Patient Choice Letter Notice Delivered To: Patient Relationship to Patient: Public Health Veterinarian Name: Delivery Method: HAND - Hand Delivered Stephany Days: Prior Verbal Notification: Recipient Understood Notice: Yes Recipient Signature: Yes Med Rec Note Co-signed by Attending: Coverage Notice Comment: [facility] Last DP export: 11/10/18 1:11 p Patient Name: ELIZABETH BUSTAMANTE Page [id number] at 1819 All edits/amendments must be made on the electronic document DICTATION DATE: 11/10/181817 CLINICAL APPEALS RN: ALYSSIA 11/10/181817 RPT#: [id number] DC DATE: STATUS: ADM IN [facility] [address] [place] [address] END OF REPORT
[2018-11-10 19:54] VITALS: BP 98/56
--- NOTE | 2018-11-10 22:36 | NUR ---
PT HAS A DISCHARGE ORDER. SPOKE WITH PT AND SHE STATED "THAT WAS A MIX UP TODAY. THEY TOLD ME I HAD TO BE ON HOSPICE OR BE A DNR TO GO BACK. MY SONCALLED THEM AMD THEY CALLED ME AND APOLOGIZED." ALSO, STATED IRT WOULD BE MON OR TUES BEFORE SHE WOULD FINF OUT ANYTHING.
[2018-11-11 03:55] VITALS: BP 104/60
[2018-11-11 08:18] VITALS: BP 112/67
--- NOTE | 2018-11-11 08:35 | NUR ---
RECIEVED REPORT. PATIENT IS AWAKE AND ALERT. FAMILY IS AT BEDSIDE AND REPORTS THAT SHE IS GOING BACK TO [facility] THIS MORNING. FAMILY REPORTS THAT SHE HOPES PATIENT WILL BE DISCHARGED TO REHAB ON TUESDAY. HE LIVES ALONE AND HAS BEEN DOING WELL UNTIL THE CHANGES HE HAD IN HIS MEDICATIONS. HE HAD A CLEAN CATH AND HIS OXYGEN SATURATION IS IMPROVING.
--- NOTE | 2018-11-11 08:42 | NUR ---
RECIEVED REPORT. PATIENT IS ALERT AND AWAKE AND DENIES ANY NEEDS AT THIS TIME.
--- NOTE | 2018-11-11 11:38 | NUR ---
I have reviewed this patient and I concur with the Shift Assessment completed by the Licensed Practical Nurse today this shift.
[2018-11-11 12:08] VITALS: BP 96/45
--- NOTE | 2018-11-11 12:16 | NUR ---
PATIENT HAD A B/P OF 96/[address] BEE AND LIZA IVORY. GIVING BOLUS OF NS 500ML NOW. GAVE PT A COOL CLOTH FOR HER FOREHEAD. SHE REPORTS THAT SHE WANTED TO GET UP AND MOVE AROUND MORE. SHE IS LAYING ON HER LEFT SIDE IN BED, AND DENIES ANY OTHER NEEDS AT THIS TIME. LIZA IVORY ALSO SAID TO PLEASE HOLD PATIENTS B/P MEDICATIONS AT THIS TIME.
--- NOTE | 2018-11-11 15:32 | NUR ---
HOLDING ALL BLOOD PRESSURE MEDICATION PER LIZA IVORY WITH DR BEE. THIS PATIENTS B/P HAS DROPPED TOO LOW WHEN GIVING HER B/P MEDICATIONS ORDERED. MONITOR CLOSELY WHEN GIVING LASIX THAT HER B/P DOES NOT DROP TOO LOW. TODAY WHEN HER B/P WAS 86/46 AT 1200, I GAVE HER A FLUID BOLUS OF 500 ML ORDERED AND HER B/P CAME UP TO 90/55.
--- NOTE | 2018-11-11 15:56 | NUR ---
BEAMING MACHINE OPERATOR INFORMED ME THAT THIS PATIENT IS SUPPOSED TO HAVE HER B/P TAKEN ON HER LEG. WILL CONTINUE TO MONITOR HER B/P ON THE LEG.
[2018-11-11 17:05] VITALS: BP 128/59
[2018-11-11 17:57] LABS: APPEARANCE CLEAR (CLEAR); COLOR YELLOW (YELLOW)
[2018-11-11 17:58] LABS: BILIRUBIN NEGATIVE (NEGATIVE); GLUCOSE NEGATIVE (NEGATIVE); KETONE NEGATIVE (NEGATIVE); NITRITE POSITIVE (NEGATIVE); PROTEIN NEGATIVE (NEGATIVE); RED CELLS - URINE NONE SEEN /hpf (0-5); UROBILINOGEN NORMAL (NORMAL); WHITE CELLS - URINE 0-5 /hpf (0-5)
--- NOTE | 2018-11-11 19:25 | NUR ---
INITIAL ROUNDS COMPLETED AT 1920 HRS. NO DISTRESS NOTED. CALL LIGHT WITHIN REACH.
[2018-11-11 19:44] VITALS: BP 92/49
--- NOTE | 2018-11-11 21:53 | NUR ---
ASSESSMENT COMPLETED AT 1945 HRS. VSS. O2 2LNC. PT ALERT AND ORIENTED TO PERSON, PLACE AND TIME. MILLER. LUNGS DIMINISHED IN BASES BILAT. IV TO RAC SL. PM MEDS GIVEN. PT CURRENTLY RESTING WITH EYES CLOSED. RESP EVEN AND REGULAR. SR UP X2,CALL LIGHT WITHIN REACH.
[2018-11-11 23:50] VITALS: BP 96/62
--- NOTE | 2018-11-11 23:55 | NUR ---
PT INCONTINENT OF URINE. INCONTINENT CARE DONE. REPOSITIONED IN BED FOR COMFORT. SR UP X2,CALL LIGHT WITHIN REACH.
--- NOTE | 2018-11-12 01:50 | NUR ---
PT RESTING WITH EYES CLOSED. RESP EVEN AND REGULAR. SR UP X2,CALL LIGHT WITHIN REACH.
[2018-11-12 03:55] VITALS: BP 127/73
--- NOTE | 2018-11-12 04:20 | NUR ---
PT INCONTINENT OF URINE. INCONTNENT CARE DONE. SR UP X2, CALL LIGHT WITHIN REACH.
[2018-11-12 05:45] LABS: BASOPHILS 0.8 % (0-2); EOSINOPHILS 2.2 % (0-7); HEMATOCRIT 39.4 % (36.0-48.0); HEMOGLOBIN 11.9 g/dL (12-16); IMMATURE GRANULOCYTES 2.2 % (0-5); LYMPHOCYTES 25.6 % (15-50); MCH 29.3 pg (26.0-34.0); MCHC 30.2 g/dL (31.0-37.0); MEAN PLATELET VOLUME 9.8 fL (7.4-10.4); MONOCYTES 11.4 % (2-11); NEUTROPHILS 57.8 % (40-80); PLATELET COUNT 521 10x3/uL (130-400); RBC 4.06 10x6/uL (4.00-5.40); RDW 17.3 % (11.5-14.5)
[2018-11-12 05:48] LABS: WBC 14.9 10x3/uL (4.8-10.8)
[2018-11-12 05:58] LABS: CALC OSMOLALITY 281 mosm/kg (275-300); CALCIUM 8.7 mg/dL (8.5-10.1); CARBON DIOXIDE 35.8 mmol/L (21.0-32.0); CHLORIDE - SERUM 102 mmol/L (98-107); CREATININE - SERUM 0.8 mg/dL (0.6-1.3); POTASSIUM - SERUM 4.3 mmol/L (3.5-5.1); SODIUM 140 mmol/L (136-145); UREA NITROGEN 23 mg/dL (7-18); eGFR NON AFRICAN AMERICAN 75 mL/min (90-120)
[2018-11-12 06:05] LABS: GLUCOSE 81 mg/dL (74-106)
--- NOTE | 2018-11-12 06:18 | NUR ---
VSS THROUGHOUT NIGHT. SR PER CM. PT STATED ULTRAM MADE PAIN TOLERABLE. NEEDS MET;WILL CONTINUE TO MONITOR.
--- NOTE | 2018-11-12 07:15 | NUR ---
REPORT RECIEVED AND MORNING ROUNDING COMPLETE. PT LAYING IN SUPINE POSITION IN BED EYES CLOSED BREATHING SHALLOW AND EVEN. CALL LIGHT WITHIN REACH AND BED IN LOWEST PSOITION.
[2018-11-12 08:34] VITALS: BP 84/52
[2018-11-12 11:20] VITALS: BP 98/59
--- NOTE | 2018-11-12 15:30 | NUR ---
ASSISTED DNA ANALYST IN CLEANING PT'S INCONT. EPISODE. THIS WAS THE SECOND ONE OF THE DAY. NO OTHER NEEDS AT THIS TIME CALL LIGHT WITHIN REACH AND BED IN LOWEST POSITION.
[2018-11-12 15:32] VITALS: BP 92/59
--- NOTE | 2018-11-12 15:58 | NUR ---
I have reviewed this patient and I concur with the Shift Assessment completed by the Licensed Practical Nurse today this shift.
--- NOTE | 2018-11-12 20:00 | NUR ---
RECIEVED UP IN BED WITH EYES CLOSED. EASILY AROUSES WITH VEERAL STIMULATION. ORIENTED X4. O2 @ 2 LITERS PER N/C. IV TO LEFT AC SL.. TELEMETRY IN PLACE, DENIES ANY NEEDS AT THIS TIME.
[2018-11-12 21:11] VITALS: BP 95/58
--- NOTE | 2018-11-13 03:04 | NUR ---
RESTIONG IN BED WITH EYES CLOSED. NO S/S OF DISTRESS OBSERVED.ALL FLUIDS REMOVED FROM BEDSIDE.
[2018-11-13 03:55] VITALS: BP 136/80
[2018-11-13 06:32] LABS: CALC OSMOLALITY 280 mosm/kg (275-300); CALCIUM 8.5 mg/dL (8.5-10.1); CARBON DIOXIDE 38.4 mmol/L (21.0-32.0); CHLORIDE - SERUM 102 mmol/L (98-107); CREATININE - SERUM 0.7 mg/dL (0.6-1.3); GLUCOSE 78 mg/dL (74-106); POTASSIUM - SERUM 4.4 mmol/L (3.5-5.1); SODIUM 140 mmol/L (136-145); UREA NITROGEN 20 mg/dL (7-18); eGFR NON AFRICAN AMERICAN 88 mL/min (90-120)
[2018-11-13 07:15] LABS: BASOPHILS 1.1 % (0-2); EOSINOPHILS 3.2 % (0-7); HEMATOCRIT 36.4 % (36.0-48.0); IMMATURE GRANULOCYTES 3.7 % (0-5); LYMPHOCYTES 39.7 % (15-50); MCH 29.1 pg (26.0-34.0); MCHC 30.2 g/dL (31.0-37.0); MCV 96.3 fL (80.0-100.0); MONOCYTES 9.2 % (2-11); NEUTROPHILS 43.1 % (40-80); PLATELET COUNT 486 10x3/uL (130-400); RBC 3.78 10x6/uL (4.00-5.40); RDW 17.3 % (11.5-14.5)
[2018-11-13 07:16] LABS: WBC 10.5 10x3/uL (4.8-10.8)
--- NOTE | 2018-11-13 07:27 | NUR ---
REPORT RECEIVED. WILL CONTINUE WITH POC. PT TAKEN TO SURGERY @0710. WILL CTM.
--- NOTE | 2018-11-13 08:51 | NUR ---
RINGS X 3 REMOVED IN HOLDING PER LIONEL AND PLACED IN LABELED BAG ON CHART
--- NOTE | 2018-11-13 09:01 | NUR ---
MULTIPLE AREAS OF SKIN BREAK DOWN ON HANDS AND ARMS NOTED AND DRESSED PRIOR TO PROCEEDURE
--- NOTE | 2018-11-13 10:15 | NUR ---
PT RETURN FROM OR. PT IS AAO AND BEDFAST. DRESSING TO BACK IS C/D/I. RR EVEN AND UNLABORED ON 3L 02. VSS AND WNL. WILL MONITOR Q15 MINUTES. WILL CTM.
[2018-11-13 12:11] VITALS: BP 132/77
[2018-11-13 16:48] VITALS: BP 126/64
--- NOTE | 2018-11-13 17:04 | NUR ---
PT CURRENTLY LYING SEMI FOWLERS. CALL LIGHT W/I REACH. DRESSING IS C/D/I TO BACK WITH NO S/S OF PROBLEM. RR EVEN AND UNLABORED ON 3L 02. L.AC IS SALINE LOCKED. VSS AND WNL. PT DENIES ANY NEEDS AT THIS TIME. WILL CTM.
--- NOTE | 2018-11-13 18:21 | NUR ---
I have reviewed this patient and I concur with the Shift Assessment completed by the Licensed Practical Nurse today this shift.
[2018-11-13 20:00] VITALS: BP 106/69
[2018-11-14 00:30] VITALS: BP 113/67
[2018-11-14 04:30] VITALS: BP 110/61
[2018-11-14 06:58] LABS: BASOPHILS 0.9 % (0-2); EOSINOPHILS 5.4 % (0-7); HEMATOCRIT 36.2 % (36.0-48.0); HEMOGLOBIN 10.9 g/dL (12-16); IMMATURE GRANULOCYTES 5.1 % (0-5); LYMPHOCYTES 31.3 % (15-50); MCH 28.8 pg (26.0-34.0); MCHC 30.1 g/dL (31.0-37.0); MCV 95.8 fL (80.0-100.0); MEAN PLATELET VOLUME 9.3 fL (7.4-10.4); MONOCYTES 10.5 % (2-11); NEUTROPHILS 46.8 % (40-80); PLATELET COUNT 412 10x3/uL (130-400); RBC 3.78 10x6/uL (4.00-5.40); RDW 17.2 % (11.5-14.5); WBC 10.3 10x3/uL (4.8-10.8)
[2018-11-14 07:11] LABS: ANION GAP 6.2 mmol/L (8-16); CALCIUM 8.3 mg/dL (8.5-10.1); CARBON DIOXIDE 34.2 mmol/L (21.0-32.0); POTASSIUM - SERUM 4.4 mmol/L (3.5-5.1)
[2018-11-14 07:12] LABS: CREATININE - SERUM 0.9 mg/dL (0.6-1.3)
--- NOTE | 2018-11-14 07:21 | NUR ---
ROUNDING DONE WITH PATIENT SEEN HAVING STERI STRIPS TO RIGHT UPPER BACK, C/D/I. REQUESTING AM MEDS, I TOLD HER THAT I WOULD PASS THEM SHORTLY. ON 2L PER NC WITH HUMIDIFIED WATER. ON HEART MONITOR SHOWING SR, HR 88. RIGHT AC PIV SEEN WITH SALINE LOCK, ORANGE SWAB CAP IN USE. ON EP, K+ IS 4.4.
[2018-11-14 08:17] VITALS: BP 112/64
--- NOTE | 2018-11-14 09:15 | NUR ---
CLEANED UP FROM INCONT. OF URINE. PATIENT STATES THAT THE SENIOR INTERACTION DESIGNER TOLD HER TO "JUST PEE IN THE BED". COMPLETE BED LINEN CHANGE DONE. I ASKED PATIENT TO PLEASE ASK TO USE THE BEDPAN AND NOT JUST BE INCONT. OF URINE.
--- NOTE | 2018-11-14 09:43 | NUR ---
RESTING ON LEFT SIDE WITH HOB AT 30 DEGEES, EYES CLOSED. RESP EVEN. APPEARS PAIN FREE
--- NOTE | 2018-11-14 10:50 | NUR ---
CLEANED UP AGAIN FROM INCONT. OF URINE. PATIENT STATES THAT SHE "DOESN'T KNOW WHEN I NEED TO GO UNTIL IT STARTS COMING". I REMINDED HER TO USE CALL LIGHT FOR BEDPAN.
--- NOTE | 2018-11-14 11:40 | NUR ---
NEW ORDERS FROM ALISA PAYNE APN
--- NOTE | 2018-11-14 12:00 | NUR ---
I CALLED DR GONZALEZ OFFICE ([phone]) FOR THERAPY ORDERS FOR MOVEMENT R/T BRACE, ETC. I SPOKE WITH JEFF AT THE OFFICE. SHE IS TO ASK DR GONZALEZ AND LET US KNOW. AWAITING CALL BACK.
[2018-11-14 12:08] VITALS: BP 118/61
--- NOTE | 2018-11-14 12:09 | MORECARE ---
CASE MANAGEMENT DISCHARGE SUMMARY PATIENT: ELIZABETH BUSTAMANTE UNIT: [id number] ADM DATE: 10/30/18 AGE: 68 : 46 SEX: F ROOM/BED: D.2131 AUTHOR: TABBYDOC PHYSICIAN: REFERRING PHYSICIAN: RAVEN BEE MD DATE OF SERVICE: 11/14/18 Discharge Plan Patient Name: ELIZABETH BUSTAMANTE Facility: [facility]:[place] : 1950 Planned Disposition: Correction Facility Anticipated Discharge Date: 11/15/18 Discharge Date: Expected LOS: 16 Initial Reviewer: [id number] Initial Review Date: 10/31/2018 Generated: 11/14/18 1:09 pm Comments DCP- Discharge Planning Updated by [id number]: Danial Cosme on 11/14/18 11:[address] Patient Name: ELIZABETH BUSTAMANTE Encounter No: [id number] : 1950 Primary Insurance: MEDICARE A & B Anticipated DC Date: 11-15-2018 Planned Disposition: Correction Facility External Planned Provider:[facility], MEDICARE REHAB BED DCP follow-up note: CM FAXED HOSPITAL UPDATE TO [facility] AT [phone]. CM RECEIVED CALL FROM NIKIA OF [facility], , WHO REPORTS THEY WILL ACCEPT PT BACK TO [facility], TODAY THEY DON'T HAVE VAN AVAILABLE UNTIL LATE IN EVENING. CAN AIRLINE SECURITY REPRESENTATIVE TOMORROW AT 0900AM. CM NOTIFIED PT AND HER SON IN ROOM, BOTH IN AGREEMENT WITH DISCHARGE BACK TO [facility], NOTIFIED OF VAN AIRLINE SECURITY REPRESENTATIVE TOMORROW MORNING. CM NOTIFIED BEDSIDE NURSE AND CACHORRO PAYNE WHO WILL ENTER DISCHARGE TODAY. FOR DISCHARGE BACK TO REHAB 11-15-17, FAX DISCHARGE INFORMATION TO [facility] AT [phone]. NURSE REPORT TO BE CALLED TO [facility] AT [phone]. [facility] TO PROVIDE VAN TRANSPORTATION AT 0900 AM, 11-15-18. Danial Cosme, CASE MANAGEMENT DCP- Discharge Planning Updated by [id number]: Danial Cosme on 11/10/18 5:[address] Patient Name: ELIZABETH BUSTAMANTE Encounter No: [id number] : 1950 Primary Insurance: MEDICARE A & B Anticipated DC Date: 11-10-2018 Planned Disposition: Correction Facility External Planned Provider: [facility], MEDICARE REHAB BED DCP follow-up note: CM RECEIVED DISCHARGE ORDERS, SPOKE TO PT IN ROOM WHO WANTS TO RETURN TO [facility], IN AGREEMENT WITH DISCHARGE TODAY, IMPORTANT MESSAGE FROM MEDICARE PROVIDED AND EXPLAINED. CM VERIFIED DISCHARGE MEDICATION LIST, CALLED [facility] AT [phone], SPOKE TO NIKIA WHO INFORMED CM THAT DR. PALM STATED THAT PT CANNOT RETURN TO THE FACILITY UNLESS SHE IS ON HOSPICE AND A "DNR" AND THAT DUE [facility] TO DISTANCE FROM HOSPITAL CARE, PT MAY CONSIDER GOING TO ANOTHER INTERMEDIATE. CM CLAIRIFIED STATEMENT WITH NIKIA. CM NOTIFED PT WHO WAS VERY UPSET AND HAD CM CALL HER SON, MINOR, . MINOR NOTIFIED. PT DOES NOT WANT TO BE DNR AND DOES NOT WANT HOSPICE CARE. PT DOES NOT WANT ANOTHER INTERMEDIATE. AFTER DISCUSSING WITH MINOR, PT AGREES TO HAVE CM SEND REFERRAL TO [facility]. CHOICE LETTER SIGNED. PT ASKED ABOUT HOSPICE CARE AND "DNR". CM ASKED PT IF SHE WANTED TO TALK TO HOSPICE C2 TACTICAL ANALYSIS TECHNICIAN FOR INFORMATION, PT STATES YES, MADELYN FROM [facility] AT [facility] AND CM ASKED HIM TO VISIT WITH PT. MADELYN VISITED WITH PT, AFTER VISIT, PT STILL CM RECEIVED CALL FROM Arnulfo BUSTAMANTE, PT'S SON, , WHO INFORMED CM THAT HE SPOKE TO NIKIA AT [facility] WHO STATED THAT CM LIED ABOUT THE INTERMEDIATE NOT TAKING PT BACK UNLESS SHE IS NO HOSPICE AND "DNR" AND THAT PT CAN RETURN WHEN SHE IS STABLE AND THAT PT IS NOT MEDICALLY STABLE FOR DISCHARGE NOW; ARTIERIAL GASES ARE NOT STABLE, PT IS GETTING TOO MUCH OXYGEN AND BLOOD PRESSURE HAS BEEN TOO LOW. AC REPORTS THAT THE HOSPTIAL SENT PT BACK TOO SOON LAST TIME AND SHE HAD TO GO RIGHT BACK TO THE HOSPITAL SOON SHE GOT THERE. CM ASSURED AC THAT CM DID NOT LIE, HAS NO REASON TO LIE AND WILL DISCUSS THIS WITH INTERMEDIATE AND PT. CM CALLED OFFICE OF DELIVERY LEAD CARE, AND RECEIVED RETURN CALL FROM STACEY OF OFFICE OF [facility]. TARIQ DISCUSSED SITUATION. STACEY STATES THAT THERE IS NOT A LOT THAT THEY CAN DO, IT IS HE SAID, SHE SAID. STACEY STATED THAT CM OR PATIENT MAY CALL THE [facility] IF NEEDED A LIAISON TO POSSIBLY ASSIST WITH THIS SITUATION, , [facility] [phone]. CM NOTIFIED PT WHO DID NOT WANT [facility] SERVICE. CM CALLED NIKIA OF [facility], DISCUSSED ANY COMMENTS SHE MIGHT HAVE MADE TO MR. BUSTAMANTE, NIKIA DID NOT STATE THAT SHE DID NOT STATE THIS TO MR. BUSTAMANTE, BUT DID STATE THAT CM WAS "NOT LYING". NIKIA NOW STATES THAT IF PT DOES NOT WANT HOSPICE / DNR TO RETURN, THEY WILL ACCEPT HER WHEN SHE IS STABLE, WITH OXYGEN NEEDS BELOW 3LITERS AND OFF OF HIGH FLOW NASAL CANNULA; PT ALSO NEEDS STABLE LABS AND BLOOD PRESSURES. CM ASKED FOR AND OBTAINED PHONE NUBMER FOR DR. PALM, SPECIAL INVESTIGATION UNIT INVESTIGATOR OF [facility], . CM NOTIFED DR. BEE. CM SPOKE TO DR. BEE VIA PHONE, HE HAS TALKED TO SPECIAL INVESTIGATION UNIT INVESTIGATOR AND REPORTS HE DOES NOT FEEL [facility] IS A SAFE INTERMEDIATE FOR PT AND DISCUSS ALTERNATIVE PLACEMENT WITH PT. CM SPOKE TO PT WHO REPORTS SHE WANTS TO GO BACK "HOME" TO [facility]. CM PROVIDED PT WITH NURSING HOMES WITHIN [address] OF [place] FROM MEDICARE WEBSITE. PT REPORTS THE INTERMEDIATE HAS $17,000 OF HER MONEY, SHE HAS LIVED THERE THREE YEARS AND WANTS TO RETURN. PT WILL CONSIDER OPTIONS AND LET CM KNOW IF SHE CHANGES HER MIND. PT CONTINES TO WANT TO RETURN TO [facility]. CM WILL FOLLOW UP WITH PT AND [facility] ON TUESDAY. Danial Cosme, CASE MANAGEMENT DCP- Discharge Planning Updated by [id number]: Danial Cosme on 11/09/18 9:[address] Patient Name: ELIZABETH BUSTAMANTE Encounter No: [id number] : 1950 Primary Insurance: MEDICARE A & B Anticipated DC Date: Planned Disposition: Correction Facility External Planned Provider: [facility], MEDICARE REHAB BED DCP follow-up note: CM FAXED HOSPITAL UPDATE TO NIKIA OF [facility] AT [phone]. PT WILL NEED OXYGEN WEANING AND PER FACILITY "BE MORE MEDICALLY STABLE" TO RETURN TO REHAB FACILITY. ALSO WAITING DR. GONZALEZ CONSULT AND RECOMMENDATIONS. FACILITY WILL NOT ACCEPT PT ON MEDICATIONS BROVANA OR PULMICORT THEY ARE TOO EXPENSIVE FOR THE FACILITY TO PROVIDE. THIS WILL NEED TO BE AN EARLY DAY DISCHARGE [facility] [place] [facility]. FOR DISCHARGE BACK TO REHAB, FAX DISCHARGE INFORMATION TO [facility] AT [phone]. NURSE REPORT TO BE CALLED TO [facility] AT [phone]. [facility] TO PROVIDE VAN TRANSPORTATION. CHUY Lopez MANAGEMENT DCP- Discharge Planning Updated by [id number]: Danial Cosme on 11/07/18 7:[address] Patient Name: ELIZABETH BUSTAMANTE Encounter No: [id number] : 1950 Primary Insurance: MEDICARE A & B Anticipated DC Date: Planned Disposition: Correction Facility External Planned Provider:[facility], MEDICARE REHAB BED DCP follow-up note: CM FAXED HOSPITAL UPDATE TO [facility] AT [phone]. PT WILL NEED OXYGEN WEANING AND PER FACILITY "BE MORE MEDICALLY STABLE" TO RETURN TO REHAB FACILITY. FACILITY WILL NOT ACCEPT PT ON MEDICATIONS BROVANA OR PULMICORT THEY ARE TOO EXPENSIVE FOR THE FACILITY TO PROVIDE. THIS WILL NEED TO BE AN EARLY DAY DISCHARGE [facility] [place] [facility]. FOR DISCHARGE BACK TO REHAB, FAX DISCHARGE INFORMATION TO [facility] AT [phone]. NURSE REPORT TO BE CALLED TO [facility] AT [phone]. [facility] TO PROVIDE VAN TRANSPORTATION. CHUY Lopez DCP- Discharge Planning Updated by [id number]: Danial Cosme on 11/03/18 1:[address] Patient Name: ELIZABETH BUSTAMANTE Encounter No: [id number] : 1950 Primary Insurance: MEDICARE A & B Anticipated DC Date: Planned Disposition: Correction Facility External Planned Provider: [facility], MEDICARE REHAB BED DCP follow-up note: CM RECEIVED CALL FROM [facility], ; [place] REPORTS THEY ARE [facility]RS [facility] AND THAT PT WILL NEED TO BE "MORE MEDICALLY STABLE" TO RETURN TO THE FACILITY OR COME BACK DNR WITH HOSPICE CARE. CM SPOKE TO PT IN ROOM, DISCUSSED INFORMATION PROVIDED BY [facility]. PT REPORTS SHE HAS THOUGHT ABOUT HOSPICE IN THE PAST BUT IS NOT INTERESTED. PT STATES SHE WILL BE GOING BACK TO [facility] FOR REHAB WITH GOAL OF GETTING BETTER AND GOING HOME WHEN SHE IS ABLE. CM SPOKE TO DR. LANDA, INFORMED THAT [facility] WILL NOT ACCEPT PT ON BROVANA; DR. LANDA SUGGESTED PULMICORT. CM CALLED [facility], SPOKE TO DAYANA WHO INFORMD CM THAT PULMICORT OR THE GENERIC IS NOT AN OPTION THEY ARE ALSO TOO EXPENSIVE FOR THE FACILITY TO PROVIDE. PT WILL NEED OXYGEN WEANING DOWN FROM 4LITERS AND PER FACILITY "BE MORE MEDICALLY STABLE" TO RETURN TO REHAB FACILITY. FACILITY WILL NOT ACCEPT PT ON MEDICATIONS BROVANA OR PULMICORT THEY ARE TOO EXPENSIVE FOR THE FACILITY TO PROVIDE. THIS WILL NEED TO BE AN EARLY DAY DISCHARGE [facility] IS [facility] [place] [facility]. FOR DISCHARGE BACK TO REHAB, FAX DISCHARGE INFORMATION TO [facility] AT [phone]. NURSE REPORT TO BE CALLED TO [facility] AT [phone]. [facility] TO PROVIDE VAN TRANSPORTATION. Danial Cosme, CASE MANAGEMENT DCP- Discharge Planning Updated by [id number]: Danial Cosme on 11/02/18 3:[address] Patient Name: ELIZABETH BUSTAMANTE Encounter No: [id number] : 1950 Primary Insurance: MEDICARE A & B Anticipated DC Date: Planned Disposition: Correction Facility External Planned Provider: [facility], MEDICARE REHAB BED DCP follow-up note: CM RECEIVED CALL FROM DAYANA OF [facility], , WHO REPORTS CONCERN OF PT'S LOW BLOOD PRESSURES AND REPORTS PT CANNOT COME TO FACILITY ON BROVANA IT IS TOO COSTLY TO PROVIDE. CM ADVISED THAT PT HAS NOT HAD VEST THERAPY IN THREE DAYS AND HAS NO ORDERS FOR IT TO CONTINUE POST DISCHARGE TO REHAB. DAYANA ASKED TARIQ TO DISCUSS THE POSSIBILTY OF PT MOVING TO ANOTHER NURSING FACILITY CLOSER TO HOSPITALS DUE TO MULTIPLE MEDICAL ISSUES AND [facility] BEING OVER AN HOUR AWAY FROM HOSPITAL CARE. CM MET WITH PT IN ROOM, DISCUSSED MOVING TO ANOTHER INTERMEDIATE, PT REFUSED AND WANTS TO RETURN TO [facility]. PT STATES THE DOCTOR TOLD HER THAT SHE WILL HAVE BACK SURGERY NEXT TUESDAY. CM REVIEWED DOCTORS NOTES IN ROOM, INFORMED PT THAT THE DOCTORS NOTES DO NOT REFLECT ANY PLANS FOR SURGERY AT THIS TIME AND THAT THEY WOULD MANAGE HER BACK PAIN SYMPTOMS WITH HEATING PADS AND MEDICATIONS AND WILL HAVE PT FOLLOW UP OUTPATIENT. PT VERY UPSET AND WANTS TO SEE THE DOCTOR. CM ASKED PT IF SHE HAD SEEN THE DOCTOR A FEW MINUTES AGO, PT INITIALLY STATES SHE HAD NOT AND WHEN REMINDED BY THE BEDSIDE NURSE, PT REPORTED SHE HAD SEEN THEM WHISPERING BY THE DOOR. CM PAGED CACHORRO PAYNE TO NOTIFY OF PT'S REQUEST. CM FAXED HOSPITAL UPDATE TO [facility] AT [phone]. [facility] IS CONCERNED OF PT'S LOW BLOOD PRESSURE. [facility] WILL NOT ACCEPT PT ON THE MEDICATION BROVANA, REPORTING IT TO BE TOO EXPENSIVE. THIS WILL NEED TO BE AN EARLY DAY DISCHARGE [facility] IS [facility] [place] [facility]. FOR DISCHARGE BACK TO REHAB, FAX DISCHARGE INFORMATION TO [facility] AT [phone]. NURSE REPORT TO BE CALLED TO [facility] AT [phone]. [facility] TO PROVIDE VAN TRANSPORTATION. Danial Cosme, CASE MANAGEMENT DCP- Discharge Planning Updated by [id number]: Danial Cosme on 11/02/18 8:[address] Patient Name: ELIZABETH BUSTAMANTE Encounter No: [id number] : 1950 Primary Insurance: MEDICARE A & B Anticipated DC Date: Planned Disposition: Correction Facility External Planned Provider:[facility], MEDICARE REHAB BED DCP follow-up note: TARIQ FAXED HOSPITAL UPDATE TO [facility] AT [phone]. PT WILL NEED OXYGEN WEANING DOWN FROM 5 LITERS TO RETURN TO REHAB FACILITY. CLARIFICATION OF NEEDING VEST THERAPY IN REHAB NEEDS TO BE CLARIFIED AND ARRANGEMENTS MADE IF NEEDED. THIS WILL NEED TO BE AN EARLY DAY DISCHARGE [facility] IS [facility] [place] [facility]. FOR DISCHARGE BACK TO REHAB, FAX DISCHARGE INFORMATION TO [facility] AT [phone]. NURSE REPORT TO BE CALLED TO [facility] AT [phone]. [facility] TO PROVIDE VAN TRANSPORTATION. 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 CM FAXED HOSPITAL UPDATE TO [facility] AT [phone]. ORDER FOR PHYSICAL THERAPY EVALUATION OBTAINED. CM TO FAX UPDATE WITH PHYSICAL THERAPY RESULTS TO [facility] AT [phone]. THIS WILL NEED TO BE AN EARLY DAY DISCHARGE [facility] [place] [facility]. FOR DISCHARGE BACK TO REHAB, FAX DISCHARGE INFORMATION TO [facility] AT [phone]. NURSE REPORT TO BE CALLED TO [facility] AT [phone]. [facility] TO PROVIDE VAN TRANSPORTATION. Danial Cosme, CASE MANAGEMENT Appended by Danial Cosme on 11/01/2018 12:36 CDT: CM SPOKE TO NIKIA OF [facility] WHO INFORMED CM THAT PT WILL NEED TO BE WEANED SHE IS STILL ON 5 LITERS OXYGEN. NIKIA ALSO REPORTS THEY DO NOT HAVE VEST THERAPY AT FACILITY AND IF PT REQUIRES IT, THEY WILL NEED ORDERS AND INFORMATION TO OBTAIN THE VEST WELL WILL NEED TRAINING TO ADMINISTER THERAPY AT THE REHAB. CACHORRO PAYNE NOTIFIED. CM SPOKE TO PT IN ROOM WHO REPORTS THAT SHE HAS NOT HAD VEST THERAPY IN THE PAST TWO DAYS. PT WILL NEED OXYGEN WEANING DOWN FROM 5 LITERS TO RETURN TO REHAB FACILITY. CLARIFICATION OF NEEDING VEST THERAPY IN REHAB NEEDS TO BE CLARIFIED AND ARRANGEMENTS MADE IF NEEDED. THIS WILL NEED TO BE AN EARLY DAY DISCHARGE [facility] [place] [facility]. FOR DISCHARGE BACK TO REHAB, FAX DISCHARGE INFORMATION TO [facility] AT [phone]. NURSE REPORT TO BE CALLED TO [facility] AT [phone]. [facility] TO PROVIDE VAN TRANSPORTATION. Danial Cosme, CASE MANAGEMENT DCP- Discharge Planning Updated by [id number]: Danial Cosme on 10/31/18 4:[address] Patient Name: ELIZABETH BUSTAMANTE Admission Status: ER Accout number: [id number] Admission Date: 10-30-2018 : 1950 Admission Diagnosis: Attending: RAVEN BEE Current LOS: 1 Anticipated DC Date: Planned Disposition: Correction Facility Primary Insurance: MEDICARE A & B PLANNED EXTERNAL PROVIDER: [facility], MEDICARE REHAB BED Discharge Planning Comments: CM RECEIVED ORDER FOR INPATIENT REHAB PRESCREENING. CM MET WITH PT IN ROOM TO DISCUSS DISCHARGE PLANNING AND NEEDS. PT REPORTS LIVING AT [facility] FOR THE PAST YEAR BUT HAS BEEN IN REHAB TO LEARN TO WALK AGAIN. PT UTILIZES WHEELCHAIR AND PLANS TO RETURN TO [facility] WHERE SHE IS RECEIVING GOOD CARE AND FEELS SAFE. PT STATES SHE IS ABLE TO RIDE IN INTERMEDIATE VAN FOR AIRLINE SECURITY REPRESENTATIVE. PT DOES NOT WANT TO GO TO INPATIENT REHAB AND WANTS REHAB AT [facility]. PROVIDER LISTING PROVIDED, PT SIGNED CHOICE FOR [facility]. IMPORTANT MESSAGE FROM MEDICARE PROVIDED AND EXPLAINED. CM WILL SEND REHAB REFERRAL TO [facility] SOON POSSIBLE FOR REHAB READMIT. Rv Repair Technician: Danial Cosme DCPIA - Discharge Planning Initial Assessment Updated by [id number]: Danial Cosme on 11/01/18 9:50 am * Is the patient Alert and Oriented? Yes * How many steps to enter\\exit or inside your home? NONE * PCP [facility] * Pharmacy [facility] * Preadmission Environment Correction Facility * Facility Name [facility] * ADLs Partial Dependent * Partial ADLs (Assistance needed) Ambulation Bathing Medication Management Transfers * Equipment Other * Other Equipment ALL MEDICAL EQUIPMENT PROVIDED BY FACILITY * List name and contact numbers for known caregivers / representatives who currently or will assist patient after discharge: MINOR ANN, NAILA, * Verbal permission to speak to the caregivers and representatives has been obtained from the patient. N/A * Community resources currently utilized None * Please name any agencies selected above. NONE * Additional services required to return to the preadmission environment? No * Can the patient safely return to the preadmission environment? Yes * Has this patient been hospitalized within the prior 30 days at any hospital? Yes Coverage Notice Reviewer: [id number] - Danial Cosme Notice Issued Date-Time: 10/31/2018 16:20 Notice Type: Patient Choice Letter Notice Delivered To: Patient Relationship to Patient: Dial Polisher Name: Delivery Method: HAND - Hand Delivered Stephany Days: Prior Verbal Notification: Recipient Understood Notice: Yes Recipient Signature: Yes Med Rec Note Co-signed by Attending: Coverage Notice Comment: HENRY GUZMÁN Reviewer: ALAN Cosme Notice Issued Date-Time: 10/31/2018 16:20 Notice Type: IM Discharge Notice Notice Delivered To: Patient Relationship to Patient: Dial Polisher Name: Delivery Method: HAND - Hand Delivered Stephany Days: Prior Verbal Notification: Recipient Understood Notice: Yes Recipient Signature: Yes Med Rec Note Co-signed by Attending: Coverage Notice Comment: Reviewer: ALAN Cosme Notice Issued Date-Time: 11/10/2018 12:30 Notice Type: IM Discharge Notice Notice Delivered To: Patient Relationship to Patient: Dial Polisher Name: Delivery Method: HAND - Hand Delivered Stephany Days: Prior Verbal Notification: Recipient Understood Notice: Yes Recipient Signature: Yes Med Rec Note Co-signed by Attending: Coverage Notice Comment: Reviewer: ALAN Cosme Notice Issued Date-Time: 11/10/2018 15:10 Notice Type: Patient Choice Letter Notice Delivered To: Patient Relationship to Patient: Dial Polisher Name: Delivery Method: HAND - Hand Delivered Stephany Days: Prior Verbal Notification: Recipient Understood Notice: Yes Recipient Signature: Yes Med Rec Note Co-signed by Attending: Coverage Notice Comment: [facility] Last DP export: 11/10/18 5:18 p Patient Name: ELIZABETH BUSTAMANTE Page [id number] at 1209 All edits/amendments must be made on the electronic document DICTATION DATE: 11/14/181207 FILM RENTAL CLERK: ALYSSIA 11/14/18 1208 RPT#: [id number] DC DATE: STATUS: ADM IN [facility] [address] [place] [address] END OF REPORT
--- NOTE | 2018-11-14 12:17 | MORECARE ---
CASE MANAGEMENT DISCHARGE SUMMARY PATIENT: ELIZABETH BUSTAMANTE UNIT: [id number] ADM DATE: 10/30/18 AGE: 68 : 48 SEX: F ROOM/BED: D.2131 AUTHOR: TABBYDOC PHYSICIAN: REFERRING PHYSICIAN: RAVEN BEE MD DATE OF SERVICE: 11/14/18 Discharge Plan Patient Name: ELIZABETH BUSTAMANTE Facility: [facility]:[place] : 1950 Planned Disposition: Retirement Facility Anticipated Discharge Date: 11/15/18 Discharge Date: Expected LOS: 16 Initial Reviewer: [id number] Initial Review Date: 10/31/2018 Generated: 11/14/18 1:17 pm Comments DCP- Discharge Planning Updated by [id number]: Danial Cosme on 11/14/18 11:[address] Patient Name: ELIZABETH BUSTAMANTE Encounter No: [id number] : 1950 Primary Insurance: MEDICARE A & B Anticipated DC Date: 11-15-2018 Planned Disposition: Retirement Facility External Planned Provider:[facility], MEDICARE REHAB BED DCP follow-up note: CM FAXED HOSPITAL UPDATE TO [facility] AT [phone]. CM RECEIVED CALL FROM NIKIA OF [facility], , WHO REPORTS THEY WILL ACCEPT PT BACK TO [facility], TODAY THEY DON'T HAVE VAN AVAILABLE UNTIL LATE IN EVENING. CAN BRAILLE PROOFREADER TOMORROW AT 0900AM. CM NOTIFIED PT AND HER SON IN ROOM, BOTH IN AGREEMENT WITH DISCHARGE BACK TO [facility], NOTIFIED OF VAN BRAILLE PROOFREADER TOMORROW MORNING. CM NOTIFIED BEDSIDE NURSE AND CACHORRO PAYNE WHO WILL ENTER DISCHARGE TODAY. FOR DISCHARGE BACK TO REHAB 11-15-17, FAX DISCHARGE INFORMATION TO [facility] AT [phone]. NURSE REPORT TO BE CALLED TO [facility] AT [phone]. [facility] TO PROVIDE VAN TRANSPORTATION AT 0900 AM, 11-15-18. Danial Cosme, CASE MANAGEMENT DCP- Discharge Planning Updated by [id number]: Danial Cosme on 11/10/18 5:[address] Patient Name: ELIZABETH BUSTAMANTE Encounter No: [id number] : 1950 Primary Insurance: MEDICARE A & B Anticipated DC Date: 11-10-2018 Planned Disposition: Retirement Facility External Planned Provider: [facility], MEDICARE REHAB BED DCP follow-up note: CM RECEIVED DISCHARGE ORDERS, SPOKE TO PT IN ROOM WHO WANTS TO RETURN TO [facility], IN AGREEMENT WITH DISCHARGE TODAY, IMPORTANT MESSAGE FROM MEDICARE PROVIDED AND EXPLAINED. CM VERIFIED DISCHARGE MEDICATION LIST, CALLED [facility] AT [phone], SPOKE TO NIKIA WHO INFORMED CM THAT DR. PALM STATED THAT PT CANNOT RETURN TO THE FACILITY UNLESS SHE IS ON HOSPICE AND A "DNR" AND THAT DUE [facility] TO DISTANCE FROM HOSPITAL CARE, PT MAY CONSIDER GOING TO ANOTHER SENIOR CARE. CM CLAIRIFIED STATEMENT WITH NIKIA. CM NOTIFED PT WHO WAS VERY UPSET AND HAD CM CALL HER SON, MINOR, . MINOR NOTIFIED. PT DOES NOT WANT TO BE DNR AND DOES NOT WANT HOSPICE CARE. PT DOES NOT WANT ANOTHER SENIOR CARE. AFTER DISCUSSING WITH MINOR, PT AGREES TO HAVE CM SEND REFERRAL TO [facility]. CHOICE LETTER SIGNED. PT ASKED ABOUT HOSPICE CARE AND "DNR". CM ASKED PT IF SHE WANTED TO TALK TO HOSPICE DIAPHRAGM BUILDER FOR INFORMATION, PT STATES YES, MADELYN FROM [facility] AT [facility] AND CM ASKED HIM TO VISIT WITH PT. MADELYN VISITED WITH PT, AFTER VISIT, PT STILL CM RECEIVED CALL FROM Arnulfo BUSTAMANTE, PT'S SON, , WHO INFORMED CM THAT HE SPOKE TO NIKIA AT [facility] WHO STATED THAT CM LIED ABOUT THE SENIOR CARE NOT TAKING PT BACK UNLESS SHE IS NO HOSPICE AND "DNR" AND THAT PT CAN RETURN WHEN SHE IS STABLE AND THAT PT IS NOT MEDICALLY STABLE FOR DISCHARGE NOW; ARTIERIAL GASES ARE NOT STABLE, PT IS GETTING TOO MUCH OXYGEN AND BLOOD PRESSURE HAS BEEN TOO LOW. AC REPORTS THAT THE HOSPTIAL SENT PT BACK TOO SOON LAST TIME AND SHE HAD TO GO RIGHT BACK TO THE HOSPITAL SOON SHE GOT THERE. CM ASSURED AC THAT CM DID NOT LIE, HAS NO REASON TO LIE AND WILL DISCUSS THIS WITH SENIOR CARE AND PT. CM CALLED OFFICE OF NURSE LDR CARE, AND RECEIVED RETURN CALL FROM STACEY OF OFFICE OF PRISON CARE. TARIQ DISCUSSED SITUATION. STACEY STATES THAT THERE IS NOT A LOT THAT THEY CAN DO, IT IS HE SAID, SHE SAID. STACEY STATED THAT CM OR PATIENT MAY CALL THE OM[facility]MAN IF NEEDED A LIAISON TO POSSIBLY ASSIST WITH THIS SITUATION, , [employer] [phone]. CM NOTIFIED PT WHO DID NOT WANT OM[facility]DSMAN SERVICE. CM CALLED NIKIA OF [facility], DISCUSSED ANY COMMENTS SHE MIGHT HAVE MADE TO MR. BUSTAMANTE, NIKIA DID NOT STATE THAT SHE DID NOT STATE THIS TO MR. BUSTAMANTE, BUT DID STATE THAT CM WAS "NOT LYING". NIKIA NOW STATES THAT IF PT DOES NOT WANT HOSPICE / DNR TO RETURN, THEY WILL ACCEPT HER WHEN SHE IS STABLE, WITH OXYGEN NEEDS BELOW 3LITERS AND OFF OF HIGH FLOW NASAL CANNULA; PT ALSO NEEDS STABLE LABS AND BLOOD PRESSURES. CM ASKED FOR AND OBTAINED PHONE NUBMER FOR DR. PALM, [facility] OF [facility], . CM NOTIFED DR. BEE. CM SPOKE TO DR. BEE VIA PHONE, HE HAS TALKED TO BRIDGE GANG WORKER AND REPORTS HE DOES NOT FEEL [facility] IS A SAFE SENIOR CARE FOR PT AND DISCUSS ALTERNATIVE PLACEMENT WITH PT. CM SPOKE TO PT WHO REPORTS SHE WANTS TO GO BACK "HOME" TO [facility]. CM PROVIDED PT WITH NURSING HOMES WITHIN [address] OF [place] FROM MEDICARE WEBSITE. PT REPORTS THE SENIOR CARE HAS $17,000 OF HER MONEY, SHE HAS LIVED THERE THREE YEARS AND WANTS TO RETURN. PT WILL CONSIDER OPTIONS AND LET CM KNOW IF SHE CHANGES HER MIND. PT CONTINES TO WANT TO RETURN TO [facility]. CM WILL FOLLOW UP WITH PT AND [facility] ON TUESDAY. Danial Cosme, CASE MANAGEMENT DCP- Discharge Planning Updated by [id number]: Danial Cosme on 11/09/18 9:[address] Patient Name: ELIZABETH BUSTAMANTE Encounter No: [id number] : 1950 Primary Insurance: MEDICARE A & B Anticipated DC Date: Planned Disposition: Retirement Facility External Planned Provider: [facility], MEDICARE REHAB BED DCP follow-up note: CM FAXED HOSPITAL UPDATE TO NIKIA OF [facility] AT [phone]. PT WILL NEED OXYGEN WEANING AND PER FACILITY "BE MORE MEDICALLY STABLE" TO RETURN TO REHAB FACILITY. ALSO WAITING DR. GONZALEZ CONSULT AND RECOMMENDATIONS. FACILITY WILL NOT ACCEPT PT ON MEDICATIONS BROVANA OR PULMICORT THEY ARE TOO EXPENSIVE FOR THE FACILITY TO PROVIDE. THIS WILL NEED TO BE AN EARLY DAY DISCHARGE [facility] IS [facility]. FOR DISCHARGE BACK TO REHAB, FAX DISCHARGE INFORMATION TO [facility] AT [phone]. NURSE REPORT TO BE CALLED TO [facility] AT [phone]. [facility] TO PROVIDE VAN TRANSPORTATION. CHUY Lopez MANAGEMENT DCP- Discharge Planning Updated by [id number]: Danial Cosme on 11/07/18 7:[address] Patient Name: ELIZABETH BUSTAMANTE Encounter No: [id number] : 1950 Primary Insurance: MEDICARE A & B Anticipated DC Date: Planned Disposition: Retirement Facility External Planned Provider:[facility], MEDICARE REHAB BED DCP follow-up note: CM FAXED HOSPITAL UPDATE TO [facility] AT [phone]. PT WILL NEED OXYGEN WEANING AND PER FACILITY "BE MORE MEDICALLY STABLE" TO RETURN TO REHAB FACILITY. FACILITY WILL NOT ACCEPT PT ON MEDICATIONS BROVANA OR PULMICORT THEY ARE TOO EXPENSIVE FOR THE FACILITY TO PROVIDE. THIS WILL NEED TO BE AN EARLY DAY DISCHARGE [facility] IS [facility]. FOR DISCHARGE BACK TO REHAB, FAX DISCHARGE INFORMATION TO [facility] AT [phone]. NURSE REPORT TO BE CALLED TO [facility] AT [phone]. [facility] TO PROVIDE VAN TRANSPORTATION. CHUY Lopez DCP- Discharge Planning Updated by [id number]: Danial Cosme on 11/03/18 1:[address] Patient Name: ELIZABETH BUSTAMANTE Encounter No: [id number] : 1950 Primary Insurance: MEDICARE A & B Anticipated DC Date: Planned Disposition: Retirement Facility External Planned Provider: [facility], MEDICARE REHAB BED DCP follow-up note: CM RECEIVED CALL FROM [facility], ; [place]NE REPORTS THEY ARE [facility] AND THAT PT WILL NEED TO BE "MORE MEDICALLY STABLE" TO RETURN TO THE FACILITY OR COME BACK DNR WITH HOSPICE CARE. CM SPOKE TO PT IN ROOM, DISCUSSED INFORMATION PROVIDED BY [facility] [place]. PT REPORTS SHE HAS THOUGHT ABOUT HOSPICE IN THE PAST BUT IS NOT INTERESTED. PT STATES SHE WILL BE GOING BACK TO [facility] FOR REHAB WITH GOAL OF GETTING BETTER AND GOING HOME WHEN SHE IS ABLE. CM SPOKE TO DR. LANDA, INFORMED THAT [facility] WILL NOT ACCEPT PT ON BROVANA; DR. LANDA SUGGESTED PULMICORT. CM CALLED [facility], SPOKE TO DAYANA WHO INFORMD CM THAT PULMICORT OR THE GENERIC IS NOT AN OPTION THEY ARE ALSO TOO EXPENSIVE FOR THE FACILITY TO PROVIDE. PT WILL NEED OXYGEN WEANING DOWN FROM 4LITERS AND PER FACILITY "BE MORE MEDICALLY STABLE" TO RETURN TO REHAB FACILITY. FACILITY WILL NOT ACCEPT PT ON MEDICATIONS BROVANA OR PULMICORT THEY ARE TOO EXPENSIVE FOR THE FACILITY TO PROVIDE. THIS WILL NEED TO BE AN EARLY DAY DISCHARGE [facility] IS [facility]. FOR DISCHARGE BACK TO REHAB, FAX DISCHARGE INFORMATION TO [facility] AT [phone]. NURSE REPORT TO BE CALLED TO [facility] AT [phone]. [facility] TO PROVIDE VAN TRANSPORTATION. Danial Cosme, CASE MANAGEMENT DCP- Discharge Planning Updated by [id number]: Danial Cosme on 11/02/18 3:[address] Patient Name: ELIZABETH BUSTAMANTE Encounter No: [id number] : 1950 Primary Insurance: MEDICARE A & B Anticipated DC Date: Planned Disposition: Retirement Facility External Planned Provider: [facility], MEDICARE REHAB BED DCP follow-up note: CM RECEIVED CALL FROM DAYANA OF [facility], , WHO REPORTS CONCERN OF PT'S LOW BLOOD PRESSURES AND REPORTS PT CANNOT COME TO FACILITY ON BROVANA IT IS TOO COSTLY TO PROVIDE. CM ADVISED THAT PT HAS NOT HAD VEST THERAPY IN THREE DAYS AND HAS NO ORDERS FOR IT TO CONTINUE POST DISCHARGE TO REHAB. DAYANA ASKED TARIQ TO DISCUSS THE POSSIBILTY OF PT MOVING TO ANOTHER NURSING FACILITY CLOSER TO HOSPITALS DUE TO MULTIPLE MEDICAL ISSUES AND [facility] BEING OVER AN HOUR AWAY FROM HOSPITAL CARE. CM MET WITH PT IN ROOM, DISCUSSED MOVING TO ANOTHER SENIOR CARE, PT REFUSED AND WANTS TO RETURN TO [facility]. PT STATES THE DOCTOR TOLD HER THAT SHE WILL HAVE BACK SURGERY NEXT TUESDAY. CM REVIEWED DOCTORS NOTES IN ROOM, INFORMED PT THAT THE DOCTORS NOTES DO NOT REFLECT ANY PLANS FOR SURGERY AT THIS TIME AND THAT THEY WOULD MANAGE HER BACK PAIN SYMPTOMS WITH HEATING PADS AND MEDICATIONS AND WILL HAVE PT FOLLOW UP OUTPATIENT. PT VERY UPSET AND WANTS TO SEE THE DOCTOR. CM ASKED PT IF SHE HAD SEEN THE DOCTOR A FEW MINUTES AGO, PT INITIALLY STATES SHE HAD NOT AND WHEN REMINDED BY THE BEDSIDE NURSE, PT REPORTED SHE HAD SEEN THEM WHISPERING BY THE DOOR. CM PAGED CACHORRO PAYNE TO NOTIFY OF PT'S REQUEST. CM FAXED HOSPITAL UPDATE TO [facility] AT [phone]. [facility] IS CONCERNED OF PT'S LOW BLOOD PRESSURE. [facility] WILL NOT ACCEPT PT ON THE MEDICATION BROVANA, REPORTING IT TO BE TOO EXPENSIVE. THIS WILL NEED TO BE AN EARLY DAY DISCHARGE [facility] IS [facility]. FOR DISCHARGE BACK TO REHAB, FAX DISCHARGE INFORMATION TO [facility] AT [phone]. NURSE REPORT TO BE CALLED TO [facility] AT [phone]. [facility] TO PROVIDE VAN TRANSPORTATION. Danial Cosme, CASE MANAGEMENT DCP- Discharge Planning Updated by [id number]: Danial Cosme on 11/02/18 8:[address] Patient Name: ELIZABETH BUSTAMANTE Encounter No: [id number] : 1950 Primary Insurance: MEDICARE A & B Anticipated DC Date: Planned Disposition: Retirement Facility External Planned Provider:[facility], MEDICARE REHAB BED DCP follow-up note: TARIQ FAXED HOSPITAL UPDATE TO [facility] AT [phone]. PT WILL NEED OXYGEN WEANING DOWN FROM 5 LITERS TO RETURN TO REHAB FACILITY. CLARIFICATION OF NEEDING VEST THERAPY IN REHAB NEEDS TO BE CLARIFIED AND ARRANGEMENTS MADE IF NEEDED. THIS WILL NEED TO BE AN EARLY DAY DISCHARGE [facility] IS [facility]. FOR DISCHARGE BACK TO REHAB, FAX DISCHARGE INFORMATION TO [facility] AT [phone]. NURSE REPORT TO BE CALLED TO [facility] AT [phone]. [facility] TO PROVIDE VAN TRANSPORTATION. 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 CM FAXED HOSPITAL UPDATE TO [facility] AT [phone]. ORDER FOR PHYSICAL THERAPY EVALUATION OBTAINED. CM TO FAX UPDATE WITH PHYSICAL THERAPY RESULTS TO [facility] AT [phone]. THIS WILL NEED TO BE AN EARLY DAY DISCHARGE [facility] IS [facility]. FOR DISCHARGE BACK TO REHAB, FAX DISCHARGE INFORMATION TO [facility] AT [phone]. NURSE REPORT TO BE CALLED TO [facility] AT [phone]. [facility] TO PROVIDE VAN TRANSPORTATION. Danial Cosme, CASE MANAGEMENT Appended by Danial Cosme on 11/01/2018 12:36 CDT: CM SPOKE TO NIKIA OF [facility] WHO INFORMED CM THAT PT WILL NEED TO BE WEANED SHE IS STILL ON 5 LITERS OXYGEN. NIKIA ALSO REPORTS THEY DO NOT HAVE VEST THERAPY AT FACILITY AND IF PT REQUIRES IT, THEY WILL NEED ORDERS AND INFORMATION TO OBTAIN THE VEST WELL WILL NEED TRAINING TO ADMINISTER THERAPY AT THE REHAB. CACHORRO PAYNE NOTIFIED. CM SPOKE TO PT IN ROOM WHO REPORTS THAT SHE HAS NOT HAD VEST THERAPY IN THE PAST TWO DAYS. PT WILL NEED OXYGEN WEANING DOWN FROM 5 LITERS TO RETURN TO REHAB FACILITY. CLARIFICATION OF NEEDING VEST THERAPY IN REHAB NEEDS TO BE CLARIFIED AND ARRANGEMENTS MADE IF NEEDED. THIS WILL NEED TO BE AN EARLY DAY DISCHARGE [facility] IS [facility]. FOR DISCHARGE BACK TO REHAB, FAX DISCHARGE INFORMATION TO [facility] AT [phone]. NURSE REPORT TO BE CALLED TO [facility] AT [phone]. [facility] TO PROVIDE VAN TRANSPORTATION. Danial Cosme, CASE MANAGEMENT DCP- Discharge Planning Updated by [id number]: Danial Cosme on 10/31/18 4:[address] Patient Name: ELIZABETH BUSTAMANTE Admission Status: ER Accout number: [id number] Admission Date: 10-30-2018 : 1950 Admission Diagnosis: Attending: RAVEN BEE Current LOS: 1 Anticipated DC Date: Planned Disposition: Retirement Facility Primary Insurance: MEDICARE A & B PLANNED EXTERNAL PROVIDER: [facility], MEDICARE REHAB BED Discharge Planning Comments: CM RECEIVED ORDER FOR INPATIENT REHAB PRESCREENING. CM MET WITH PT IN ROOM TO DISCUSS DISCHARGE PLANNING AND NEEDS. PT REPORTS LIVING AT [facility] FOR THE PAST YEAR BUT HAS BEEN IN REHAB TO LEARN TO WALK AGAIN. PT UTILIZES WHEELCHAIR AND PLANS TO RETURN TO [facility] WHERE SHE IS RECEIVING GOOD CARE AND FEELS SAFE. PT STATES SHE IS ABLE TO RIDE IN SENIOR CARE VAN FOR BRAILLE PROOFREADER. PT DOES NOT WANT TO GO TO INPATIENT REHAB AND WANTS REHAB AT [facility]. PROVIDER LISTING PROVIDED, PT SIGNED CHOICE FOR [facility]. IMPORTANT MESSAGE FROM MEDICARE PROVIDED AND EXPLAINED. CM WILL SEND REHAB REFERRAL TO [facility] SOON POSSIBLE FOR REHAB READMIT. Professional Bondsman: Danial Cosme DCPIA - Discharge Planning Initial Assessment Updated by [id number]: Danial Cosme on 11/01/18 9:50 am * Is the patient Alert and Oriented? Yes * How many steps to enter\\exit or inside your home? NONE * PCP [facility] [place] * Pharmacy [facility] * Preadmission Environment Retirement Facility * Facility Name [facility] * ADLs Partial Dependent * Partial ADLs (Assistance needed) Ambulation Bathing Medication Management Transfers * Equipment Other * Other Equipment ALL MEDICAL EQUIPMENT PROVIDED BY FACILITY * List name and contact numbers for known caregivers / representatives who currently or will assist patient after discharge: MINOR ANN, NAILA, * Verbal permission to speak to the caregivers and representatives has been obtained from the patient. N/A * Community resources currently utilized None * Please name any agencies selected above. NONE * Additional services required to return to the preadmission environment? No * Can the patient safely return to the preadmission environment? Yes * Has this patient been hospitalized within the prior 30 days at any hospital? Yes Coverage Notice Reviewer: [id number] - Danial Cosme Notice Issued Date-Time: 11/10/2018 15:10 Notice Type: Patient Choice Letter Notice Delivered To: Patient Relationship to Patient: Gravity Prospecting Operator Name: Delivery Method: HAND - Hand Delivered Stephany Days: Prior Verbal Notification: Recipient Understood Notice: Yes Recipient Signature: Yes Med Rec Note Co-signed by Attending: Coverage Notice Comment: [facility] Reviewer: ALAN Cosme Notice Issued Date-Time: 10/31/2018 16:20 Notice Type: Patient Choice Letter Notice Delivered To: Patient Relationship to Patient: [employer]ity Prospecting Operator Name: Delivery Method: HAND - Hand Delivered Stephany Days: Prior Verbal Notification: Recipient Understood Notice: Yes Recipient Signature: Yes Med Rec Note Co-signed by Attending: Coverage Notice Comment: [facility] [place] Reviewer: ALAN Cosme Notice Issued Date-Time: 11/14/2018 11:55 Notice Type: IM Discharge Notice Notice Delivered To: Patient Relationship to Patient: [employer]ity Prospecting Operator Name: Delivery Method: HAND - Hand Delivered Stephany Days: Prior Verbal Notification: Recipient Understood Notice: Yes Recipient Signature: Yes Med Rec Note Co-signed by Attending: Coverage Notice Comment: Reviewer: ALAN Cosme Notice Issued Date-Time: 11/10/2018 12:30 Notice Type: IM Discharge Notice Notice Delivered To: Patient Relationship to Patient: Gravity Prospecting Operator Name: Delivery Method: HAND - Hand Delivered Stephany Days: Prior Verbal Notification: Recipient Understood Notice: Yes Recipient Signature: Yes Med Rec Note Co-signed by Attending: Coverage Notice Comment: Reviewer: ALAN Cosme Notice Issued Date-Time: 10/31/2018 16:20 Notice Type: IM Discharge Notice Notice Delivered To: Patient Relationship to Patient: Gravity Prospecting Operator Name: Delivery Method: HAND - Hand Delivered Stephany Days: Prior Verbal Notification: Recipient Understood Notice: Yes Recipient Signature: Yes Med Rec Note Co-signed by Attending: Coverage Notice Comment: Last DP export: 11/14/18 11:09 am Patient Name: ELIZABETH BUSTAMANTE Page [id number] at 1217 All edits/amendments must be made on the electronic document DICTATION DATE: 11/14/181216 REFRIGERATION ENGINEER: ALYSSIA 11/14/181216 RPT#: [id number] DC DATE: STATUS: ADM IN [facility] [address] [place] [address] END OF REPORT
--- NOTE | 2018-11-14 12:52 | NUR ---
CLEANED UP AGAIN FROM INCONT. OF URINE. COMPLETE LINEN CHANGE. I ASKED THE PATIENT WAY SHE DID NOT ASK FOR A BEDPAN AND SHE REPLIED, "WELL MY SON AND ESPERANZA WAS IN HERE AND I COULDN'T HOLD IT". I INFOMRED HER THAT SHE COULD OF ASKED THEM TO STEP OUT AND THEY WOULD OF UNDERSTOOD. LEFT HIP AND LEFT ELBOW ARE RED. ENCOURAGED HER TO STAY OFF HER LEFT SIDE. LIBBY ELLISON IN ROOM WITH ME AT THIS TIME.
--- NOTE | 2018-11-14 13:50 | NUR ---
PATIENT TO AMBULATE WITH THERAPY, LEAKED URINE TO FLOOR. CLEANED UP FLOOR AND PLACED NEW LINENS TO BED. PATIENT WANTS TO SIT ON SIDE OF BED. INSTRUCTED TO USE CALL LIGHT FOR NEEDS BACK TO BED. CALL LIGHT IN USE.
--- NOTE | 2018-11-14 14:29 | NUR ---
PATIENT TO REFUSE HER COLACE AT THIS TIME. THIS IS RELAYED TO ALISA PAYNE APN AND DR SEGURA. ORDER CHANGED TO PRN.
--- NOTE | 2018-11-14 14:34 | NUR ---
Nutrition Follow up: Cardiac diet with 74% average po intake Last BM 11/12 Weight 130lb Pt plans to d/c in the morning to [place] following
--- NOTE | 2018-11-14 14:48 | NUR ---
PATIENT TO CONTINUE TO SIT ON SIDE OF BED LEANING ON LEFT SIDE PROPPED ON ELBOW. INSTRUCTED TO PLEASE GET OFF LEFT HIP AND ELBOW, REMINDED HER THAT THEY WERE VERY RED THIS AM.
--- NOTE | 2018-11-14 15:01 | NUR ---
PATIENT TO PUT HERSELF BACK TO BED.
--- NOTE | 2018-11-14 15:27 | NUR ---
PATIENT TO CONTINUE TO LAY ON LEFT SIDE EVEN THOUGH I HAVE ASKED NUMEROUS TIMES TO GET OFF IT. SHE STATES THAT IT IS DUE TO THE SHEETS. I TOLD HER THAT IF IT WAS THE SHEETS IT WOULD BE DOWN HER ENTIRE SIDE.
[2018-11-14 15:58] VITALS: BP 126/68
--- NOTE | 2018-11-14 16:54 | MORECARE ---
CASE MANAGEMENT DISCHARGE SUMMARY PATIENT: ELIZABETH BUSTAMANTE UNIT: [id number] ADM DATE: 10/30/18 AGE: 68 : 48 SEX: F ROOM/BED: D.2131 AUTHOR: TABBYDOC PHYSICIAN: REFERRING PHYSICIAN: RAVEN BEE MD DATE OF SERVICE: 11/14/18 Discharge Plan Patient Name: ELIZABETH BUSTAMANTE Facility: [facility]:[place] : 1950 Planned Disposition: Custodial Facility Anticipated Discharge Date: 11/15/18 Discharge Date: Expected LOS: 16 Initial Reviewer: [id number] Initial Review Date: 10/31/2018 Generated: 11/14/18 5:54 pm Comments DCP- Discharge Planning Updated by [id number]: Danial Cosme on 11/14/18 3:[address] Patient Name: ELIZABETH BUSTAMANTE Encounter No: [id number] : 1950 Primary Insurance: MEDICARE A & B Anticipated DC Date: 11-15-2018 Planned Disposition: Custodial Facility External Planned Provider:[facility], MEDICARE REHAB BED DCP follow-up note: CM FAXED HOSPITAL UPDATE TO [facility] AT [phone]. CM RECEIVED CALL FROM NIKIA OF [facility], , WHO REPORTS THEY WILL ACCEPT PT BACK TO [facility], TODAY THEY DON'T HAVE VAN AVAILABLE UNTIL LATE IN EVENING. CAN PEDIATRIC PHYSICAL THERAPY ASSISTANT TOMORROW AT 0900AM. CM NOTIFIED PT AND HER SON IN ROOM, BOTH IN AGREEMENT WITH DISCHARGE BACK TO [facility], NOTIFIED OF VAN PEDIATRIC PHYSICAL THERAPY ASSISTANT TOMORROW MORNING. CM NOTIFIED BEDSIDE NURSE AND CACHORRO PAYNE WHO WILL ENTER DISCHARGE TODAY. FOR DISCHARGE BACK TO REHAB 11-15-17, FAX DISCHARGE INFORMATION TO [facility] AT [phone]. NURSE REPORT TO BE CALLED TO [facility] AT [phone]. [facility] TO PROVIDE VAN TRANSPORTATION AT 0900 AM, 11-15-18. Danial Cosme, CASE MANAGEMENT Appended by Danial Cosme on 11/14/2018 16:51 CDT: TARIQ FAXED DISCHARGE INFORMATION TO [facility] AT [phone]. FOR DISCHARGE BACK TO REHAB 11-15-17, NURSE REPORT TO BE CALLED TO [facility] AT [phone]. [facility] TO PROVIDE VAN TRANSPORTATION AT 0900 AM, 11-15-18. Danial Cosme, CASE MANAGEMENT DCP- Discharge Planning Updated by [id number]: Danial Cosme on 11/10/18 5:[address] Patient Name: ELIZABETH BUSTAMANTE Encounter No: [id number] : 1950 Primary Insurance: MEDICARE A & B Anticipated DC Date: 11-10-2018 Planned Disposition: Custodial Facility External [facility] DCP follow-up note: CM RECEIVED DISCHARGE ORDERS, SPOKE TO PT IN ROOM WHO WANTS TO RETURN TO [facility], IN AGREEMENT WITH DISCHARGE TODAY, IMPORTANT MESSAGE FROM MEDICARE PROVIDED AND EXPLAINED. CM VERIFIED DISCHARGE MEDICATION LIST, CALLED [facility] AT [phone], SPOKE TO NKIIA WHO INFORMED CM THAT DR. PALM STATED THAT PT CANNOT RETURN TO THE FACILITY UNLESS SHE IS ON HOSPICE AND A "DNR" AND THAT DUE [facility] TO DISTANCE FROM HOSPITAL CARE, PT MAY CONSIDER GOING TO ANOTHER [facility]. CM CLAIRIFIED STATEMENT WITH NIKIA. NOTIFED PT WHO WAS VERY UPSET AND HAD CM CALL HER SON, MINOR, . MINOR NOTIFIED. PT DOES NOT WANT TO BE DNR AND DOES NOT WANT HOSPICE CARE. PT DOES NOT WANT ANOTHER [facility]. AFTER DISCUSSING WITH MINOR, PT AGREES TO HAVE CM SEND REFERRAL TO [facility]. CHOICE LETTER SIGNED. PT ASKED ABOUT HOSPICE CARE AND "DNR". CM ASKED PT IF SHE WANTED TO TALK TO HOSPICE APRICOT WASHER FOR INFORMATION, PT STATES YES, MADELYN FROM [facility] AND CM ASKED HIM TO VISIT WITH PT. MADELYN VISITED WITH PT, AFTER VISIT, PT STILL CM RECEIVED CALL FROM Arnulfo BUSTAMANTE, PT'S SON, , WHO INFORMED CM THAT HE SPOKE TO NIKIA AT [facility] WHO STATED THAT CM LIED ABOUT THE [facility] NOT TAKING PT BACK UNLESS SHE IS NO HOSPICE AND "DNR" AND THAT PT CAN RETURN WHEN SHE IS STABLE AND THAT PT IS NOT MEDICALLY STABLE FOR DISCHARGE NOW; ARTIERIAL GASES ARE NOT STABLE, PT IS GETTING TOO MUCH OXYGEN AND BLOOD PRESSURE HAS BEEN TOO LOW. AC REPORTS THAT THE HOSPTIAL SENT PT BACK TOO SOON LAST TIME AND SHE HAD TO GO RIGHT BACK TO THE HOSPITAL SOON SHE GOT THERE. CM ASSURED THAT CM DID NOT LIE, HAS NO REASON TO LIE AND WILL DISCUSS THIS WITH [facility] AND PT. CM CALLED [facility], AND RECEIVED RETURN CALL FROM STACEY OF [facility]. TARIQ DISCUSSED SITUATION. STACEY STATES THAT THERE IS NOT A LOT THAT THEY CAN DO, IT IS HE SAID, SHE SAID. STACEY STATED THAT CM OR PATIENT MAY CALL [facility] IF NEEDED A LIAISON TO POSSIBLY ASSIST WITH THIS SITUATION, , [facility] [phone]. CM NOTIFIED PT WHO DID NOT WANT [facility]. CM CALLED NIKIA OF [facility], DISCUSSED ANY COMMENTS SHE MIGHT HAVE MADE TO MR. BUSTAMANTE, NIKIA DID NOT STATE THAT SHE DID NOT STATE THIS TO MR. BUSTAMANTE, BUT DID STATE THAT CM WAS "NOT LYING". NIKIA NOW STATES THAT IF PT DOES NOT WANT HOSPICE / DNR TO RETURN, THEY WILL ACCEPT HER WHEN SHE IS STABLE, WITH OXYGEN NEEDS BELOW 3LITERS AND OFF OF HIGH FLOW NASAL CANNULA; PT ALSO NEEDS STABLE LABS AND BLOOD PRESSURES. CM ASKED FOR AND OBTAINED PHONE NUBMER FOR DR. PALM, [facility] OF [facility], . CM NOTIFED DR. BEE. CM SPOKE TO DR. BEE VIA PHONE, HE HAS TALKED TO [facility] AND REPORTS HE DOES NOT FEEL [facility] IS A SAFE [facility] FOR PT AND DISCUSS ALTERNATIVE PLACEMENT WITH PT. CM SPOKE TO PT WHO REPORTS SHE WANTS TO GO BACK "HOME" TO [facility]. CM PROVIDED PT WITH NURSING HOMES WITHIN [address] [place] FROM [facility] WE[facility]. PT REPORTS THE JAIL HAS $17,000 OF HER MONEY, SHE HAS LIVED THERE THREE YEARS AND WANTS TO RETURN. PT WILL CONSIDER OPTIONS AND LET CM KNOW IF SHE CHANGES HER MIND. PT CONTINES TO WANT TO RETURN TO [facility]. CM WILL FOLLOW UP WITH PT AND [facility] ON TUESDAY. Danial Cosme, CASE MANAGEMENT DCP- Discharge Planning Updated by [id number]: Danial Cosme on 11/09/18 9:[address] Patient Name: ELIZABETH BUSTAMANTE Encounter No: [id number] : 1950 Primary Insurance: MEDICARE A & B Anticipated DC Date: Planned Disposition: Custodial Facility External Planned Provider: [facility], MEDICARE REHAB BED DCP follow-up note: FAXED HOSPITAL UPDATE TO [facility] AT [phone]. PT WILL NEED OXYGEN WEANING AND PER FACILITY "BE MORE MEDICALLY STABLE" TO RETURN TO REHAB FACILITY. ALSO WAITING DR. GONZALEZ CONSULT AND RECOMMENDATIONS. FACILITY WILL NOT ACCEPT PT ON MEDICATIONS BROVANA OR PULMICORT THEY ARE TOO EXPENSIVE FOR THE FACILITY TO PROVIDE. THIS WILL NEED TO BE AN EARLY DAY DISCHARGE [facility]. FOR DISCHARGE BACK TO REHAB, FAX DISCHARGE INFORMATION TO [facility] AT [phone]. NURSE REPORT TO BE CALLED TO [facility] AT [phone]. [facility] TO PROVIDE VAN TRANSPORTATION. CHUY Lopez MANAGEMENT DCP- Discharge Planning Updated by [id number]: Danial Cosme on 11/07/18 7:[address] Patient Name: ELIZABETH BUSTAMANTE Encounter No: [id number] : 1950 Primary Insurance: MEDICARE A & B Anticipated DC Date: Planned Disposition: Custodial Facility External Planned Provider:[facility], MEDICARE REHAB BED DCP follow-up note: FAXED HOSPITAL UPDATE TO [facility] AT [phone]. PT WILL NEED OXYGEN WEANING AND PER FACILITY "BE MORE MEDICALLY STABLE" TO RETURN TO REHAB FACILITY. FACILITY WILL NOT ACCEPT PT ON MEDICATIONS BROVANA OR PULMICORT THEY ARE TOO EXPENSIVE FOR THE FACILITY TO PROVIDE. THIS WILL NEED TO BE AN EARLY DAY DISCHARGE [facility] IS [facility]. FOR DISCHARGE BACK TO REHAB, FAX DISCHARGE INFORMATION TO [facility] AT [phone]. NURSE REPORT TO BE CALLED TO [facility] AT [phone]. [facility] TO PROVIDE VAN TRANSPORTATION. Danial Cosme CASE MANAGEMENT DCP- Discharge Planning Updated by [id number]: Danial Cosme on 11/03/18 1:[address] Patient Name: ELIZABETH BUSTAMANTE Encounter No: [id number] : 1950 Primary Insurance: MEDICARE A & B Anticipated DC Date: Planned Disposition: Custodial Facility External Planned Provider: [facility], MEDICARE REHAB BED DCP follow-up note: CM RECEIVED CALL FROM DEWAYNE OF [facility], ; DEWAYNE REPORTS THEY ARE [facility] HOURS [facility] AND THAT PT WILL NEED TO BE "MORE MEDICALLY STABLE" TO RETURN TO THE FACILITY OR COME BACK DNR WITH HOSPICE CARE. CM SPOKE TO PT IN ROOM, DISCUSSED INFORMATION PROVIDED BY [facility]. PT REPORTS SHE HAS THOUGHT ABOUT HOSPICE IN THE PAST BUT IS NOT INTERESTED. PT STATES SHE WILL BE GOING BACK TO [facility] FOR REHAB WITH GOAL OF GETTING BETTER AND GOING HOME WHEN SHE IS ABLE. CM SPOKE TO DR. LANDA, INFORMED THAT [facility] WILL NOT ACCEPT PT ON BROVANA; DR. LANDA SUGGESTED PULMICORT. CM CALLED [facility], SPOKE TO DAYANA WHO INFORMD CM THAT PULMICORT OR THE GENERIC IS NOT AN OPTION THEY ARE ALSO TOO EXPENSIVE FOR THE FACILITY TO PROVIDE. PT WILL NEED OXYGEN WEANING DOWN FROM 4LITERS AND PER FACILITY "BE MORE MEDICALLY STABLE" TO RETURN TO REHAB FACILITY. FACILITY WILL NOT ACCEPT PT ON MEDICATIONS BROVANA OR PULMICORT THEY ARE TOO EXPENSIVE FOR THE FACILITY TO PROVIDE. THIS WILL NEED TO BE AN EARLY DAY DISCHARGE [facility] IS [facility]. FOR DISCHARGE BACK TO REHAB, FAX DISCHARGE INFORMATION TO [facility] AT [phone]. NURSE REPORT TO BE CALLED TO [facility] AT [phone]. [facility] TO PROVIDE VAN TRANSPORTATION. Danial Cosme, CASE MANAGEMENT DCP- Discharge Planning Updated by [id number]: Danial Cosme on 11/02/18 3:[address] Patient Name: ELIZABETH BUSTAMANTE Encounter No: [id number] : 1950 Primary Insurance: MEDICARE A & B Anticipated DC Date: Planned Disposition: Custodial Facility External Planned Provider: [facility], MEDICARE REHAB BED DCP follow-up note: CM RECEIVED CALL FROM DAYANA IRVIN [facility], , WHO REPORTS CONCERN OF PT'S LOW BLOOD PRESSURES AND REPORTS PT CANNOT COME TO FACILITY ON BROVANA IT IS TOO COSTLY TO PROVIDE. CM ADVISED THAT PT HAS NOT HAD VEST THERAPY IN THREE DAYS AND HAS NO ORDERS FOR IT TO CONTINUE POST DISCHARGE TO REHAB. DAYANA ASKED CM TO DISCUSS THE POSSIBILTY OF PT MOVING TO ANOTHER NURSING FACILITY CLOSER TO HOSPITALS DUE TO MULTIPLE MEDICAL ISSUES AND [facility] BEING OVER AN HOUR AWAY FROM HOSPITAL CARE. CM MET WITH PT IN ROOM, DISCUSSED MOVING TO ANOTHER [facility], PT REFUSED AND WANTS TO RETURN TO [facility]. PT STATES THE DOCTOR TOLD HER THAT SHE WILL HAVE BACK SURGERY NEXT TUESDAY. CM REVIEWED DOCTORS NOTES IN ROOM, INFORMED PT THAT THE DOCTORS NOTES DO NOT REFLECT ANY PLANS FOR SURGERY AT THIS TIME AND THAT THEY WOULD MANAGE HER BACK PAIN SYMPTOMS WITH HEATING PADS AND MEDICATIONS AND WILL HAVE PT FOLLOW UP OUTPATIENT. PT VERY UPSET AND WANTS TO SEE THE DOCTOR. CM ASKED PT IF SHE HAD SEEN THE DOCTOR A FEW MINUTES AGO, PT INITIALLY STATES SHE HAD NOT AND WHEN REMINDED BY THE BEDSIDE NURSE, PT REPORTED SHE HAD SEEN THEM WHISPERING BY THE DOOR. CM PAGED CACHORRO PAYNE TO NOTIFY OF PT'S REQUEST. CM FAXED HOSPITAL UPDATE TO [facility] AT [phone]. [facility] IS CONCERNED OF PT'S LOW BLOOD PRESSURE. [facility] WILL NOT ACCEPT PT ON THE MEDICATION BROVANA, REPORTING IT TO BE TOO EXPENSIVE. THIS WILL NEED TO BE AN EARLY DAY DISCHARGE [facility] IS [facility]. FOR DISCHARGE BACK TO REHAB, FAX DISCHARGE INFORMATION TO [facility] AT [phone]. NURSE REPORT TO BE CALLED TO [facility] AT [phone]. [facility] TO PROVIDE VAN TRANSPORTATION. Danial Cosme, CASE MANAGEMENT DCP- Discharge Planning Updated by [id number]: Danial Cosme on 11/02/18 8:[address] Patient Name: ELIZABETH BUSTAMANTE Encounter No: [id number] : 1950 Primary Insurance: MEDICARE A & B Anticipated DC Date: Planned Disposition: Custodial Facility External Planned Provider:[facility], MEDICARE REHAB BED DCP follow-up note: CM FAXED HOSPITAL UPDATE TO [facility] AT [phone]. PT WILL NEED OXYGEN WEANING DOWN FROM 5 LITERS TO RETURN TO REHAB FACILITY. CLARIFICATION OF NEEDING VEST THERAPY IN REHAB NEEDS TO BE CLARIFIED AND ARRANGEMENTS MADE IF NEEDED. THIS WILL NEED TO BE AN EARLY DAY DISCHARGE [facility] IS [facility]. FOR DISCHARGE BACK TO REHAB, FAX DISCHARGE INFORMATION TO [facility] AT [phone]. NURSE REPORT TO BE CALLED TO [facility] AT [phone]. [facility] TO PROVIDE VAN TRANSPORTATION. Danial Cosme, CASE MANAGEMENT DCP- Discharge Planning Updated by [id number]: Danial Cosme on 11/01/18 11:[address] Patient Name: ELIZABETH BUSTAMANTE Encounter No: [id number] : 1950 Primary Insurance: MEDICARE A & B Anticipated DC Date: Planned Disposition: Custodial Facility External Planned Provider: [facility], MEDICARE REHAB BED DCP follow-up note: CM CALLED [facility], , SPOKE TO KARINA WHO INFORMED CM THAT PT IS [facility] RESIDENT AT FACILITY AND 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 CM FAXED HOSPITAL UPDATE TO [facility] AT [phone]. ORDER FOR PHYSICAL THERAPY EVALUATION OBTAINED. CM TO FAX UPDATE WITH PHYSICAL THERAPY RESULTS TO [facility] AT [phone]. THIS WILL NEED TO BE AN EARLY DAY DISCHARGE [facility] IS [facility]. FOR DISCHARGE BACK TO REHAB, FAX DISCHARGE INFORMATION TO [facility] AT [phone]. NURSE REPORT TO BE CALLED TO [facility] AT [phone]. [facility] TO PROVIDE VAN TRANSPORTATION. Danial Cosme, CASE MANAGEMENT Appended by Danial Cosme on 11/01/2018 12:36 CDT: CM SPOKE TO NIKIA OF [facility] WHO INFORMED CM THAT PT WILL NEED TO BE WEANED SHE IS STILL ON 5 LITERS OXYGEN. NIKIA ALSO REPORTS THEY DO NOT HAVE VEST THERAPY AT FACILITY AND IF PT REQUIRES IT, THEY WILL NEED ORDERS AND INFORMATION TO OBTAIN THE VEST WELL WILL NEED TRAINING TO ADMINISTER THERAPY AT THE REHAB. CACHORRO PAYNE NOTIFIED. TARIQ SPOKE TO PT IN ROOM WHO REPORTS THAT SHE HAS NOT HAD VEST THERAPY IN THE PAST TWO DAYS. PT WILL NEED OXYGEN WEANING DOWN FROM 5 LITERS TO RETURN TO REHAB FACILITY. CLARIFICATION OF NEEDING VEST THERAPY IN REHAB NEEDS TO BE CLARIFIED AND ARRANGEMENTS MADE IF NEEDED. THIS WILL NEED TO BE AN EARLY DAY DISCHARGE [facility] IS [facility]. FOR DISCHARGE BACK TO REHAB, FAX DISCHARGE INFORMATION TO [facility] AT [phone]. NURSE REPORT TO BE CALLED TO [facility] AT [phone]. [facility] TO PROVIDE VAN TRANSPORTATION. Danial Cosme, CASE MANAGEMENT DCP- Discharge Planning Updated by [id number]: Danial Cosme on 10/31/18 4:[address] Patient Name: ELIZABETH BUSTAMANTE Admission Status: ER Accout number: [id number] Admission Date: 10-30-2018 : 1950 Admission Diagnosis: Attending: RAVEN BEE Current LOS: 1 Anticipated DC Date: Planned Disposition: Custodial Facility Primary Insurance: MEDICARE A & B PLANNED EXTERNAL PROVIDER: [facility], MEDICARE REHAB BED Discharge Planning Comments: CM RECEIVED ORDER FOR INPATIENT REHAB PRESCREENING. CM MET WITH PT IN ROOM TO DISCUSS DISCHARGE PLANNING AND NEEDS. PT REPORTS LIVING AT [facility] FOR THE PAST YEAR BUT HAS BEEN IN REHAB TO LEARN TO WALK AGAIN. PT UTILIZES WHEELCHAIR AND PLANS TO RETURN TO [facility] WHERE SHE IS RECEIVING GOOD CARE AND FEELS SAFE. PT STATES SHE IS ABLE TO RIDE IN [facility] FOR PEDIATRIC PHYSICAL THERAPY ASSISTANT. PT DOES NOT WANT TO GO TO INPATIENT REHAB AND WANTS REHAB AT [facility]. PROVIDER LISTING PROVIDED, PT SIGNED CHOICE FOR [facility]. IMPORTANT MESSAGE FROM MEDICARE PROVIDED AND EXPLAINED. CM WILL SEND REHAB REFERRAL TO [facility] SOON POSSIBLE FOR REHAB READMIT. Cotton Machine Operator: Danial Cosme DCPIA - Discharge Planning Initial Assessment Updated by [id number]: Danial Cosme on 11/01/18 9:50 am * Is the patient Alert and Oriented? Yes * How many steps to enter\\exit or inside your home? NONE * PCP SAUL CORDOVA, JULIANNA. * Pharmacy [facility] * Preadmission Environment Custodial Facility * Facility Name [facility] * ADLs Partial Dependent * Partial ADLs (Assistance needed) Ambulation Bathing Medication Management Transfers * Equipment Other * Other Equipment ALL MEDICAL EQUIPMENT PROVIDED BY FACILITY * List name and contact numbers for known caregivers / representatives who currently or will assist patient after discharge: MINOR ANN, SON, * Verbal permission to speak to the caregivers and representatives has been obtained from the patient. N/A * Community resources currently utilized None * Please name any agencies selected above. NONE * Additional services required to return to the preadmission environment? No * Can the patient safely return to the preadmission environment? Yes * Has this patient been hospitalized within the prior 30 days at any hospital? Yes Coverage Notice Reviewer: ALAN Cosme Notice Issued Date-Time: 10/31/2018 16:20 Notice Type: Patient Choice Letter Notice Delivered To: Patient Relationship to Patient: Clinical Research Director Name: Delivery Method: HAND - Hand Delivered Stephany Days: Prior Verbal Notification: Recipient Understood Notice: Yes Recipient Signature: Yes Med Rec Note Co-signed by Attending: Coverage Notice Comment: HENRY GUZMÁN Reviewer: [id number] Cosme Notice Issued Date-Time: 10/31/2018 16:20 Notice Type: IM Discharge Notice Notice Delivered To: Patient Relationship to Patient: Clinical Research Director Name: Delivery Method: HAND - Hand Delivered Stephany Days: Prior Verbal Notification: Recipient Understood Notice: Yes Recipient Signature: Yes Med Rec Note Co-signed by Attending: Coverage Notice Comment: Reviewer: ALAN Cosme Notice Issued Date-Time: 11/10/2018 12:30 Notice Type: IM Discharge Notice Notice Delivered To: Patient Relationship to Patient: Clinical Research Director Name: Delivery Method: HAND - Hand Delivered Stephany Days: Prior Verbal Notification: Recipient Understood Notice: Yes Recipient Signature: Yes Med Rec Note Co-signed by Attending: Coverage Notice Comment: Reviewer: ALAN Cosme Notice Issued Date-Time: 11/10/2018 15:10 Notice Type: Patient Choice Letter Notice Delivered To: Patient Relationship to Patient: Clinical Research Director Name: Delivery Method: HAND - Hand Delivered Stephany Days: Prior Verbal Notification: Recipient Understood Notice: Yes Recipient Signature: Yes Med Rec Note Co-signed by Attending: Coverage Notice Comment: [facility] Reviewer: ALAN Cosme Notice Issued Date-Time: 11/14/2018 11:55 Notice Type: IM Discharge Notice Notice Delivered To: Patient Relationship to Patient: Clinical Research Director Name: Delivery Method: HAND - Hand Delivered Stephany Days: Prior Verbal Notification: Recipient Understood Notice: Yes Recipient Signature: Yes Med Rec Note Co-signed by Attending: Coverage Notice Comment: Last DP export: 11/14/18 11:17 am Patient Name: ELIZABETH BUSTAMANTE Page [id number] at 1654 All edits/amendments must be made on the electronic document DICTATION DATE: 11/14/181653 AUTOMOTIVE TIRE TESTING SUPERVISOR: ALYSSIA 11/14/181653 RPT#: [id number] DC DATE: STATUS: ADM IN [facility] [address] [place] [address] END OF REPORT
--- NOTE | 2018-11-14 16:55 | NUR ---
PATIENT TO USE CALL LIGHT FOR BEDPAN.
--- NOTE | 2018-11-14 19:00 | NUR ---
ALERT AND AWAKE RESTING AGAINST LEFT RAIL. PT REFUSES TO REMOVE FROM POSITION. EXTRA PILLOWS PROVIDED FOR COMFORT. LCTA CO BACK PAIN STERISTRIPS TO SMALL INCISION INTACT NO DRAINAGE. SR X2 AND BED IN LOW POSITION. CALL LIGHT IS IN REACH.
[2018-11-14 20:00] VITALS: BP 123/79
[2018-11-15 00:30] VITALS: BP 118/64
--- NOTE | 2018-11-15 03:21 | NUR ---
I CONCUR WITH THIS ASSESSMENT.
--- NOTE | 2018-11-15 03:32 | NUR ---
DCED TELEMETRY FOR CARDIAC PT
--- NOTE | 2018-11-15 03:39 | NUR ---
AWAKE TAKING BREATHING TX. DENIES NEEDS AT THIS TIME
[2018-11-15 06:44] LABS: BASOPHILS 1.1 % (0-2); EOSINOPHILS 4.4 % (0-7); HEMATOCRIT 37.9 % (36.0-48.0); HEMOGLOBIN 11.4 g/dL (12-16); IMMATURE GRANULOCYTES 4.3 % (0-5); LYMPHOCYTES 39.2 % (15-50); MCH 28.8 pg (26.0-34.0); MCHC 30.1 g/dL (31.0-37.0); MCV 95.7 fL (80.0-100.0); MONOCYTES 8.4 % (2-11); NEUTROPHILS 42.6 % (40-80); PLATELET COUNT 472 10x3/uL (130-400); RBC 3.96 10x6/uL (4.00-5.40); RDW 17.1 % (11.5-14.5)
[2018-11-15 07:02] LABS: CALC OSMOLALITY 281 mosm/kg (275-300); CALCIUM 8.5 mg/dL (8.5-10.1); CARBON DIOXIDE 36.5 mmol/L (21.0-32.0); CHLORIDE - SERUM 100 mmol/L (98-107); CREATININE - SERUM 0.8 mg/dL (0.6-1.3); GLUCOSE 105 mg/dL (74-106); POTASSIUM - SERUM 4.3 mmol/L (3.5-5.1); SODIUM 140 mmol/L (136-145); UREA NITROGEN 20 mg/dL (7-18); eGFR NON AFRICAN AMERICAN 75 mL/min (90-120)
[2018-11-15 08:30] VITALS: BP 115/83
--- NOTE | 2018-11-15 08:58 | NUR ---
DC GIVEN TO PT
--- NOTE | 2018-11-15 09:25 | NUR ---
REPORT CALLED TO SCOTT AT [facility].
--- NOTE | 2018-11-15 09:27 | NUR ---
DC TO [facility] PER [facility]
--- NOTE | 2018-11-15 19:22 | MORECARE ---
CASE MANAGEMENT DISCHARGE SUMMARY PATIENT: ELIZABETH BUSTAMANTE UNIT: [id number] ADM DATE: 10/30/18 AGE: 68 : 48 SEX: F ROOM/BED: D.2131 AUTHOR: TABBY,DOC PHYSICIAN: REFERRING PHYSICIAN: RAVEN BEE MD DATE OF SERVICE: 11/15/18 Discharge Plan Patient Name: ELIZABETH BUSTAMANTE Facility: [facility]:[place] : 1950 Planned Disposition: [facility] Facility Anticipated Discharge Date: 11/15/18 Discharge Date: 11/15/2018 Expected LOS: 16 Initial Reviewer: [id number] Initial Review Date: 10/31/2018 Generated: 11/15/18 8:22 pm Comments DCP- Discharge Planning Updated by [id number]: Danial Cosme on 11/14/18 3:[address] Patient Name: ELIZABETH BUSTAMANTE Encounter No: [id number] : 1950 Primary Insurance: MEDICARE A & B Anticipated DC Date: 11-15-2018 Planned Disposition: [facility] Facility External Planned Provider:[facility] [place], MEDICARE REHAB BED DCP follow-up note: TARIQ FAXED HOSPITAL UPDATE TO [facility] AT [phone]. CM RECEIVED CALL FROM NIKIA OF [facility], , WHO REPORTS THEY WILL ACCEPT PT BACK TO [facility] [place], TODAY THEY DON'T HAVE VAN AVAILABLE UNTIL LATE IN EVENING. CAN SENIOR COMMISSIONS ANALYST TOMORROW AT 0900AM. CM NOTIFIED PT AND HER SON IN ROOM, BOTH IN AGREEMENT WITH DISCHARGE BACK TO [facility], NOTIFIED OF VAN SENIOR COMMISSIONS ANALYST TOMORROW MORNING. CM NOTIFIED BEDSIDE NURSE AND CACHORRO PAYNE WHO WILL ENTER DISCHARGE TODAY. FOR DISCHARGE BACK TO REHAB 11-15-17, FAX DISCHARGE INFORMATION TO [facility] [place] AT [phone]. NURSE REPORT TO BE CALLED TO [facility] AT [phone]. [facility] TO PROVIDE VAN TRANSPORTATION AT 0900 AM, 11-15-18. Danial Cosme, CASE MANAGEMENT Appended by Danial Cosme on 11/14/2018 16:51 CDT: TARIQ FAXED DISCHARGE INFORMATION TO [facility] [place] AT [phone]. FOR DISCHARGE BACK TO REHAB 11-15-17, NURSE REPORT TO BE CALLED TO [facility] AT [phone]. [facility] TO [facility] V[facility]SPORTATION AT 0900 AM, 11-15-18. Danial Cosme, CASE MANAGEMENT DCP- Discharge Planning Updated by [id number]: Danial Cosme on 11/10/18 5:[address] Patient Name: ELIZABETH BUSTAMANTE Encounter No: [id number] : 1950 Primary Insurance: MEDICARE A & B Anticipated DC Date: 11-10-2018 Planned Disposition: [facility] Facility External [facility] DCP follow-up note: CM RECEIVED DISCHARGE ORDERS, SPOKE TO PT IN ROOM WHO WANTS TO RETURN TO [facility], IN AGREEMENT WITH DISCHARGE TODAY, IMPORTANT MESSAGE FROM MEDICARE PROVIDED AND EXPLAINED. CM VERIFIED DISCHARGE MEDICATION LIST, CALLED [employer] [place] [facility] [place] AT [phone], SPOKE TO NIKIA WHO INFORMED CM THAT DR. PALM STATED THAT PT CANNOT RETURN TO THE FACILITY UNLESS SHE IS ON HOSPICE AND A "DNR" AND THAT DUE [facility] TO DISTANCE FROM HOSPITAL CARE, PT MAY CONSIDER GOING TO ANOTHER [facility]. CM CLAIRIFIED STATEMENT WITH NIKIA. NOTIFED PT WHO WAS VERY UPSET AND HAD CM CALL HER SON, MINOR, . MINOR NOTIFIED. PT DOES NOT WANT TO BE DNR AND DOES NOT WANT HOSPICE CARE. PT DOES NOT WANT ANOTHER JAIL. AFTER DISCUSSING WITH MINOR, PT AGREES TO HAVE CM SEND REFERRAL TO [facility]. CHOICE LETTER SIGNED. PT ASKED ABOUT HOSPICE CARE AND "DNR". CM ASKED PT IF SHE WANTED TO TALK TO HOSPICE LATEX SPOOLER FOR INFORMATION, PT STATES YES, MADELYN FROM [facility] AND CM ASKED HIM TO VISIT WITH PT. MADELYN VISITED WITH PT, AFTER VISIT, PT STILL CM RECEIVED CALL FROM Arnulfo BUSTAMANTE, PT'S SON, , WHO INFORMED CM THAT HE SPOKE TO NIKIA AT [facility] WHO STATED THAT CM LIED ABOUT THE JAIL NOT TAKING PT BACK UNLESS SHE IS NO HOSPICE AND "DNR" AND THAT PT CAN RETURN WHEN SHE IS STABLE AND THAT PT IS NOT MEDICALLY STABLE FOR DISCHARGE NOW; ARTIERIAL GASES ARE NOT STABLE, PT IS GETTING TOO MUCH OXYGEN AND BLOOD PRESSURE HAS BEEN TOO LOW. AC REPORTS THAT THE HOSPTIAL SENT PT BACK TOO SOON LAST TIME AND SHE HAD TO GO RIGHT BACK TO THE HOSPITAL SOON SHE GOT THERE. CM ASSURED THAT CM DID NOT LIE, HAS NO REASON TO LIE AND WILL DISCUSS THIS WITH JAIL AND PT. CM CALLED OFFICE OF [facility], AND RECEIVED RETURN CALL FROM STACEY OF OFFICE OF [facility]. TARIQ DISCUSSED SITUATION. STACEY STATES THAT THERE IS NOT A LOT THAT THEY CAN DO, IT IS HE SAID, SHE SAID. STACEY STATED THAT CM OR PATIENT MAY CALL THE [facility] IF NEEDED A LIAISON TO POSSIBLY ASSIST WITH THIS SITUATION, , [facility] [phone]. CM NOTIFIED PT WHO DID NOT WANT [facility]ICE. CM CALLED NIKIA OF [facility], DISCUSSED ANY COMMENTS SHE MIGHT HAVE MADE TO MR. BUSTAMANTE, NIKIA DID NOT STATE THAT SHE DID NOT STATE THIS TO MR. BUSTAMANTE, BUT DID STATE THAT CM WAS "NOT LYING". NIKIA NOW STATES THAT IF PT DOES NOT WANT HOSPICE / DNR TO RETURN, THEY WILL ACCEPT HER WHEN SHE IS STABLE, WITH OXYGEN NEEDS BELOW 3LITERS AND OFF OF HIGH FLOW NASAL CANNULA; PT ALSO NEEDS STABLE LABS AND BLOOD PRESSURES. CM ASKED FOR AND OBTAINED PHONE NUBMER FOR DR. PALM, [employer] INSTALLER OF [facility], . CM NOTIFED DR. BEE. CM SPOKE TO DR. BEE VIA PHONE, HE HAS TALKED TO [employer] INSTALLER AND REPORTS HE DOES NOT FEEL [facility] IS A SAFE JAIL FOR PT AND DISCUSS ALTERNATIVE PLACEMENT WITH PT. CM SPOKE TO PT WHO REPORTS SHE WANTS TO GO BACK "HOME" TO [facility]. CM PROVIDED PT WITH NURSING HOMES WITHIN [address] [place] FROM MEDICARE WEBSITE. PT REPORTS THE JAIL HAS $17,000 OF HER MONEY, SHE HAS LIVED THERE THREE YEARS AND WANTS TO RETURN. PT WILL CONSIDER OPTIONS AND LET CM KNOW IF SHE CHANGES HER MIND. PT CONTINES TO WANT TO RETURN TO [facility]. CM WILL FOLLOW UP WITH PT AND [facility] [place] ON TUESDAY. Danial Cosme, CASE MANAGEMENT DCP- Discharge Planning Updated by [id number]: Danial Cosme on 11/09/18 9:[address] Patient Name: ELIZABETH BUSTAMANTE Encounter No: [id number] : 1950 Primary Insurance: MEDICARE A & B Anticipated DC Date: Planned Disposition: [facility]sp Facility External Planned Provider: [facility], MEDICARE REHAB BED DCP follow-up note: FAXED HOSPITAL UPDATE TO [facility] AT [phone]. PT WILL NEED OXYGEN WEANING AND PER FACILITY "BE MORE MEDICALLY STABLE" TO RETURN TO REHAB FACILITY. ALSO WAITING DR. GONZALEZ CONSULT AND RECOMMENDATIONS. FACILITY WILL NOT ACCEPT PT ON MEDICATIONS BROVANA OR PULMICORT THEY ARE TOO EXPENSIVE FOR THE FACILITY TO PROVIDE. THIS WILL NEED TO BE AN EARLY DAY DISCHARGE [facility] IS [facility]. FOR DISCHARGE BACK TO REHAB, FAX DISCHARGE INFORMATION TO [facility] AT [phone]. NURSE REPORT TO BE CALLED TO [facility] AT [phone]. [facility] TO PROVIDE VAN TRANSPORTATION. Danial Cosme CASE MANAGEMENT DCP- Discharge Planning Updated by [id number]: Danial Cosme on 11/07/18 7:[address] Patient Name: ELIZABETH BUSTAMANTE Encounter No: [id number] : 1950 Primary Insurance: MEDICARE A & B Anticipated DC Date: Planned Disposition: [facility]sp Facility External Planned Provider:[facility], MEDICARE REHAB BED DCP follow-up note: CM FAXED HOSPITAL UPDATE TO [facility] AT [phone]. PT WILL NEED OXYGEN WEANING AND PER FACILITY "BE MORE MEDICALLY STABLE" TO RETURN TO REHAB FACILITY. FACILITY WILL NOT ACCEPT PT ON MEDICATIONS BROVANA OR PULMICORT THEY ARE TOO EXPENSIVE FOR THE FACILITY TO PROVIDE. THIS WILL NEED TO BE AN EARLY DAY DISCHARGE [facility] IS IN [facility]. FOR DISCHARGE BACK TO REHAB, FAX DISCHARGE INFORMATION TO [facility] AT [phone]. NURSE REPORT TO BE CALLED TO [facility] AT [phone]. [facility] TO PROVIDE VAN TRANSPORTATION. Danial Cosme, CASE MANAGEMENT DCP- Discharge Planning Updated by [id number]: Danial Cosme on 11/03/18 1:[address] Patient Name: ELIZABETH BUSTAMANTE Encounter No: [id number] : 1950 Primary Insurance: MEDICARE A & B Anticipated DC Date: Planned Disposition: [facility] Facility External Planned Provider: [facility], MEDICARE REHAB BED DCP follow-up note: CM RECEIVED CALL FROM DEWAYNE OF [facility] [place], ; DEWAYNE REPORTS THEY ARE ONE OR TWO HOURS FROM [facility] AND THAT PT WILL NEED TO BE "MORE MEDICALLY STABLE" TO RETURN TO THE FACILITY OR COME BACK DNR WITH HOSPICE CARE. CM SPOKE TO PT IN ROOM, DISCUSSED INFORMATION PROVIDED BY DEWAYNE [facility]. PT REPORTS SHE HAS THOUGHT ABOUT HOSPICE IN THE PAST BUT IS NOT INTERESTED. PT STATES SHE WILL BE GOING BACK TO [facility] FOR REHAB WITH GOAL OF GETTING BETTER AND GOING HOME WHEN SHE IS ABLE. CM SPOKE TO DR. LANDA, INFORMED THAT [facility] WILL NOT ACCEPT PT ON BROVANA; DR. LANDA SUGGESTED PULMICORT. CM CALLED [facility] [place], SPOKE TO DAYANA WHO INFORMD CM THAT PULMICORT OR THE GENERIC IS NOT AN OPTION THEY ARE ALSO TOO EXPENSIVE FOR THE FACILITY TO PROVIDE. PT WILL NEED OXYGEN WEANING DOWN FROM 4LITERS AND PER FACILITY "BE MORE MEDICALLY STABLE" TO RETURN TO REHAB FACILITY. FACILITY WILL NOT ACCEPT PT ON MEDICATIONS BROVANA OR PULMICORT THEY ARE TOO EXPENSIVE FOR THE FACILITY TO PROVIDE. THIS WILL NEED TO BE AN EARLY DAY DISCHARGE [facility] IS IN [facility]. FOR DISCHARGE BACK TO REHAB, FAX DISCHARGE INFORMATION TO [facility] [place] AT [phone]. NURSE REPORT TO BE CALLED TO [facility] AT [phone]. [facility] TO PROVIDE VAN TRANSPORTATION. Danial Cosme, CASE MANAGEMENT DCP- Discharge Planning Updated by [id number]: Danial Cosme on 11/02/18 3:[address] Patient Name: ELIZABETH BUSTAMANTE Encounter No: [id number] : 1950 Primary Insurance: MEDICARE A & B Anticipated DC Date: Planned Disposition: [facility] Facility External Planned Provider: [facility], MEDICARE REHAB BED DCP follow-up note: CM RECEIVED CALL FROM DAYANA OF [facility], , WHO REPORTS CONCERN OF PT'S LOW BLOOD PRESSURES AND REPORTS PT CANNOT COME TO FACILITY ON BROVANA IT IS TOO COSTLY TO PROVIDE. CM ADVISED THAT PT HAS NOT HAD VEST THERAPY IN THREE DAYS AND HAS NO ORDERS FOR IT TO CONTINUE POST DISCHARGE TO REHAB. DAYANA ASKED CM TO DISCUSS THE POSSIBILTY OF PT MOVING TO ANOTHER NURSING FACILITY CLOSER TO HOSPITALS DUE TO MULTIPLE MEDICAL ISSUES AND [facility] BEING OVER AN HOUR AWAY FROM HOSPITAL CARE. CM MET WITH PT IN ROOM, DISCUSSED MOVING TO ANOTHER [facility], PT REFUSED AND WANTS TO RETURN TO [facility]. PT STATES THE DOCTOR TOLD HER THAT SHE WILL HAVE BACK SURGERY NEXT TUESDAY. CM REVIEWED DOCTORS NOTES IN ROOM, INFORMED PT THAT THE DOCTORS NOTES DO NOT REFLECT ANY PLANS FOR SURGERY AT THIS TIME AND THAT THEY WOULD MANAGE HER BACK PAIN SYMPTOMS WITH HEATING PADS AND MEDICATIONS AND WILL HAVE PT FOLLOW UP OUTPATIENT. PT VERY UPSET AND WANTS TO SEE THE DOCTOR. CM ASKED PT IF SHE HAD SEEN THE DOCTOR A FEW MINUTES AGO, PT INITIALLY STATES SHE HAD NOT AND WHEN REMINDED BY THE BEDSIDE NURSE, PT REPORTED SHE HAD SEEN THEM WHISPERING BY THE DOOR. CM PAGED CACHORRO PAYNE TO NOTIFY OF PT'S REQUEST. CM FAXED HOSPITAL UPDATE TO [facility] AT [phone]. [facility] IS CONCERNED OF PT'S LOW BLOOD PRESSURE. [facility] WILL NOT ACCEPT PT ON THE MEDICATION BROVANA, REPORTING IT TO BE TOO EXPENSIVE. THIS WILL NEED TO BE AN EARLY DAY DISCHARGE [facility] IS IN [facility]. FOR DISCHARGE BACK TO REHAB, FAX DISCHARGE INFORMATION TO [facility] AT [phone]. NURSE REPORT TO BE CALLED TO [facility] AT [phone]. [facility] TO PROVIDE VAN TRANSPORTATION. Danial Cosme, CASE MANAGEMENT DCP- Discharge Planning Updated by [id number]: Danial Cosme on 11/02/18 8:[address] Patient Name: ELIZABETH BUSTAMANTE Encounter No: [id number] : 1950 Primary Insurance: MEDICARE A & B Anticipated DC Date: Planned Disposition: [facility] Facility External Planned Provider:[facility], MEDICARE REHAB BED DCP follow-up note: CM FAXED HOSPITAL UPDATE TO [facility] AT [phone]. PT WILL NEED OXYGEN WEANING DOWN FROM 5 LITERS TO RETURN TO REHAB FACILITY. CLARIFICATION OF NEEDING VEST THERAPY IN REHAB NEEDS TO BE CLARIFIED AND ARRANGEMENTS MADE IF NEEDED. THIS WILL NEED TO BE AN EARLY DAY DISCHARGE [facility] IS IN [place]. FOR DISCHARGE BACK TO REHAB, FAX DISCHARGE INFORMATION TO [facility] AT [phone]. NURSE REPORT TO BE CALLED TO [facility] AT [phone]. [facility] TO PROVIDE VAN TRANSPORTATION. Danial Cosme, CASE MANAGEMENT DCP- Discharge Planning Updated by [id number]: Danial Cosme on 11/01/18 11:[address] Patient Name: ELIZABETH BUSTAMANTE Encounter No: [id number] : 1950 Primary Insurance: MEDICARE A & B Anticipated DC Date: Planned Disposition: [facility]sp Facility External Planned Provider: [facility] [place], MEDICARE REHAB BED DCP follow-up note: CM CALLED [facility] [place], , SPOKE TO KARINA WHO INFORMED CM THAT PT IS [facility] RESIDENT AT FACILITY AND 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 CM FAXED HOSPITAL UPDATE TO [facility] AT [phone]. ORDER FOR PHYSICAL THERAPY EVALUATION OBTAINED. CM TO FAX UPDATE WITH PHYSICAL THERAPY RESULTS TO [facility] AT [phone]. THIS WILL NEED TO BE AN EARLY DAY DISCHARGE [facility] IS IN [facility]. FOR DISCHARGE BACK TO REHAB, FAX DISCHARGE INFORMATION TO [facility] [place] AT [phone]. NURSE REPORT TO BE CALLED TO [facility] AT [phone]. [facility] TO PROVIDE VAN TRANSPORTATION. Danial Cosme, CASE MANAGEMENT Appended by Danial Cosme on 11/01/2018 12:36 CDT: TARIQ SPOKE TO NIKIA OF [facility] [place] WHO INFORMED CM THAT PT WILL NEED TO BE WEANED SHE IS STILL ON 5 LITERS OXYGEN. NIKIA ALSO REPORTS THEY DO NOT HAVE VEST THERAPY AT FACILITY AND IF PT REQUIRES IT, THEY WILL NEED ORDERS AND INFORMATION TO OBTAIN THE VEST WELL WILL NEED TRAINING TO ADMINISTER THERAPY AT THE REHAB. CACHORRO PAYNE NOTIFIED. TARIQ SPOKE TO PT IN ROOM WHO REPORTS THAT SHE HAS NOT HAD VEST THERAPY IN THE PAST TWO DAYS. PT WILL NEED OXYGEN WEANING DOWN FROM 5 LITERS TO RETURN TO REHAB FACILITY. CLARIFICATION OF NEEDING VEST THERAPY IN REHAB NEEDS TO BE CLARIFIED AND ARRANGEMENTS MADE IF NEEDED. THIS WILL NEED TO BE AN EARLY DAY DISCHARGE [facility] IS IN [facility]. FOR DISCHARGE BACK TO REHAB, FAX DISCHARGE INFORMATION TO [facility] [place] AT [phone]. NURSE REPORT TO BE CALLED TO [facility] AT [phone]. [facility] TO PROVIDE VAN TRANSPORTATION. Danial Cosme, CASE MANAGEMENT DCP- Discharge Planning Updated by [id number]: Danial Cosme on 10/31/18 4:[address] Patient Name: ELIZABETH BUSTAMANTE Admission Status: ER Accout number: [id number] Admission Date: 10-30-2018 : 1950 Admission Diagnosis: Attending: RAVEN BEE Current LOS: 1 Anticipated DC Date: Planned Disposition: [facility] Facility Primary Insurance: MEDICARE A & B PLANNED EXTERNAL PROVIDER: [facility] [place], MEDICARE REHAB BED Discharge Planning Comments: CM RECEIVED ORDER FOR INPATIENT REHAB PRESCREENING. CM MET WITH PT IN ROOM TO DISCUSS DISCHARGE PLANNING AND NEEDS. PT REPORTS LIVING AT [facility] FOR THE PAST YEAR BUT HAS BEEN IN REHAB TO LEARN TO WALK AGAIN. PT UTILIZES WHEELCHAIR AND PLANS TO RETURN TO [facility] WHERE SHE IS RECEIVING GOOD CARE AND FEELS SAFE. PT STATES SHE IS ABLE TO RIDE IN [facility] VAN FOR SENIOR COMMISSIONS ANALYST. PT DOES NOT WANT TO GO TO INPATIENT REHAB AND WANTS REHAB AT [facility]. PROVIDER LISTING PROVIDED, PT SIGNED CHOICE FOR [facility]. IMPORTANT MESSAGE FROM MEDICARE PROVIDED AND EXPLAINED. CM WILL SEND REHAB REFERRAL TO [facility] SOON POSSIBLE FOR REHAB READMIT. In Room Dining Server: Danial Cosme DCPIA - Discharge Planning Initial Assessment Updated by [id number]: Danial Cosme on 11/01/18 9:50 am * Is the patient Alert and Oriented? Yes * How many steps to enter\\exit or inside your home? NONE * PCP [place] * Pharmacy [facility] [place] * Preadmission Environment [facility] Facility * Facility Name [facility] [place] * ADLs Partial Dependent * Partial ADLs (Assistance needed) Ambulation Bathing Medication Management Transfers * Equipment Other * Other Equipment ALL MEDICAL EQUIPMENT PROVIDED BY FACILITY * List name and contact numbers for known caregivers / representatives who currently or will assist patient after discharge: MINOR ANN, SON, * Verbal permission to speak to the caregivers and representatives has been obtained from the patient. N/A * Community resources currently utilized None * Please name any agencies selected above. NONE * Additional services required to return to the preadmission environment? No * Can the patient safely return to the preadmission environment? Yes * Has this patient been hospitalized within the prior 30 days at any hospital? Yes Coverage Notice Reviewer: ALAN Cosme Notice Issued Date-Time: 10/31/2018 16:20 Notice Type: Patient Choice Letter Notice Delivered To: Patient Relationship to Patient: Ms Access Database Developer Name: Delivery Method: HAND - Hand Delivered Stephany Days: Prior Verbal Notification: Recipient Understood Notice: Yes Recipient Signature: Yes Med Rec Note Co-signed by Attending: Coverage Notice Comment: HENRY GUZMÁN Reviewer: [id number] Cosme Notice Issued Date-Time: 10/31/2018 16:20 Notice Type: IM Discharge Notice Notice Delivered To: Patient Relationship to Patient: Ms Access Database Developer Name: Delivery Method: HAND - Hand Delivered Stephany Days: Prior Verbal Notification: Recipient Understood Notice: Yes Recipient Signature: Yes Med Rec Note Co-signed by Attending: Coverage Notice Comment: Reviewer: ALAN Cosme Notice Issued Date-Time: 11/10/2018 12:30 Notice Type: IM Discharge Notice Notice Delivered To: Patient Relationship to Patient: Ms Access Database Developer Name: Delivery Method: HAND - Hand Delivered Stephany Days: Prior Verbal Notification: Recipient Understood Notice: Yes Recipient Signature: Yes Med Rec Note Co-signed by Attending: Coverage Notice Comment: Reviewer: ALAN Cosme Notice Issued Date-Time: 11/10/2018 15:10 Notice Type: Patient Choice Letter Notice Delivered To: Patient Relationship to Patient: Ms Access Database Developer Name: Delivery Method: HAND - Hand Delivered Stephany Days: Prior Verbal Notification: Recipient Understood Notice: Yes Recipient Signature: Yes Med Rec Note Co-signed by Attending: Coverage Notice Comment: [facility] Reviewer: [id number] Cosme Notice Issued Date-Time: 11/14/2018 11:55 Notice Type: IM Discharge Notice Notice Delivered To: Patient Relationship to Patient: Ms Access Database Developer Name: Delivery Method: HAND - Hand Delivered Stephany Days: Prior Verbal Notification: Recipient Understood Notice: Yes Recipient Signature: Yes Med Rec Note Co-signed by Attending: Coverage Notice Comment: Last DP export: 11/14/18 3:54 pm Patient Name: ELIZABETH BUSTAMANTE Page [id number] at 1922 All edits/amendments must be made on the electronic document DICTATION DATE: 11/15/181920 SWIMMING POOL 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
== END 2018-11-15 09:29 | DRG 981 ==
LOC: D.ER 04:19 → D.M2 04:33
PROVIDERS: Emergency Medicine; Family Medicine; Neurological Surgery; Radiology Diagnostic Radiology; ADMIT Internal Medicine Nephrology; ATTEND Internal Medicine Nephrology
PROC: 0PU43JZ Supplement Thoracic Vertebra with Synthetic Substitute, Percutaneous Approach (ICD-10-PCS; 2018-11-13)
PROC: 0PS43ZZ Reposition Thoracic Vertebra, Percutaneous Approach (ICD-10-PCS; principal; 2018-11-13 07:30)
DX: I11.0 Hypertensive heart disease with heart failure (principal); J18.1 Lobar pneumonia, unspecified organism; E43 Unspecified severe protein-calorie malnutrition; J96.22 Acute and chronic respiratory failure with hypercapnia; J96.21 Acute and chronic respiratory failure with hypoxia; M48.54XA Collapsed vertebra, not elsewhere classified, thoracic region, initial encounter for fracture; J44.0 Chronic obstructive pulmonary disease with (acute) lower respiratory infection; Z68.1 Body mass index [BMI] 19.9 or less, adult; J98.11 Atelectasis; M48.56XA Collapsed vertebra, not elsewhere classified, lumbar region, initial encounter for fracture; I50.33 Acute on chronic diastolic (congestive) heart failure; F41.9 Anxiety disorder, unspecified; I48.0 Paroxysmal atrial fibrillation; M85.80 Other specified disorders of bone density and structure, unspecified site

== ENCOUNTER 2019-01-04 14:53 | Inpatient (IN) | payer MEDICARE ==
[~2019-01-04] VITALS: Ht 162.6 cm; Wt 76.2 kg
[~2019-01-04 14:53] MED LIST changes: +IPRAT-ALBUT 0.5-3 ML UPD
[2019-01-04 15:30] VITALS: BP 136/75
[2019-01-04 16:05] LABS: BASOPHILS 0.3 % (0-2); EOSINOPHILS 0 % (0-7); HEMATOCRIT 26.4 % (36.0-48.0); HEMOGLOBIN 7.7 g/dL (12-16); IMMATURE GRANULOCYTES 3.8 % (0-5); LYMPHOCYTES 4.7 % (15-50); MCH 26.6 pg (26.0-34.0); MCHC 29.2 g/dL (31.0-37.0); MCV 91.3 fL (80.0-100.0); MEAN PLATELET VOLUME 8.5 fL (7.4-10.4); MONOCYTES 0.9 % (2-11); NEUTROPHILS 90.3 % (40-80); PLATELET COUNT 338 10x3/uL (130-400); RBC 2.89 10x6/uL (4.00-5.40); RDW 16.4 % (11.5-14.5); WBC 9.6 10x3/uL (4.8-10.8)
[2019-01-04 16:16] LABS: APTT 24.2 SECONDS (22.8-39.4); INR 1.13 (0.85-1.17)
[2019-01-04 16:22] LABS: ALKALINE PHOSPHATASE 110 U/L (46-116); ALT (SGPT) 18 U/L (10-68); BILIRUBIN - TOTAL 0.21 mg/dL (0.2-1.3); CALC OSMOLALITY 294 mosm/kg (275-300); CALCIUM 8.2 mg/dL (8.5-10.1); CARBON DIOXIDE 35.9 mmol/L (21.0-32.0); CHLORIDE - SERUM 101 mmol/L (98-107); CREATININE - SERUM 0.8 mg/dL (0.6-1.3); GLUCOSE 208 mg/dL (74-106); POTASSIUM - SERUM 4.7 mmol/L (3.5-5.1); PROTEIN - SERUM 5.7 g/dL (6.4-8.2); SODIUM 142 mmol/L (136-145); UREA NITROGEN 28 mg/dL (7-18); eGFR NON AFRICAN AMERICAN 75 mL/min (90-120)
--- NOTE | 2019-01-04 16:27 | NUR ---
LACT ACID - 2.1. ERP INFORMED.
[2019-01-04 16:30] VITALS: BP 136/78
[2019-01-04 16:31] LABS: LIPASE 61 U/L (73-393); MAGNESIUM - SERUM 2.1 mg/dL (1.8-2.4); PRO BNP 330 pg/mL (0-125); TROPONIN-I < 0.017 ng/mL (0.000-0.060)
[2019-01-04 17:30] VITALS: BP 133/75
[2019-01-04 18:30] VITALS: BP 133/69
--- NOTE | 2019-01-04 18:48 | MORECARE ---
CASE MANAGEMENT DISCHARGE SUMMARY PATIENT: ELIZABETH BUSTAMANTE UNIT: [id number] ADM DATE: 01/04/19 AGE: 68 : [birth year] SEX: F ROOM/BED: D.2239 AUTHOR: BLANKA MCNAIR PHYSICIAN: REFERRING PHYSICIAN: RAVEN BEE MD DATE OF SERVICE: 01/04/19 Discharge Plan Patient Name: ELIZABETH BUSTAMANTE Facility: [facility]:[place] : 1950 Planned Disposition: Anticipated Discharge Date: Discharge Date: Expected LOS: Initial Reviewer: [email or web address] Initial Review Date: 01/04/2019 Generated: 01/04/19 7:48 pm Patient Name: ELIZABETH BUSTAMANTE Page [id number] at 1848 All edits/amendments must be made on the electronic document DICTATION DATE: 01/04/191847 BAG SEWER: ALYSSIA 01/04/191847 RPT#: [id number] [place] DATE: STATUS: ADM IN [facility] [address] [place] [address] END OF REPORT
--- NOTE | 2019-01-04 19:05 | NUR ---
REPORT TO KAY CAVAZOS.
--- NOTE | 2019-01-04 19:25 | NUR ---
ROOM CLEAN AND RESADY FOR PATIENT.
--- NOTE | 2019-01-04 20:05 | NUR ---
RECEIVED PT TO FLOOR.
[2019-01-04 21:43] VITALS: BP 141/77
[2019-01-04 21:51] VITALS: BP 145/78; BMI 28.9
[2019-01-04] MEDS ORDERED: ULTRAM50 MG PO (22:22)
[2019-01-05 03:05] VITALS: BP 150/70
[2019-01-05 06:13] VITALS: BP 160/70
[2019-01-05 07:18] LABS: BASOPHILS 0.1 % (0-2); EOSINOPHILS 0 % (0-7); HEMATOCRIT 31.4 % (36.0-48.0); IMMATURE GRANULOCYTES 2.1 % (0-5); LYMPHOCYTES 9.5 % (15-50); MCH 26.6 pg (26.0-34.0); MCHC 30.6 g/dL (31.0-37.0); MEAN PLATELET VOLUME 8.6 fL (7.4-10.4); NEUTROPHILS 81.3 % (40-80); PLATELET COUNT 330 10x3/uL (130-400); RDW 16.7 % (11.5-14.5); WBC 8.9 10x3/uL (4.8-10.8)
[2019-01-05 07:20] LABS: HEMOGLOBIN 9.6 g/dL (12-16); RBC 3.61 10x6/uL (4.00-5.40)
[2019-01-05 07:32] LABS: ALBUMIN 2.7 g/dL (3.4-5.0); ALKALINE PHOSPHATASE 102 U/L (46-116); ALT (SGPT) 18 U/L (10-68); BILIRUBIN - TOTAL 0.47 mg/dL (0.2-1.3); CALCIUM 8.5 mg/dL (8.5-10.1); CHLORIDE - SERUM 103 mmol/L (98-107); CREATININE - SERUM 0.6 mg/dL (0.6-1.3); MAGNESIUM - SERUM 2.1 mg/dL (1.8-2.4); POTASSIUM - SERUM 4.5 mmol/L (3.5-5.1); PROTEIN - SERUM 5.5 g/dL (6.4-8.2); SODIUM 140 mmol/L (136-145); UREA NITROGEN 21 mg/dL (7-18); eGFR NON AFRICAN AMERICAN > 90 mL/min (90-120)
[2019-01-05 07:36] LABS: CALC OSMOLALITY 282 mosm/kg (275-300); GLUCOSE 114 mg/dL (74-106); TROPONIN-I < 0.017 ng/mL (0.000-0.060)
--- NOTE | 2019-01-05 08:33 | NUR ---
AA0X4. ON 3LPM VIA NC, REDNESS TO LEFT EYE, IV PATENT TO RIGHT HAND, TELEMETRY PRESENT, REQUEST TO HAVE REGULAR FOOD, I SPOKE WITH NANCY BRIGHT, SHE WILL SEE HER SHORTLY THIS MORNING, DENIES ANY CURRENT NEEDS OR DISCOMFORTS, BED LOWERED AND LOCKED, CALL LIGHT WITHIN REACH. CPOC
[2019-01-05 09:05] VITALS: BP 142/76
[2019-01-05 09:07] LABS: % SATURATION 7 % (15-55); IRON 21 ug/dl (35-150); TOTAL IRON BIND CAPACITY 282 ug/dl (260-445); UNSAT IRON BIND CAPACITY 261 ug/dl (150-375)
[2019-01-05 12:57] VITALS: BP 137/80
[2019-01-05 13:53] VITALS: Ht 162.6 cm; Wt 76.2 kg
[2019-01-05 16:57] LABS: APPEARANCE CLEAR (CLEAR); BILIRUBIN NEGATIVE (NEGATIVE); COLOR STRAW (YELLOW); GLUCOSE NEGATIVE (NEGATIVE); KETONE NEGATIVE (NEGATIVE); NITRITE NEGATIVE (NEGATIVE); PROTEIN NEGATIVE (NEGATIVE); SPECIFIC GRAVITY 1.005 (1.005-1.020); UROBILINOGEN NORMAL (NORMAL)
[2019-01-05 16:58] LABS: WHITE CELLS - URINE 0-5 /hpf (0-5)
[2019-01-05 16:59] LABS: BACTERIA MODERATE /hpf (NONE SEEN); EPITHELIAL CELLS 0-5 /hpf (0-5)
[2019-01-05 17:40] VITALS: BP 133/83
[2019-01-05 20:00] VITALS: BP 128/62
--- NOTE | 2019-01-05 20:00 | NUR ---
PT ALERT WITH HOB ELEVATED. INQUIRING ABOUT PAIN MEDICINE. PT HAD JUST HAD PAIN MEDICINE LESS THAN 10 MINUTES BEFORE FROM PREVIOUS NURSE. PT ARGUMENTATIVE AT TIMES REGARDING HOW THIS HOSPITAL ADMINISTERS MEDICATIONS. PT HAD A BOWEL MOVEMENT. BED CHANGE PROVIDED. CURRENTLY INFUSING ANTIBIOTIC. HAS CALL LIGHT IN HAND.
[2019-01-06] VITALS: BP 103/63
--- NOTE | 2019-01-06 02:00 | NUR ---
RECIEVED PT FROM ER VIA WHEELCHAIR WITH HOSPITAL STAFF AT BEDSIDE. ALERT AND ORIENTED X4. RESPIRATIONS EVEN AND UNLABORED. VITAL SIGNS STABLE AND AFEBRILE. NO VISUAL CUES OF DISTRESS NOTED. DENIES ANY OTHER NEEDS AT THIS TIME. BED LOW, SIDE RAILS UP X2. CALL LIGHT IN REACH. WILL CONTINUE TO MONITOR.
[2019-01-06 04:00] VITALS: BP 125/61
[2019-01-06 06:20] LABS: BASOPHILS 0.2 % (0-2); HEMOGLOBIN 10.8 g/dL (12-16); LYMPHOCYTES 15.1 % (15-50); MCH 27.3 pg (26.0-34.0); MCHC 30.9 g/dL (31.0-37.0); MCV 88.6 fL (80.0-100.0); MEAN PLATELET VOLUME 8.7 fL (7.4-10.4); MONOCYTES 8.2 % (2-11); NEUTROPHILS 72.5 % (40-80); PLATELET COUNT 344 10x3/uL (130-400); RBC 3.95 10x6/uL (4.00-5.40)
[2019-01-06 06:23] LABS: CALC OSMOLALITY 293 mosm/kg (275-300); CALCIUM 8.1 mg/dL (8.5-10.1); CARBON DIOXIDE 35.6 mmol/L (21.0-32.0); CHLORIDE - SERUM 107 mmol/L (98-107); GLUCOSE 120 mg/dL (74-106); SODIUM 145 mmol/L (136-145); UREA NITROGEN 24 mg/dL (7-18)
[2019-01-06 06:25] LABS: CREATININE - SERUM 0.8 mg/dL (0.6-1.3); POTASSIUM - SERUM 3.7 mmol/L (3.5-5.1); eGFR NON AFRICAN AMERICAN 75 mL/min (90-120)
--- NOTE | 2019-01-06 08:45 | NUR ---
AWAKE AND ALERT, ON 3LPM VIA NC, IV TO RIGHT HAND INFILITRATED, RESTARTED IV TO RIGHT FOREARMM 22G, INFUSING NS AT 10ML/HR. PREOP HAS BEEN COMPLETED. VERBALIZES UNDERSTANDING OF NPO STATUS FOR PROCEDURE, DENIES ANY CURRENT NEEDS OR DISCOMFORTS, BED LOWERED AND LOCKED, CALL LIGHT WITHIN REACH. CPOC
--- NOTE | 2019-01-06 09:19 | NUR ---
OFF UNIT FOR PROCEDURE
--- NOTE | 2019-01-06 09:45 | NUR ---
RETURNED TO UNIT, TOLERATED PROCEDURE WELL, VS STABLE, IV PATENT IN RIGHT FOREARM, NS AT 10ML/HR. DENIES ANY CURRENT NEEDS OR DISCOMFORTS, BED LOWERED AND LOCKED, CALL LIGHT WITHIN REACH. CPOC
[2019-01-06 10:10] LABS: FOLATE (FOLIC ACID) - SERUM >20.0 ng/mL (>3.0)
[2019-01-06 10:19] VITALS: BP 131/75
--- NOTE | 2019-01-06 17:45 | NUR ---
LETHARGIC, TOOK SEVERAL ATTEMPTS TO AWAKEN, DISCOLORATION AROUND LIPS, HANDS AND FEET, 02 PRESENT AT 3LPM, RAPID RESPONSE CALLED, DR. BEE NOTIFIED BY KAY BAXTER FROM ICU WHO RESPONDED TO CALL, 02 INCREASED TO 4LPM, ABG'S OBTAINED BY RESPIRATORY, CO2 RETAINING, CHEST X-RAY ORDERED, INCENTIVE SPIROMETER GIVEN, DEMONSTRATED BACK CORRECTLY, NO OTHER ORDERS RECIEVED, BED LOWERED AND LOCKED, CALL LIGHT WITHIN REACH. CPOC
[2019-01-06 18:08] VITALS: BP 129/76
--- NOTE | 2019-01-06 19:30 | NUR ---
PT ALERT AND IN BED. ORIENTED TO TIME SELF AND LOCATION. TROUBLE RECALLING EVENTS THAT HAPPENED TODAY. VITAL SIGNS PRESENTED 88/44 WITH ELECTRONIC MANUAL RECHECKED WITH MANUAL BP CUFF AND 100/70. PT TOLERATED DINNER. ASKED FOR MORE AND KEPT DOWN. COMPLAINS OF PAIN IN THE RIGHT LOWER RIB AREA. STATES SORE. PT TENDS TO LEAN TO LEFT SIDE. DOES NOT ASK FOR PAIN MEDICINE AT THIS TIME. CALL LIGHT IN REACH.
[2019-01-06 21:07] VITALS: BP 100/70
--- NOTE | 2019-01-06 21:45 | NUR ---
PT DROWSY WHEN ENTERING THE ROOM. RESPONDS TO VERBAL STIMULI. FALLS BACK TO SLEEP EASILY. MANUAL BP OBTAINED AGAIN 99/72. MEDICATIONS IN EMAR THAT ARE DUE AT THIS TIME MAY IMPACT PRESSURE AND PT ALREADY DROWSY. WILL MONITOR PT AT THIS TIME BE
--- NOTE | 2019-01-06 21:45 | NUR ---
PT REFUSED MEDICATIONS AT THIS TIME. PT DROWSY. AROUSES AND RESPONDS TO VERBAL STIMULI. STATES SHE IS VERY TIME. CALL LIGHT IN REACH. BED CHANGED PROVIDED AND PATIENT BACK TO SLEEP.
[2019-01-07 01:08] VITALS: BP 111/72
[2019-01-07 06:35] LABS: BASOPHILS 0.3 % (0-2); EOSINOPHILS 1.2 % (0-7); HEMATOCRIT 36.5 % (36.0-48.0); HEMOGLOBIN 10.8 g/dL (12-16); IMMATURE GRANULOCYTES 5.5 % (0-5); LYMPHOCYTES 16.6 % (15-50); MCH 26.5 pg (26.0-34.0); MCHC 29.6 g/dL (31.0-37.0); MCV 89.5 fL (80.0-100.0); MEAN PLATELET VOLUME 8.7 fL (7.4-10.4); MONOCYTES 10.9 % (2-11); NEUTROPHILS 65.5 % (40-80); PLATELET COUNT 304 10x3/uL (130-400); RBC 4.08 10x6/uL (4.00-5.40); WBC 8.7 10x3/uL (4.8-10.8)
[2019-01-07 06:52] LABS: ANION GAP 9.2 mmol/L (8-16); CALCIUM 8.3 mg/dL (8.5-10.1); CARBON DIOXIDE 33.5 mmol/L (21.0-32.0); CREATININE - SERUM 0.9 mg/dL (0.6-1.3); POTASSIUM - SERUM 3.7 mmol/L (3.5-5.1)
[2019-01-07 08:05] VITALS: BP 97/53
--- NOTE | 2019-01-07 08:13 | NUR ---
AAOX4. ON 3LPM VIA NC, 02 DROPPED TO 78%, REPOSITIONED UP IN BED, INSTRUCTED THROUGH DEEP, CONTROLLED BREATHING, 02 UP TO 90%, DENIES ANY SOB OR TROUBLE BREATHING, IV TO RIGHT FOREARM, LEAKING AROUND SITE, STOPPED IV FLUIDS, TRANSPORTED OFF UNIT VIA BED FOR SCHEDULED PROCEDURE.
[2019-01-07 11:53] VITALS: BP 108/57
--- NOTE | 2019-01-07 13:34 | NUR ---
ATTEMPTED TO REACH CONTACT NUMBER TO HAVE THEM SEND OVER A LIST OF HER MEDICATION SO THAT WE CAN VERIFY AND RESTART MEDICATIONS THAT ARE NEEDED. THE NUMBER WAS FOR [facility], THE FACILITY INFORMED ME THAT SHE HAS NOT BEEN AT THAT FACILITY FOR OVER A YEAR AND A HALF. PT IS NOT THE BEST HISTORIAN IS SHE STATES "SHE LIVES AT HOME" INFORMED NANCY CUELLAR.
[2019-01-07 15:06] VITALS: BP 84/60
[2019-01-07 20:22] VITALS: BP 100/60
[2019-01-08 00:49] VITALS: BP 98/7
--- NOTE | 2019-01-08 03:40 | NUR ---
I have reviewed this patient and I concur with the Shift Assessment completed by the Licensed Practical Nurse today this shift.
[2019-01-08 06:02] VITALS: BP 86/50
[2019-01-08 06:08] LABS: BASOPHILS 0.4 % (0-2); EOSINOPHILS 2.4 % (0-7); HEMATOCRIT 33.6 % (36.0-48.0); HEMOGLOBIN 9.7 g/dL (12-16); LYMPHOCYTES 18.7 % (15-50); MCH 26.3 pg (26.0-34.0); MCHC 28.9 g/dL (31.0-37.0); MCV 91.1 fL (80.0-100.0); MEAN PLATELET VOLUME 8.8 fL (7.4-10.4); MONOCYTES 9.8 % (2-11); NEUTROPHILS 63.7 % (40-80); PLATELET COUNT 257 10x3/uL (130-400); RBC 3.69 10x6/uL (4.00-5.40); RDW 16.9 % (11.5-14.5); WBC 7.1 10x3/uL (4.8-10.8)
[2019-01-08 06:46] LABS: CALC OSMOLALITY 288 mosm/kg (275-300); CALCIUM 8.1 mg/dL (8.5-10.1); CARBON DIOXIDE 37.5 mmol/L (21.0-32.0); CHLORIDE - SERUM 104 mmol/L (98-107); CREATININE - SERUM 0.7 mg/dL (0.6-1.3); GLUCOSE 94 mg/dL (74-106); POTASSIUM - SERUM 3.6 mmol/L (3.5-5.1); SODIUM 144 mmol/L (136-145); UREA NITROGEN 18 mg/dL (7-18); eGFR NON AFRICAN AMERICAN 88 mL/min (90-120)
[2019-01-08 09:00] VITALS: BP 102/56
--- NOTE | 2019-01-08 10:42 | NUR ---
R FA PIV INFILTRATED. RESITED TO UPPER R FA. FLUSHES WELL. SITE C/D/I. PT TOLERATED WELL.
[2019-01-08 14:03] VITALS: BP 96/46
[2019-01-08 16:53] VITALS: BP 93/57
--- NOTE | 2019-01-08 17:42 | NUR ---
PT LYING IN BED AAO X4 TO PERSON, PLACE, TIME, AND SITUATION. DENIES NEEDS AT THIS TIME. CL IN REACH. SIDE RAILS UP X3 FOR PT SAFETY. BED IN LOWEST POSITION.
--- NOTE | 2019-01-08 19:40 | NUR ---
LYING IN BED. ANXIOUS AND IRRITABLE. ALERT AND ORIENTED X4. RESP EVEN AND NONLABORED. O2 @ 3L/NC. BBS CTA. BRUISES NOTED TO BUE. STATES SHE IS NUMB FROM THE WAIST DOWN SINCE SHE BROKE HER "TAILBONE" A WHILE BACK. INCONT OF B/B. NO EDEMA NOTED. TELEMETRY SHOWS SR WITH RATE OF 88. NS @ KVO INFUSING IN RT FOREARM. RATES PAIN IN BACK 10. STATES SHE CANT WALK. SR ELEVATED X2. CL IN REACH.
--- NOTE | 2019-01-08 20:00 | NUR ---
MEDICATED WITH ULTRAM ORDERED. CL IN REACH.
[2019-01-08 22:12] VITALS: BP 96/60
[2019-01-09 01:15] VITALS: BP 93/58
--- NOTE | 2019-01-09 03:22 | NUR ---
PT REFUSED 1200PM TX DUE TO CHEST PAIN HOWEVER EXPERIENCED EXERTIONAL DYSPNEA WHEN MOVED AROUND FOR BED CHANGE PRN TX GIVEN PER SOB
[2019-01-09 05:09] LABS: BASOPHILS 0.2 % (0-2); EOSINOPHILS 1.6 % (0-7); HEMATOCRIT 32.8 % (36.0-48.0); HEMOGLOBIN 9.5 g/dL (12-16); IMMATURE GRANULOCYTES 4.6 % (0-5); LYMPHOCYTES 24.1 % (15-50); MCH 26.5 pg (26.0-34.0); MCV 91.6 fL (80.0-100.0); MEAN PLATELET VOLUME 9.1 fL (7.4-10.4); MONOCYTES 9.4 % (2-11); NEUTROPHILS 60.1 % (40-80); PLATELET COUNT 269 10x3/uL (130-400); RBC 3.58 10x6/uL (4.00-5.40); RDW 17.3 % (11.5-14.5)
[2019-01-09 05:29] VITALS: BP 105/63
[2019-01-09 05:36] LABS: CALCIUM 8.2 mg/dL (8.5-10.1); CARBON DIOXIDE 36.1 mmol/L (21.0-32.0); CHLORIDE - SERUM 102 mmol/L (98-107); CREATININE - SERUM 0.8 mg/dL (0.6-1.3); POTASSIUM - SERUM 3.7 mmol/L (3.5-5.1); SODIUM 141 mmol/L (136-145); eGFR NON AFRICAN AMERICAN 75 mL/min (90-120)
[2019-01-09 05:44] LABS: CALC OSMOLALITY 283 mosm/kg (275-300); GLUCOSE 152 mg/dL (74-106); UREA NITROGEN 13 mg/dL (7-18)
[2019-01-09 09:04] VITALS: BP 109/58
--- NOTE | 2019-01-09 11:22 | NUR ---
R FA PIV INFILTRATED. RESITED 22G TO R HAND. FLUSHES WELL. PT TOLERATED WELL.
[2019-01-09 13:34] VITALS: BP 112/70
--- NOTE | 2019-01-09 14:44 | NUR ---
NUTRITION F/U CHART REVIEWED, PT VISIT. TOLERATING REG DIET WITH 75% INTAKE RECENT MEALS. WILL CONTINUE TO PROVIDE DIET, MONITOR PO INTAKE. RD FOLLOWING
--- NOTE | 2019-01-09 15:25 | MORECARE ---
CASE MANAGEMENT DISCHARGE SUMMARY PATIENT: ELIZABETH WRAY UNIT: [id number] ADM DATE: 01/04/19 AGE: 68 : 48 SEX: F ROOM/BED: D.2239 AUTHOR: BLANKA MCNAIR PHYSICIAN: REFERRING PHYSICIAN: RAVEN BEE MD DATE OF SERVICE: 01/09/19 Discharge Plan Patient Name: ELIZABETH WRAY [facility] [facility] 1950 Planned Disposition: Anticipated Discharge Date: Discharge Date: Expected LOS: Initial Reviewer: [email or web address] Initial Review Date: 01/04/2019 Generated: 01/09/19 4:25 pm DCPIA - Discharge Planning Initial Assessment Updated by [email or web address]: Ame Burrell on 01/09/19 3:25 pm * Is the patient Alert and Oriented? Yes * How many steps to enter\exit or inside your home? none * PCP Dr. mora * Pharmacy [facility] * Preadmission Environment [facility] Facility * [place] [address] * Partial ADLs (Assistance needed) Ambulation Bathing Dressing Medication Management Toileting Transfers * Equipment Wheelchair * List name and contact numbers for known caregivers / representatives who currently or will assist patient after discharge: Srini Wray - son - [phone] Rafael Holguin - son - * Verbal permission to speak to the caregivers and representatives has been obtained from the patient. Yes * Community resources currently utilized None * Additional services required to return to the preadmission environment? No * Can the patient safely return to the preadmission environment? Yes * Has this patient been hospitalized within the prior 30 days at any hospital? Yes Last DP export: 01/04/19 5:48 p Patient Name: ELIZABETH WRAY Page 13739 at 1520 All edits/amendments must be made on the electronic document DICTATION DATE: 01/09/19 152 JOB PRESS FEEDER: ALYSSIA 01/09/19 1524 RPT#: [id number] DC DATE: STATUS: ADM IN [facility] [address] [id number] END OF REPORT
--- NOTE | 2019-01-09 15:34 | MORECARE ---
CASE MANAGEMENT DISCHARGE SUMMARY PATIENT: ELIZABETH WRAY UNIT: [id number] ADM DATE: 01/04/19 AGE: 68 : 48 SEX: F ROOM/BED: D.2239 AUTHOR: TABBYDOC PHYSICIAN: REFERRING PHYSICIAN: RAVEN BEE MD DATE OF SERVICE: 01/09/19 Discharge Plan Patient Name: ELIZABETH WRAY Facility: [facility]:[place] : 1950 Planned Disposition: Anticipated Discharge Date: Discharge Date: Expected LOS: Initial Reviewer: [email or web address] Initial Review Date: 01/04/2019 Generated: 01/09/19 4:34 pm Comments DCP- Discharge Planning Updated by [email or web address]: Ame Burrell on 01/09/19 2:[address] Patient Name: ELIZABETH WRAY Admission Status: ER Accout number: [id number] Admission Date: 01-04-2019 : 1950 Admission Diagnosis: Attending: RAVEN BEE Current LOS: 5 Anticipated DC Date: Planned Disposition: Return to [facility] Primary Insurance: MEDICARE A & B Discharge Planning Comments: CM met with patient to complete initial dc planning assessment. CM educated patient on the CM role and verbal consent given by patient to complete assessment. Patient is a resident at [facility] [phone] . She will return to the facility at time of discharge. PEARL form presented, explained and signed by the patient to return [place] [facility] [place]. Signed form placed in patient's chart and signed copy left with patient. DC IMM delivered, explained, signed by the patient, and placed in the chart. Signed form also left with patient. Patient agrees this is a safe discharge plan. . Patient reports [facility] will transport her home at time of discharge. Patient denied further known dc needs. CM will continue to follow and will assist as needed with dc plans/needs. Mental Health Orderly: Ame Burrell RN, [facility] DCPIA - Discharge Planning Initial Assessment Updated by [email or web address]: Ame Burrell on 01/09/19 3:25 pm * Is the patient Alert and Oriented? Yes * How many steps to enter\exit or inside your home? none * PCP Dr. mora * Pharmacy [facility] * Preadmission Environment Senior Living Facility * Facility Name [facility] [address] [place] [address] * Partial ADLs (Assistance needed) Ambulation Bathing Dressing Medication Management Toileting Transfers * Equipment Wheelchair * List name and contact numbers for known caregivers / representatives who currently or will assist patient after discharge: Srini Wray - son - [phone] Rafael Holguin - son - * Verbal permission to speak to the caregivers and representatives has been obtained from the patient. Yes * Community resources currently utilized None * Additional services required to return to the preadmission environment? No * Can the patient safely return to the preadmission environment? Yes * Has this patient been hospitalized within the prior 30 days at any hospital? Yes Coverage Notice Reviewer: [email or web address] Albino Burrell Notice Issued Date-Time: 01/09/2019 15:29 Notice Type: IM Discharge Notice Notice Delivered To: Patient Relationship to Patient: Acetaldehyde Converter Operator Name: Delivery Method: HAND - Hand Delivered Stephany Days: Prior Verbal Notification: Recipient Understood Notice: Recipient Signature: Med Rec Note Co-signed by Attending: Coverage Notice Comment: Last DP export: 01/09/19 2:25 p Patient Name: ELIZABETH WRAY Page [id number] at 1534 All edits/amendments must be made on the electronic document DICTATION DATE: 01/09/191533 STRIP STAMP STRAIGHTENER: ALYSSIA 01/09/191533 RPT#: [id number] DC DATE: STATUS: ADM IN [facility] [address] [place] [address] END OF REPORT
--- NOTE | 2019-01-09 15:46 | NUR ---
PT LYING IN BED AAO X4 TO PERSON, PLACE, TIME, AND SITUATION. DENIES NEEDS AT THIS TIME. CL IN REACH. SIDE RAILS UP X3 FOR PT SAEFTY. BED IN LOWEST POSITION. SPIKED TEMP OF 102.4- DID BLOOD CULT X2, STERILE UC, AND TYLENOL. TEMP NOW DOWN 100.2. WILL CONTINUE TO MONITOR PT
[2019-01-09 16:14] VITALS: BP 97/56
--- NOTE | 2019-01-09 19:50 | NUR ---
LYING ON LT SIDE IN BED AND FAVORS THIS SIDE. ALERT AND ORIENTED BUT CONFUSED AT TIMES. RESP LABORED, IRREG. NOT WEARING O2. PLACED O2 ON AGAIN @ 2L/NC. TELEMETRY SHOWS SR WITH RATE OF 65. BRUISES NOTED TO BUE. INCONT OF URINE AT THIS TIME. COMPLETE LINEN CHANGE DONE AT THIS TIME. COCCYX IS RED, BEUDREAUXS APPLIED. NS @ 30 MLHR INFUSING IN RT HAND WITHOUT DIFF. PT IS IRRITABLE AND ATTN SEEKING. SR ELEVATED X2. CL IN REACH.
[2019-01-09 20:28] VITALS: BP 100/60
[2019-01-10 00:40] VITALS: BP 93/58
--- NOTE | 2019-01-10 02:11 | NUR ---
HASNT SLEPT TONIGHT. KEEPS PULLING O2 OFF, GOWN OFF AND PULLED TELEMETRY OFF. IRRITABLE WITH STAFF. V/S STABLE. CL IN REACH.
[2019-01-10 05:21] VITALS: BP 113/65
--- NOTE | 2019-01-10 06:16 | NUR ---
INCONT AT THIS TIME. LINENS CHANGED AT THIS TIME. BUTT PASTE APPLIED. AFTER CARE WAS PROVIDED, PT STATES SHE CANT BREATHE BUT IS YELLING AT STAFF. PT IN NO DISTRESS JUST ANXIOUS. REFUSES TO KEEP O2 ON. LAB IN ROOM TO DRAW BLOOD. PT TELLING SENIOR DIRECTOR OF GLOBAL [employer]ERCIAL TECHNOLOGY SOLUTIONS THAT STAFF REFUSES TO GIVE HER PAIN MED. IT HAS BEEN EXPLAINED TO PT SEVERAL TIMES THAT HER B/P WAS LOW YESTERDAY AND THAT THE DR HAD PUT ALL PAIN MEDS AND SEDATIVES ON HOLD AND THAT SHE RECEIVED A FLUID BOLUS TO BRING HER B/P UP. PT HAS TYLENOL ORDERED. SHE RECEIVED IT LAST NIGHT BUT REFUSES THIS AM. PT ASKED SENIOR DIRECTOR OF GLOBAL [employer]ERCIAL TECHNOLOGY SOLUTIONS TO CALL HER SON. PT BEING MANIPULATIVE AND ATTN SEEKING. CLEARING SUPERVISOR PRESENT AND AWARE OF PT BEHAVIOR. PT IN NO ACUTE DISTRESS AND ASKING FOR COFFEE.
[2019-01-10 07:09] LABS: BASOPHILS 0.3 % (0-2); EOSINOPHILS 1.6 % (0-7); HEMATOCRIT 33.7 % (36.0-48.0); IMMATURE GRANULOCYTES 4.4 % (0-5); LYMPHOCYTES 16.4 % (15-50); MCHC 29.7 g/dL (31.0-37.0); MCV 90.8 fL (80.0-100.0); MEAN PLATELET VOLUME 8.6 fL (7.4-10.4); MONOCYTES 11.2 % (2-11); NEUTROPHILS 66.1 % (40-80); PLATELET COUNT 230 10x3/uL (130-400); RBC 3.71 10x6/uL (4.00-5.40); RDW 17.2 % (11.5-14.5)
[2019-01-10 07:26] LABS: WBC 6.9 10x3/uL (4.8-10.8)
[2019-01-10 07:40] LABS: CALCIUM 8.1 mg/dL (8.5-10.1); CARBON DIOXIDE 28.6 mmol/L (21.0-32.0); CHLORIDE - SERUM 102 mmol/L (98-107); SODIUM 140 mmol/L (136-145); UREA NITROGEN 11 mg/dL (7-18)
[2019-01-10 07:41] LABS: CALC OSMOLALITY 277 mosm/kg (275-300); CREATININE - SERUM 0.5 mg/dL (0.6-1.3); GLUCOSE 96 mg/dL (74-106); POTASSIUM - SERUM 4.3 mmol/L (3.5-5.1); eGFR NON AFRICAN AMERICAN > 90 mL/min (90-120)
--- NOTE | 2019-01-10 07:46 | NUR ---
AWAKE AND ALERT. ORIENTED X3. NO C/O AT THIS TIME. LUNGS ARE CLEAR BILATERALLY BUT SLIGHTLY DIMINISHED THROUGOUT. NO COUGH NOTED. SKIN IS INTACT WITHOUT REDNESS. IV TO RIGHT HAND IS PATENT WITHOUT REDNESS AT INSERTION SITE. DENIES NEEDS.
[2019-01-10 08:52] VITALS: BP 112/68
--- NOTE | 2019-01-10 12:02 | MORECARE ---
CASE MANAGEMENT DISCHARGE SUMMARY PATIENT: ELIZABETH WRAY UNIT: [id number] ADM DATE: 01/04/19 AGE: 68 : 48 SEX: F ROOM/BED: D.2239 AUTHOR: TABBYDOC PHYSICIAN: REFERRING PHYSICIAN: RAVEN BEE MD DATE OF SERVICE: 01/10/19 Discharge Plan Patient Name: ELIZABETH WRAY Facility: [facility]:[place] : 1950 Planned Disposition: Anticipated Discharge Date: Discharge Date: Expected LOS: Initial Reviewer: [email or web address] Initial Review Date: 01/04/2019 Generated: 01/10/19 1:02 pm Comments DCP- Discharge Planning Updated by [email or web address]: Jamila Perez on 01/10/19 11:[address] I called and spoke to Hafsa at [facility] and informed her that I anticipate the patient will return there tomorrow. Hafsa states she will return to a skilled bed. Clinical faxed to [phone] per Hafsa's request. I will call tomorrow when discharge order received. Awaiting 2 day culture report. CM will continue to follow and assist with discharge planning/needs. DCP- Discharge Planning Updated by [email or web address]: Ame Burrell on 01/09/19 2:[address] Patient Name: ELIZABETH WRAY Admission Status: ER Accout number: [id number] Admission Date: 01-04-2019 : 1950 Admission Diagnosis: Attending: RAVEN BEE Current LOS: 5 Anticipated DC Date: Planned Disposition: Return to [facility] Primary Insurance: MEDICARE A & B Discharge Planning Comments: CM met with patient to complete initial dc planning assessment. CM educated patient on the CM role and verbal consent given by patient to complete assessment. Patient is a resident at [facility] [phone] . She will return to the facility at time of discharge. PEARL form presented, explained and signed by the patient to return to [facility] [place]. Signed form placed in patient's chart and signed copy left with patient. DC IMM delivered, explained, signed by the patient, and placed in the chart. Signed form also left with patient. Patient agrees this is a safe discharge plan. . Patient reports [facility] her home at time of discharge. Patient denied further known dc needs. CM will continue to follow and will assist as needed with dc plans/needs. Dietitian Helper: Ame Burrell RN, [facility] DCPIA - Discharge Planning Initial Assessment Updated by [id number]: Ame Burrell on 01/09/19 3:25 pm * Is the patient Alert and Oriented? Yes * How many steps to enter\exit or inside your home? none * PCP Dr. mora * Pharmacy [facility] * Preadmission Environment Care Home Facility * Facility Name [facility] [address] [address] * Partial ADLs (Assistance needed) Ambulation Bathing Dressing Medication Management Toileting Transfers * Equipment Wheelchair * List name and contact numbers for known caregivers / representatives who currently or will assist patient after discharge: Srini Wray - son - [phone] Rafael Chelsie - son - * Verbal permission to speak to the caregivers and representatives has been obtained from the patient. Yes * Community resources currently utilized None * Additional services required to return to the preadmission environment? No * Can the patient safely return to the preadmission environment? Yes * Has this patient been hospitalized within the prior 30 days at any hospital? Yes External Providers External Provider: OTHER-OTHER Next Contact Date: Service Request Date: Service Type: Resolution: Reviewer: Comments: Coverage Notice Reviewer: [id number] - Ame Burrell Notice Issued Date-Time: 01/09/2019 15:29 Notice Type: IM Discharge Notice Notice Delivered To: Patient Relationship to Patient: Motor Boss Name: Delivery Method: HAND - Hand Delivered Stephany Days: Prior Verbal Notification: Recipient Understood Notice: Recipient Signature: Med Rec Note Co-signed by Attending: Coverage Notice Comment: Last DP export: 01/09/19 2:34 p Patient Name: ELIZABETH WRAY Page [id number] at 1202 All edits/amendments must be made on the electronic document DICTATION DATE: 01/10/19 1202 SENIOR PHP DEVELOPER: ALYSSIA 01/10/19 1202 RPT#: [id number] DC DATE: STATUS: ADM IN [facility] [address] [place] [address] END OF REPORT
[2019-01-10 12:20] VITALS: BP 91/56
[2019-01-10 21:01] VITALS: BP 97/55
[2019-01-11 01:54] VITALS: BP 143/76
--- NOTE | 2019-01-11 04:24 | NUR ---
I have reviewed this patient and I concur with the Shift Assessment completed by the Licensed Practical Nurse today this shift.
--- NOTE | 2019-01-11 04:33 | NUR ---
PT RESTING IN BED. EYES CLOSED. NO SIGNS OF DISTRESS. BREATHING EVEN AND UNLABORED. CALL LIGHT IN REACH. ELIF ALARM ON. BED LOWERED AND LOCKED. WILL CONTINUE PLAN OF CARE.
[2019-01-11 05:41] VITALS: BP 104/53
[2019-01-11 05:46] LABS: BASOPHILS 0.3 % (0-2); EOSINOPHILS 1.5 % (0-7); HEMATOCRIT 33.8 % (36.0-48.0); IMMATURE GRANULOCYTES 1.8 % (0-5); LYMPHOCYTES 16.7 % (15-50); MCH 26.9 pg (26.0-34.0); MCHC 29.6 g/dL (31.0-37.0); MCV 90.9 fL (80.0-100.0); MEAN PLATELET VOLUME 8.7 fL (7.4-10.4); MONOCYTES 14.4 % (2-11); NEUTROPHILS 65.3 % (40-80); PLATELET COUNT 230 10x3/uL (130-400); RBC 3.72 10x6/uL (4.00-5.40); RDW 17.3 % (11.5-14.5); WBC 6.8 10x3/uL (4.8-10.8)
[2019-01-11 06:10] LABS: ALBUMIN 2.7 g/dL (3.4-5.0); ALKALINE PHOSPHATASE 144 U/L (46-116); ALT (SGPT) 16 U/L (10-68); CALC OSMOLALITY 282 mosm/kg (275-300); CALCIUM 8.7 mg/dL (8.5-10.1); CHLORIDE - SERUM 103 mmol/L (98-107); CREATININE - SERUM 0.6 mg/dL (0.6-1.3); GLUCOSE 115 mg/dL (74-106); PROTEIN - SERUM 5.8 g/dL (6.4-8.2); SODIUM 142 mmol/L (136-145); UREA NITROGEN 11 mg/dL (7-18); eGFR NON AFRICAN AMERICAN > 90 mL/min (90-120)
[2019-01-11 06:12] LABS: POTASSIUM - SERUM 3.6 mmol/L (3.5-5.1)
[2019-01-11 08:30] VITALS: BP 96/64
--- NOTE | 2019-01-11 09:21 | NUR ---
SPOKE TO DR LANDA IN [place]. HE SAYS NO PAIN MEDS FOR PATIENT. OOB TO CHAIR FOR MEALS. PATIENT REFUSES AT THIS TIME TO GET OOB BUT SAYS NEXT MEAL SHE WILL. DR LANDA SAID IF BP IS GOOD OK FOR PRIMARY TO DC FROM HIS STANDPOINT. HE WILL NOT SEE HER TOMORROW. RIGHT HAND IV LEAKING. REMOVED, TIP INTACT. WILL RESITE.
[2019-01-11] MEDS ORDERED: Nystatin Oral Susp [ PO (09:27)
[2019-01-11] MEDS ORDERED: LEVOFLOXACIN500 MG PO (09:28)
--- NOTE | 2019-01-11 10:53 | MORECARE ---
CASE MANAGEMENT DISCHARGE SUMMARY PATIENT: ELIZABETH BUSTAMANTE UNIT: [id number] ADM DATE: 01/04/19 AGE: 68 : 48 SEX: F ROOM/BED: D.2239 AUTHOR: TABBYDOC PHYSICIAN: REFERRING PHYSICIAN: RAVEN BEE MD DATE OF SERVICE: 01/11/19 Discharge Plan Patient Name: ELIZABETH BUSTAMANTE Facility: [facility]:[place] : 1950 Planned Disposition: Anticipated Discharge Date: Discharge Date: Expected LOS: Initial Reviewer: [email or web address] Initial Review Date: 01/04/2019 Generated: 01/11/19 11:53 am Comments DCP- Discharge Planning Updated by [email or web address]: Jamila Perez on 01/11/19 9:[address] Patient Name: ELIZABETH BUSTAMANTE Encounter No: [id number] : 1950 Primary Insurance: MEDICARE A & B Anticipated DC Date: Planned Disposition: External Planned Provider: : DCP follow-up note: Patient in agreement with discharge plan. No changes to plan. I spoke with Denice at [facility] and they will pick her up at 6PM. I informed Denice she is on oxygen. Chinyere is the nurse to call report to. She will be returning to a skilled bed. Clinical faxed to [phone]. commissions coordinator and primary nurse (Odalys) informed. Case management will follow and assist as needed. Jamila Perez DCP- Discharge Planning Updated by [email or web address]: Jamila Perez on 01/10/19 11:[address] I called and spoke to Hafsa at [facility] and informed her that I anticipate the patient will return there tomorrow. Hafsa states she will return to a skilled bed. Clinical faxed to [phone] per Hafsa's request. I will call tomorrow when discharge order received. Awaiting 2 day culture report. CM will continue to follow and assist with discharge planning/needs. DCP- Discharge Planning Updated by [email or web address]: Ame Burrell on 01/09/19 2:[address] Patient Name: ELIZABETH BUSTAMANTE Admission Status: ER Accout number: [id number] Admission Date: 01-04-2019 : 1950 Admission Diagnosis: Attending: RAVEN BEE Current LOS: 5 Anticipated DC Date: Planned Disposition: Return to [facility] Primary Insurance: MEDICARE A & B Discharge Planning Comments: CM met with patient to complete initial dc planning assessment. CM educated patient on the CM role and verbal consent given by patient to complete assessment. Patient is a resident at [facility] [phone] . She will return to the facility at time of discharge. PEARL form presented, explained and signed by the patient to return to [facility] [place]. Signed form placed in patient's chart and signed copy left with patient. DC IMM delivered, explained, signed by the patient, and placed in the chart. Signed form also left with patient. Patient agrees this is a safe discharge plan. . Patient reports [facility] will transport her home at time of discharge. Patient denied further known dc needs. CM will continue to follow and will assist as needed with dc plans/needs. Lithographic Proofer Apprentice: Ame Burrell RN, [facility] DCPIA - Discharge Planning Initial Assessment Updated by [email or web address]: Ame Burrell on 01/09/19 3:25 pm * Is the patient Alert and Oriented? Yes * How many steps to enter\exit or inside your home? none * PCP Dr. mora * Pharmacy [facility] * Preadmission Environment Assisted Facility * [place] [address] * Partial ADLs (Assistance needed) Ambulation Bathing Dressing Medication Management Toileting Transfers * Equipment Wheelchair * List name and contact numbers for known caregivers / representatives who currently or will assist patient after discharge: Srini Nils - sophie - [phone] Rafael barrios - * Verbal permission to speak to the caregivers and representatives has been obtained from the patient. Yes * Community resources currently utilized None * Additional services required to return to the preadmission environment? No * Can the patient safely return to the preadmission environment? Yes * Has this patient been hospitalized within the prior 30 days at any hospital? Yes Coverage Notice Reviewer: [id number] - Ame Burrell Notice Issued Date-Time: 01/09/2019 15:29 Notice Type: IM Discharge Notice Notice Delivered To: Patient Relationship to Patient: Pediatric Oncology Nurse Name: Delivery Method: HAND - Hand Delivered Stephany Days: Prior Verbal Notification: Recipient Understood Notice: Recipient Signature: Med Rec Note Co-signed by Attending: Coverage Notice Comment: Last DP export: 01/10/19 11:02 a Patient Name: ELIZABETH BUSTAMANTE Page [id number] at 1053 All edits/amendments must be made on the electronic document DICTATION DATE: 01/11/191051 RADIO MACHINIST: ALYSSIA 01/11/19 1052 RPT#: [id number] DC DATE: STATUS: ADM IN [facility] [address] [place] [address] END OF REPORT
[2019-01-11 12:07] VITALS: BP 78/42
--- NOTE | 2019-01-11 13:30 | NUR ---
DISCUSSED DISCHARGE, MEDICATION AND FOLLOW-UP INSTRUCTIONS. IV PREVIOUSLY REMOVED. REPORT CALLED TO SCOTT AT [facility]. ASKED MAICOL, METAL TEMPLATE MAKER TO CALL FOR PAPER SCRUBS. PATIENT HAS NO CLOTHING. TRANSPORT TO [facility] AT 1500.
--- NOTE | 2019-01-11 14:50 | NUR ---
PATIENT DRESSED IN PAPER SCRUBS AND NONSKID SOCKS. BELONGINGS GATHERED AND BAGGED. AWAITING TRANSPORT TO [place].
--- NOTE | 2019-01-11 14:56 | MORECARE ---
CASE MANAGEMENT DISCHARGE SUMMARY PATIENT: ELIZABETH WRAY UNIT: [id number] ADM DATE: 01/04/19 AGE: 68 : 48 SEX: F ROOM/BED: D.2239 AUTHOR: TABBYDOC PHYSICIAN: REFERRING PHYSICIAN: RAVEN BEE MD DATE OF SERVICE: 01/11/19 Discharge Plan Patient Name: ELIZABETH WRAY Facility: [facility]:[place] : 1950 Planned Disposition: Anticipated Discharge Date: Discharge Date: Expected LOS: Initial Reviewer: [email or web address] Initial Review Date: 01/04/2019 Generated: 01/11/19 3:55 pm Comments DCP- Discharge Planning Updated by [email or web address]: Jamila Georgeviktor on 01/11/19 1:[address] [facility] is coming to get patient at 3PM. Patient states I can call her son, Srini, and let him know. I called Srini Wray's number at [phone] per patient request and left a message on his voice mail that his mother was returning to [facility] today. CM will continue to follow and assist with discharge planning/needs. DCP- Discharge Planning Updated by [email or web address]: Jamila Georgeviktor on 01/11/19 9:[address] Patient Name: ELIZABETH WRAY Encounter No: [id number] : 1950 Primary Insurance: MEDICARE A & B Anticipated DC Date: Planned Disposition: External Planned Provider: : DCP follow-up note: Patient in agreement with discharge plan. No changes to plan. I spoke with Denice at [facility] and they will pick her up at 6PM. I informed Denice she is on oxygen. Chinyere is the nurse to call report to. She will be returning to a skilled bed. Clinical faxed to [phone]. child care education coordinator and primary nurse (Odalys) informed. Case management will follow and assist as needed. Jamila Chris DCP- Discharge Planning Updated by [email or web address]: Jamila Chris on 01/10/19 11:[address] I called and spoke to Hafsa at [facility] and informed her that I anticipate the patient will return there tomorrow. Hafsa states she will return to a skilled bed. Clinical faxed to [phone] per Hafsa's request. I will call tomorrow when discharge order received. Awaiting 2 day culture report. CM will continue to follow and assist with discharge planning/needs. DCP- Discharge Planning Updated by [id number]: Ame Burrell on 01/09/19 2:[address] Patient Name: ELIZABETH WRAY Admission Status: ER Accout number: [id number] Admission Date: 01-04-2019 : 1950 Admission Diagnosis: Attending: RAVEN BEE Current LOS: 5 Anticipated DC Date: Planned Disposition: Return to [facility] Primary Insurance: MEDICARE A & B Discharge Planning Comments: CM met with patient to complete initial dc planning assessment. CM educated patient on the CM role and verbal consent given by patient to complete assessment. Patient is a resident at [facility] [phone] . She will return to the facility at time of discharge. PEARL form presented, explained and signed by the patient to return to [facility] at pr. Signed form placed in patient's chart and signed copy left with patient. DC IMM delivered, explained, signed by the patient, and placed in the chart. Signed form also left with patient. Patient agrees this is a safe discharge plan. . Patient reports [facility] will transport her home at time of discharge. Patient denied further known dc needs. CM will continue to follow and will assist as needed with dc plans/needs. Delivery Architect: Ame Burrell RN, [facility] DCPIA - Discharge Planning Initial Assessment Updated by [email or web address]: Ame Burrell on 01/09/19 3:25 pm * Is the patient Alert and Oriented? Yes * How many steps to enter\exit or inside your home? none * PCP Dr. mora * Pharmacy [facility] * Preadmission Environment Intermediate Facility * Facility Name [address] [address] * Partial ADLs (Assistance needed) Ambulation Bathing Dressing Medication Management Toileting Transfers * Equipment Wheelchair * List name and contact numbers for known caregivers / representatives who currently or will assist patient after discharge: Srini Wray - son - [phone] Rafael Hol[facility] - sophie - * Verbal permission to speak to the caregivers and representatives has been obtained from the patient. Yes * Community resources currently utilized None * Additional services required to return to the preadmission environment? No * Can the patient safely return to the preadmission environment? Yes * Has this patient been hospitalized within the prior 30 days at any hospital? Yes Coverage Notice Reviewer: [id number] Albino Burrell Notice Issued Date-Time: 01/09/2019 15:29 Notice Type: IM Discharge Notice Notice Delivered To: Patient Relationship to Patient: Ship Joiner Name: Delivery Method: HAND - Hand Delivered Stephany Days: Prior Verbal Notification: Recipient Understood Notice: Recipient Signature: Med Rec Note Co-signed by Attending: Coverage Notice Comment: Last DP export: 01/11/19 9:53 a Patient Name: ELIZABETH WRAY Page [phone] at 1456 All edits/amendments must be made on the electronic document DICTATION DATE: 01/11/191454 MASTER FISHER: ALYSSIA 01/11/191 RPT#: [id number] DC DATE: STATUS: ADM IN [facility] [address] [place] [address] END OF REPORT
--- NOTE | 2019-01-11 16:30 | NUR ---
PATIENT DISCHARGED TO [facility] VIA WHEELCHAIR BY THEIR TRANSPORT. PORTABLE OXYGEN PROVIDED BY TRANSPORT. ALL BELONGINGS SENT WITH PATIENT.
--- NOTE | 2019-01-12 10:21 | MORECARE ---
CASE MANAGEMENT DISCHARGE SUMMARY PATIENT: ELIZABETH WRAY UNIT: [id number] ADM DATE: 01/04/19 AGE: 68 : 48 SEX: F ROOM/BED: D.2239 AUTHOR: TABBYDOC PHYSICIAN: REFERRING PHYSICIAN: RAVEN BEE MD DATE OF SERVICE: 01/12/19 Discharge Plan Patient Name: ELIZABETH WRAY Facility: [facility]:[place] : 1950 Planned Disposition: Anticipated Discharge Date: Discharge Date: 01/11/2019 Expected LOS: Initial Reviewer: [email or web address] Initial Review Date: 01/04/2019 Generated: 01/12/19 11:21 am Comments DCP- Discharge Planning Updated by [email or web address]: Jamila Chris on 01/11/19 1:[address] [facility] is coming to get patient at 3PM. Patient states I can call her son, Srini, and let him know. I called Srini Wray's number at [phone] per patient request and left a message on his voice mail that his mother was returning to [facility] today. CM will continue to follow and assist with discharge planning/needs. DCP- Discharge Planning Updated by [email or web address]: Jamila Chris on 01/11/19 9:[address] Patient Name: ELIZABETH WRAY Encounter No: [id number] : 1950 Primary Insurance: MEDICARE A & B Anticipated DC Date: Planned Disposition: External Planned Provider: : DCP follow-up note: Patient in agreement with discharge plan. No changes to plan. I spoke with Denice at [facility] and they will pick her up at 6PM. I informed Denice she is on oxygen. Chinyere is the nurse to call report to. She will be returning to a skilled bed. Clinical faxed to [phone]. utilization review coordinator and primary nurse (Odalys) informed. Case management will follow and assist as needed. Jamila Perez DCP- Discharge Planning Updated by [email or web address]: Jamila Perez on 01/10/19 11:[address] I called and spoke to Hafsa at [facility] and informed her that I anticipate the patient will return there tomorrow. Hafsa states she will return to a skilled bed. Clinical faxed to [phone] per Hafsa's request. I will call tomorrow when discharge order received. Awaiting 2 day culture report. CM will continue to follow and assist with discharge planning/needs. DCP- Discharge Planning Updated by [id number]: Ame Burrell on 01/09/19 2:[address] Patient Name: ELIZABETH WRAY Admission Status: ER Accout number: [id number] Admission Date: 01-04-2019 : 1950 Admission Diagnosis: Attending: RAVEN BEE Current LOS: 5 Anticipated DC Date: Planned Disposition: Return to [facility] Primary Insurance: MEDICARE A & B Discharge Planning Comments: CM met with patient to complete initial dc planning assessment. CM educated patient on the CM role and verbal consent given by patient to complete assessment. Patient is a resident at [facility] [phone] . She will return to the facility at time of discharge. PEARL form presented, explained and signed by the patient to return to [facility] at mi. Signed form placed in patient's chart and signed copy left with patient. DC IMM delivered, explained, signed by the patient, and placed in the chart. Signed form also left with patient. Patient agrees this is a safe discharge plan. . Patient reports [facility] will transport her home at time of discharge. Patient denied further known dc needs. CM will continue to follow and will assist as needed with dc plans/needs. Line Tender Flakeboard: Ame Burrell RN, [facility] DCPIA - Discharge Planning Initial Assessment Updated by [email or web address]: Ame Burrell on 01/09/19 3:25 pm * Is the patient Alert and Oriented? Yes * How many steps to enter\exit or inside your home? none * PCP Dr. mora * Pharmacy [facility] * Preadmission Environment Snf Facility * Facility Name [address] [address] * Partial ADLs (Assistance needed) Ambulation Bathing Dressing Medication Management Toileting Transfers * Equipment Wheelchair * List name and contact numbers for known caregivers / representatives who currently or will assist patient after discharge: Srini Wray - son - [phone] Rafael Nault - son - * Verbal permission to speak to the caregivers and representatives has been obtained from the patient. Yes * Community resources currently utilized None * Additional services required to return to the preadmission environment? No * Can the patient safely return to the preadmission environment? Yes * Has this patient been hospitalized within the prior 30 days at any hospital? Yes Coverage Notice Reviewer: [id number] Albino Burrell Notice Issued Date-Time: 01/09/2019 15:29 Notice Type: IM Discharge Notice Notice Delivered To: Patient Relationship to Patient: Clip Baker Name: Delivery Method: HAND - Hand Delivered Stephany Days: Prior Verbal Notification: Recipient Understood Notice: Recipient Signature: Med Rec Note Co-signed by Attending: Coverage Notice Comment: Last DP export: 01/11/19 1:56 p Patient Name: ELIZABETH WRAY Page [phone] at 1021 All edits/amendments must be made on the electronic document DICTATION DATE: 01/12/19 1021 ASSURANCE ASSOCIATE: ALYSSIA 01/12/19 1021 RPT#: [id number] DC DATE:01/11/19 STATUS: DIS IN [facility] [address] [place] [address] END OF REPORT
== END 2019-01-11 16:30 | DRG 813 ==
LOC: D.ER 14:53 → D.MS 18:11
PROVIDERS: Family Medicine; Internal Medicine Gastroenterology; ADMIT Internal Medicine Nephrology; ATTEND Internal Medicine Nephrology
PROC: 0DJ08ZZ Inspection of Upper Intestinal Tract, Via Natural or Artificial Opening Endoscopic (ICD-10-PCS; principal; 2019-01-06 09:30)
DX: D68.318 Other hemorrhagic disorder due to intrinsic circulating anticoagulants, antibodies, or inhibitors (principal); K29.81 Duodenitis with bleeding; K29.01 Acute gastritis with bleeding; J96.11 Chronic respiratory failure with hypoxia; K21.0 Gastro-esophageal reflux disease with esophagitis; D64.9 Anemia, unspecified; J44.9 Chronic obstructive pulmonary disease, unspecified; I10 Essential (primary) hypertension; I25.10 Atherosclerotic heart disease of native coronary artery without angina pectoris

== ENCOUNTER 2019-01-13 21:35 | Inpatient (IN) | payer MEDICARE ==
[2019-01-13] VITALS (9 sets, daily range): BP systolic 111–129; BP diastolic 54–72
[~2019-01-13 21:35] MED LIST changes: +LEVOFLOXACIN500 MG PO; +Nystatin Oral Susp [ PO
--- NOTE | 2019-01-13 21:50 | NUR ---
PT SAT UP IN BED PT GIVEN ICE CHIPS AT THIS TIME.
[2019-01-13 22:06] LABS: BASOPHILS 0.5 % (0-2); EOSINOPHILS 0 % (0-7); HEMOGLOBIN 9.4 g/dL (12-16); IMMATURE GRANULOCYTES 1.6 % (0-5); LYMPHOCYTES 4.3 % (15-50); MCHC 30.3 g/dL (31.0-37.0); MCV 89.1 fL (80.0-100.0); MEAN PLATELET VOLUME 8.8 fL (7.4-10.4); MONOCYTES 3.7 % (2-11); NEUTROPHILS 89.9 % (40-80); RBC 3.48 10x6/uL (4.00-5.40); RDW 17.6 % (11.5-14.5); WBC 10.5 10x3/uL (4.8-10.8)
[2019-01-13 22:14] LABS: PLATELET COUNT 277 10x3/uL (130-400)
--- NOTE | 2019-01-13 22:15 | NUR ---
PT GIVEN SPRITE TO DRINK AT THIS TIME.
[2019-01-13 22:18] LABS: APTT 32.6 SECONDS (22.8-39.4); INR 1.13 (0.85-1.17)
[2019-01-13 22:31] LABS: ALBUMIN 2.5 g/dL (3.4-5.0); ALKALINE PHOSPHATASE 154 U/L (46-116); ALT (SGPT) 13 U/L (10-68); BILIRUBIN - TOTAL 0.43 mg/dL (0.2-1.3); CALC OSMOLALITY 278 mosm/kg (275-300); CARBON DIOXIDE 29.7 mmol/L (21.0-32.0); CHLORIDE - SERUM 101 mmol/L (98-107); CREATININE - SERUM 1.5 mg/dL (0.6-1.3); GLUCOSE 147 mg/dL (74-106); POTASSIUM - SERUM 4.2 mmol/L (3.5-5.1); SODIUM 136 mmol/L (136-145); UREA NITROGEN 25 mg/dL (7-18); eGFR NON AFRICAN AMERICAN 36 mL/min (90-120)
[2019-01-13 22:42] LABS: CKMB 1.7 U/L (0.0-3.6); CREATINE KINASE 65 UL (21-215)
[2019-01-13 22:43] LABS: TROPONIN-I < 0.017 ng/mL (0.000-0.060)
[2019-01-13 23:16] LABS: APPEARANCE HAZY (CLEAR); BACTERIA MODERATE /hpf (NONE SEEN); BILIRUBIN NEGATIVE (NEGATIVE); COLOR YELLOW (YELLOW); EPITHELIAL CELLS NSEEN /hpf (0-5); GLUCOSE NEGATIVE (NEGATIVE); KETONE SMALL mg/dL (NEGATIVE); NITRITE NEGATIVE (NEGATIVE); PROTEIN TRACE mg/dL (NEGATIVE); RED CELLS - URINE 0-5 /hpf (0-5); SPECIFIC GRAVITY 1.015 (1.005-1.020); UROBILINOGEN NORMAL (NORMAL); WHITE CELLS - URINE >50 /hpf (0-5)
--- NOTE | 2019-01-13 23:30 | NUR ---
RECEIVED PT FROM ER VIA STRETCHER ADMIT TO 2300 TRANSFERRED TO BED. PT ALERT AND ORIENTED FOLLOWS COMMANDS. EXPLAINS SHE HAS DECREASED MOBILITY TO BLE FROM FALL OVER YEAR AGO. ABLE TO LIFT FEET OFF BED AND ASSISTS WITH TURNING AND REPOSITION. PLACED ON CM READING SR ALARMS ON AND AUDIBLE. BED IN LOW POSIITON SR UP TIMES 3 CALL LIGHT IN REACH.
[2019-01-14] VITALS (56 sets, daily range): BP systolic 72–152; BP diastolic 39–74; BMI 18.5
--- NOTE | 2019-01-14 01:30 | NUR ---
ATTEMPTING TO TITRATE DOWN NOREPINEPHRINE SEE IV FLOWSHEET FOR DRIP CHANGES. PT RESTING QUIETLY WITH EYES CLOSED CONTINUE POC
--- NOTE | 2019-01-14 03:00 | NUR ---
REASSESSMENT MADE PT DISORIENTED WHEN AWAKENED. DID NOT REMEMBER BEING IN HOSPITAL AT [facility]. REORIENTED AND SLOWLY BEGINS TO REMEMBER. SHE STATES SHE WAS AFRAID AT FIRST BUT BETTER NOW. VSS BLOOD PRESSURE DOING WELL AND TITRATING DRIP. CALL LIGHT IN REACH.
[2019-01-14 04:15] LABS: BASOPHILS 0.3 % (0-2); EOSINOPHILS 0 % (0-7); HEMATOCRIT 30.3 % (36.0-48.0); IMMATURE GRANULOCYTES 1.8 % (0-5); LYMPHOCYTES 9.5 % (15-50); MCH 26.5 pg (26.0-34.0); MCHC 29.7 g/dL (31.0-37.0); MCV 89.4 fL (80.0-100.0); MEAN PLATELET VOLUME 8.9 fL (7.4-10.4); MONOCYTES 1.3 % (2-11); NEUTROPHILS 87.1 % (40-80); PLATELET COUNT 263 10x3/uL (130-400); RBC 3.39 10x6/uL (4.00-5.40); RDW 17.1 % (11.5-14.5)
[2019-01-14 04:34] LABS: ALBUMIN 2.3 g/dL (3.4-5.0); ALKALINE PHOSPHATASE 147 U/L (46-116); ALT (SGPT) 12 U/L (10-68); CALC OSMOLALITY 285 mosm/kg (275-300); CALCIUM 7.9 mg/dL (8.5-10.1); CARBON DIOXIDE 32.4 mmol/L (21.0-32.0); CHLORIDE - SERUM 102 mmol/L (98-107); CKMB 1.5 U/L (0.0-3.6); CREATINE KINASE 50 UL (21-215); CREATININE - SERUM 1.2 mg/dL (0.6-1.3); GLUCOSE 163 mg/dL (74-106); PROTEIN - SERUM 5.7 g/dL (6.4-8.2); SODIUM 140 mmol/L (136-145); THYROID STIMULATING HORMONE 0.22 uIU/mL (0.36-3.74); UREA NITROGEN 22 mg/dL (7-18); eGFR NON AFRICAN AMERICAN 47 mL/min (90-120)
[2019-01-14 04:44] LABS: TROPONIN-I < 0.017 ng/mL (0.000-0.060)
--- NOTE | 2019-01-14 05:01 | NUR ---
PT RESTING QUIETLY NO DISTRESS NOTED WATCHING TV NOT CONFUSED AT THIS TIME CPOC
--- NOTE | 2019-01-14 06:27 | NUR ---
MEDS SCHEDULED FOR 0600 NOT VERIFIED BY PHARMACY YET WILL GIVE WHEN AVAILABLE OR PASS ONTO ONCOMING SHIFT
--- NOTE | 2019-01-14 08:15 | NUR ---
UP IN BED EATING BREAKFAST AT THIS TIME. NO ACUTE DISTRESS NOTED. PT ALERT AND ORIENTED. CALL LIGHT IN REACH. WILL CONTINUE PLAN OF CARE.
--- NOTE | 2019-01-14 10:15 | NUR ---
SPOKE WITH PTS FAMILY PER PTS REQUEST, UPDATES PROVIDED. NO ACUTE DISTRESS NOTED. WILL CONTINUE PLAN OF CARE.
--- NOTE | 2019-01-14 10:51 | NUR ---
DR RIVAS ROUNDED ON PT, ALL QUESTIONS AND CONCERNS ADDRESSED BY PHYSICIAN. PT ALSO COMPLAINT OF FEELING SOME ANXIETY, PHYSICIAN PLACED ORDERS. PT ALSO COMPLAINT OF NEEDING TO HAVE A BOWEL MOVEMENT, BOWEL SOUNDS HYPOACTIVE, PHYSICIAN STATED SHE WILL PLACE ORDERS REGARDING THIS WELL. NO ACUTE DISTRESS NOTED. LEVOPHED TITRATED TO ORDER, SEE IV FLOWSHEET. WILL CONTINUE PLAN OF CARE.
[2019-01-14 11:46] LABS: CKMB 1.2 U/L (0.0-3.6); CREATINE KINASE 35 UL (21-215); TROPONIN-I < 0.017 ng/mL (0.000-0.060)
--- NOTE | 2019-01-14 12:11 | NUR ---
UP IN BED EATING LUNCH AT THIS TIME. NO ACUTE DISTRESS NOTED. PT DENIES ANY NEEDS. WILL CONTINUE PLAN OF CARE.
--- NOTE | 2019-01-14 12:31 | NUR ---
LT AC PULLED OUT ACCIDENTLY BY PT WHILE EATING LUNCH, CATHETER TIP INTACT. NEW IV PLACED TO LT FOREARM, 22G, X 2 TRIES, FLUSHES WELL. NO ACUTE DISTRESS NOTED. WILL CONTINUE PLAN OF CARE.
--- NOTE | 2019-01-14 13:22 | NUR ---
DR HUNT IS AWARE OF CONSULT AND HAS SEEN PT.
--- NOTE | 2019-01-14 15:30 | NUR ---
BED BATH GIVEN AT THIS TIME WITH TOTAL LINEN CHANGE PROVIDED WELL. CHG BATH GIVEN. [facility] CARE PROVIDED USING CHG, TRENT CARE PROVIDED. PT DENIES AND NEEDS. NO ACUTE DISTRESS NOTED. VSS. WILL CONTINUE PLAN OF CARE.
--- NOTE | 2019-01-14 17:01 | NUR ---
UP IN BED EATING SUPPER AT THIS TIME WITH SET UP ASSIST. NO ACUTE DISTRESS NOTED. VSS. WILL CONTINUE PLAN OF CARE.
[2019-01-14 18:32] LABS: CKMB 1.4 U/L (0.0-3.6); CREATINE KINASE 27 UL (21-215); TROPONIN-I < 0.017 ng/mL (0.000-0.060)
--- NOTE | 2019-01-14 18:33 | NUR ---
PT COMPLAINT OF CHEST PAIN LEVEL 8/10, EKG OBTAINED SHOWS SINUS RHYTHM, CARDIAC ENZYMES OBTAINED. CACHORRO CUELLAR NOTIFIED. NO NEW ORDERS RECIEVED. VSS. WILL CONTINUE PLAN OF CARE.
--- NOTE | 2019-01-14 19:26 | NUR ---
UP IN BED WATCHING TV. NO DISTRESS NOTED. CALL LIGHT IN REACH. RESP EVEN AND UNLABORED. WILL CONTINUE TO MONITOR. CPOC
--- NOTE | 2019-01-14 21:00 | NUR ---
JUMPBASTING COLLAR BASTER LIGHT ASKING TO FIX BP CUFF. ADJUSTED CUFF THEN PATIENT STATED IT WAS TO TIGHT THEN STATED IT WAS TO LOOSE. TOLD PATIENT IT WILL BE OKAY. THEN PATIENT SAW RESP. THERAPIST IN [place] AND YELLED FOR HIM TO COME INTO HER ROOM. PATIENT THEN TOLD THERAPIST THAT HER BP CUFF WAS MESSED UP AND HE NEEDED TO FIX IT. ATIVAN GIVEN PER REQUEST. WILL CONTINUE TO MONITOR.
--- NOTE | 2019-01-14 21:30 | NUR ---
COMPLETED SHIFT ASSESSMENT COMPLETED AT 1934. AND DOCUMENTED AT 2137.
--- NOTE | 2019-01-14 21:40 | NUR ---
SHIFT ASSESSMENT COMPLETED AT 1934. DOCUMENTED AT 2137.
--- NOTE | 2019-01-14 22:08 | NUR ---
DR. RIVAS NOTFIED OF SBP OF 88 AND HR 76 SR ON CM. ORDER GIVEN TO HOLD HS DOSE OF AMIODARONE IF BP DOES NOT IMPROVE.
--- NOTE | 2019-01-14 22:58 | NUR ---
UP IN BED EATING PB AND CRACKERS. DENIES NEEDS OR PAIN AT THIS TIME. CALL LIGHT IN REACH. TM
[2019-01-15] VITALS (12 sets, daily range): BP systolic 89–126; BP diastolic 49–78; BMI 27.2
--- NOTE | 2019-01-15 00:59 | NUR ---
PT RESTING QUIETLY. NO DISTRESS NOTED. CALL LIGHT IN REACH. EYES CLOSED. RESP EVEN AND UNLABORED. CPOC
--- NOTE | 2019-01-15 03:00 | NUR ---
pt resting quietly. no distress noted. cpoc. cl in reach
[2019-01-15 03:56] LABS: BASOPHILS 0.1 % (0-2); EOSINOPHILS 0 % (0-7); HEMATOCRIT 27.4 % (36.0-48.0); HEMOGLOBIN 8.1 g/dL (12-16); IMMATURE GRANULOCYTES 0.8 % (0-5); LYMPHOCYTES 5.5 % (15-50); MCH 26.7 pg (26.0-34.0); MCHC 29.6 g/dL (31.0-37.0); MCV 90.4 fL (80.0-100.0); MEAN PLATELET VOLUME 9.3 fL (7.4-10.4); MONOCYTES 2.9 % (2-11); NEUTROPHILS 90.7 % (40-80); RBC 3.03 10x6/uL (4.00-5.40); RDW 17.1 % (11.5-14.5)
[2019-01-15 03:57] LABS: PLATELET COUNT 321 10x3/uL (130-400); WBC 7.6 10x3/uL (4.8-10.8)
--- NOTE | 2019-01-15 04:09 | NUR ---
PATIENT ALERT AND ORIENTED. CALL LIGHT WITHIN REACH, BED IN LOW POSITION. AGREE WITH PREVIOUS ASSESSMENT. PATIENT REQUEST ICE WATER, WILL GET FOR PATIENT.
[2019-01-15 04:16] LABS: ALBUMIN 2.1 g/dL (3.4-5.0); ANION GAP 6.2 mmol/L (8-16); BILIRUBIN - TOTAL 0.25 mg/dL (0.2-1.3); CARBON DIOXIDE 35.7 mmol/L (21.0-32.0); CREATININE - SERUM 0.9 mg/dL (0.6-1.3); POTASSIUM - SERUM 3.9 mmol/L (3.5-5.1); PROTEIN - SERUM 5.1 g/dL (6.4-8.2)
--- NOTE | 2019-01-15 05:18 | NUR ---
WAX ENGRAVER LIGHT ASKING FOR DENTURE CUP AND MARKETING AND PUBLIC RELATIONS MANAGER. PROVIDED CUP. DENTURES IN TOP WELDER JOURNEYMAN CUP BY BEDSIDE. DENIES FURTHER NEEDS. DAILY WEIGHT CHARTED. NO DISTRESS NOTED. CPOC
--- NOTE | 2019-01-15 06:01 | NUR ---
GAVE MORNING MEDS. CHECKED PT AND CHANGED PAD. TRENT CARE PROVIDED. 550ML OUTPUT FROM J[facility]. DENIES FURTHER NEEDS. CPOC.
--- NOTE | 2019-01-15 06:22 | NUR ---
DR. RIVAS NOTIFIED ABOUT H&H LABS. EVELYN STATED SHE WOULD NOTIFY [facility].
--- NOTE | 2019-01-15 07:00 | NUR ---
REPORT RECEIVED. ASSESSMENT COMPLETE PER FLOW SHEET. VSS. NO NEW CHANGES PT RESTING COMFORTABLY WILL CONTINUE TO MONITOR
--- NOTE | 2019-01-15 09:29 | NUR ---
dr drummond at bedside aminatarachel valdez. t orders recieved to transfer
--- NOTE | 2019-01-15 10:50 | NUR ---
DR VARNER AT BEDSIDE GIVEN UPDATE. NEW ORDERS RECEIVED
--- NOTE | 2019-01-15 12:57 | NUR ---
COMPLETE BB LINEN CHANGE ADM. CHG BATH ADM.
--- NOTE | 2019-01-15 13:44 | NUR ---
REPORT CALLED TO MED 3. TRANSFERING VIA BED.
--- NOTE | 2019-01-15 14:15 | NUR ---
RECEIVED PT TO ROOM 1204 VIA BED, TRANSFERED PT OVER TO BED IN ROOM X4 ASSIST. ORIENTED PT TO ROOM AND CALL LIGHT. WILL CONTINUE PLAN OF CARE.
--- NOTE | 2019-01-15 15:45 | MORECARE ---
CASE MANAGEMENT DISCHARGE SUMMARY PATIENT: ELIZABETH BUSTAMANTE UNIT: [id number] ADM DATE: 01/13/19 AGE: 68 : 48 SEX: F ROOM/BED: D.1204 AUTHOR: TABBYDOC PHYSICIAN: REFERRING PHYSICIAN: KRISTIN RIVAS MD DATE OF SERVICE: 01/15/19 Discharge Plan Patient Name: ELIZABETH BUSTAMANTE Facility: [facility]:[place] : 1950 Planned Disposition: Care Home Facility Anticipated Discharge Date: Discharge Date: Expected LOS: Initial Reviewer: [email or web address] Initial Review Date: 01/13/2019 Generated: 01/15/19 4:45 pm Comments DCP- Discharge Planning Updated by [id number]: Tabby Pittman on 01/15/19 2:[address] Patient Name: ELIZABETH BUSTAMANTE Admission Status: ER Accout number: [id number] Admission Date: 01-13-2019 : 1950 Admission Diagnosis: Attending: KRISTIN RIVAS Current LOS: 2 Anticipated DC Date: Planned Disposition: Care Home Facility Primary Insurance: MEDICARE A & B Discharge Planning Comments: CM met with patient at bedside after explaining CM role and obtaining verbal consent. Patient lives at [facility] [phone] Patient states she plans on returning there for Rehab. CM contacted [facility] and they plan on her returning upon discharge. They stated patient was in a custodial bed because she had just been in hospital 2 days prior to this admission. CM will continue to follow and assist as needed with discharge planning / needs. Track Subway Repair Supervisor: Tabby Pittman DCPIA - Discharge Planning Initial Assessment Updated by [email or web address]: Tabby Pittman on 01/15/19 3:37 pm * Is the patient Alert and Oriented? Yes * Preadmission Environment Care Home Facility * Facility Name [place] [phone] * ADLs Partial Dependent * Partial ADLs (Assistance needed) Ambulation Bathing Dressing Eating Medication Management Toileting Transfers * List name and contact numbers for known caregivers / representatives who currently or will assist patient after discharge: Rafael Holguin [facility] [phone] * Verbal permission to speak to the caregivers and representatives has been obtained from the patient. Yes * Additional services required to return to the preadmission environment? No * Can the patient safely return to the preadmission environment? Yes * Has this patient been hospitalized within the prior 30 days at any hospital? Yes Patient Name: ELIZABETH BUSTAMANTE Page [phone] at 1545 All edits/amendments must be made on the electronic document DICTATION DATE: 01/15/19 1544 INFANT AND TODDLER TEACHER: ALYSSIA 01/15/19 1544 RPT#: [id number] DC DATE: STATUS: ADM IN [facility] [address] [place] [address] END OF REPORT
--- NOTE | 2019-01-15 18:10 | NUR ---
GAVE 2MG OF MORPHINE FOR PAIN LEVEL OF 9/10. PT IS HAVING BLADDER SPASMS, ELECTRIC MOTOR AND GENERATOR ASSEMBLER JUST DID COMPLETE LINEN CHANGE. PT DENIES ANY OTHER NEEDS AT THIS TIME. CALL LIGHT IN REACH.
--- NOTE | 2019-01-15 19:15 | NUR ---
PATIENT RESTING IN BED WITH NO S/S OF DISTRESS AND DENIES NEEDS AT THIS TIME. BED IN LOWEST POSITION AND CALL LIGHT WITHIN REACH. ENCOURAGED THE PATIENT TO CALL IF SHE HAS NEEDS. WILL CONTINUE TO MONITOR.
[2019-01-16 00:26] VITALS: BP 120/70
--- NOTE | 2019-01-16 01:46 | NUR ---
PT HAVING DIFFICULTY BREATHING SATS 87-90% THIS IS HER SECOND PRN TREATMENT WITH 2.5 ALBUTEROL TONIGHT. TREATMENT MAKES HER FEEL BETTER. SATS STILL 87% CHANGED FROM 4L NC TO 7L HFNC SATS NOW 93%. WILL CONTINUE TO MONITOR.
[2019-01-16 04:00] VITALS: BP 147/79
[2019-01-16 05:47] LABS: BASOPHILS 0 % (0-2); EOSINOPHILS 0 % (0-7); HEMATOCRIT 32.5 % (36.0-48.0); HEMOGLOBIN 9.4 g/dL (12-16); IMMATURE GRANULOCYTES 1.4 % (0-5); LYMPHOCYTES 4.3 % (15-50); MCH 26.6 pg (26.0-34.0); MCHC 28.9 g/dL (31.0-37.0); MCV 92.1 fL (80.0-100.0); MEAN PLATELET VOLUME 9.3 fL (7.4-10.4); MONOCYTES 2.2 % (2-11); NEUTROPHILS 92.1 % (40-80); RBC 3.53 10x6/uL (4.00-5.40); RDW 17.2 % (11.5-14.5)
[2019-01-16 06:19] LABS: ALBUMIN 2.5 g/dL (3.4-5.0); ALKALINE PHOSPHATASE 134 U/L (46-116); ALT (SGPT) 15 U/L (10-68); BILIRUBIN - TOTAL 0.28 mg/dL (0.2-1.3); CALC OSMOLALITY 298 mosm/kg (275-300); CALCIUM 8.5 mg/dL (8.5-10.1); CARBON DIOXIDE 33.9 mmol/L (21.0-32.0); CHLORIDE - SERUM 106 mmol/L (98-107); CREATININE - SERUM 0.8 mg/dL (0.6-1.3); GLUCOSE 241 mg/dL (74-106); POTASSIUM - SERUM 3.7 mmol/L (3.5-5.1); PROTEIN - SERUM 5.7 g/dL (6.4-8.2); SODIUM 145 mmol/L (136-145); UREA NITROGEN 19 mg/dL (7-18); eGFR NON AFRICAN AMERICAN 75 mL/min (90-120)
[2019-01-16 06:30] LABS: PLATELET COUNT 414 10x3/uL (130-400); WBC 11.2 10x3/uL (4.8-10.8)
[2019-01-16 08:04] VITALS: BP 160/87
--- NOTE | 2019-01-16 13:50 | NUR ---
IV LEAKING. D/C IV WITH CATHETER TIP INTACT. TWO NURSES TRIED TO START NEW IV, BOTH UNSUCCESSFUL. CALLED SARAH VASCULAR NURSE TO START NEW IV. SARAH STATED THAT SHE WOULD BE DOWN TO START NEW IV.
--- NOTE | 2019-01-16 14:32 | NUR ---
2MG OF MORPHINE GIVEN FOR PAIN LEVEL OF 8/10. REPOSITIONED PT IN BED, PT DENIES ANY OTHER NEEDS AT THIS TIME. CALL LIGHT IN REACH, FAMILY AT BEDSIDE, NAD NOTED, WILL CONTINUE TO MONITOR.
[2019-01-16 14:59] VITALS: BP 154/80
--- NOTE | 2019-01-16 17:37 | MORECARE ---
CASE MANAGEMENT DISCHARGE SUMMARY PATIENT: ELIZABETH BUSTAMANTE UNIT: [id number] ADM DATE: 01/13/19 AGE: 68 : 48 SEX: F ROOM/BED: D.1204 AUTHOR: TABBYDOC PHYSICIAN: REFERRING PHYSICIAN: KRISTIN RIVAS MD DATE OF SERVICE: 01/16/19 Discharge Plan Patient Name: ELIZABETH BUSTAMANTE Facility: [facility]:[place] : 1950 Planned Disposition: Custodial Facility Anticipated Discharge Date: Discharge Date: Expected LOS: Initial Reviewer: [email or web address] Initial Review Date: 01/13/2019 Generated: 01/16/19 6:37 pm Comments DCP- Discharge Planning Updated by [id number]: Tabby Pittman on 01/16/19 4:[address] Patient Name: ELIZABETH BUSTAMANTE Admission Status: ER Accout number: [id number] Admission Date: 01-13-2019 : 1950 Admission Diagnosis: Attending: KRISTIN RIVAS Current LOS: 2 Anticipated DC Date: Planned Disposition: Custodial Facility Primary Insurance: MEDICARE A & B Discharge Planning Comments: CM met with patient at bedside after explaining CM role and obtaining verbal consent. Patient lives at [place] [phone] Patient states she plans on returning there for Rehab. CM contacted [facility] and they plan on her returning upon discharge. They stated patient was in a [facility] bed because she had just been in hospital 2 days prior to this admission. CM will continue to follow and assist as needed with discharge planning / needs. Rotary Driller Prospecting: Tabby Pittman Appended by Tabby Pittman on 01/16/2019 17:36 CDT: [facility] D[facility] - Discharge Planning Initial Assessment Updated by [email or web address]: Tabby Pittman on 01/15/19 3:37 pm * Is the patient Alert and Oriented? Yes * Preadmission Environment Custodial Facility * Facility Name [place] [phone] * ADLs Partial Dependent * Partial ADLs (Assistance needed) Ambulation Bathing Dressing Eating Medication Management Toileting Transfers * List name and contact numbers for known caregivers / representatives who currently or will assist patient after discharge: Rafael barrios- [phone] * Verbal permission to speak to the caregivers and representatives has been obtained from the patient. Yes * Additional services required to return to the preadmission environment? No * Can the patient safely return to the preadmission environment? Yes * Has this patient been hospitalized within the prior 30 days at any hospital? Yes Coverage Notice Reviewer: [email or web address] Albino Pittman Notice Issued Date-Time: 01/16/2019 17:36 Notice Type: Patient Choice Letter Notice Delivered To: Patient Relationship to Patient: Self Database Tester Name: Delivery Method: HAND - Hand Delivered Stephany Days: Prior Verbal Notification: Recipient Understood Notice: Yes Recipient Signature: Yes Med Rec Note Co-signed by Attending: Coverage Notice Comment: Last DP export: 01/15/19 2:45 pm Patient Name: ELIZABETH BUSTAMANTE Page [phone] at 1737 All edits/amendments must be made on the electronic document DICTATION DATE: 01/16/191735 HEAD BANQUET WAITRESS: ALYSSIA 01/16/191735 RPT#: [id number] DC DATE: STATUS: ADM IN [facility] [address] [place] [address] END OF REPORT
[2019-01-16 20:00] VITALS: BP 159/83
[2019-01-17] VITALS: BP 138/84
[2019-01-17 04:00] VITALS: BP 142/84
--- NOTE | 2019-01-17 06:11 | NUR ---
PT IN BED IN LOW FOWLERS POSITION. ALERT AND ORIENTED X4. RESPIRATIONS EVEN AND UNLABORED. VITAL SIGNS STABLE AND AFEBRILE. NO VISUAL CUES OF DISTRESS NOTED. DENIES ANY OTHER NEEDS AT THIS TIME. BED LOW, SIDE RAILS UP X2. CALL LIGHT IN REACH. WILL CONTINUE TO MONITOR.
[2019-01-17 07:36] LABS: BASOPHILS 0.1 % (0-2); EOSINOPHILS 0 % (0-7); HEMATOCRIT 33.9 % (36.0-48.0); HEMOGLOBIN 9.8 g/dL (12-16); IMMATURE GRANULOCYTES 1.9 % (0-5); MCH 26.7 pg (26.0-34.0); MCHC 28.9 g/dL (31.0-37.0); MCV 92.4 fL (80.0-100.0); MEAN PLATELET VOLUME 8.9 fL (7.4-10.4); MONOCYTES 3.2 % (2-11); NEUTROPHILS 87.8 % (40-80); PLATELET COUNT 381 10x3/uL (130-400); RBC 3.67 10x6/uL (4.00-5.40); RDW 17.5 % (11.5-14.5)
[2019-01-17 07:40] LABS: WBC 7.8 10x3/uL (4.8-10.8)
[2019-01-17 07:49] VITALS: BP 129/74
[2019-01-17 08:12] LABS: ALBUMIN 2.9 g/dL (3.4-5.0); ALKALINE PHOSPHATASE 141 U/L (46-116); ALT (SGPT) 15 U/L (10-68); BILIRUBIN - TOTAL 0.29 mg/dL (0.2-1.3); CALC OSMOLALITY 298 mosm/kg (275-300); CALCIUM 8.8 mg/dL (8.5-10.1); CHLORIDE - SERUM 105 mmol/L (98-107); CREATININE - SERUM 0.7 mg/dL (0.6-1.3); GLUCOSE 194 mg/dL (74-106); PHOSPHOROUS 2.8 mg/dL (2.5-4.9); POTASSIUM - SERUM 3.9 mmol/L (3.5-5.1); PRO BNP 5238 pg/mL (0-125); PROTEIN - SERUM 6.1 g/dL (6.4-8.2); SODIUM 147 mmol/L (136-145); UREA NITROGEN 18 mg/dL (7-18); eGFR NON AFRICAN AMERICAN 88 mL/min (90-120)
[2019-01-17 08:15] LABS: CARBON DIOXIDE 41.3 mmol/L (21.0-32.0)
--- NOTE | 2019-01-17 08:49 | NUR ---
AM MEDS GIVEN AT THIS TIME. ALSO GAVE PT 0.5MG OF ATIVAN FOR ANXIETY. PT RATES PAIN LEVEL OF 7/10 TO BACK/CHEST. A/O X4, SOB WITH EXERTION. PT CURRENTLY ON 4L HF. RT FA IV INFUSING LR AT 10CC/HR. MONITOR SHOWING SR 86. ALSO PROVIDE PT WITH CUP OF COFFEE, DENIES ANY OTHER NEEDS AT THIS TIME. ROCK WORKER AT BEDSIDE. CALL LIGHT IN REACH, BED LOW, NAD NOTED, WILL CONTINUE TO MONITOR.
--- NOTE | 2019-01-17 10:38 | NUR ---
PER LIZA CRUZ OK TO RENEW ORDER FOR MORPHINE.
--- NOTE | 2019-01-17 11:03 | NUR ---
GAVE 2MG OF MORPHINE FOR PAIN LEVEL OF 10/10. ALSO CLEANED PT UP FROM INCONT EPISODE. COMPLETE LINEN CHANGE. REPOSTIONED PT IN BED. PT ASKING FOR HER BREATHING TREATMENT. INFORMED HER THAT SHE HAS ONE DUE NOW, SO RESP SHOULD BE HERE SHORTLY TO GIVE HER ONE. ALSO PROVIDED PT WITH CUP OF ICE AND DR. SPARROW. PT DENIES ANY OTHER NEEDS AT THIS TIME. CALL LIGHT IN REACH, NAD NOTED, WILL CONTINUE PLAN OF CARE.
--- NOTE | 2019-01-17 16:19 | NUR ---
2MG OF MORPHINE GIVEN FOR PAIN LEVEL O F10/10. PT DENIES ANY OTHER NEEDS AT THIS TIME. CALL LIGHT IN REACH, NAD NOTED, WILL CONITNUE TO MONITOR.
[2019-01-17 17:17] VITALS: BP 137/81
--- NOTE | 2019-01-17 18:54 | NUR ---
JUST CLEANED PT UP FROM INCONT EPISODE. PADS CHANGED, PT HAVING ANXIETY ATTACK WANTS A BREATHING TREATMENT. CALLED RESPIRATORY. PT STATES THAT SHE LOST HER PHONE, LOOKED EVERY WHERE IN HER ROOM AND DID NOT FIND A PHONE. WILL NOTIFY EVS TO CHECK THE LINEN FOR HER PHONE.
[2019-01-17 20:00] VITALS: BP 130/85
[2019-01-18] VITALS (7 sets, daily range): BP systolic 119–150; BP diastolic 79–89
[2019-01-18 07:10] LABS: BASOPHILS 0.3 % (0-2); EOSINOPHILS 0 % (0-7); HEMATOCRIT 32.2 % (36.0-48.0); HEMOGLOBIN 9.5 g/dL (12-16); IMMATURE GRANULOCYTES 2.2 % (0-5); LYMPHOCYTES 8.7 % (15-50); MCH 27.1 pg (26.0-34.0); MCHC 29.5 g/dL (31.0-37.0); MCV 91.7 fL (80.0-100.0); MEAN PLATELET VOLUME 9.1 fL (7.4-10.4); MONOCYTES 5.6 % (2-11); NEUTROPHILS 83.2 % (40-80); PLATELET COUNT 415 10x3/uL (130-400); RBC 3.51 10x6/uL (4.00-5.40); RDW 17.4 % (11.5-14.5); WBC 7.3 10x3/uL (4.8-10.8)
[2019-01-18 07:42] LABS: ALBUMIN 2.7 g/dL (3.4-5.0); ALKALINE PHOSPHATASE 130 U/L (46-116); ALT (SGPT) 15 U/L (10-68); BILIRUBIN - TOTAL 0.32 mg/dL (0.2-1.3); CALC OSMOLALITY 295 mosm/kg (275-300); CALCIUM 8.4 mg/dL (8.5-10.1); CHLORIDE - SERUM 101 mmol/L (98-107); CREATININE - SERUM 0.6 mg/dL (0.6-1.3); GLUCOSE 188 mg/dL (74-106); PHOSPHOROUS 2.7 mg/dL (2.5-4.9); PROTEIN - SERUM 5.6 g/dL (6.4-8.2); SODIUM 145 mmol/L (136-145); UREA NITROGEN 18 mg/dL (7-18); eGFR NON AFRICAN AMERICAN > 90 mL/min (90-120)
[2019-01-18 07:45] LABS: POTASSIUM - SERUM 3.2 mmol/L (3.5-5.1)
[2019-01-18 07:47] LABS: CARBON DIOXIDE 41.2 mmol/L (21.0-32.0)
--- NOTE | 2019-01-18 07:59 | NUR ---
RECIEVED REPORT. PATIENT IS SITTING UP IN BED EATTING BREAKFAST AT THIS TIME. CACHORRO SHAFER FOR DR BEE ROUNDED THIS MORNING AND LOOKED IN ON HER. SHE WAS LETHARGIC THIS MORNING HOWEVER SHE DID NOT SLEEP MUCH LAST NIGHT. THIS MORNING WITH BREAKFAST SHE WAS ABLE TO CALL OUT MULTIPLE TIMES FOR BUTTER. HER CO2 LEVEL IS IMPROVED. WILL CALL RESPIRATORY IF THERE ARE ANY CHANGES.
--- NOTE | 2019-01-18 10:07 | NUR ---
PATIENT IV IN HER LEFT FOREARM HAS DISLODGED. REMOVED BAD IV WITH CATHETER INTACT. PATIENT TOLERATED. SHE IS BEING PUT ON BI PAP MATHINE RIGHT NOW . PATIENT IS TOLERATING.
--- NOTE | 2019-01-18 11:33 | NUR ---
ATTEMPTED TWO STICKS TO OBTAIN THE IV ACCESS AND WAS UNSUCCESSFUL. PLACED AN ORDER FOR VASCULAR NURSE TO PLACE A MIDLINE PER DR BEE. CALLED VASCULAR NURSE 4 TIMES AND HAVE NOT GOTTEN AN ANSWER.
--- NOTE | 2019-01-18 12:26 | NUR ---
CALLED SARAH VASCULAR ACCESS NURSE AND SHE STATES THAT SHE WILL COME SOON SHE CAN AND PLACE VASCULAR ACCESS
--- NOTE | 2019-01-18 12:49 | NUR ---
STILL WAITING ON VASCULAR ACCESS NURSE
--- NOTE | 2019-01-18 13:06 | NUR ---
STILL WAITING ON VASCULAR NURSE TO START MIDLINE.
--- NOTE | 2019-01-18 14:53 | NUR ---
OT NOTE: PT REMAINS VERY ANXIOUS. RESISTANT TO PERFORM ANY ACTIVITIES UNTIL WE CONTACTED RESP THERAPY AND NURSING TO PUT IN IV. TRIED TO EXPLAIN TO PT THAT THESE PEOPLE HAD JUST BEEN IN HER ROOM AND SHES FINE. PT REFUSED TO GET UP TO CHAIR TODAY, BUT STATED THAT SHE WOULD ATTEMPT TOMORROW. PRACTICED BED MOB AND SIMPLE GROOMING TASKS. MARIAH ERICKSON, OTR/L
--- NOTE | 2019-01-18 14:55 | NUR ---
MIDLINE PLACED IN LEFT AC. PATIENT TOLERATED.
--- NOTE | 2019-01-18 15:15 | NUR ---
Nutrition Follow Up: Chart reviewed Diet: AHA PO Intake: 40% meal avg BM: 01/16/19 Labs reviewed Meds noted including Lasix, Solu Medrol Rec changing diet to regular to encourage po intake. Rec consider an appetite stimulant. Will honor food preferences within diet order. RD following.
--- NOTE | 2019-01-18 15:56 | NUR ---
OT NOTE: PT COMPLETED BED MOB TASKS WITH MIN A. PT COMPLETED EOB SITTING WITH MIN A. PT COMPLETED GROOMING TASKS WITH SET UP. THANK YOU, FRANDY OCASIO
--- NOTE | 2019-01-18 19:39 | NUR ---
GREETED PATIENT AND INTRODUCED MYSELF. PATIENT STATES THAT SHE JUST CANT BREATHE. CALLED RESPIRATORY AND THEY CAME TO ASSESS. RESPIRATORY TRYED TO GET PATIENT TO PUT ON BIPAP TO HELP HER BREATH. PATIENT REFUSED. WCTM. CALL LIGHT IN REACH.
--- NOTE | 2019-01-19 01:28 | NUR ---
STARTED NEW PERIPHERAL IV BELOW MIDLINE. MIDLINE CLOSED OFF.
--- NOTE | 2019-01-19 04:22 | NUR ---
PATIENT CONTINUES TO BE RUDE AND DEMANDING. WILL NOT ALLOW CHARTERED FINANCIAL ANALYST/NURSE TO CHANGE HER. CALLED RESPIRATORY TO CHECK HER O2 SATS BECAUSE SHE STATED " I CANT BREATHE AT ALL". O2 SAT WAS 94. RESPIRATORY INCREASED O2 TO 5 L.
--- NOTE | 2019-01-19 04:51 | NUR ---
PATIENT DEMANDING THAT I CALL RESPIRATORY AGAIN TO HAVE HER PUT BACK ON THE BIPAP MACHINE. RESPIRATORY NOTIFIED AND PATIENT PUT BACK ON BIPAP.
[2019-01-19 06:56] LABS: ALBUMIN 2.6 g/dL (3.4-5.0); ALKALINE PHOSPHATASE 122 U/L (46-116); ALT (SGPT) 14 U/L (10-68); BILIRUBIN - TOTAL 0.34 mg/dL (0.2-1.3); CALC OSMOLALITY 297 mosm/kg (275-300); CALCIUM 8.4 mg/dL (8.5-10.1); CHLORIDE - SERUM 102 mmol/L (98-107); CREATININE - SERUM 0.6 mg/dL (0.6-1.3); GLUCOSE 170 mg/dL (74-106); MAGNESIUM - SERUM 2.1 mg/dL (1.8-2.4); PHOSPHOROUS 2.8 mg/dL (2.5-4.9); PROTEIN - SERUM 5.4 g/dL (6.4-8.2); SODIUM 146 mmol/L (136-145); UREA NITROGEN 21 mg/dL (7-18); eGFR NON AFRICAN AMERICAN > 90 mL/min (90-120)
[2019-01-19 06:58] LABS: BASOPHILS 0.3 % (0-2); EOSINOPHILS 0 % (0-7); HEMATOCRIT 32.3 % (36.0-48.0); HEMOGLOBIN 9.5 g/dL (12-16); IMMATURE GRANULOCYTES 3.1 % (0-5); LYMPHOCYTES 7.8 % (15-50); MCHC 29.4 g/dL (31.0-37.0); MCV 91.8 fL (80.0-100.0); MEAN PLATELET VOLUME 8.9 fL (7.4-10.4); MONOCYTES 6.6 % (2-11); NEUTROPHILS 82.2 % (40-80); PLATELET COUNT 447 10x3/uL (130-400); RBC 3.52 10x6/uL (4.00-5.40); RDW 17.7 % (11.5-14.5); WBC 7.1 10x3/uL (4.8-10.8)
[2019-01-19 07:09] LABS: CARBON DIOXIDE 44.7 mmol/L (21.0-32.0)
[2019-01-19 08:32] VITALS: BP 141/76
--- NOTE | 2019-01-19 12:05 | NUR ---
OT NOTE: PT REMAINS EXTREMELY ANXIOUS AND COINTINUALLY ASKING TO TURN 02 UP AND SHE CANT BREATH, ETC. PT WAS INCONT OF B AND B; HAD PT ROLL FROM SIDE TO SIDE FOR HYGIENE WITH MIN ASSIST FOR ROLLING; MIN ASSIST FOR SUPINE TO SIT. TOLERATED SITTING UP ON EOB FOR APPROX 10 MIN WHILE ATTEMPTING TO DISTRACT HER WITH ADL TASKS. PT STATES THAT SHE CANT DO ANYTHING, BUT IS ACTUALLY PHYSICALLY ABLE TO PERFORM. ABLE TO CLEAN FACE, HANDS, AND UPPER BODY WITH WASH CLOTH; REQUIRED ASSIST IWTH LES AND DONNING SOCKS. MIN ASSIST WITH GOWN. TRANSFERRED TO RECLINER WITH MIN ASSIST. PT REQUIRES EXT TIME DUE TO FREQ STOPS IN TMT STATING THAT SHE CANT BREATH OR SHES HAVING A PANIC ATTACK. AFTER COMPLETEING THERAPY, PT DID SAY SHE FELT BETTER SITTING UP IN THE CHAIR. RESP IN TO PROVIDE BREATHING TMT. CHECKED PTS SATS WHILE SHE WAS SAYING THAT SHE COULDNT BREATH AND THEY WERE AT 98%. MARIAH ERICKSON, OTR/L
--- NOTE | 2019-01-19 13:17 | NUR ---
I have reviewed this patient and I concur with the Shift Assessment completed by the Licensed Practical Nurse today this shift.
--- NOTE | 2019-01-19 19:53 | NUR ---
EVENING ROUNDS COMPLETED. REPORT RECEIVED. PT SITTING UP IN BED WITH EYES OPEN, RR EVEN AND UNLABORED. OXYGEN AT 5 LITERS BY NASAL CANNULA. PT STATES COMPLAINTS OF HAVING LOST HER DENTURES. I HAVE LOOKED THROUGHOUT THE PT'S ROOM AND HAVE LOOKED IN UTILITY CLOSET, WHERE OLD TRAYS ARE KEPT. NO SIGN OF DENTURES. 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 PT DENIES FURTHER NEEDS AT THIS TIME. CALL LIGHT IN REACH. WILL CTM.
--- NOTE | 2019-01-19 22:19 | MORECARE ---
CASE MANAGEMENT DISCHARGE SUMMARY PATIENT: ELIZABETH BUSTAMANTE UNIT: [id number] ADM DATE: 01/13/19 AGE: 68 : 48 SEX: F ROOM/BED: D.1204 AUTHOR: TABBYDOC PHYSICIAN: REFERRING PHYSICIAN: KRISTIN RIVAS MD DATE OF SERVICE: 01/19/19 Discharge Plan Patient Name: ELIZABETH BUSTAMANTE [facility] [place] [facility] 1950 Planned Disposition: Prison Facility Anticipated Discharge Date: Discharge Date: Expected LOS: Initial Reviewer: [email or web address] Initial Review Date: 01/13/2019 Generated: 01/19/19 11:19 pm Comments DCP- Discharge Planning Updated by [email or web address]: Tabby Pittman on 01/19/19 6:[address] CM received order to set patient up with trilogy. CM spoke with patient to find out about DME. Patient states she has a machine at [facility]. CM contacted [facility] they couldn't tell CM what kind of machine it was but they gave me DME company that they use at [facility]. [facility] [employer] out of [place]. CM contacted [facility] they stated that patient had a BiPaP machine. CM then contacted Dr. Ch and he stated that would be fine that a Trilogy would be better but BiPAP will do. CM will continue to follow and assist as needed with discharge planning / needs. DCP- Discharge Planning Updated by [id number]: Tabby Pittman on 01/16/19 4:[address] Patient Name: ELIZABETH BUSTAMANTE Admission Status: ER Accout number: [id number] Admission Date: 01-13-2019 : 1950 Admission Diagnosis: Attending: KRISTIN RIVAS Current LOS: 2 Anticipated DC Date: Planned Disposition: Prison Facility Primary Insurance: MEDICARE A & B Discharge Planning Comments: CM met with patient at bedside after explaining CM role and obtaining verbal consent. Patient lives at [facility] [phone] Patient states she plans on returning there for Rehab. CM contacted [facility] and they plan on her returning upon discharge. They stated patient was in a penitentiary bed because she had just been in hospital 2 days prior to this admission. CM will continue to follow and assist as needed with discharge planning / needs. Repairer Sash And Door: Tabby Pittman Appended by Tabby Pittman on 01/16/2019 17:36 CDT: [facility]AR[facility] SIGNED FOR [facility] DCPIA - Discharge Planning Initial Assessment Updated by [email or web address]: Tabby Pittman on 01/15/19 3:37 pm * Is the patient Alert and Oriented? Yes * Preadmission Environment Prison Facility * Facility Name [phone] * ADLs Partial Dependent * Partial ADLs (Assistance needed) Ambulation Bathing Dressing Eating Medication Management Toileting Transfers * List name and contact numbers for known caregivers / representatives who currently or will assist patient after discharge: Rafael Holguin [facility]- [phone] * Verbal permission to speak to the caregivers and representatives has been obtained from the patient. Yes * Additional services required to return to the preadmission environment? No * Can the patient safely return to the preadmission environment? Yes * Has this patient been hospitalized within the prior 30 days at any hospital? Yes Coverage Notice Reviewer: [id number] - Tabby Pittman Notice Issued Date-Time: 01/16/2019 17:36 Notice Type: Patient Choice Letter Notice Delivered To: Patient Relationship to Patient: Self Radiographic Technologist Name: Delivery Method: HAND - Hand Delivered Stephany Days: Prior Verbal Notification: Recipient Understood Notice: Yes Recipient Signature: Yes Med Rec Note Co-signed by Attending: Coverage Notice Comment: Last DP export: 01/16/19 4:37 pm Patient Name: ELIZABETH BUSTAMANTE Page [id number] at 2219 All edits/amendments must be made on the electronic document DICTATION DATE: 01/19/192218 SLITTING MACHINE OPERATOR HELPER: ALYSSIA 01/19/192218 RPT#: [id number] DC DATE: STATUS: ADM IN [facility] [address] [place] [address] END OF REPORT
[2019-01-19 22:52] VITALS: BP 136/90
[2019-01-20 04:06] VITALS: BP 132/74
--- NOTE | 2019-01-20 06:43 | NUR ---
I have reviewed this patient and I concur with the Shift Assessment completed by the Licensed Practical Nurse today this shift.
[2019-01-20 06:49] LABS: PHOSPHOROUS 3.2 mg/dL (2.5-4.9)
--- NOTE | 2019-01-20 08:30 | NUR ---
AAOX4. ON 5LPM VIA HIGH FLOW NC, LEFT UPPER ARM MIDLINE, SALINE LOCKED, LEFT FOREARM IV PATENT, INFUSING NS AT 20ML/HR, COMPLETE LINEN CHANGE, PERINEAL AREA CLEANED AND DRIED, EXCORATED SKIN AROUND VAGINAL AREA, CLEAR DRESSING APPLIED TO RIGHT AND LEFT WRIST FOR SKIN TEARS. DENIES ANY CURRENT NEEDS OR DISCOMFORTS, BED LOWERED AND LOCKED, CALL LIGHT WITHIN REACH. CPOC
[2019-01-20 09:05] VITALS: BP 146/83
[2019-01-20 12:56] VITALS: BP 135/76
--- NOTE | 2019-01-20 14:30 | NUR ---
MIDLINE DRESSING TO LEFT UPPER ARM CHANGED, SITE IS CLEAN, NO PURULENT DRAINAGE, NO REDNESS AT SITE, NO SKIN BREAKDOWN UNDER PREVIOUS DRESSING, INFUSING NS AT 20ML/HR, DENIES ANY CURRENT NEEDS OR DISCOMFORTS, BED LOWERED AND LOCKED, CALL LIGHT WITHIN REACH. CPOC
[2019-01-20 16:00] VITALS: BP 135/78
--- NOTE | 2019-01-20 16:20 | NUR ---
ADMINISTERED PRN MORPHINE IV PER ORDER FOR PAIN LEVEL 8. TO CHEST AREA. ON TELEMETRY, 91 SINUS RHYTHM. REGULAR RATE. DENIES ANY OTHER NEEDS OR DISCOMFORTS, BED LOWERED AND LOCKED, CALL LIGHT WITHIN REACH. CPOC
--- NOTE | 2019-01-20 19:07 | NUR ---
PATIENT RESTING IN BED WITH EYES CLOSED AND NO S/S OF DISTRESS. BED IN LOWEST POSITION AND CALL LIGHT WITHIN REACH. WILL CONTINUE TO MONITOR.
[2019-01-20 19:44] VITALS: BP 127/67
--- NOTE | 2019-01-20 21:11 | NUR ---
SPOKE WITH PATIENT ABOUT WEARING BIPAP. SHE AGREED TO DO HER BEST. WE ARE ON NOW 07/20, 40%. WILL CONTINUE TO MONITOR AND GIVE BREAKS THROUGHOUT THE NIGHT SPO2 97% HR 89
--- NOTE | 2019-01-20 23:13 | NUR ---
NURSE CALLED TO INFORM ME THAT PT TOOK OFF BIPAP MASK. SHE IS BACK ON 4L NC.
[2019-01-21 00:28] VITALS: BP 142/76
[2019-01-21 04:00] VITALS: BP 146/74
--- NOTE | 2019-01-21 06:54 | NUR ---
PT WILL NOT DO METANEB THIS AM ONLY WANTS REGULAR BREATHING TX WITH MASK. PT DOES NOT WANT TO PUT BIPAP ON.
--- NOTE | 2019-01-21 06:58 | NUR ---
PATIENT REFUSED MORNING LAB DRAW
[2019-01-21 07:56] VITALS: BP 139/86
[2019-01-21 11:22] LABS: HEMATOCRIT 36.6 % (36.0-48.0); HEMOGLOBIN 11.4 g/dL (12-16); LYMPHOCYTES 10.9 % (15-50); MCH 28.8 pg (26.0-34.0); MCHC 31.1 g/dL (31.0-37.0); MCV 92.4 fL (80.0-100.0); MEAN PLATELET VOLUME 8.8 fL (7.4-10.4); NEUTROPHILS 79.2 % (40-80); PLATELET COUNT 471 10x3/uL (130-400); RBC 3.96 10x6/uL (4.00-5.40); RDW 17.6 % (11.5-14.5); WBC 8.2 10x3/uL (4.8-10.8)
--- NOTE | 2019-01-21 11:23 | NUR ---
PT IS REFUSING TO WEAR BIPAP. SHE STATED SHE DOES NOT FEEL GOOD AND WILL NOT WEAR THE BIPAP. EXPLAINED TO PT THE NEED TO WEAR IT AND SHE SAID SHE MIGHT TRY IT LATER. PT ALSO REFUSING TO DO METANEB.
[2019-01-21 11:37] LABS: CALC OSMOLALITY 291 mosm/kg (275-300); CALCIUM 8.8 mg/dL (8.5-10.1); CHLORIDE - SERUM 101 mmol/L (98-107); CREATININE - SERUM 0.5 mg/dL (0.6-1.3); GLUCOSE 186 mg/dL (74-106); MAGNESIUM - SERUM 2.1 mg/dL (1.8-2.4); POTASSIUM - SERUM 4.3 mmol/L (3.5-5.1); SODIUM 143 mmol/L (136-145); UREA NITROGEN 19 mg/dL (7-18); eGFR NON AFRICAN AMERICAN > 90 mL/min (90-120)
[2019-01-21 11:43] LABS: CARBON DIOXIDE 42.2 mmol/L (21.0-32.0)
[2019-01-21 12:10] VITALS: BP 140/60
--- NOTE | 2019-01-21 13:49 | NUR ---
OT NOTE: PT PERFORMED BETTER TODAY. BED MOB WITH MIN/MOD ASSIST FOR SUPINE TO SIT; STATIC SITTING WITHOUT SUPPORT X 10 MIN; UPPER BODY BATHING WITH SET UP; MOD ASSIST FOR LES AND PERINEAL AREA; SIT TO STAND WITH MOD ASSIST; STANDING X 3 MIN WITH SUPPORT MARIAH ERICKSON OTR/L
--- NOTE | 2019-01-21 13:56 | NUR ---
OT NOTE: PT COMPLETED BED MOB TASKS WITH MIN A. PT COMPLETED GROOMING AND HYGIENE TASKS WITH MOD A. THANK YOU, FRANDY OCASIO
[2019-01-21 15:55] VITALS: BP 116/60
--- NOTE | 2019-01-21 18:18 | NUR ---
SPOKE TO PT ABOUT WEARING HER BIPAP. SHE AGREED TO PUT IT ON AT THIS TIME. SETTINGS ARE 12/6 AND 40%. SPO2 97% HR 89. WILL CONTINUE TO MONITOR
[2019-01-21 19:52] VITALS: BP 97/57
--- NOTE | 2019-01-22 01:28 | NUR ---
PATIENT RESTING IN BED AND DENIES NEEDS AT THIS TIME. BED IN LOWEST POSITION AND CALL LIGHT WITHIN REACH. ENCOURAGED THE PATIENT TO CALL IF SHE HAS NEEDS. WILL CONTINUE TO MONITOR.
[2019-01-22 04:00] VITALS: BP 143/83
[2019-01-22 06:45] LABS: BASOPHILS 0.2 % (0-2); EOSINOPHILS 0.7 % (0-7); HEMOGLOBIN 10.7 g/dL (12-16); IMMATURE GRANULOCYTES 4.3 % (0-5); LYMPHOCYTES 12.8 % (15-50); MCH 27.4 pg (26.0-34.0); MCHC 28.9 g/dL (31.0-37.0); MEAN PLATELET VOLUME 8.9 fL (7.4-10.4); MONOCYTES 11.9 % (2-11); NEUTROPHILS 70.1 % (40-80); PLATELET COUNT 482 10x3/uL (130-400); RBC 3.91 10x6/uL (4.00-5.40); RDW 18.9 % (11.5-14.5); WBC 9.7 10x3/uL (4.8-10.8)
[2019-01-22 06:55] LABS: CALCIUM 8.5 mg/dL (8.5-10.1); CHLORIDE - SERUM 100 mmol/L (98-107); CREATININE - SERUM 0.6 mg/dL (0.6-1.3); MAGNESIUM - SERUM 2.2 mg/dL (1.8-2.4); POTASSIUM - SERUM 3.8 mmol/L (3.5-5.1); SODIUM 143 mmol/L (136-145); UREA NITROGEN 23 mg/dL (7-18); eGFR NON AFRICAN AMERICAN > 90 mL/min (90-120)
[2019-01-22 06:56] LABS: CALC OSMOLALITY 290 mosm/kg (275-300); GLUCOSE 128 mg/dL (74-106); PHOSPHOROUS 2.2 mg/dL (2.5-4.9)
[2019-01-22 06:57] LABS: CARBON DIOXIDE 45.9 mmol/L (21.0-32.0)
[2019-01-22 06:58] LABS: MCV 94.6 fL (80.0-100.0)
--- NOTE | 2019-01-22 07:30 | NUR ---
PT SITTING ON SIDE OF BED, ASKING FOR HER INHALER, INFORMED PT THAT RESP SHOULD BE COMING SHORTLY TO GIVE HER A BREATHING TREATMENT. GOT PT BACK IN BED, AND RESPOSITIONED HER IN BED, AND SET HER UP FOR BREAKFAST. LABORED DYSPNEA ON EXERTION NOTED ON 3.5L. LT MIDLINE INFUSING NS AT KVO. PT DENEIS ANY NEEDS AT THIS TIME. CALL LIGHT IN REACH, BEDSIDE RAILS X2, BED LOW, NAD NOTED, WILL CONTINUE PLAN OF CARE.
[2019-01-22 07:42] VITALS: BP 130/78
--- NOTE | 2019-01-22 09:39 | NUR ---
AM MEDS GIVEN AT THIS TIME. PT IN BED, A/O X4, DENIES ANY NEEDS AT THIS TIME. CLAIMS SPECIALIST FIXING TO GIVE PT A BED BATH. CALL LIGHT IN REACH, NAD NOTED, WILL CONTINUE TO MONITOR.
[2019-01-22 11:57] VITALS: BP 134/64
--- NOTE | 2019-01-22 14:14 | NUR ---
Nutrition follow up Cardiac diet with 25-50% intake of meals Pt reports she has difficulty eating because of difficulty breathing per respiratory Pt sleeping with bipap now Will add Ensure as it takes little energy to eat/drink RD following
--- NOTE | 2019-01-22 17:37 | NUR ---
OT NOTE; PT PERFORMED BED MOB WITH SBA; STATIC SITTING WITH SPV AND NO SUPPORT; SIMPLE GROOMING TASKS WITH SET UP; MAX ASSIST TO KARI SOCKS AND MIN ASSIST TO KARI GOWN. MOD ASSIST FOR CLOTHING MGMT. PT REQUIRED APPROX 15 MIN OF REST TIME IN BETWEEN ALL TASKS. PT CONT TO REQUEST BREATHING TMT AND INCREASE IN 02, EVEN THOUGH SHE HAS BEEN TOLD EACH TIME THAT WE ARE NOT ALLOWED TO MAKE THOSE CHANGES; TRANSFER TO CHAIR WITH MIN ASSIST. PT REMAINS VERY FEARFUL AND ANXIOUS. RESISTANT ON DCING FROM HOSPITAL TODAY STATING THAT SHE IS TOO SICK. MARIAH ERICKSON, OTR/L
--- NOTE | 2019-01-22 17:41 | NUR ---
GAVE 2MG OF MORPHINE FOR PAIN LEVEL OF 8/10. ALSO CLEANED PT UP FROM INCONT EPISODE. COMPLETE LINEN CHANGE DONE AT THIS TIME. PT ASKING FOR BREATHING TREATMENT, INFORMED PT THAT HER NEXT BREATHING TREATMENT IS DO AT 1900. PT DENIES ANY OTHER NEEDS AT THIS TIME. CALL LIGHT IN REACH, BEDSIDE RAILS X2, NAD NOTED.
[2019-01-22 19:46] VITALS: BP 115/64
[2019-01-23] VITALS: BP 123/70
[2019-01-23 04:30] VITALS: BP 129/73
[2019-01-23 06:51] LABS: HEMATOCRIT 37.3 % (36.0-48.0); HEMOGLOBIN 10.9 g/dL (12-16); MCH 27.5 pg (26.0-34.0); MCHC 29.2 g/dL (31.0-37.0); MCV 94.2 fL (80.0-100.0); MEAN PLATELET VOLUME 8.9 fL (7.4-10.4); PLATELET COUNT 426 10x3/uL (130-400); RBC 3.96 10x6/uL (4.00-5.40); WBC 9.2 10x3/uL (4.8-10.8)
--- NOTE | 2019-01-23 07:28 | NUR ---
INITIAL ROUNDING ON THE PATIENT, SHE IS AWAKE AND ON HER LEFT SIDE IN BED. SHE IS REQUESTING HER MORNING MEDS. CALL LIGHT IN REACH
[2019-01-23 07:32] VITALS: BP 132/69
[2019-01-23 07:32] LABS: CALCIUM 8.5 mg/dL (8.5-10.1); CHLORIDE - SERUM 99 mmol/L (98-107); CREATININE - SERUM 0.5 mg/dL (0.6-1.3); POTASSIUM - SERUM 3.9 mmol/L (3.5-5.1); SODIUM 146 mmol/L (136-145); UREA NITROGEN 18 mg/dL (7-18); eGFR NON AFRICAN AMERICAN > 90 mL/min (90-120)
[2019-01-23 07:35] LABS: CALC OSMOLALITY 291 mosm/kg (275-300); CARBON DIOXIDE 44.8 mmol/L (21.0-32.0); GLUCOSE 78 mg/dL (74-106)
--- NOTE | 2019-01-23 07:40 | NUR ---
MICHA FROM THE LAB CALLED TO REPORT A CO2 LEVEL OF 44.8. THE PATIENT IS REFUSING TO WEAR HER BIPAP, THE DOCTOR WAS AWARE.
[2019-01-23 09:12] LABS: ANISOCYTOSIS OCC; EOSINOPHILS 3 % (0-7); HYPOCHROMASIA OCC; LYMPHOCYTES 20 % (15-50); MONOCYTES 11 % (2-11); NEUTROPHILS 60 % (40-80); PLATELET ESTIMATE INCREASED
[2019-01-23] MEDS ORDERED: BUSPAR5 MG PO (14:02)
[2019-01-23] MEDS ORDERED: CYMBALTA30 MG PO (14:03)
[2019-01-23] MEDS ORDERED: LASIX40 MG PO (14:03)
[2019-01-23] MEDS ORDERED: PULMICORT0.5 MG/21 UPD (14:04)
[2019-01-23] MEDS ORDERED: PREDNISONE20 MG PO (14:04)
[2019-01-23] MEDS ORDERED: SYNTHROID150 MCG PO (14:04)
[2019-01-23] MEDS ORDERED: BROVANA15 MCG/2 M INH (14:05)
--- NOTE | 2019-01-23 14:33 | MORECARE ---
CASE MANAGEMENT DISCHARGE SUMMARY PATIENT: ELIZABETH BUSTAMANTE UNIT: [id number] ADM DATE: 01/13/19 AGE: 68 : 46 SEX: F ROOM/BED: D.1204 AUTHOR: TABBYDOC PHYSICIAN: REFERRING PHYSICIAN: KRISTIN RIVAS MD DATE OF SERVICE: 01/23/19 Discharge Plan Patient Name: ELIZABETH BUSTAMANTE Facility: [facility]:[place] : 1950 Planned Disposition: Detention Facility Anticipated Discharge Date: Discharge Date: Expected LOS: Initial Reviewer: [email or web address] Initial Review Date: 01/13/2019 Generated: 01/23/19 3:32 pm DCP- Discharge Planning Updated by [email or web address]: Tabby Pittman on 01/19/19 6:[address] CM received order to set patient up with trilogy. CM spoke with patient to find out about DME. Patient states she has a machine at [facility]. CM contacted [facility] they couldn't tell CM what kind of machine it was but they gave me DME company that they use at [facility]. [facility] out of [place]. CM contacted [facility] they stated that patient had a BiPaP machine. CM then contacted Dr. Ch and he stated that would be fine that a Trilogy would be better but BiPAP will do. CM will continue to follow and assist as needed with discharge planning / needs. DCP- Discharge Planning Updated by [id number]: Tabby Pittman on 01/16/19 4:[address] Patient Name: ELIZABETH BUSTAMANTE Admission Status: ER Accout number: [id number] Admission Date: 01-13-2019 : 1950 Admission Diagnosis: Attending: KRISTIN RIVAS Current LOS: 2 Anticipated DC Date: Planned Disposition: Detention Facility Primary Insurance: MEDICARE A & B Discharge Planning Comments: CM met with patient at bedside after explaining CM role and obtaining verbal consent. Patient lives at [facility] [phone] Patient states she plans on returning there for Rehab. CM contacted [facility] and they plan on her returning upon discharge. They stated patient was in a jail bed because she had just been in hospital 2 days prior to this admission. CM will continue to follow and assist as needed with discharge planning / needs. Accountant Helper: Tabby Pittman Appended by Tabby Pittman on 01/16/2019 17:36 CDT: [facility]AR[facility] SIGNED FOR [facility] DCPIA - Discharge Planning Initial Assessment Updated by [id number]: Tabby Pittman on 01/15/19 3:37 pm * Is the patient Alert and Oriented? Yes * Preadmission Environment Detention Facility * Facility Name [phone] * ADLs Partial Dependent * Partial ADLs (Assistance needed) Ambulation Bathing Dressing Eating Medication Management Toileting Transfers * List name and contact numbers for known caregivers / representatives who currently or will assist patient after discharge: Rafael Holguin [facility]- [phone] * Verbal permission to speak to the caregivers and representatives has been obtained from the patient. Yes * Additional services required to return to the preadmission environment? No * Can the patient safely return to the preadmission environment? Yes * Has this patient been hospitalized within the prior 30 days at any hospital? Yes External Providers External Provider: OTHER-OTHER Next Contact Date: Service Request Date: Service Type: Resolution: Reviewer: Comments: Coverage Notice Reviewer: [id number] - Tabby Pittman Notice Issued Date-Time: 01/16/2019 17:36 Notice Type: Patient Choice Letter Notice Delivered To: Patient Relationship to Patient: Self Furnace Charger Name: Delivery Method: HAND - Hand Delivered Stephany Days: Prior Verbal Notification: Recipient Understood Notice: Yes Recipient Signature: Yes Med Rec Note Co-signed by Attending: Coverage Notice Comment: Reviewer: [email or web address] Albino Mane Notice Issued Date-Time: 01/23/2019 13:15 Notice Type: IM Discharge Notice Notice Delivered To: Patient Relationship to Patient: Self Furnace Charger Name: Delivery Method: HAND - Hand Delivered Stephany Days: Prior Verbal Notification: Recipient Understood Notice: Yes Recipient Signature: Yes Med Rec Note Co-signed by Attending: Coverage Notice Comment: Last DP export: 01/19/19 9:19 pm Patient Name: ELIZABETH BUSTAMANTE Page [phone] at 1433 All edits/amendments must be made on the electronic document DICTATION DATE: 01/23/19 1432 CREAM CHEESE MAKER: ALYSSIA 01/23/19 1432 RPT#: [id number] DC DATE: STATUS: ADM IN [facility] [address] [place] [address] END OF REPORT
--- NOTE | 2019-01-23 14:42 | MORECARE ---
CASE MANAGEMENT DISCHARGE SUMMARY PATIENT: ELIZABETH BUSTAMANTE UNIT: [id number] ADM DATE: 01/13/19 AGE: 68 : 48 SEX: F ROOM/BED: D.1204 AUTHOR: BLANKA MCNAIR PHYSICIAN: REFERRING PHYSICIAN: KRISTIN RIVAS MD DATE OF SERVICE: 01/23/19 Discharge Plan Patient Name: ELIZABETH BUSTAMANTE Facility: [facility]:[place] : 1950 Planned Disposition: Group Home Facility Anticipated Discharge Date: Discharge Date: Expected LOS: Initial Reviewer: [id number] Initial Review Date: 01/13/2019 Generated: 01/23/19 3:42 pm Comments DCP- Discharge Planning Updated by [id number]: Ame Burrell on 01/23/19 1:[address] Patient Name: ELIZABETH BUSTAMANTE Encounter No: [id number] : 1950 Primary Insurance: MEDICARE A & B Anticipated DC Date: Planned Disposition: [facility] in a Medicaid Bed. External Planned Provider: [facility] in a Medicaid Bed. [facility] consult completed, Dr. Santos recommends patient returning to the nursing facility as she does not meet criteria for inpatient snf. CM spoke to Dr. Joy and requested dc orders. CM spoke to Eugenia @ [facility] re: discharge, cm faxed dc summary, dc med list, and dc order to her @ [phone]. Eugenia to return call to the nursing unit with transportation time. Nurse report to be called to [phone] after [facility] calls back once fax reviewed. Cm will continue to follow and will assist with dc plans/needs. Ame Burrell RN, [facility] DCP follow-up note: Patient and family in agreement with discharge plan. Updated orders and requested information faxed to SNF. Patient\family notified of anticipated dc time. SNF phone number and contact information given to patient \family. Patient will be transported by Ame Burrell DCP- Discharge Planning Updated by [id number]: Tabby Pittman on 01/19/19 6:[address] CM received order to set patient up with trilogy. CM spoke with patient to find out about DME. Patient [place] machine [place]. CM contacted [facility] they couldn't tell CM what kind of machine it was but they gave me DME company that they use at [place]. [employer] out of [place]. CM contacted [facility] they stated that patient had a BiPaP machine. CM then contacted Dr. Ch and he stated that would be fine that a Trilogy would be better but BiPAP will do. CM will continue to follow and assist as needed with discharge planning / needs. DCP- Discharge Planning Updated by [id number]: Tabby Pittman on 01/16/19 4:[address] Patient Name: ELIZABETH BUSTAMANTE Admission Status: ER Accout number: [id number] Admission Date: 01-13-2019 : 1950 Admission Diagnosis: Attending: KRISTIN RIVAS Current LOS: 2 Anticipated DC Date: Planned Disposition: Group Home Facility Primary Insurance: MEDICARE A & B Discharge Planning Comments: CM met with patient at bedside after explaining CM role and obtaining verbal consent. Patient lives at [facility] [phone] Patient states she plans on returning there for Rehab. CM contacted [facility] and they plan on her returning upon discharge. They stated patient was in a halfway bed because she had just been in hospital 2 days prior to this admission. CM will continue to follow and assist as needed with discharge planning / needs. Music Coordinator: Tabby Pittman Appended by Tabby Pittman on 01/16/2019 17:36 CDT: PEARL SIGNED FOR [facility] DCPIA - Discharge Planning Initial Assessment Updated by [id number]: Tabby Pittman on 01/15/19 3:37 pm * Is the patient Alert and Oriented? Yes * Preadmission Environment Group Home Facility * Facility Name [phone] * ADLs Partial Dependent * Partial ADLs (Assistance needed) Ambulation Bathing Dressing Eating Medication Management Toileting Transfers * List name and contact numbers for known caregivers / representatives who currently or will assist patient after discharge: Rafael Gloalbina Albino [facility]- [phone] * Verbal permission to speak to the caregivers and representatives has been obtained from the patient. Yes * Additional services required to return to the preadmission environment? No * Can the patient safely return to the preadmission environment? Yes * Has this patient been hospitalized within the prior 30 days at any hospital? Yes Coverage Notice Reviewer: [id number] Albino Pittman Notice Issued Date-Time: 01/16/2019 17:36 Notice Type: Patient Choice Letter Notice Delivered To: Patient Relationship to Patient: Self Team Psychologist Name: Delivery Method: HAND - Hand Delivered Stephany Days: Prior Verbal Notification: Recipient Understood Notice: Yes Recipient Signature: Yes Med Rec Note Co-signed by Attending: Coverage Notice Comment: Reviewer: [id number] Albino Mane Notice Issued Date-Time: 01/23/2019 13:15 Notice Type: IM Discharge Notice Notice Delivered To: Patient Relationship to Patient: Self Team Psychologist Name: Delivery Method: HAND - Hand Delivered Stephany Days: Prior Verbal Notification: Recipient Understood Notice: Yes Recipient Signature: Yes Med Rec Note Co-signed by Attending: Coverage Notice Comment: Last DP export: 01/23/19 1:32 p Patient Name: ELIZABETH BUSTAMANTE Page [id number] at 1442 All edits/amendments must be made on the electronic document DICTATION DATE: 01/23/19 1442 PIECE GOODS CLERK: ALYSSIA 01/23/19 1442 RPT#: [id number] DC DATE: STATUS: ADM IN [facility] [address] [place] [address] END OF REPORT
--- NOTE | 2019-01-23 14:58 | NUR ---
JAMES JACKSON LPN FROM [facility]. SHE STATES THAT " SOON THE TRANSPORTER GETS BACK, THEY WILL HEAD THAT WAY" SHE GAVE A APPROX TIME OF GLUE SPRAYER OF BETWEEN 5 AND 7 PM TODAY. SHE WAS GIVEN A FULL REPORT FOR DISCHARGE AND REMINDED OF THE PATIENT NEEDING 4-5 LPM OF OXYGEN FOR TRANSPORT.
--- NOTE | 2019-01-23 17:02 | CN ---
PATIENT NAME:ELIZABETH WRAY MEDICAL RECORD: [id number] : [birth year] LOCATION:[facility] D.1204 ADMIT DATE: 01/13/19 ACCOUNT: [id number] CONSULTING PHYSICIAN: GAL HUNT MD REFERRING PHYSICIAN: KRISTIN RIVAS MD DATE OF CONSULTATION: 01/14/2019 CONSULT REQUESTING PHYSICIAN: Kristin Rivas MD REASON FOR CONSULTATION: Pneumonia, left upper lobe; sepsis; COPD; and chronic hypoxic respiratory failure. HISTORY OF PRESENT ILLNESS: Ms. Wray is a 68-year-old female who has a history of chronic hypoxic respiratory failure and COPD. The patient had 3 admissions over the last 2 weeks. Initially, the patient was admitted with anemia and GI bleed and then she was readmitted with pneumonia and acute exacerbation of COPD. The patient was treated and discharged home. Now, she was readmitted to [place] and then, from there, transferred by helicopter with sepsis, pneumonia, and respiratory failure. She was also in renal failure that has been improving. Now, she has cough with very little sputum production. She hears herself wheezing. She is very weak and lethargic. REVIEW OF THE SYSTEMS: As in history of present illness. PAST MEDICAL HISTORY: 1. COPD of severe degree, home oxygen dependent. 2. Coronary artery disease. 3. History of anemia, possible GI bleed. 4. Allergic rhinitis. 5. Arthritis. 6. Anxiety and depression. PAST SURGICAL HISTORY: 1. She had cholecystectomy. 2. Tonsillectomy. 3. Cornea implant. ALLERGIES: SHE IS ALLERGIC TO PENICILLIN, ACETAMINOPHEN, AND SHRIMP. MEDICATIONS: Her [employer] was reviewed. PERSONAL AND SOCIAL HISTORY: The patient is an ex-smoker. She is nondrinker. FAMILY HISTORY: Noncontributory. PHYSICAL EXAMINATION: GENERAL: Now, the patient is lying comfortable in bed. She is not in acute distress. VITAL SIGNS: The blood pressure is 95/55, pulse is 80, respiration is 21, temperature is 97.5, and SpO2 is 93% on 5 liters nasal cannula. HEENT: Conjunctivae are pink. Sclerae are not icteric. NECK: Neck is supple. No JVD. CHEST: There is prolonged expiration with wheezing. There is crackle. HEART: Rhythm regular. Normal sound. No murmur. ABDOMEN: Abdomen is soft. Bowel sounds present. No hepatosplenomegaly. CONSULT REPORT [id number] ELIZABETH WRAY RECTAL: Deferred. EXTREMITIES: No cyanosis. No clubbing. No pedal edema. CENTRAL NERVOUS SYSTEM: The patient is awake and alert. There is no obvious cranial nerve abnormality. The gait was not tested. DIAGNOSTIC DATA: Chest radiograph; there is hyperinflation. There is infiltrate in left upper lobe. LABORATORY DATA: CBC; the WBC is 10.5, hemoglobin 9.4, hematocrit 31, and the platelet count is 277. Chemistry; sodium is 136, potassium 4.2, BUN is 25, and creatinine is 1.5. Creatinine improved to 1.2. IMPRESSION: 1. Jdoem-sp-gijlajj hypoxic hypercapnic respiratory failure. 2. Pneumonia, left upper lobe. 3. Sepsis. 4. Septic shock. 5. UTI. 6. COPD acute exacerbation. 7. Anemia, most likely secondary to GI bleed, stable. RECOMMENDATION: 1. Continue supplemental oxygen and BiPAP if required. 2. Continue vancomycin and meropenem. I will add Levaquin. 3. Levophed to titrate to systolic blood pressure above 90. 4. Start methylprednisolone IV. Start on Brovana and budesonide nebulizer. 5. Start albuterol/ipratropium nebulizer. 6. Follow up labs and chest radiograph. Continue the present IV fluid. Dr. Rivas, thank you for involving me in the care of Ms. Wray. The critical care time was 50 minutes. TRANSINT:[id number] Voice Confirmation ID: [id number] DOCUMENT ID: [id number] GAL HUNT MD at 1702 CC: [id number] DICTATION DATE: 01/14/19 1407 BAGGAGE AGENT: 01/14/19 1541 ADM IN [place] [address] [place] [address]
--- NOTE | 2019-01-24 09:03 | MORECARE ---
CASE MANAGEMENT DISCHARGE SUMMARY PATIENT: ELIZABETH BUSTAMANTE UNIT: [id number] ADM DATE: 01/13/19 AGE: 68 : [birth year] SEX: F ROOM/BED: D.1204 AUTHOR: BLANKA MCNAIR PHYSICIAN: REFERRING PHYSICIAN: KRISTIN RIVAS MD DATE OF SERVICE: 01/24/19 Discharge Plan Patient Name: ELIZABETH BUSTAMANTE Facility: [facility]:[place] : 1950 Planned Disposition: [facility]sp Facility Anticipated Discharge Date: Discharge Date: 01/23/2019 Expected LOS: Initial Reviewer: [email or web address] Initial Review Date: 01/13/2019 Generated: 01/24/19 10:03 am Comments DCP- Discharge Planning Updated by [id number]: Ame Burrell on 01/23/19 1:[address] Patient Name: ELIZABETH BUSTAMANTE Encounter No: [id number] : 1950 Primary Insurance: MEDICARE A & B Anticipated DC Date: Planned Disposition: [facility] in a Medicaid Bed. External Planned Provider: [facility] in a Medicaid Bed. [facility] consult completed, Dr. Santos recommends patient returning to the nursing facility as she does not meet criteria for inpatient correction. CM spoke to Dr. Joy and requested dc orders. CM spoke to Eugenia @ [facility] re: discharge, cm faxed dc summary, dc med list, and dc order to her @ [phone]. Eugenia to return call to the nursing unit with transportation time. Nurse report to be called to [phone] after [facility] calls back once fax reviewed. Cm will continue to follow and will assist with dc plans/needs. Ame Burrell RN, [facility] DCP follow-up note: Patient and family in agreement with discharge plan. Updated orders and requested information faxed to SNF. Patient\family notified of anticipated dc time. SNF phone number and contact information given to patient \family. Patient will be transported by Ame Burrell DCP- Discharge Planning Updated by [id number]: Tabby Pittman on 01/19/19 6:[address] CM received order to set patient up with trilogy. CM spoke with patient to find out about DME. [place]. CM contacted [facility] they couldn't tell CM what kind of machine it was but they gave me DME company that they use at [place]. [employer] out of [place]. CM contacted [facility] they stated that patient had a BiPaP machine. CM then contacted Dr. Ch and he stated that would be fine that a Trilogy would be better but BiPAP will do. CM will continue to follow and assist as needed with discharge planning / needs. DCP- Discharge Planning Updated by [id number]: Tabby Pittman on 01/16/19 4:[address] Patient Name: ELIZABETH BUSTAMANTE Admission Status: ER Accout number: [id number] Admission Date: 01-13-2019 : 1950 Admission Diagnosis: Attending: KRISTIN RIVAS Current LOS: 2 Anticipated DC Date: Planned Disposition: [facility] Facility Primary Insurance: MEDICARE A & B Discharge Planning Comments: CM met with patient at bedside after explaining CM role and obtaining verbal consent. Patient lives at [facility] [phone] Patient states she plans on returning there for Rehab. CM contacted [facility] and they plan on her returning upon discharge. They stated patient was in a chcf bed because she had just been in hospital 2 days prior to this admission. CM will continue to follow and assist as needed with discharge planning / needs. Unattended Ground Sensor Specialist: Tabby Pittman Appended by Tabby Pittman on 01/16/2019 17:36 CDT: PEARL SIGNED FOR [facility] DCPIA - Discharge Planning Initial Assessment Updated by [id number]: Tabby Pittman on 01/15/19 3:37 pm * Is the patient Alert and Oriented? Yes * Preadmission Environment [facility] Facility * Facility Name [phone] * ADLs Partial Dependent * Partial ADLs (Assistance needed) Ambulation Bathing Dressing Eating Medication Management Toileting Transfers * List name and contact numbers for known caregivers / representatives who currently or will assist patient after discharge: Rafael barrios- [phone] * Verbal permission to speak to the caregivers and representatives has been obtained from the patient. Yes * Additional services required to return to the preadmission environment? No * Can the patient safely return to the preadmission environment? Yes * Has this patient been hospitalized within the prior 30 days at any hospital? Yes Coverage Notice Reviewer: [id number] Albino Pittman Notice Issued Date-Time: 01/16/2019 17:36 Notice Type: Patient Choice Letter Notice Delivered To: Patient Relationship to Patient: Self Lode Miner Blasting Name: Delivery Method: HAND - Hand Delivered Stephany Days: Prior Verbal Notification: Recipient Understood Notice: Yes Recipient Signature: Yes Med Rec Note Co-signed by Attending: Coverage Notice Comment: Reviewer: [id number] Albino Mane Notice Issued Date-Time: 01/23/2019 13:15 Notice Type: IM Discharge Notice Notice Delivered To: Patient Relationship to Patient: Self Lode Miner Blasting Name: Delivery Method: HAND - Hand Delivered Stephany Days: Prior Verbal Notification: Recipient Understood Notice: Yes Recipient Signature: Yes Med Rec Note Co-signed by Attending: Coverage Notice Comment: Last DP export: 01/23/19 1:42 p Patient Name: ELIZABETH BUSTAMANTE Page [id number] at 0903 All edits/amendments must be made on the electronic document DICTATION DATE: 01/24/19901 RIBBER: ALYSSIA 01/24/19901 RPT#: [id number] DC DATE:01/23/19 STATUS: DIS IN [facility] [address] [place] [address] END OF REPORT
--- NOTE | 2019-01-24 12:50 | CN ---
PATIENT NAME:ELIZABETH BUSTAMANTE MEDICAL RECORD: [id number] : [birth year] LOCATION:D. D.1204 ADMIT DATE: 01/13/19 ACCOUNT: [id number] CONSULTING PHYSICIAN: RAVEN SERRANO MD REFERRING PHYSICIAN: KRISTIN RIVAS MD DATE OF CONSULTATION: 01/23/2019 PSYCHIATRIC CONSULTATION IDENTIFYING DATA: The patient is 68 years old and she is admitted to the hospital on a voluntary basis. CHIEF COMPLAINT: Shortness of breath. HISTORY OF PRESENT ILLNESS: The patient has COPD. She developed pneumonia. She was transferred here from a jail facility in [place]. The patient is now medically stable. Her pneumonia has cleared, but she is still having some problems. I read from progress note from today, at which time I suspect is fully accurate, but she denies the information contained in it. She says she is perfectly willing to go back to the jail facility, it is just that she wants something to help her relax and rest during the difficult 2-hour drive. She admits that the tramadol, Ativan, and BuSpar are adequate here, but that she wants something during the transport. She denies intent to harm herself or others. She denies overt psychotic symptoms. She strongly denies that she has been smoking in the bathroom and wants me to look through her purse to ensure that there are no cigarettes or cigarette channel cementer insole machine in the purse. Naturally, I refused to do so. She denies psychotic symptoms and does say that she is just upset about a long ambulance ride that is going to be very uncomfortable. When asked what she would like to have during the ambulance ride, she tells me that "I am the doctor, I should decide that." ASSESSMENT: Adjustment disorder with mixed emotional features. PLAN: The patient is not acutely dangerous, suicidal or homicidal or psychotic. She has a depressed mood, but it is probably largely situational and almost certainly associated with an underlying personality disorder. There is certainly no reason for her to be admitted to a behavioral unit at this time. Furthermore, I am comfortable and I think it is appropriate that she is receiving the BuSpar, Ativan, and tramadol. She is also receiving both Abilify and Cymbalta for what I presume is an underlying depressive illness that has been refractory to treatment. I think that these medicines and doses are appropriate and I would maintain them. Some sort of mental health followup in the [place] area would be advisable, but at this time there is no reason for her to be hospitalized on our behavioral unit. TRANSINT:[id number] Voice Confirmation ID: [id number] DOCUMENT ID: [id number] CONSULT REPORT [id number] ELIZABETH BUSTAMANTE PETER MD at 1250 CC: [id number] DICTATION DATE: 01/23/19 1304 FIELD COIL WINDER: 01/23/19 1428 DIS IN 01/23/19 [place] [place] [address]
== END 2019-01-23 18:36 | DRG 871 ==
LOC: D.ER 21:35 → D.ICU 21:47 → D.M3 21:47 → D.ICU 22:36 → D.M3 01-15 13:45
PROVIDERS: Family Medicine; Internal Medicine Nephrology; ADMIT Family Medicine; ATTEND Family Medicine
PROC: 05HC33Z Insertion of Infusion Device into Left Basilic Vein, Percutaneous Approach (ICD-10-PCS; principal; 2019-01-18)
PROC: B54NZZA Ultrasonography of Left Upper Extremity Veins, Guidance (ICD-10-PCS; 2019-01-18)
DX: A41.9 Sepsis, unspecified organism (principal); R65.21 Severe sepsis with septic shock; J96.21 Acute and chronic respiratory failure with hypoxia; J18.1 Lobar pneumonia, unspecified organism; J96.22 Acute and chronic respiratory failure with hypercapnia; N39.0 Urinary tract infection, site not specified; N17.9 Acute kidney failure, unspecified; I50.30 Unspecified diastolic (congestive) heart failure; Z99.81 Dependence on supplemental oxygen; D64.9 Anemia, unspecified; I25.10 Atherosclerotic heart disease of native coronary artery without angina pectoris; F41.9 Anxiety disorder, unspecified; F32.9 Major depressive disorder, single episode, unspecified; J30.9 Allergic rhinitis, unspecified; I73.9 Peripheral vascular disease, unspecified; E61.1 Iron deficiency; E03.9 Hypothyroidism, unspecified; K26.9 Duodenal ulcer, unspecified as acute or chronic, without hemorrhage or perforation; K21.0 Gastro-esophageal reflux disease with esophagitis; K29.70 Gastritis, unspecified, without bleeding; I48.91 Unspecified atrial fibrillation

== ENCOUNTER 2019-01-24 17:35 | Inpatient (IN) | payer MEDICARE ==
[~2019-01-24] VITALS: Ht 162.6 cm; Wt 65.0 kg
[~2019-01-24 17:35] MED LIST changes: +BUSPAR5 MG PO; +LASIX40 MG PO; +PREDNISONE20 MG PO; +SYNTHROID150 MCG PO
[2019-01-24 18:00] VITALS: BP 114/60
[2019-01-24 19:00] VITALS: BP 111/71
--- NOTE | 2019-01-24 19:07 | NUR ---
BS REPORT TO KAY JAIME BY SBAR FORMAT
--- NOTE | 2019-01-24 19:12 | NUR ---
TRENT CARE PROVIDED TO PT, BED LINENS CHANGED. PT TOLERATED WELL. PT GIVEN WARM BLANKETS. DENIES ANY FURTHER NEEDS AT THIS TIME. WILL CONTINUE TO MONITOR.
[2019-01-24 19:32] LABS: BASOPHILS 0.3 % (0-2); EOSINOPHILS 0 % (0-7); HEMATOCRIT 37.2 % (36.0-48.0); HEMOGLOBIN 10.9 g/dL (12-16); IMMATURE GRANULOCYTES 8.3 % (0-5); LYMPHOCYTES 7.3 % (15-50); MCH 27.6 pg (26.0-34.0); MCHC 29.3 g/dL (31.0-37.0); MCV 94.2 fL (80.0-100.0); MEAN PLATELET VOLUME 8.9 fL (7.4-10.4); MONOCYTES 1.6 % (2-11); NEUTROPHILS 82.5 % (40-80); PLATELET COUNT 388 10x3/uL (130-400); RBC 3.95 10x6/uL (4.00-5.40); RDW 19.5 % (11.5-14.5)
[2019-01-24 19:33] LABS: WBC 6.3 10x3/uL (4.8-10.8)
[2019-01-24 19:56] LABS: APPEARANCE CLEAR (CLEAR); BILIRUBIN NEGATIVE (NEGATIVE); COLOR YELLOW (YELLOW); GLUCOSE 250 mg/dL (NEGATIVE); KETONE NEGATIVE (NEGATIVE); NITRITE NEGATIVE (NEGATIVE); PROTEIN NEGATIVE (NEGATIVE); SPECIFIC GRAVITY 1.005 (1.005-1.020); UROBILINOGEN NORMAL (NORMAL)
[2019-01-24 20:00] VITALS: BP 111/61; BP 123/72
[2019-01-24 20:11] LABS: ALBUMIN 2.9 g/dL (3.4-5.0); ALKALINE PHOSPHATASE 132 U/L (46-116); ALT (SGPT) 19 U/L (10-68); BILIRUBIN - TOTAL 0.41 mg/dL (0.2-1.3); CALCIUM 8.3 mg/dL (8.5-10.1); CHLORIDE - SERUM 100 mmol/L (98-107); CREATININE - SERUM 0.6 mg/dL (0.6-1.3); MAGNESIUM - SERUM 2.2 mg/dL (1.8-2.4); PRO BNP 245 pg/mL (0-125); PROTEIN - SERUM 5.7 g/dL (6.4-8.2); SODIUM 144 mmol/L (136-145); UREA NITROGEN 20 mg/dL (7-18); eGFR NON AFRICAN AMERICAN > 90 mL/min (90-120)
[2019-01-24 20:22] LABS: CALC OSMOLALITY 293 mosm/kg (275-300); GLUCOSE 169 mg/dL (74-106)
--- NOTE | 2019-01-24 20:24 | NUR ---
PT'S IV VANCOMYCIN FINISHED.
[2019-01-24 20:25] LABS: CARBON DIOXIDE 41.1 mmol/L (21.0-32.0); TROPONIN-I < 0.017 ng/mL (0.000-0.060)
[2019-01-25] VITALS (7 sets, daily range): BP systolic 106–145; BP diastolic 68–80; Ht 162.6 cm; Wt 65.0 kg
--- NOTE | 2019-01-25 02:00 | NUR ---
RECIEVED PT FROM THE [facility]. COMPLETED PT INITIAL ASSESSMENT AND HISTORY. PT ANSWERED MOST QUESTIONS. VSS, AAOX2, LETHARGIC, OCCASSINALLY FALLS ASLEEP, BUT AROUSE TO VOICE. CPAP ON. NO S/S OF RR DISTRESS. WILL CPOC.
--- NOTE | 2019-01-25 05:05 | NUR ---
PT AWAKE, STATES "I CAN'T STAND MY CPAP MASK I WANT IT OFF NOW" CALLED RT. RT STATE IT CAN BE TAKEN SINCE SHE'S HAD IT ON ALL NIGHT. PT CURRENTLY ON 4L NC, O2SAT @94. NO S/S OF DISTRESS NOTED. APPLE SAUCE AND ICE PROVIDED PER PT REQUEST. PT STATE "I HAVE TO HAVE SOMETHING IN MY MY MOUTH, MY MOUTH IS DRY." PT IN BED WITH EYES OPEN, DENIES ANY FURTHER NEEDS AT THIS TIME. WILL CTM. CL WITHIN REACH.
[2019-01-25 05:57] LABS: CALC OSMOLALITY 290 mosm/kg (275-300); CALCIUM 8.4 mg/dL (8.5-10.1); CARBON DIOXIDE 39.1 mmol/L (21.0-32.0); CHLORIDE - SERUM 105 mmol/L (98-107); CREATININE - SERUM 0.5 mg/dL (0.6-1.3); MAGNESIUM - SERUM 2.1 mg/dL (1.8-2.4); PHOSPHOROUS 3.5 mg/dL (2.5-4.9); POTASSIUM - SERUM 3.9 mmol/L (3.5-5.1); PRO BNP 347 pg/mL (0-125); SODIUM 145 mmol/L (136-145); UREA NITROGEN 19 mg/dL (7-18); eGFR NON AFRICAN AMERICAN > 90 mL/min (90-120)
[2019-01-25 05:59] LABS: GLUCOSE 96 mg/dL (74-106)
[2019-01-25 06:01] LABS: HEMATOCRIT 33.4 % (36.0-48.0); HEMOGLOBIN 9.8 g/dL (12-16); MCH 27.3 pg (26.0-34.0); MCHC 29.3 g/dL (31.0-37.0); MEAN PLATELET VOLUME 9.5 fL (7.4-10.4); PLATELET COUNT 418 10x3/uL (130-400); RBC 3.59 10x6/uL (4.00-5.40); RDW 19.3 % (11.5-14.5); WBC 6.5 10x3/uL (4.8-10.8)
[2019-01-25 07:57] LABS: ANISOCYTOSIS OCC; LYMPHOCYTES 14 % (15-50); MONOCYTES 11 % (2-11); NEUTROPHILS 72 % (40-80); PLATELET ESTIMATE INCREASED
--- NOTE | 2019-01-25 08:00 | NUR ---
PT RESTING IN BED, SHIFT ASSESSMENT PERFORMED. ASSISTED PT OFF HER BIPAP AND ON A NC SO THAT SHE CAN EAT. DENIES ANY NEEDS AT THIS TIME, WILL CONT TO FOLLOW POC
--- NOTE | 2019-01-25 08:15 | NUR ---
PT STATES SHE CANNOT BREATHE. RE-APPLIED PT BIAPAP
--- NOTE | 2019-01-25 12:00 | NUR ---
TOOK OFF PT BIPAP SO THAT SHE COULD ATTEMPT TO EAT LUNCH
--- NOTE | 2019-01-25 12:10 | NUR ---
PT STATES SHE CANNOT BREATHE. RE-APPLIED PT BIPAP
--- NOTE | 2019-01-25 20:12 | NUR ---
PT REST IN BED, BIPAP ON. CALL LIGHT IN REACH.
[2019-01-26] VITALS: BP 100/53
--- NOTE | 2019-01-26 03:12 | NUR ---
REST QUIETLY IN BED. EYE CLOSE. CALL LIGHT IN REACH.
[2019-01-26 05:00] VITALS: BP 104/56
--- NOTE | 2019-01-26 06:14 | NUR ---
I have reviewed this patient and I concur with the Shift Assessment completed by the Licensed Practical Nurse today this shift.
[2019-01-26 08:05] LABS: BASOPHILS 0.2 % (0-2); EOSINOPHILS 0 % (0-7); HEMATOCRIT 34.9 % (36.0-48.0); HEMOGLOBIN 10.2 g/dL (12-16); IMMATURE GRANULOCYTES 3.5 % (0-5); LYMPHOCYTES 7.4 % (15-50); MCH 27.3 pg (26.0-34.0); MCHC 29.2 g/dL (31.0-37.0); MCV 93.3 fL (80.0-100.0); MEAN PLATELET VOLUME 9.6 fL (7.4-10.4); MONOCYTES 3.6 % (2-11); NEUTROPHILS 85.3 % (40-80); PLATELET COUNT 415 10x3/uL (130-400); RBC 3.74 10x6/uL (4.00-5.40); RDW 19.4 % (11.5-14.5)
[2019-01-26 08:08] LABS: WBC 10.2 10x3/uL (4.8-10.8)
[2019-01-26 08:18] LABS: CALCIUM 8.5 mg/dL (8.5-10.1); CARBON DIOXIDE 38.1 mmol/L (21.0-32.0); CHLORIDE - SERUM 102 mmol/L (98-107); CREATININE - SERUM 0.6 mg/dL (0.6-1.3); MAGNESIUM - SERUM 2.1 mg/dL (1.8-2.4); SODIUM 142 mmol/L (136-145); eGFR NON AFRICAN AMERICAN > 90 mL/min (90-120)
[2019-01-26 08:19] LABS: CALC OSMOLALITY 293 mosm/kg (275-300); GLUCOSE 214 mg/dL (74-106); UREA NITROGEN 26 mg/dL (7-18)
[2019-01-26 09:55] VITALS: BP 117/66
[2019-01-26 12:49] VITALS: BP 119/63
--- NOTE | 2019-01-26 15:59 | NUR ---
REMOVED IV FROM LEFT AC THAT WAS INFILTRATED. CATHETER INTACT. PATIENT TOLERATED. STARTED NEW IV IN LEFT FOREARM. ONE STICK, 22G PATIENT TOLERATED. THERE IS A SKIN TEAR ON THE LEFT AC, AND PLACED A CLEAR DRESSING OVER. THERE IS A OLD SKIN TEAR ON THE RIGHT WRIST. PLACED A DRESSING OVER. REMOVED OLD WRIST BAND AND PLACED CORRECT WRIST BAND ON THE RIGHT WRIST. PATIENT REPORTS THAT SHE HAS BEEN COUGHING UP MORE FLEM SINCE HER BREATHING TREATMENT. DENIES ANY OTHER NEEDS AT THIS TIME.
[2019-01-26 17:57] VITALS: BP 97/55
--- NOTE | 2019-01-26 19:30 | NUR ---
RECEIVED REPORT, WILL ASSUME CARE OF PT, DENIES ANY NEEDS AT THIS TIME, 09-18.5L, [id number], WILL CONTINUE PLAN OF CARE, CALL LIGHT IN REACH,
[2019-01-26 20:00] VITALS: BP 111/59
[2019-01-27] VITALS: BP 100/54
--- NOTE | 2019-01-27 02:06 | NUR ---
SLEEPING, BIPAP IS ON, BED IS LOW, SRX2, CALL LIGHT IN REACH, WILL CONTINUE PLAN OF CARE
--- NOTE | 2019-01-27 03:19 | NUR ---
PT TOOK BIPAP OFF, ASKING FOR COFFEE AND ICE WATER, PROVIDED
[2019-01-27 04:00] VITALS: BP 133/74
[2019-01-27 04:26] LABS: BASOPHILS 0.1 % (0-2); EOSINOPHILS 0 % (0-7); HEMATOCRIT 34.6 % (36.0-48.0); HEMOGLOBIN 10.5 g/dL (12-16); IMMATURE GRANULOCYTES 2.3 % (0-5); LYMPHOCYTES 7.8 % (15-50); MCH 27.9 pg (26.0-34.0); MCHC 30.3 g/dL (31.0-37.0); MEAN PLATELET VOLUME 9.2 fL (7.4-10.4); MONOCYTES 7.5 % (2-11); NEUTROPHILS 82.3 % (40-80); PLATELET COUNT 380 10x3/uL (130-400); RBC 3.76 10x6/uL (4.00-5.40); RDW 19.2 % (11.5-14.5); WBC 12.3 10x3/uL (4.8-10.8)
[2019-01-27 04:36] LABS: CALC OSMOLALITY 291 mosm/kg (275-300); CALCIUM 8.8 mg/dL (8.5-10.1); CARBON DIOXIDE 36.2 mmol/L (21.0-32.0); CHLORIDE - SERUM 103 mmol/L (98-107); CREATININE - SERUM 0.6 mg/dL (0.6-1.3); GLUCOSE 197 mg/dL (74-106); MAGNESIUM - SERUM 2.2 mg/dL (1.8-2.4); PHOSPHOROUS 2.7 mg/dL (2.5-4.9); SODIUM 143 mmol/L (136-145); eGFR NON AFRICAN AMERICAN > 90 mL/min (90-120)
[2019-01-27 04:37] LABS: UREA NITROGEN 19 mg/dL (7-18)
--- NOTE | 2019-01-27 04:38 | NUR ---
I have reviewed this patient and I concur with the Shift Assessment completed by the Licensed Practical Nurse today this shift.
--- NOTE | 2019-01-27 07:41 | NUR ---
RECIEVED REPORT. PATIENT IS RESTING IN BED, AND DOES NOT REPORT WHEN SHE IS WET. CHANGED HER BEDDING THIS MORNING, AND USED THE NYSTATIN POWDER TO REDUCE THE REDDNESS ON HER GROIN AREA THAT LOOKS LIKE YEAST. SHE MUST BE KEPT CLEAN AND DRY. WILL CONTINUE TO MONITOR CLOSELY.
[2019-01-27 10:08] VITALS: BP 138/69
--- NOTE | 2019-01-27 14:21 | NUR ---
rehab prescreen: this [facility], has medicare insurance. currently not doing therapy because of anxiety due to breathing problems. we will monitor her progress, but may be too weak for inpatient rehab and may needs a slower pace rehab, possibly at her previous group home. thank you for this eval. didi bentley lpn clinical liasion
[2019-01-27 18:55] VITALS: BP 117/60
--- NOTE | 2019-01-27 19:33 | NUR ---
RECEIVED REPORT, WILL ASSUME CARE OF PT, PT IS SLEEPING, NO DISTRESS NOTICED AT THIS TIME, BED IS LOW, SRX2, CALL LIGHT IN REACH, WILL CONTINUE PLAN OF CARE
[2019-01-27 20:00] VITALS: BP 115/62
[2019-01-28] VITALS: BP 118/67
--- NOTE | 2019-01-28 03:18 | NUR ---
I have reviewed this patient and I concur with the Shift Assessment completed by the Licensed Practical Nurse today this shift.
[2019-01-28 04:00] VITALS: BP 102/67
--- NOTE | 2019-01-28 07:10 | NUR ---
REPORT [id number] FROM POCKET MAKER AND PATIENT CARE ASSUMED. PATIENT LAYING IN BED ON RT SIDE WITH EYES CLOSED AND BREATHING EVENLY. PATIENT IS STABLE AND VSS. WILL CONTINUE WITH PLAN OF CARE. SR UP X 2 BED IN LOW POSITION AND CALL LIGHT IN REACH.
[2019-01-28 07:54] LABS: CALCIUM 8.5 mg/dL (8.5-10.1); CARBON DIOXIDE 33.8 mmol/L (21.0-32.0); CHLORIDE - SERUM 103 mmol/L (98-107); MAGNESIUM - SERUM 2.2 mg/dL (1.8-2.4); SODIUM 141 mmol/L (136-145)
[2019-01-28 07:55] LABS: CALC OSMOLALITY 287 mosm/kg (275-300); CREATININE - SERUM 0.3 mg/dL (0.6-1.3); GLUCOSE 141 mg/dL (74-106); PHOSPHOROUS 3.6 mg/dL (2.5-4.9); POTASSIUM - SERUM 5.7 mmol/L (3.5-5.1); UREA NITROGEN 26 mg/dL (7-18); eGFR NON AFRICAN AMERICAN > 90 mL/min (90-120)
[2019-01-28 08:51] VITALS: BP 115/65
[2019-01-28 10:28] LABS: BASOPHILS 0.2 % (0-2); EOSINOPHILS 0.1 % (0-7); HEMATOCRIT 37.2 % (36.0-48.0); HEMOGLOBIN 11.2 g/dL (12-16); LYMPHOCYTES 7.3 % (15-50); MCH 27.7 pg (26.0-34.0); MCHC 30.1 g/dL (31.0-37.0); MCV 92.1 fL (80.0-100.0); MEAN PLATELET VOLUME 9.5 fL (7.4-10.4); MONOCYTES 8.5 % (2-11); NEUTROPHILS 81.9 % (40-80); PLATELET COUNT 383 10x3/uL (130-400); RBC 4.04 10x6/uL (4.00-5.40)
[2019-01-28 10:39] LABS: WBC 16.6 10x3/uL (4.8-10.8)
--- NOTE | 2019-01-28 11:16 | NUR ---
PATIENT AWAKE, ALERT AND ORIENTED X 2. PATIENT DENIES ANY NEEDS OR PAIN. PATIENT IS STABLE AND UNCHANGED. WILL CONTINUE TO MONITOR. SR UP X 2 BED IN LOW POSITION AND CALL LIGHT IN REACH.
[2019-01-28 12:07] VITALS: BP 118/72
[2019-01-28 16:59] VITALS: BP 120/80
--- NOTE | 2019-01-28 17:50 | NUR ---
PATIENT RESTING COMFORTABLY IN BED . PATIENT DENIES ANY NEEDS OR PAIN . PATIENT IS STABLE AND UNCHANGED. WILL CONRTINUE TO MONITOR. SR UP X 2 BED IN LOW POSITION AND CALL LIGHT IN REACH.
[2019-01-28 20:00] VITALS: BP 98/50
--- NOTE | 2019-01-28 23:42 | NUR ---
EVENING ROUNDS COMPLETED. PT SITTING UP IN BED WITH EYES OPEN, RR EVEN AND UNLABORED. PROVIDED PT BED TIME SNACK. PT DENIES FURTHER NEEDS AT THIS TIME. NO S/S OF DISTRESS. EVENING MEDICATIONS ADMINISTERED WITHOUT ISSUE. HELD ORDERED METOPROLOL FOR PT BLOOD PRESSURE OF 98/52.
[2019-01-29] VITALS: BP 102/55
--- NOTE | 2019-01-29 03:59 | NUR ---
I have reviewed this patient and I concur with the Shift Assessment completed by the Licensed Practical Nurse today this shift.
[2019-01-29 04:00] VITALS: BP 104/56
[2019-01-29 05:36] LABS: BASOPHILS 0.2 % (0-2); EOSINOPHILS 0 % (0-7); HEMATOCRIT 35.9 % (36.0-48.0); HEMOGLOBIN 10.9 g/dL (12-16); LYMPHOCYTES 6.1 % (15-50); MCH 27.5 pg (26.0-34.0); MCHC 30.4 g/dL (31.0-37.0); MCV 90.7 fL (80.0-100.0); MEAN PLATELET VOLUME 9.8 fL (7.4-10.4); MONOCYTES 5.3 % (2-11); NEUTROPHILS 86.4 % (40-80); PLATELET COUNT 347 10x3/uL (130-400); RBC 3.96 10x6/uL (4.00-5.40); RDW 19.2 % (11.5-14.5)
--- NOTE | 2019-01-29 05:58 | NUR ---
PT ASKS IF A REPRESENATIVE WAS AVAILABLE TO SPEAK WITH HER FROM [facility], INFORMED HER THERE WAS NO ONE HERE FROM [facility]. PT STATES CONCERNS FOR BREATHING TREATMENTS SHES RECEIVING AT [facility]. WILL CTM.
[2019-01-29 06:00] LABS: CALCIUM 8.6 mg/dL (8.5-10.1); CARBON DIOXIDE 35.9 mmol/L (21.0-32.0); CHLORIDE - SERUM 101 mmol/L (98-107); MAGNESIUM - SERUM 2.1 mg/dL (1.8-2.4); PHOSPHOROUS 3.6 mg/dL (2.5-4.9); SODIUM 142 mmol/L (136-145); UREA NITROGEN 25 mg/dL (7-18)
[2019-01-29 06:07] LABS: CALC OSMOLALITY 293 mosm/kg (275-300); CREATININE - SERUM 0.6 mg/dL (0.6-1.3); GLUCOSE 232 mg/dL (74-106); eGFR NON AFRICAN AMERICAN > 90 mL/min (90-120)
[2019-01-29 06:11] LABS: WBC 10.7 10x3/uL (4.8-10.8)
--- NOTE | 2019-01-29 07:30 | NUR ---
PT RESTING IN BED, SHIFT ASSESSMENT PERFORMED. DENIES ANY NEEDS AT THIS TIME. WILL CONT TO FOLLOW POC
[2019-01-29 08:00] VITALS: BP 104/56
--- NOTE | 2019-01-29 10:03 | MORECARE ---
CASE MANAGEMENT DISCHARGE SUMMARY PATIENT: ELIZABETH BUSTAMANTE UNIT: [id number] ADM DATE: 01/24/19 AGE: 68 : 48 SEX: F ROOM/BED: D.2131 AUTHOR: BLANKA MCNAIR PHYSICIAN: REFERRING PHYSICIAN: SHU GRESHAM DO DATE OF SERVICE: 01/29/19 Discharge Plan Patient Name: ELIZABETH BUSTAMANTE [facility] [facility] 1950 [facility] Disposition: [facility] Facility Anticipated Discharge Date: 01/29/19 Discharge Date: Expected LOS: 5 Initial Reviewer: [email or web address] Initial Review Date: 01/29/2019 Generated: 01/29/19 11:03 am Comments DCP- Discharge Planning Updated by [email or web address]: Mary Correa on 01/26/19 4:[address] PATIENT DISCHARGED 01/23/19. READMITTED FROM [facility]. External Providers External Provider: OTHER-OTHER Next Contact Date: 01/29/2019 Service Request Date: Service Type: Resolution: Reviewer: Comments: Patient Name: ELIZABETH BUSTAMANTE Page [phone] at 1003 All edits/amendments must be made on the electronic document DICTATION DATE: 01/29/19 1003 CYCLE ANALYST: ALYSSIA 01/29/19 1003 RPT#: [id number] DC DATE: STATUS: ADM IN [facility] [address] [place] [address] END OF REPORT
--- NOTE | 2019-01-29 11:36 | MORECARE ---
CASE MANAGEMENT DISCHARGE SUMMARY PATIENT: ELIZABETH BUSTAMANTE UNIT: [id number] ADM DATE: 01/24/19 AGE: 68 : 48 SEX: F ROOM/BED: D.2131 AUTHOR: BLANKA MCNAIR PHYSICIAN: REFERRING PHYSICIAN: SHU GRESHAM DO DATE OF SERVICE: 01/29/19 Discharge Plan Patient Name: ELIZABETH BUSTAMANTE Facility: [facility]:[place] : 1950 Planned Disposition: Residential Facility Anticipated Discharge Date: 01/29/19 Discharge Date: Expected LOS: 5 Initial Reviewer: [id number] Initial Review Date: 01/29/2019 Generated: 01/29/19 12:36 pm Comments DCP- Discharge Planning Updated by [email or web address]: Mary Correa on 01/26/19 4:[address] PATIENT DISCHARGED 01/23/19. READMITTED FROM [facility]. DCPIA - Discharge Planning Initial Assessment Updated by [email or web address]: Danial Cosme on 01/29/19 11:29 am * Is the patient Alert and Oriented? Yes * How many steps to enter\exit or inside your home? NONE * Preadmission Environment Residential Facility * Facility Name [facility] [phone] * ADLs Partial Dependent * Partial ADLs (Assistance needed) Ambulation Bathing Medication Management Transfers * Equipment Other * Other Equipment ALL MEDICAL EQUIPMENT PROVIDED BY FACILITY * List name and contact numbers for known caregivers / representatives who currently or will assist patient after discharge: MINOR ANN, SON, * Verbal permission to speak to the caregivers and representatives has been obtained from the patient. N/A * Community resources currently utilized None * Please name any agencies selected above. NONE * Additional services required to return to the preadmission environment? No * Can the patient safely return to the preadmission environment? Yes * Has this patient been hospitalized within the prior 30 days at any hospital? Yes Coverage Notice Reviewer: [id number] Albino Cosme Notice Issued Date-Time: 01/29/2019 9:55 Notice Type: IM Discharge Notice Notice Delivered To: Patient Relationship to Patient: Analytical Strategist Name: Delivery Method: HAND - Hand Delivered Stephany Days: Prior Verbal Notification: Recipient Understood Notice: Yes Recipient Signature: Yes Med Rec Note Co-signed by Attending: Coverage Notice Comment: Reviewer: [id number] - Danial Cosme Notice Issued Date-Time: 01/29/2019 9:55 Notice Type: Patient Choice Letter Notice Delivered To: Patient Relationship to Patient: Analytical Strategist Name: Delivery Method: HAND - Hand Delivered Stephany Days: Prior Verbal Notification: Recipient Understood Notice: Yes Recipient Signature: Yes Med Rec Note Co-signed by Attending: Coverage Notice Comment: HENRY Fajardo DP export: 01/29/19 9:03 a Patient Name: ELIZABETH BUSTAMANTE Page [phone] at 1136 All edits/amendments must be made on the electronic document DICTATION DATE: 01/29/191135 FINISH REPAIR WORKER: ALYSSIA 01/29/19 1136 RPT#: [id number] DC DATE: STATUS: ADM IN [facility] [address] [place] [address] END OF REPORT
--- NOTE | 2019-01-29 11:44 | MORECARE ---
CASE MANAGEMENT DISCHARGE SUMMARY PATIENT: ELIZABETH BUSTAMANTE UNIT: [id number] ADM DATE: 01/24/19 AGE: 68 : 48 SEX: F ROOM/BED: D.2131 AUTHOR: TABBYDOC PHYSICIAN: REFERRING PHYSICIAN: SHU GRESHAM DO DATE OF SERVICE: 01/29/19 Discharge Plan Patient Name: ELIZABETH BUSTAMANTE Facility: [facility]:[place] : 1950 Planned Disposition: [facility] Facility Anticipated Discharge Date: 01/29/19 Discharge Date: Expected LOS: 5 Initial Reviewer: [email or web address] Initial Review Date: 01/29/2019 Generated: 01/29/19 12:44 pm Comments DCP- Discharge Planning Updated by [email or web address]: Danial Cosme on 01/29/19 10:[address] Patient Name: ELIZABETH BUSTAMANTE Admission Status: ER Accout number: [id number] Admission Date: 01-24-2019 : 1950 Admission Diagnosis: Attending: SHU GRESHAM Current LOS: 5 Anticipated DC Date: 01-29-2019 Planned Disposition: [facility] Facility Primary Insurance: MEDICARE A & B PLANNED EXTERNAL PROVIDER: [facility], MEDICARE REHAB BED Discharge Planning Comments: CM RECEIVED DISCHARGE ORDER, MET WITH PT IN ROOM TO DISCUSS DISCHARGE PLANNING AND NEEDS. PT REPORTS LIVING AT [facility] [place] WHERE THEY HAVE BEEN DOING REHAB THERAPY SERVICES. PT REPORTS PLAN TO RETURN THERE TODAY FOR DISCHARGE. PT DENIES DISCHARGE NEEDS, NEEDING VAN INVESTMENT DIRECTOR FOR DISCHARGE BACK TO [place] TODAY. IMPORTANT MESSAGE FROM MEDICARE PROVIDED AND EXPLAINED. PT SIGNED CHOICE FOR [place] RETURN. CM CALLED [facility], , SPOKE TO NIKIA WHO INFORMED CM THAT THEY WILL REVIEW UPDATE WHEN RECEIVED AND CALL CM BACK WITH ADMISSION DETERMINATION TO ACCEPT BACK TO REHAB AND INVESTMENT DIRECTOR TIME. CM FAXED UPDATE AND DISCHARGE INFORMATION TO [facility] AT [phone]. CM WAITING CALL FROM [facility] WITH ADMIT DETERMINATION FOR RETURN TO REHAB. NURSE REPORT TO BE CALLED TO [place] AT [phone]. [place] TO ARRANGE VAN TRANSPORTATION. Senior Research Executive: Danial Cosme DCP- Discharge Planning Updated by [email or web address]: Mary Correa on 01/26/19 4:[address] PATIENT DISCHARGED 01/23/19. READMITTED FROM [facility]. DCPIA - Discharge Planning Initial Assessment Updated by [id number]: Danial Cosme on 01/29/19 11:29 am * Is the patient Alert and Oriented? Yes * How many steps to enter\exit or inside your home? NONE * Preadmission Environment [facility] Facility * Facility Name [facility] [phone] * ADLs Partial Dependent * Partial ADLs (Assistance needed) Ambulation Bathing Medication Management Transfers * Equipment Other * Other Equipment ALL MEDICAL EQUIPMENT PROVIDED BY FACILITY * List name and contact numbers for known caregivers / representatives who currently or will assist patient after discharge: MINOR ANN, NAILA, * Verbal permission to speak to the caregivers and representatives has been obtained from the patient. N/A * Community resources currently utilized None * Please name any agencies selected above. NONE * Additional services required to return to the preadmission environment? No * Can the patient safely return to the preadmission environment? Yes * Has this patient been hospitalized within the prior 30 days at any hospital? Yes Coverage Notice Reviewer: [id number] Albino Cosme Notice Issued Date-Time: 01/29/2019 9:55 Notice Type: IM Discharge Notice Notice Delivered To: Patient Relationship to Patient: Porcelain Enameler Name: Delivery Method: HAND - Hand Delivered Stephany Days: Prior Verbal Notification: Recipient Understood Notice: Yes Recipient Signature: Yes Med Rec Note Co-signed by Attending: Coverage Notice Comment: Reviewer: [id number] Albino Cosme Notice Issued Date-Time: 01/29/2019 9:55 Notice Type: Patient Choice Letter Notice Delivered To: Patient Relationship to Patient: Porcelain Enameler Name: Delivery Method: HAND - Hand Delivered Stephany Days: Prior Verbal Notification: Recipient Understood Notice: Yes Recipient Signature: Yes Med Rec Note Co-signed by Attending: Coverage Notice Comment: HENRY GUZMÁN Scotty DP export: 01/29/19 10:36 a Patient Name: ELIZABETH BUSTAMANTE Page [id number] at 1144 All edits/amendments must be made on the electronic document DICTATION DATE: 01/29/19 1143 ADAPTIVE PHYSICAL EDUCATOR: ALYSSIA 01/29/19 1143 RPT#: [id number] DC DATE: STATUS: ADM IN [facility] [address] [facility] [place] [address] END OF REPORT
[2019-01-29 12:12] VITALS: BP 110/67
--- NOTE | 2019-01-29 12:30 | NUR ---
PT RESTING IN BED, DENIES ANY NEEDS AT THIS TIME. WILL CONT TO FOLLOW POC
[2019-01-29 16:24] VITALS: BP 104/56
--- NOTE | 2019-01-29 16:31 | MORECARE ---
CASE MANAGEMENT DISCHARGE SUMMARY PATIENT: ELIZABETH BUSTAMANTE UNIT: [id number] ADM DATE: 01/24/19 AGE: 68 : 46 SEX: F ROOM/BED: D.2131 AUTHOR: TABYBDOC PHYSICIAN: REFERRING PHYSICIAN: SHU GRESHAM DO DATE OF SERVICE: 01/29/19 Discharge Plan Patient Name: ELIZABETH BUSTAMANTE Facility: [facility]:[place] : 1950 Planned Disposition: [facility] Facility Anticipated Discharge Date: 01/29/19 Discharge Date: Expected LOS: 5 Initial Reviewer: [id number] Initial Review Date: 01/29/2019 Generated: 01/29/19 5:31 pm Comments DCP- Discharge Planning Updated by ALAN: Danial Cosme on 01/29/19 3:[address] Patient Name: ELIZABETH BUSTAMANTE Admission Status: ER Accout number: [id number] Admission Date: 01-24-2019 : 1950 Admission Diagnosis: Attending: SHU GRESHAM Current LOS: 5 Anticipated DC Date: 01-29-2019 Planned Disposition: [facility] Facility Primary Insurance: MEDICARE A & B PLANNED EXTERNAL PROVIDER: [facility] REHAB BED Discharge Planning Comments: CM RECEIVED DISCHARGE ORDER, MET WITH PT IN ROOM TO DISCUSS DISCHARGE PLANNING AND NEEDS. PT REPORTS LIVING AT [facility] WHERE THEY HAVE BEEN DOING REHAB THERAPY SERVICES. PT REPORTS PLAN TO RETURN THERE TODAY FOR DISCHARGE. PT DENIES DISCHARGE NEEDS, NEEDING VAN FOOT CASTER FOR DISCHARGE BACK TO [place] TODAY. IMPORTANT MESSAGE FROM MEDICARE PROVIDED AND EXPLAINED. PT SIGNED CHOICE FOR [place] RETURN. CM CALLED [facility], , SPOKE TO NIKIA WHO INFORMED CM THAT THEY WILL REVIEW UPDATE WHEN RECEIVED AND CALL CM BACK WITH ADMISSION DETERMINATION TO ACCEPT BACK TO REHAB AND FOOT CASTER TIME. CM FAXED UPDATE AND DISCHARGE INFORMATION TO [facility] AT [phone]. CM WAITING CALL FROM [facility] WITH ADMIT DETERMINATION FOR RETURN TO REHAB. NURSE REPORT TO BE CALLED TO [place] AT [phone]. [place] TO ARRANGE VAN TRANSPORTATION. Truck Repair Supervisor: Danial Cosme Appended by Danial Cosme on 01/29/2019 16:27 CDT: CM RECEIVED CALL FROM NIKIA OF [facility], PT CAN RETURN TO REHAB TODAY, VAN ON THE WAY TO FOOT CASTER PT. BEDSIDE NURSE AND CABLE WAY OPERATOR NURSE NOTIFIED. NURSE REPORT TO BE CALLED TO [place] AT [phone]. [place] TO ARRANGE VAN TRANSPORTATION THIS AFTERNOON. Truck Repair Supervisor: Danial Cosme DCP- Discharge Planning Updated by [email or web address]: Mary Correa on 01/26/19 4:[address] PATIENT DISCHARGED 01/23/19. READMITTED FROM [facility]. DCPIA - Discharge Planning Initial Assessment Updated by [email or web address]: Danial Cosme on 01/29/19 11:29 am * Is the patient Alert and Oriented? Yes * How many steps to enter\exit or inside your home? NONE * Preadmission Environment [facility] Facility * Facility Name [facility] [phone] * ADLs Partial Dependent * Partial ADLs (Assistance needed) Ambulation Bathing Medication Management Transfers * Equipment Other * Other Equipment ALL MEDICAL EQUIPMENT PROVIDED BY FACILITY * List name and contact numbers for known caregivers / representatives who currently or will assist patient after discharge: MINOR ANN, SON, * Verbal permission to speak to the caregivers and representatives has been obtained from the patient. N/A * Community resources currently utilized None * Please name any agencies selected above. NONE * Additional services required to return to the preadmission environment? No * Can the patient safely return to the preadmission environment? Yes * Has this patient been hospitalized within the prior 30 days at any hospital? Yes Coverage Notice Reviewer: [id number] Albino Cosme Notice Issued Date-Time: 01/29/2019 9:55 Notice Type: IM Discharge Notice Notice Delivered To: Patient Relationship to Patient: Engraver Hand Hard Metals Name: Delivery Method: HAND - Hand Delivered Stephany Days: Prior Verbal Notification: Recipient Understood Notice: Yes Recipient Signature: Yes Med Rec Note Co-signed by Attending: Coverage Notice Comment: Reviewer: [id number] Albino Cosme Notice Issued Date-Time: 01/29/2019 9:55 Notice Type: Patient Choice Letter Notice Delivered To: Patient Relationship to Patient: Engraver Hand Hard Metals Name: Delivery Method: HAND - Hand Delivered Stephany Days: Prior Verbal Notification: Recipient Understood Notice: Yes Recipient Signature: Yes Med Rec Note Co-signed by Attending: Coverage Notice Comment: HENRY GUZMÁN Last DP export: 01/29/19 10:44 a Patient Name: ELIZABETH BUSTAMANTE Page [id number] at 1631 All edits/amendments must be made on the electronic document DICTATION DATE: 01/29/19 163 REGISTERED NURSE CARDIOVASCULAR ICU: ALYSSIA 01/29/19 163 RPT#: [id number] DC DATE: STATUS: ADM IN [facility] [address] [place] [address] END OF REPORT
--- NOTE | 2019-01-29 16:37 | NUR ---
CALLED REPORT TO SURINDER NURSE AT [facility]
--- NOTE | 2019-01-29 17:58 | NUR ---
DISCHARGE INSTRUCTIONS REVIEWED WITH PT AND ALL QUESTIONS ANSWERED. PIV REMOVED WITH CATHTER TIP INTACT. [facility] IS ON THEIR WAY
--- NOTE | 2019-01-29 19:32 | NUR ---
[facility] STAFF HERE TO PICK PT UP, PT LEFT UNIT VIA WHEELCHAIR, WITH ALL BELONGINGS, ACCOMPANIED BY [facility] STAFF, NAD NOTED.
== END 2019-01-29 19:33 | DRG 193 ==
LOC: D.ER 17:35 → D.M2 18:55
PROVIDERS: Family Medicine; ADMIT Family Medicine; ATTEND Family Medicine
DX: J18.1 Lobar pneumonia, unspecified organism (principal); J96.22 Acute and chronic respiratory failure with hypercapnia; J44.1 Chronic obstructive pulmonary disease with (acute) exacerbation; E44.0 Moderate protein-calorie malnutrition; I50.32 Chronic diastolic (congestive) heart failure; J44.0 Chronic obstructive pulmonary disease with (acute) lower respiratory infection; Z68.34 Body mass index [BMI] 34.0-34.9, adult; I11.0 Hypertensive heart disease with heart failure; E03.9 Hypothyroidism, unspecified; I48.91 Unspecified atrial fibrillation; I27.21 Secondary pulmonary arterial hypertension; I08.1 Rheumatic disorders of both mitral and tricuspid valves; D64.9 Anemia, unspecified; I25.10 Atherosclerotic heart disease of native coronary artery without angina pectoris; J30.9 Allergic rhinitis, unspecified; F32.9 Major depressive disorder, single episode, unspecified; K59.00 Constipation, unspecified; F41.9 Anxiety disorder, unspecified